=== PATIENT | female | born 1940 | race Caucasian/White ===

== ENCOUNTER → 2017-06-04 | Outpatient (CLI) | payer MEDICARE ==
[~2017-06-04] MED LIST: ACHYD1T PO; ATEN-155 PO; GLUC500C2 PO; HYDR-3583 PO; NITR100C3 PO; TRHC5025 PO; TRIA1CAP4 PO
--- NOTE | 2017-06-04 18:47 | Diagnostic Imaging Report ---
INDICATION: Routine screening. Comparison is made with prior study from 08/23/2014. The current study was also evaluated with a Computer Aided Detection (CAD) system. FINDINGS: Mild density is noted bilaterally. There are scattered benign-appearing parenchymal and vascular calcifications bilaterally. No dominant mass or malignant-appearing microcalcifications are seen. The axillae are unremarkable. IMPRESSION: No mammographic features suspicious for malignancy are identified. ACR BI-RADS Category 2: Benign findings. Result letter will be mailed to the patient. Note: At least 10% of breast cancer is not imaged by mammography. Dictated by: Dictated on workstation # [id number]
== END ==
LOC: RAD 09:03
PROVIDERS: ATTEND Family Medicine
DX: Z12.31 Encounter for screening mammogram for malignant neoplasm of breast (principal)
CPT/HCPCS: 77067

== ENCOUNTER 2019-01-19 06:45 | Outpatient (CLI) | payer MEDICARE ==
[~2019-01-19] VITALS: Ht 165.1 cm; Wt 104.4 kg
[2019-01-19] MEDS ORDERED: MELO7.5T46 PO (15:20)
[2019-01-19] MEDS ORDERED: TRIA1CAP4 PO (15:20)
[2019-01-19] MEDS ORDERED: ATEN50TA PO (15:20)
== END 2019-01-19 15:23 | disposition home or self-care (01) ==
LOC: PREOP 06:45
PROVIDERS: ATTEND Specialist
DX: Z01.818 Encounter for other preprocedural examination (principal)

== ENCOUNTER 2019-01-21 10:13 | Day surgery (SDC) | payer MEDICARE, OTHER ==
[~2019-01-21] VITALS: Ht 139.7 cm; Wt 104.4 kg
[~2019-01-21 10:13] MED LIST changes: +ATEN50TA PO; +MELO7.5T46 PO
[2019-01-21] MEDS ORDERED: MOXIFLOXACIN OPHTH SOLN 5 MG/ML 0.3 ML SYRINGE OP ONE (10:30)
[2019-01-21] MEDS ORDERED: TIMOLOL MALEATE 0.5% 5 ML (TIMOPTIC) BTL OU PRN (10:30)
[2019-01-21] MEDS ORDERED: LIDOCAINE PF 1% 2 ML AMP IR PRN (10:30)
[2019-01-21] MEDS ORDERED: POVIDONE (BETADINE) OPHTH SOLN 5% 30 ML OP ONE (10:30)
[2019-01-21] MEDS: TETRACAINE 0.5% OPHTH SOLN 4 ML BTL (SINGLE DOSE ONLY) OU PRN ×4 (10:31→10:52)
[2019-01-21 10:40] VITALS: BP 155/80
[2019-01-21] MEDS: CYCLOPENTOLATE 1% (CYCLOGYL) 2 ML DROPS OP SCH ×3 (10:41→10:52)
[2019-01-21] MEDS: PHENYLEPHRINE 10% OPHTH (NEO-SYN) 5 ML BTL OU SCH ×3 (10:42→10:52)
[2019-01-21] MEDS ORDERED: MIDAZOLAM 2 MG/2 ML (VERSED) VIAL ONE (11:04)
[2019-01-21 11:40] VITALS: BP 113/76
--- NOTE | 2019-01-21 11:40 | Ophthalmologist Pre-Op Note ---
Pre-Operative Progress Note H&P Reviewed The H&P was reviewed, patient examined and no changes noted. Date H&P Reviewed: Jan 21, 2019 Time H&P Reviewed: 11:09 Pre-Op Dx Cataract, Right Eye UMBERTO SCHAFFER MD Jan 21, 2019 11:40
--- NOTE | 2019-01-21 11:42 | Ophthalmology Operative Report ---
Cataract removal/placement IOL PREOPERATIVE DIAGNOSIS: Cataract Right Eye POSTOPERATIVE DIAGNOSIS: Cataract Right Eye PROCEDURE: Cataract removal and placement of posterior chamber implant, right eye SURGEON: Richie Schaffer ANESTHESIA: Topical with sedation COMPLICATIONS: None ESTIMATED BLOOD LOSS: Minimal DESCRIPTION OF PROCEDURE: After proper informed consent was obtained, the patient, a 78 female, was taken to the Operating Room and the right eye was anesthetized with tetracaine. The right eye was then prepped and draped in the usual manner. A wire lid speculum was placed. A paracentesis was made at the left hand position. Preservative free lidocaine was injected into the anterior chamber followed by viscoelastic. A clear corneal incision was made in the temporal position. A capsulorrhexis was preformed and the central nuclear and cortical material were removed. The posterior capsule was polished and Shawn [id number] 21.0 IOL was placed into the capsular bag. The residual viscoelastic was aspirated and balanced saline solution was injected into the anterior chamber. Moxifloxacin was injected into the anterior chamber. The wound was checked and found to be water tight. The patient tolerated the procedure well without complications. RICHIE SCHAFFER MD Jan 21, 2019 11:42
[2019-01-21] MEDS ORDERED: acetaZOLAMIDE ER 500 MG CAP (DIAMOX SEQUELS) PO ONE (12:30)
== END 2019-01-21 11:40 | disposition home or self-care (01) ==
LOC: SDC 10:13
PROVIDERS: ATTEND Specialist
DX: H25.11 Age-related nuclear cataract, right eye (principal); I10 Essential (primary) hypertension; M19.90 Unspecified osteoarthritis, unspecified site; C44.90 Unspecified malignant neoplasm of skin, unspecified; E66.01 Morbid (severe) obesity due to excess calories; Z68.43 Body mass index [BMI] 50.0-59.9, adult; Z85.828 Personal history of other malignant neoplasm of skin; Z96.659 Presence of unspecified artificial knee joint; Z85.3 Personal history of malignant neoplasm of breast; Z90.710 Acquired absence of both cervix and uterus; Z83.3 Family history of diabetes mellitus

== ENCOUNTER 2019-07-21 14:12 | Observation (INO) | payer MEDICARE ==
[~2019-07-21] VITALS: Ht 165 cm; Wt 108.9 kg
[2019-07-21] MEDS ORDERED: PHENYLEPHRINE 0.25% NASAL SPR (NEO-SYNEPHRINE) 15 ML NS ONE (14:25)
--- NOTE | 2019-07-21 15:12 | ED EENT ---
History of Present Illness General Chief Complaint: Nasal Problems Stated Complaint: NOSE BLEED Nursing Triage Note: PPATIENT HERE FOR NOSE BLEED THAT STARTED THIS MORNING. HISTORY OF NASAL PROBLEMS AND PREVIOUS CAUTERIZATION BY DR QUINTEROS. Source: patient Exam Limitations: no limitations History of Present Illness Date Seen by Provider: Jul 21, 2019 Time Seen by Provider: 14:31 Initial Comments Here with report of nosebleed that has been intermittent today. Started early this morning and stopped on its own. Started again this afternoon and approximately 30 minutes prior to arrival and has persisted since. She has had problems with the right nare previously and required cauterization. She was told by Dr. Quinteros that she has a very thin vessel in the back. Clamping does not seem to be effective. Denies recent injury or illness. Does note that she was at home without humidified air last night and that might have precipitated this. Timing/Duration: this morning Severity: moderate Location: nose Prearrival Treatment: squeezing nostrils Modifying Factors: Improves With Rest Associated Symptoms: No cough, No fever, No nasal congestion/drainage, No sinus infection Allergies and Home Medications Allergies Coded Allergies: No Known Drug Allergies (Unverified , 08/30/10) Home Medications Atenolol 50 Mg Tablet, 50 MG PO DAILY, (Reported) Meloxicam 7.5 Mg Tablet, 7.5 MG PO DAILY, (Reported) Triamterene/Hydrochlorothiazid 1 Each Capsule, 1 EACH PO DAILY, (Reported) Patient Home Medication List Home Medication List Reviewed: Yes Review of Systems Review of Systems Constitutional: see HPI; No chills, No fever Ears: No Symptoms Reported Nose: see HPI, epistaxis; denies pain Mouth: no symptoms reported Throat: no symptoms reported Respiratory: no symptoms reported Cardiovascular: no symptoms reported Gastrointestinal: no symptoms reported Past Cbxaukh-Rldgaj-Arebyb Hx Past Med/Social Hx: Reviewed Nursing Past Med/Soc Hx Patient Social History Alcohol Use: Denies Use Recreational Drug Use: No Smoking Status: Never a Smoker 2nd Hand Smoke Exposure: No Recent Foreign Travel: No Contact w/Someone Who Travel: No Recent Infectious Disease Expo: No Recent Hopitalizations: No Physical Abuse: No Sexual Abuse: No Immunizations Up To Date Date of Pneumonia Vaccine: Mar 11, 2012 Date of Influenza Vaccine: Mar 11, 2013 Seasonal Allergies Seasonal Allergies: No Past Medical History Surgeries: Yes Eye Surgery, Hysterectomy, Orthopedic Respiratory: No Cardiac: Yes Hypertension Neurological: Yes (TREMORS) Reproductive Disorders: No Sexually Transmitted Disease: No Genitourinary: No Gastrointestinal: No Musculoskeletal: Yes (ARTHRITIS) Endocrine: No Integumentary: No Blood Disorders: No Family Medical History Reviewed Nursing Family Hx Physical Exam Vital Signs Vital Signs - First Documented 07/21/19 07/21/19 14:20 17:29 Pulse 89 Resp 20 B/P (MAP) 188/110 (136) Pulse Ox 95 O2 Delivery Room Air Height, Weight, BMI Height: '" Weight: 245lbs. oz. 111.541710xp; 40.00 BMI Method: General Appearance: WD/WN, no apparent distress Nose: active bleeding (right side and appears to be posterior.); No foreign body Mouth/Throat: No pharynx swelling; other (blood drain down the back of throat) Neck: full range of motion, supple Cardiovascular: regular rate, rhythm, no murmur Respiratory: lungs clear, normal breath sounds Neurologic/Psychiatric: alert, oriented x 3 Skin: normal color, warm/dry Progress/Results/Core Measures Results/Orders Lab Results Laboratory Tests Test 07/21/19 15:05 Range/Units White Blood Count 8.9 4.3-11.0 10^3/uL Red Blood Count 5.62 4.35-5.85 10^6/uL Hemoglobin 16.2 H 11.5-16.0 G/DL Hematocrit 48 35-52 % Mean Corpuscular Volume 85 80-99 FL Mean Corpuscular Hemoglobin 29 25-34 PG Mean Corpuscular Hemoglobin Concent 34 32-36 G/DL Red Cell Distribution Width 13.8 10.0-14.5 % Platelet Count 51 L 130-400 10^3/uL Mean Platelet Volume 7.4-10.4 FL Neutrophils (%) (Auto) 48 42-75 % Lymphocytes (%) (Auto) 39 12-44 % Monocytes (%) (Auto) 10 0-12 % Eosinophils (%) (Auto) 3 0-10 % Basophils (%) (Auto) 0 0-10 % Neutrophils # (Auto) 4.3 1.8-7.8 X 10^3 Lymphocytes # (Auto) 3.4 1.0-4.0 X 10^3 Monocytes # (Auto) 0.9 0.0-1.0 X 10^3 Eosinophils # (Auto) 0.3 0.0-0.3 10^3/uL Basophils # (Auto) 0.0 0.0-0.1 10^3/uL Prothrombin Time 13.6 12.2-14.7 SEC INR Comment 1.0 0.8-1.4 Activated Partial Thromboplast Time 29 24-35 SEC Sodium Level 140 135-145 MMOL/L Potassium Level 3.4 L 3.6-5.0 MMOL/L Chloride Level 104 98-107 MMOL/L Carbon Dioxide Level 27 21-32 MMOL/L Anion Gap 9 5-14 MMOL/L Blood Urea Nitrogen 21 H 7-18 MG/DL Creatinine 0.89 0.60-1.30 MG/DL Estimat Glomerular Filtration Rate > 60 BUN/Creatinine Ratio 24 Glucose Level 142 H 70-105 MG/DL Calcium Level 9.6 8.5-10.1 MG/DL Corrected Calcium 9.7 8.5-10.1 MG/DL Magnesium Level 1.5 L 1.6-2.4 MG/DL Total Bilirubin 0.7 0.1-1.0 MG/DL Aspartate Amino Transf (AST/SGOT) 17 5-34 U/L Alanine Aminotransferase (ALT/SGPT) 13 0-55 U/L Alkaline Phosphatase 69 40-136 U/L Myoglobin 47.7 10.0-92.0 NG/ML Troponin I < 0.028 <0.028 NG/ML Total Protein 7.4 6.4-8.2 GM/DL Albumin 3.9 3.2-4.5 GM/DL My Orders Orders - BENY SCHUMACHER MD Phenylephrine 0.25% Nasal Spra (Fady-Syne (07/21/19 14:25) Ed Iv/Invasive Line Start (07/21/19 15:12) Cbc With Automated Diff (07/21/19 15:12) Comprehensive Metabolic Panel (07/21/19 15:12) Nitroglycerin 0.4 Mg Btl 25's (Nitrostat (07/21/19 15:15) Magnesium (07/21/19 15:21) Chest 1 View, Ap/Pa Only (07/21/19 15:21) Ekg Tracing (07/21/19 15:21) Myoglobin Serum (07/21/19 15:21) Protime With Inr (07/21/19 15:21) Partial Thromboplastin Time (07/21/19 15:21) O2 (07/21/19 15:21) Monitor-Rhythm Ecg Trace Only (07/21/19 15:21) Lipid Panel (07/22/19 06:00) Ed Iv/Invasive Line Start (07/21/19 15:21) Troponin I (07/21/19 15:21) Nitroglycerin 0.4 Mg Btl 25's (Nitrostat (07/21/19 15:30) Lactated Ringers (Lr 1000 Ml Iv Solution (07/21/19 15:31) Lactated Ringers (Lr 1000 Ml Iv Solution (07/21/19 15:27) Medications Given in ED Current Medications Medications Dose Ordered Sig/Roshan Route Start Time Stop Time Status Last Admin Dose Admin Lactated Ringer's 1,000 ml @ 0 mls/hr Q0M ONCE IV 07/21/19 15:31 07/21/19 15:32 DC 07/21/19 15:36 0 MLS/HR Nitroglycerin 0.4 mg UD PRN SL 07/21/19 15:30 07/21/19 15:17 0.4 MG Phenylephrine HCl 15 ml STK-MED ONCE NS 07/21/19 14:25 07/21/19 14:32 DC 07/21/19 14:25 15 ML Vital Signs/I&O 07/21/19 07/21/19 14:20 17:29 Pulse 89 66 Resp 20 16 B/P (MAP) 188/110 (136) 155/75 Pulse Ox 95 98 O2 Delivery Room Air Blood Pressure Mean: 136 Progress Progress Note : Progress Note Seen and evaluated. We initially tried nasal clamp and that was obviously ineffective and had bleeding posterior afterwards. Rapid rhino nasal packing 7.5 cm placed with what appear to be good control of bleeding after 3 sprays of Fady- Synephrine bilateral. Monitor patient. 1500: Patient had bleeding around nasal packing. Had report of sweating, feeling weak and going to vomit as an vagal response after adjustment of the packing pressure. The packing is moved out of the little bit and we did replace that with excellent effect. We did initiate IV and I will check basic labs given the amount of bleeding and the current symptoms. We will continue to monitor for appropriate hemostasis. 1518: Notified the patient is not having left arm pain. We will go ahead and add troponin and EKG as well as the rest of the cardiac workup to her current workup. Monitor patient. 1530: Patient had another episode that appears to be a vagal response with monitor showing heart rate of 23 and patient becoming near unresponsive. Balloon was rapidly deflated and patient's heart rate increased to 55-65 and symptoms resolved. She will get some IV fluid. She had nitroglycerin for the left arm pain and was hypertensive in which she is no longer. We'll monitor the patient. We did hold ASA as patient has had active bleeding. I do believe the chest pain is related to vasovagal episode. 1640: I did discuss the case with Dr. Quinteros. He will see the patient in consult. 1650: I did discuss the case with Dr. Rouse, patient's primary and he will accept the patient for admission, observation status or the chest pain and epistaxis. We will repeat troponin in 6 hours and EKG in the morning. Patient will be on clear liquids until midnight and then nothing by mouth after midnight for possible surgery in the morning. Dr. Quinteros will see the patient overnight if she has rebleeding episode. Admit observation status. Patient and family agree with plan. Initial ECG Impression Date: Jul 21, 2019 Initial ECG Impression Time: 15:17 Initial ECG Rate: 66 Comment Sinus rhythm with first-degree AV block. Leftward axis. No evidence of ST elevation LA. Similar to previous of 05/03/13. Interpreted by me. Departure Communication (Admissions) Time/Spoke to Admitting Phy: 16:48 Time/Spoke to Consulting Phy: 16:40 Impression Primary Impression: Epistaxis Additional Impressions: Chest pain Qualified Codes: R07.9 - Chest pain, unspecified Vasovagal response Disposition: ADMITTED INPATIENT Condition: Stable Admissions Decision to Admit Reason: Admit from ER (General) Decision to Admit/Date: Jul 21, 2019 Time/Decision to Admit Time: 16:40 Departure-Patient Inst. Referrals: VICENTE CADENA MD (PCP) Primary Care Physician BENY SCHUMACHER MD Jul 21, 2019 15:12
[2019-07-21] MEDS ORDERED: NITROGLYCERIN 0.4 MG SL TABS BTL 25'S SL ONE (15:15)
[2019-07-21 15:19] LABS: BASOPHILS % (AUTO) 0 % (0-10); EOSINOPHILS # (AUTO) 0.3 10^3/uL (0.0-0.3); EOSINOPHILS % (AUTO) 3 % (0-10); HEMATOCRIT 48 % (35-52); HEMOGLOBIN 16.2 G/DL (11.5-16.0); LYMPHOCYTES # (AUTO) 3.4 X 10^3 (1.0-4.0); LYMPHOCYTES % (AUTO) 39 % (12-44); MEAN CORPUSCULAR HEMOGLOBIN 29 PG (25-34); MEAN CORPUSCULAR HGB CONC 34 G/DL (32-36); MEAN CORPUSCULAR VOLUME 85 FL (80-99); MONOCYTES # (AUTO) 0.9 X 10^3 (0.0-1.0); MONOCYTES % (AUTO) 10 % (0-12); NEUTROPHILS # (AUTO) 4.3 X 10^3 (1.8-7.8); NEUTROPHILS % (AUTO) 48 % (42-75); PLATELET COUNT 51 10^3/uL (130-400); RED CELL DISTRIBUTION WIDTH 13.8 % (10.0-14.5); WHITE BLOOD COUNT 8.9 10^3/uL (4.3-11.0)
[2019-07-21] MEDS ORDERED: LACTATED RINGERS 1,000 ML IV ONE ×2 (15:27→15:31)
[2019-07-21] MEDS ORDERED: NITROGLYCERIN 0.4 MG SL TABS BTL 25'S SL PRN (15:30)
[2019-07-21 15:36] LABS: ALANINE AMINOTRANSFERASE 13 U/L (0-55); ALBUMIN 3.9 GM/DL (3.2-4.5); ALKALINE PHOSPHATASE 69 U/L (40-136); BILIRUBIN,TOTAL 0.7 MG/DL (0.1-1.0); BUN/CREATININE RATIO 24; CALCIUM 9.6 MG/DL (8.5-10.1); CARBON DIOXIDE 27 MMOL/L (21-32); CHLORIDE 104 MMOL/L (98-107); CREATININE SERUM 0.89 MG/DL (0.60-1.30); GFR ESTIMATED > 60; GLUCOSE 142 MG/DL (70-105); POTASSIUM 3.4 MMOL/L (3.6-5.0); SODIUM 140 MMOL/L (135-145); TOTAL PROTEIN 7.4 GM/DL (6.4-8.2)
--- NOTE | 2019-07-21 15:47 | Diagnostic Imaging Report ---
INDICATION: Chest pain, epistaxis. Frontal chest obtained at 0335 p.m. Heart and mediastinal silhouette are normal in appearance. The lungs are clear. There is no pneumothorax or pleural fluid. IMPRESSION: Negative chest. Dictated by: Dictated on workstation # [id number]
[2019-07-21 16:24] LABS: PROTHROMBIN TIME PATIENT 13.6 SEC (12.2-14.7)
[2019-07-21 16:25] LABS: MAGNESIUM 1.5 MG/DL (1.6-2.4)
--- NOTE | 2019-07-21 18:25 | History & Physicial ---
History of Present Illness History of Present Illness Reason for visit/HPI 79-year-old female presents to [facility] emergency department during the afternoon of July 21, 2019 with nosebleed. Apparently she has had issues with this in the past. She apparently had nosebleed this morning that stopped on its own. This afternoon and bleeding for about 30 minutes prior to arrival was again noted. She typically sleeps with a humidifier. She has been without humidifier the last night and this may have helped precipitate the problem. Date of Admission Jul 21, 2019 at 16:50 Date Seen by a Provider: Jul 21, 2019 Time Seen by a Provider: 18:45 I consulted on this patient on 07/21/19 18:21 Attending Physician Austen Fu MD Admitting Physician Marquis Gilbert MD Consult Allergies and Home Medications Allergies Coded Allergies: No Known Drug Allergies (Unverified , 08/30/10) Home Medications Atenolol 50 Mg Tablet, 50 MG PO DAILY, (Reported) Meloxicam 7.5 Mg Tablet, 7.5 MG PO DAILY, (Reported) Triamterene/Hydrochlorothiazid 1 Each Capsule, 1 EACH PO DAILY, (Reported) Patient Home Medication List Home Medication List Reviewed: Yes Past Fpxvamt-Egwcia-Vakxge Hx Patient Social History Marrital Status: Alcohol Use: Denies Use Recreational Drug Use: No Smoking Status: Never a Smoker 2nd Hand Smoke Exposure: No Recent Foreign Travel: No Contact w/other who traveled: No Recent Hopitalizations: No Recent Infectious Disease Expo: No Immunizations Up To Date Date of Pneumonia Vaccine: Mar 11, 2012 Date of Influenza Vaccine: Mar 11, 2013 Seasonal Allergies Seasonal Allergies: No Surgeries Yes Eye Surgery, Hysterectomy, Orthopedic Respiratory No Cardiovascular Yes Hypertension Neurological Yes (TREMORS) Reproductive System Hx Reproductive Disorders: No Sexually Transmitted Disease: No Genitourinary No Gastrointestinal No Musculoskeletal Yes (ARTHRITIS) Endocrine History of Endocrine Disorders: No Integumentary History of Skin or Integumenta: No Blood Transfusions History of Blood Disorders: No Review of Systems Constitutional: see HPI Physical Exam Vital Signs Vital Signs - First Documented 07/21/19 07/21/19 14:20 17:29 Pulse 89 Resp 20 B/P (MAP) 188/110 (136) Pulse Ox 95 O2 Delivery Room Air Capillary Refill : Less Than 3 Seconds Height, Weight, BMI Height: '" Weight: 245lbs. oz. 111.066643nb; 40.00 BMI Method: General Appearance: No Apparent Distress Assessment/Plan Assessment and Plan 1. Epistasis -currently bleeding is under control and the rapid Rhino nasal packing -consultation with Dr. Quinteros through emergency department physician 2. Bradycardia following procedure -Bradycardia resolved and most likely brought on by the vagal response 3. Chest pain following nasal procedure -She will have EKG and troponin level rechecked 4. Vagal response most likely accounting for the chest pain Admission Diagnosis 1. Epistasis 2. Bradycardia following procedure 3. Chest pain following nasal procedure 4. Vagal response most likely accounting for the chest pain Admission Status: Observation AUSTEN FU MD Jul 21, 2019 18:25
[2019-07-21 18:32] VITALS: BP 123/60
--- NOTE | 2019-07-21 18:32 | NUR ---
NARA JOHNSON admitted to room 425-1, with an admitting diagnosis of epitaxis, on 07/21/19 from ED via wheel chair , accompanied by staff .NARA JOHNSON introduced to surroundings, call light, bed controls, phone, TV, temperature control, lights, meal times, smoking policy, visitor policy, side rail policy, bathrooms and showers. Patient Rights given to patient in the handbook. NARA JOHNSON verbalizes understanding that [facility] is not responsible for the loss or damage to any personal effects or valuables that are kept in the patients posession during their hospitalization. The following Patient Care Plans and discharge were discussed with the patient. NARA JOHNSON verbalizes understanding of Interdisciplinary Patient Education. Patient was informed about the Rapid Response Team and its purpose.
--- NOTE | 2019-07-21 18:33 | NUR ---
Dr. Rouse here to see patient
[2019-07-21] MEDS ORDERED: ONDANSETRON 4 MG/2 ML (SDV) Z0FRAN IV PRN (19:00)
[2019-07-21 20:00] VITALS: BP 129/60
[2019-07-21] MEDS: LACTATED RINGERS 1,000 ML IV SCH (20:41)
[2019-07-22] VITALS (12 sets, daily range): BP systolic 101–148; BP diastolic 56–95
[2019-07-22 05:10] LABS: BASOPHILS % (AUTO) 0 % (0-10); EOSINOPHILS # (AUTO) 0.1 10^3/uL (0.0-0.3); EOSINOPHILS % (AUTO) 1 % (0-10); HEMATOCRIT 46 % (35-52); HEMOGLOBIN 15.1 G/DL (11.5-16.0); LYMPHOCYTES # (AUTO) 3.1 X 10^3 (1.0-4.0); LYMPHOCYTES % (AUTO) 32 % (12-44); MEAN CORPUSCULAR HEMOGLOBIN 28 PG (25-34); MEAN CORPUSCULAR HGB CONC 33 G/DL (32-36); MEAN CORPUSCULAR VOLUME 86 FL (80-99); MEAN PLATELET VOLUME 14.3 FL (7.4-10.4); MONOCYTES # (AUTO) 0.9 X 10^3 (0.0-1.0); MONOCYTES % (AUTO) 9 % (0-12); NEUTROPHILS # (AUTO) 5.5 X 10^3 (1.8-7.8); NEUTROPHILS % (AUTO) 57 % (42-75); PLATELET COUNT 45 10^3/uL (130-400); RED CELL DISTRIBUTION WIDTH 13.7 % (10.0-14.5); WHITE BLOOD COUNT 9.6 10^3/uL (4.3-11.0)
[2019-07-22 05:35] LABS: ALANINE AMINOTRANSFERASE 14 U/L (0-55); ALBUMIN 3.7 GM/DL (3.2-4.5); ALKALINE PHOSPHATASE 64 U/L (40-136); BILIRUBIN,TOTAL 0.8 MG/DL (0.1-1.0); BUN/CREATININE RATIO 23; CALCIUM 9.4 MG/DL (8.5-10.1); CARBON DIOXIDE 26 MMOL/L (21-32); CHLORIDE 104 MMOL/L (98-107); CHOLESTEROL 186 MG/DL (< 200); CREATININE SERUM 0.73 MG/DL (0.60-1.30); GFR ESTIMATED > 60; GLUCOSE 109 MG/DL (70-105); HDL CHOLESTEROL 42 MG/DL (40-60); POTASSIUM 3.7 MMOL/L (3.6-5.0); SODIUM 140 MMOL/L (135-145); TOTAL PROTEIN 6.8 GM/DL (6.4-8.2); TRIGLYCERIDES 132 MG/DL (<150); VLDL CHOLESTEROL 26 MG/DL (5-40)
--- NOTE | 2019-07-22 07:07 | Progress Note ---
Standard Progress Note Progress Notes/Assess & Plan Date Seen by a Provider: Jul 22, 2019 Time Seen by a Provider: 06:00 Progress/Assessment & Plan ENT-Aldair Patient seen and evaluated right posterior Epistaxis no bleeding since admisssion opitons given to patient include removing packing and see if she bleeds, send home with packing in place on antibiotics, or surgery to try and find source and cauterizei it keep npo until shemakes a decision will check back in later this am to see what she decides to do Final Diagnosis Right Posterior Epistaxsis KWAN JOSEPH MD Jul 22, 2019 07:07
[2019-07-22] MEDS ORDERED: SODI30SP2 NSEACH (08:30)
[2019-07-22] MEDS ORDERED: TURM538C PO (08:30)
[2019-07-22] MEDS ORDERED: SODI0.5GEL (08:30)
--- NOTE | 2019-07-22 09:11 | Progress Note ---
Standard Progress Note Progress Notes/Assess & Plan Date Seen by a Provider: Jul 22, 2019 Time Seen by a Provider: 09:00 Progress/Assessment & Plan ENT-Aldair Patient seen and evaluated right posterior Epistaxis no bleeding since admisssion opitons given to patient include removing packing and see if she bleeds, send home with packing in place on antibiotics, or surgery to try and find source and cauterizei it keep npo until shemakes a decision will check back in later this am to see what she decides to do [id number] pamela has decided to proceed with surgery-surgery scheudled at the end of list today needs consent for Endoscopic Repair of Right Posterior Epistaxis anes alerted will proceed to OR when room available KWAN JOSEPH MD Jul 22, 2019 09:11
[2019-07-22] MEDS ORDERED: LACTATED RINGERS 1,000 ML IV PRN (09:15)
[2019-07-22] MEDS ORDERED: MUPIROCIN 2% OINT 22 GM (BACTROBAN) TUBE ONE (09:53)
[2019-07-22] MEDS ORDERED: PHENYLEPHRINE 0.5% NASAL SPR (NEO-SYNEPHRINE) REG ONE (09:53)
[2019-07-22] MEDS ORDERED: LIDOCAINE/EPI 1%-1:100,000 (XYLOCAINE) 20ML ONE (09:54)
--- NOTE | 2019-07-22 10:10 | NUR ---
TO SURGERY PER BED
--- NOTE | 2019-07-22 10:34 | NUR ---
SPOKE WITH THE PT AND WENT THRU THE EXT MED HISTORY TO COMPLETE THE MED REC ALL MEDS SHOWED ON THE EXT MED HISTORY AND THERE WAS NO DISCREPANCIES BETWEEN HOW SHE TAKES THEM AND THE DIRECTIONS. OTC MEDS: TURMERIC SALINE NASAL SPRAY AYR GEL
--- NOTE | 2019-07-22 10:43 | Progress Note-Pre Operative ---
Pre-Operative Progress Note H&P Reviewed The H&P was reviewed, patient examined and no changes noted. Date Seen by Provider: Jul 22, 2019 Time Seen by Provider: 10: Date H&P Reviewed: Jul 22, 2019 Time H&P Reviewed: 10:30 Pre-Operative Diagnosis: Right Posterior Epistaxis KWAN JOSEPH MD Jul 22, 2019 10:43
[2019-07-22] MEDS ORDERED: SUCCINYLCHOLINE INJ 100 MG/5 ML SYR ONE (10:54)
[2019-07-22] MEDS ORDERED: SEVOFLURANE (ULTANE) 15 ML INHAL SOLN ONE ×2 (10:54→12:10)
[2019-07-22] MEDS ORDERED: fentaNYL INJECTION 100 MCG/2 ML AMP ONE (10:54)
[2019-07-22] MEDS ORDERED: proPOfol 200 MG/20 ML (DIPRIVAN) VIAL IV ONE (10:54)
[2019-07-22] MEDS ORDERED: ONDANSETRON 4 MG/2 ML (SDV) Z0FRAN ONE ×2 (10:54→10:59)
[2019-07-22] MEDS ORDERED: LIDOCAINE PF 2% 5 ML (XYLOCAINE) VIAL ONE (10:59)
[2019-07-22] MEDS: COCAINE HCL 4% 2 ML SYR ONE ×2 (11:49→12:10)
--- NOTE | 2019-07-22 12:13 | Progress Note-Post Operative ---
Post-Operative Progess Note Surgeon (s)/Patient Accounts Clerk (s) Surgeon KWAN JOSEPH MD Patient Accounts Clerk n/a Pre-Operative Diagnosis Right Posterior Epistaxis Post-Operative Diagnosis same Post-Op Procedure Note Date of Procedure: Jul 22, 2019 Name of Procedure Performed: Endoscopic Right Posterior Epistaxis Description & Findings Description and Findings: n/a Anesthesia Type get Estimated Blood Loss minimal Packing surgicel soaked with bactroban ointment Specimen(s) collected/removed none KWAN JOSEPH MD Jul 22, 2019 12:12
[2019-07-22] MEDS ORDERED: PHENYLEPHRINE 0.5% NASAL SPR (NEO-SYNEPHRINE) REG PRN (12:15)
--- NOTE | 2019-07-22 12:28 | Anesthesia-General Post-Op ---
General Patient Condition Mental Status/LOC: Same as Preop Cardiovascular: Satisfactory Nausea/Vomiting: Absent Respiratory: Satisfactory Pain: Controlled Complications: Absent Post Op Complications Complications None Follow Up Care/Instructions Patient Instructions None needed. Anesthesia/Patient Condition Patient Condition Patient is doing well, no complaints, stable vital signs, no apparent adverse anesthesia problems. No complications reported per nursing. BROOKLYN OROZCO CRNA Jul 22, 2019 12:28
[2019-07-22] MEDS ORDERED: morphine INJ 10 MG/ML 1ML (SYR OR VIAL) IVP ONE (12:30)
[2019-07-22] MEDS ORDERED: MEPERIDINE (DEMEROL) INJ 50 MG/ML IVP ONE (12:30)
[2019-07-22] MEDS ORDERED: ONDANSETRON 4 MG/2 ML (SDV) Z0FRAN IVP PRN (12:30)
[2019-07-22] MEDS ORDERED: ACETAMINOPHEN 325 MG TABLET PO PRN (13:15)
--- NOTE | 2019-07-22 13:20 | NUR ---
RETURNED FROM [facility] PER BED. ALERT AND COOPERATIVE. SLIGHT BLEEDING NOTED FROM RIGHT NOSTRIL. 40 % HUMIDIFIED AIR ON PER FACE MASK. IV FLUIDS CONT PER LEFT AC. IV SITE CLEAR. FAMILY MEMBERS AT BEDSIDE.
[2019-07-22] MEDS: HYDROcodone/APAP 5 MG/325 MG (LORTAB) TAB PO PRN ×2 (13:53→21:39)
[2019-07-22] MEDS: D5 1/2 NS W/KCL 20 MEQ/L 1,000 ML IV SCH (14:13)
[2019-07-22] MEDS: ceFAZolin INJECTION 1,000 MG in WATER (STERILE) FOR INJECTION 10 ML IV SCH ×2 (14:21→21:38)
[2019-07-22] MEDS: LACTATED RINGERS 1,000 ML IV SCH (18:45)
[2019-07-23 00:06] VITALS: BP 126/70
[2019-07-23] MEDS: D5 1/2 NS W/KCL 20 MEQ/L 1,000 ML IV SCH (02:39)
[2019-07-23 04:28] VITALS: BP 143/79
--- NOTE | 2019-07-23 06:23 | Progress Note ---
Standard Progress Note Progress Notes/Assess & Plan Date Seen by a Provider: Jul 23, 2019 Time Seen by a Provider: 06:15 Progress/Assessment & Plan ENT-Aldair Patient seen and evaluated right posterior Epistaxis no bleeding since admisssion opitons given to patient include removing packing and see if she bleeds, send home with packing in place on antibiotics, or surgery to try and find source and cauterizei it keep npo until shemakes a decision will check back in later this am to see what she decides to do [id number] patietn has decided to proceed with surgery-surgery scheudled at the end of list today needs consent for Endoscopic Repair of Right Posterior Epistaxis anes alerted will proceed to OR when room available ENTLeydi-07/22 doign well post-op mild oozing-from low platelet count-no marked bleeding OP-dry fine with me for her to go home arranging for heme consult as outpatiethn to work up the low platelet count discharge prescriptions in chart RTC-ENT-2 weeks keep nose moist iwth saline spary and ayr nasal saline gel-already discussed wi th patient. Final Diagnosis Right Posterior Epistaxis KWAN JOSEPH MD Jul 23, 2019 06:23
[2019-07-23] MEDS: ceFAZolin INJECTION 1,000 MG in WATER (STERILE) FOR INJECTION 10 ML IV SCH ×2 (06:30→14:06)
[2019-07-23 07:24] VITALS: BP 184/81
[2019-07-23] MEDS: HYDROcodone/APAP 5 MG/325 MG (LORTAB) TAB PO PRN (09:39)
[2019-07-23] MEDS: LACTATED RINGERS 1,000 ML IV SCH (11:45)
[2019-07-23 12:39] VITALS: BP 174/79
--- NOTE | 2019-07-23 14:30 | NUR ---
NARA JOHNSON demonstrates understanding of discharge instructions and accurately returns instructions upon questioning. Copy of Post-Discharge Instructions and Medication Discharge Instructions given to patient and family. NARA JOHNSON is able to manage continuing needs after discharge. Patients belongings returned to patient. Skin dry and intact; no breakdown noted. Patient discharged from 425-1 on at 1430 . NARA JOHNSON left floor via wheelchair, accompanied by staff.
[2019-07-23 15:09] VITALS: BP 174/76
--- NOTE | 2019-07-23 15:10 | Progress Note ---
Progress Note patient is seen and discharged in stable condition. It is discussed with her that she does have a low platelet count that has not been explained and that she needs to have follow-up and address this with Dr. Rouse. She understands and acknowledges this ARLYN THAKKAR MD Jul 23, 2019 15:10
== END 2019-07-23 14:30 | disposition home or self-care (01) ==
LOC: EDUNIT# 14:12 → ER 14:13 → 4TH 16:50
PROVIDERS: ADMIT Family Medicine; ATTEND Family Medicine
DX: R04.0 Epistaxis (principal); R07.9 Chest pain, unspecified; R55 Syncope and collapse; R00.1 Bradycardia, unspecified; I10 Essential (primary) hypertension; G62.9 Polyneuropathy, unspecified; E66.9 Obesity, unspecified; M19.90 Unspecified osteoarthritis, unspecified site; Z68.41 Body mass index [BMI] 40.0-44.9, adult; Z90.710 Acquired absence of both cervix and uterus; Z90.49 Acquired absence of other specified parts of digestive tract; Z79.899 Other long term (current) drug therapy
CPT/HCPCS: 36415; 71045; 80053; 80061; 83735; 83874; 84484; 85025; 85610; 85730; 87081; 93005; 93041; 94760; G0378

== ENCOUNTER 2019-07-27 13:31 | Outpatient (RCR) | payer MEDICARE ==
[~2019-07-27 13:31] MED LIST changes: +SODI0.5GEL; +SODI30SP2 NSEACH; +TURM538C PO
[2019-07-27 14:12] LABS: BASOPHILS % (AUTO) 0 % (0-10); EOSINOPHILS # (AUTO) 0.4 10^3/uL (0.0-0.3); EOSINOPHILS % (AUTO) 4 % (0-10); HEMATOCRIT 48 % (35-52); HEMOGLOBIN 16.1 G/DL (11.5-16.0); LYMPHOCYTES # (AUTO) 2.6 X 10^3 (1.0-4.0); LYMPHOCYTES % (AUTO) 31 % (12-44); MEAN CORPUSCULAR HEMOGLOBIN 29 PG (25-34); MEAN CORPUSCULAR HGB CONC 33 G/DL (32-36); MEAN CORPUSCULAR VOLUME 86 FL (80-99); MEAN PLATELET VOLUME 13.9 FL (7.4-10.4); MONOCYTES # (AUTO) 0.8 X 10^3 (0.0-1.0); MONOCYTES % (AUTO) 9 % (0-12); NEUTROPHILS # (AUTO) 4.7 X 10^3 (1.8-7.8); NEUTROPHILS % (AUTO) 56 % (42-75); PLATELET COUNT 71 10^3/uL (130-400); RED CELL DISTRIBUTION WIDTH 13.5 % (10.0-14.5); WHITE BLOOD COUNT 8.4 10^3/uL (4.3-11.0)
[2019-07-27 14:29] LABS: BILIRUBIN,TOTAL 0.5 MG/DL (0.1-1.0); CALCIUM 10.4 MG/DL (8.5-10.1); CREATININE SERUM 0.93 MG/DL (0.60-1.30); TOTAL PROTEIN 8.1 GM/DL (6.4-8.2)
[2019-07-27 15:16] LABS: ABSOLUTE RETIC # 85 10e9/L (24-90)
[2019-07-27 15:57] LABS: BAND NEUTROPHILS 0 %; BASOPHILS % (MANUAL) 0 %; LYMPHOCYTES % (MANUAL) 35 %; RBC MORPH NORMAL
[2019-07-27 21:08] LABS: EOSINOPHILS % (MANUAL) 3 %; MONOCYTES % (MANUAL) 5 %; NEUTROPHILS % (MANUAL) 57 %
== END 2019-10-25 | disposition home or self-care (01) ==
LOC: ONC 13:31
PROVIDERS: ATTEND Internal Medicine Hematology & Oncology
DX: D69.6 Thrombocytopenia, unspecified (principal); I10 Essential (primary) hypertension; M19.90 Unspecified osteoarthritis, unspecified site
CPT/HCPCS: 80053; 82607; 82728; 82746; 83540; 83615; 85007; 85027; 85045; G0463; 99214

== ENCOUNTER → 2019-11-14 | Outpatient (CLI) | payer MEDICARE ==
[2019-11-14 14:01] LABS: BASOPHILS % (AUTO) 0 % (0-10); EOSINOPHILS # (AUTO) 0.2 10^3/uL (0.0-0.3); EOSINOPHILS % (AUTO) 3 % (0-10); HEMATOCRIT 48 % (35-52); HEMOGLOBIN 16.2 G/DL (11.5-16.0); LYMPHOCYTES # (AUTO) 2.9 X 10^3 (1.0-4.0); LYMPHOCYTES % (AUTO) 35 % (12-44); MEAN CORPUSCULAR HEMOGLOBIN 29 PG (25-34); MEAN CORPUSCULAR HGB CONC 34 G/DL (32-36); MEAN CORPUSCULAR VOLUME 85 FL (80-99); MONOCYTES # (AUTO) 0.7 X 10^3 (0.0-1.0); MONOCYTES % (AUTO) 9 % (0-12); NEUTROPHILS # (AUTO) 4.6 X 10^3 (1.8-7.8); NEUTROPHILS % (AUTO) 54 % (42-75); PLATELET COUNT 60 10^3/uL (130-400); RED CELL DISTRIBUTION WIDTH 14.2 % (10.0-14.5); WHITE BLOOD COUNT 8.5 10^3/uL (4.3-11.0)
== END ==
LOC: EDSTATUS 10-26 15:31 → ONC 12:56
PROVIDERS: ATTEND Internal Medicine Hematology & Oncology
DX: D69.6 Thrombocytopenia, unspecified (principal); I10 Essential (primary) hypertension; G25.0 Essential tremor; Z90.49 Acquired absence of other specified parts of digestive tract; Z90.710 Acquired absence of both cervix and uterus; Z98.890 Other specified postprocedural states
CPT/HCPCS: 82525; 85025; G0463; 99213

== ENCOUNTER → 2020-01-27 | Outpatient (CLI) | payer MEDICARE ==
[2020-01-27 13:57] LABS: BASOPHILS % (AUTO) 0 % (0-10); EOSINOPHILS # (AUTO) 0.2 10^3/uL (0.0-0.3); EOSINOPHILS % (AUTO) 3 % (0-10); HEMATOCRIT 48 % (35-52); HEMOGLOBIN 16.1 G/DL (11.5-16.0); LYMPHOCYTES % (AUTO) 38 % (12-44); MEAN CORPUSCULAR HEMOGLOBIN 28 PG (25-34); MEAN CORPUSCULAR HGB CONC 34 G/DL (32-36); MEAN CORPUSCULAR VOLUME 85 FL (80-99); MEAN PLATELET VOLUME 13.8 FL (7.4-10.4); MONOCYTES # (AUTO) 0.7 X 10^3 (0.0-1.0); MONOCYTES % (AUTO) 9 % (0-12); NEUTROPHILS # (AUTO) 3.9 X 10^3 (1.8-7.8); NEUTROPHILS % (AUTO) 50 % (42-75); PLATELET COUNT 62 10^3/uL (130-400); WHITE BLOOD COUNT 7.9 10^3/uL (4.3-11.0)
== END ==
LOC: ONC 13:28
PROVIDERS: ATTEND Internal Medicine Hematology & Oncology
DX: D69.49 Other primary thrombocytopenia (principal); E66.9 Obesity, unspecified; I10 Essential (primary) hypertension; M25.561 Pain in right knee
CPT/HCPCS: 85025; G0463; 99213

== ENCOUNTER → 2021-07-15 | Outpatient (CLI) | payer MEDICARE ==
--- NOTE | 2021-07-15 12:17 | Diagnostic Imaging Report ---
INDICATION: Routine screening. COMPARISON: 06/04/2017 and 08/23/2014. TECHNIQUE: 2D and 3D bilateral screening mammography was performed with CAD. FINDINGS: Both breasts are heterogeneously dense, limiting the sensitivity of mammography. Benign parenchymal and vascular calcifications are again noted bilaterally. No mass or malignant-appearing microcalcifications are seen. The axillae are unremarkable. IMPRESSION: No mammographic features suspicious for malignancy are identified. ACR BI-RADS Category 2: Benign findings. Result letter will be mailed to the patient. Note: At least 10% of breast cancer is not imaged by mammography. Dictated by: Dictated on workstation # [id number]
== END ==
LOC: RAD 11:06
PROVIDERS: ATTEND Family Medicine
DX: Z12.31 Encounter for screening mammogram for malignant neoplasm of breast (principal)
CPT/HCPCS: 77063; 77067

== ENCOUNTER 2022-11-10 09:51 | Emergency (ER) | payer MEDICARE, MEDICAID ==
[~2022-11-10] VITALS: Ht 162.2 cm; Wt 95.4 kg
[~2022-11-10 09:51] MED LIST changes: +TRIA1CAP84 PO
--- NOTE | 2022-11-10 10:22 | ED General ---
General Chief Complaint: Dizziness/Syncope Stated Complaint: DIZZINESS | LIGHTHEADED | HEADACHE Nursing Triage Note: pt to ed from assisted living with c/o dizziness, pale, headache nausea since last night at dinner. states she is not currently dizzy anymore Source of Information: Patient Exam Limitations: No Limitations History of Present Illness Date Seen by Provider: Nov 10, 2022 Time Seen by Provider: 10:22 Initial Comments Patient is AN 82-year-old who presents to the emergency department with her daughter chief complaint is an episode last evening while at supper of mild headache, dizziness, turned pale and felt like she was going to pass out. She was taken back to her room and started to feel better. She states this morning she is asymptomatic. The visual education director at the assisted living facility felt like she should probably "get checked out". Patient did take some Tylenol this morning for continued headache. She has had this off and on for several months. She lost her of 63 years in June. She had moved to the assisted living facility in March of last year. She has a history of diabetes, hypertension. No coronary artery disease history or prior stroke. Sh e denies any chest pain or palpitations. She is not currently nauseated. She has a history of kidney stones and frequent UTIs but states its been many months since her last bladder infection. She reports no recent fevers or chills. She is not short of breath or having a cough. She has a known chronic tremor. Denies dizziness currently. Timing/Duration: Other (last evening) Severity: Moderate Associated Systoms: Headaches, Malaise, Other (dizziness last evening) Allergies and Home Medications Allergies Coded Allergies: No Known Drug Allergies (Unverified , 08/30/10) Patient Home Medication List Home Medication List Reviewed: Yes Atenolol (Atenolol) 50 Mg Tablet, 50 MG PO DAILY, (Reported) Entered as Reported by: RAPHAEL ALARCON on 01/19/19 1520 Cephalexin (Cephalexin) 500 Mg Tablet, 500 MG PO TID Prescribed by: DAFNE ESCALANTE on 11/10/22 1146 Sodium Chloride (Saline Nasal [place]) 30 Ml [place], 1 SPRAY NSEACH PRN PRN for DRY NOSE, (Reported) Entered as Reported by: ROMMEL CHOWDARY on 07/22/19 0830 Sodium Chloride/Aloe Vera ([place] Saline Nasal Gel) 14.1 Gm Gel..gram., 1 APPLIC NA TID PRN for DRY NOSE, (Reported) Entered as Reported by: ROMMEL CHOWDARY on 07/22/19 0830 Triamterene/Hydrochlorothiazid (Triamterene-Hctz 37.5-25 mg Cp) 1 Each Capsule, 1 EACH PO DAILY, (Reported) Entered as Reported by: RAPHAEL ALARCON on 01/19/19 1520 Turmeric Root Extract (Turmeric) 538 Mg Capsule, 538 MG PO DAILY PRN for ARTHRITIS PAIN, (Reported) Entered as Reported by: ROMMEL CHOWDARY on 07/22/19 0830 Review of Systems Review of Systems Constitutional: see HPI EENTM: no symptoms reported Respiratory: no symptoms reported Cardiovascular: no symptoms reported Gastrointestinal: no symptoms reported Genitourinary: no symptoms reported Musculoskeletal: no symptoms reported Skin: no symptoms reported Psychiatric/Neurological: Headache, Other (dizziness, near syncope) All Other Systems Reviewed Negative Unless Noted: Yes Past Orptsvq-Nrxana-Ipnybl Hx Patient Social History Tobacco Use?: No Substance use?: No Alcohol Use?: No Seasonal Allergies Seasonal Allergies: No Past Medical History Surgery/Hospitalization HX: htn, arthritis, knee surgery Surgeries: Yes Eye Surgery, Hysterectomy, Orthopedic Respiratory: No Currently Using CPAP: No Currently Using BIPAP: No Cardiac: Yes Hypertension Neurological: Yes (TREMORS) Reproductive Disorders: No Sexually Transmitted Disease: No Genitourinary: No Gastrointestinal: No Musculoskeletal: Yes (ARTHRITIS) Endocrine: No Integumentary: No Blood Disorders: No Family Medical History Cardiovascular disease 19 MOTHER Cataracts 19 MOTHER Completed stroke 19 FATHER Diabetes mellitus 19 MOTHER Hypertension 19 FATHER Myocardial infarction 19 MOTHER Physical Exam Vital Signs Vital Signs - First Documented 11/10/22 10:01 Temp 37.6 Pulse 63 Resp 20 B/P (MAP) 198/92 (127) Pulse Ox 95 Capillary Refill : Less Than 3 Seconds Height, Weight, BMI Height: '" Weight: 245lbs. oz. 111.187688xj; 36.00 BMI Method: General Appearance: No Apparent Distress, WD/WN, Obese, Other (fine resting tremor) Eyes: Bilateral Eye Normal Inspection, Bilateral Eye PERRL, Bilateral Eye EOMI HEENT: PERRL/EOMI Neck: Normal Inspection Respiratory: Lungs Clear, Normal Breath Sounds, No Accessory Muscle Use, No Respiratory Distress Cardiovascular: Regular Rate, Rhythm, Normal Peripheral Pulses Gastrointestinal: Non Tender, Soft Extremity: Normal Capillary Refill, Normal Inspection, Normal Range of Motion, No Pedal Edema Neurologic/Psychiatric: Alert, Oriented x3, No Motor/Sensory Deficits, Normal Mood/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, 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, Other (fine resting tremor) Skin: Normal Color, Warm/Dry Progress/Results/Core Measures Suspected Sepsis SIRS Temperature: Pulse: 63 Respiratory Rate: 20 Laboratory Tests 11/10/22 10:15: White Blood Count 8.9 Blood Pressure 198 /92 Mean: 127 Laboratory Tests 11/10/22 10:15: Creatinine 0.80, Platelet Count 98L Results/Orders Lab Results Laboratory Tests Test 11/10/22 10:15 11/10/22 11:05 Range/Units White Blood Count 8.9 4.3-11.0 10^3/uL Red Blood Count 5.40 H 3.80-5.11 10^6/uL Hemoglobin 15.1 11.5-16.0 g/dL Hematocrit 46 35-52 % Mean Corpuscular Volume 86 80-99 fL Mean Corpuscular Hemoglobin 28 25-34 pg Mean Corpuscular Hemoglobin Concent 33 32-36 g/dL Red Cell Distribution Width 13.8 10.0-14.5 % Platelet Count 98 L 130-400 10^3/uL Mean Platelet Volume 9.0-12.2 fL Immature Granulocyte % (Auto) 1 % Neutrophils (%) (Auto) 50 42-75 % Lymphocytes (%) (Auto) 38 12-44 % Monocytes (%) (Auto) 9 0-12 % Eosinophils (%) (Auto) 2 0-10 % Basophils (%) (Auto) 0 0-10 % Neutrophils # (Auto) 4.4 1.8-7.8 10^3/uL Lymphocytes # (Auto) 3.4 1.0-4.0 10^3/uL Monocytes # (Auto) 0.8 0.0-1.0 10^3/uL Eosinophils # (Auto) 0.2 0.0-0.3 10^3/uL Basophils # (Auto) 0.0 0.0-0.1 10^3/uL Immature Granulocyte # (Auto) 0.1 0.0-0.1 10^3/uL Percent Immature Platelet Fraction 18.0 H 0.0-7.6 % Sodium Level 140 135-145 MMOL/L Potassium Level 3.8 3.6-5.0 MMOL/L Chloride Level 103 98-107 MMOL/L Carbon Dioxide Level 24 21-32 MMOL/L Anion Gap 13 5-14 MMOL/L Blood Urea Nitrogen 17 7-18 MG/DL Creatinine 0.80 0.60-1.30 MG/DL Estimat Glomerular Filtration Rate 73 BUN/Creatinine Ratio 21 Glucose Level 121 H 70-105 MG/DL Calcium Level 9.6 8.5-10.1 MG/DL Smear Scan YES Urine Color YELLOW Urine Clarity CLEAR Urine pH 7.5 5-9 Urine Specific [place] 1.010 L 1.016-1.022 Urine Protein NEGATIVE NEGATIVE Urine Glucose (UA) NEGATIVE NEGATIVE Urine Ketones NEGATIVE NEGATIVE Urine Nitrite POSITIVE H NEGATIVE Urine Bilirubin NEGATIVE NEGATIVE Urine Urobilinogen 2.0 < = 1.0 MG/DL Urine Leukocyte Esterase 3+ H NEGATIVE Urine RBC (Auto) TRACE-I H NEGATIVE Urine RBC RARE /HPF Urine WBC 25-50 H /HPF Urine Squamous Epithelial Cells 2-5 /HPF Urine Crystals NONE /LPF Urine Bacteria LARGE H /HPF Urine Casts NONE /LPF Urine Mucus NEGATIVE /LPF Urine Culture Indicated YES My Orders Orders - DAFNE ESCALANTE MD Ed Iv/Invasive Line Start (11/10/22 10:32) Cbc With Automated Diff (11/10/22 10:32) Basic Metabolic Panel (11/10/22 10:32) Ua Culture If Indicated (11/10/22 10:32) Urine Culture (11/10/22 11:05) Vital Signs/I&O 11/10/22 10:01 Temp 37.6 Pulse 63 Resp 20 B/P (MAP) 198/92 (127) Pulse Ox 95 Capillary Refill : Less Than 3 Seconds Blood Pressure Mean: 127 Progress Note : Time: 11:47 Progress Note Patient seen and evaluated by me. Evaluation today includes physical exam, CBC, basic metabolic panel, urinalysis. Pertinent physical exam findings include well-developed well-nourished mildly obese female in no acute distress. She has a fine resting, pre-existing tremor. Heart is regular rate in the 60s, lungs are clear. Abdomen is soft, nontender. No lower extremity edema. No joint pains rashes or swelling. Differential diagnosis based on history and physical exam, dehydration, urinary tract infection. Patient labs independently reviewed and interpreted by me. Her CBC is normal except for a platelet count of 98. She does have pre-existing thrombocytopenia per review of medical records. Basic metabolic panel is normal glucose 121. Urinalysis shows 1.010 specific gravity., 3+ leukocyte Estrace, trace red blood cells, 25-50 white blood cells and large bacteria. Patient has been basically asymptomatic throughout her stay here in the emergency department. No deterioration in her condition. Her vital signs have been stable. Due to her history of urinary tract infections and her symptoms of weakness and dizziness we will go ahead and treat this infection. She has no old therefore we will treat her with Keflex 500 mg 3 times daily for 5 days. I have given her return precautions to which she verbalized understanding. All questions are sought and answered. Patient is stable for discharge. Departure Impression Primary Impression: Urinary tract infection Qualified Codes: N30.00 - Acute cystitis without hematuria Disposition: HOME, SELF-CARE Condition: Stable Departure-Patient Inst. Decision time for Depature: 11:47 Referrals: LUCERO FUENTES DANIEL J MD (PCP/Family) Primary Care Physician Patient Instructions: Urinary Tract Infection, Adult ED Add. Discharge Instructions: Drink plenty of fluids to stay well-hydrated. Take the antibiotic, cephalexin, 500 mg 3 times daily for 5 days. Monitor for worsening symptoms such as worsening dizziness, nausea/vomiting, fever. If any of these develop return to the emergency department or follow-up with your primary care physician for reevaluation. Scripts Cephalexin (Cephalexin) 500 Mg Tablet 500 MG PO TID for 5 Days, #15 TAB Prov: DAFNE ESCALANTE MD 11/10/22 Copy Copies To 1: LUCERO FUENTES KATHRYN M MD Nov 10, 2022 10:22
[2022-11-10 10:38] LABS: BASOPHILS % (AUTO) 0 % (0-10); HEMATOCRIT 46 % (35-52); MEAN CORPUSCULAR VOLUME 86 fL (80-99)
[2022-11-10 10:40] LABS: EOSINOPHILS # (AUTO) 0.2 10^3/uL (0.0-0.3); EOSINOPHILS % (AUTO) 2 % (0-10); HEMOGLOBIN 15.1 g/dL (11.5-16.0); LYMPHOCYTES # (AUTO) 3.4 10^3/uL (1.0-4.0); LYMPHOCYTES % (AUTO) 38 % (12-44); MEAN CORPUSCULAR HEMOGLOBIN 28 pg (25-34); MEAN CORPUSCULAR HGB CONC 33 g/dL (32-36); MONOCYTES # (AUTO) 0.8 10^3/uL (0.0-1.0); MONOCYTES % (AUTO) 9 % (0-12); NEUTROPHILS # (AUTO) 4.4 10^3/uL (1.8-7.8); NEUTROPHILS % (AUTO) 50 % (42-75); PLATELET COUNT 98 10^3/uL (130-400); WHITE BLOOD COUNT 8.9 10^3/uL (4.3-11.0)
[2022-11-10 10:42] LABS: SMEAR SCAN COMMENT YES
[2022-11-10 10:43] LABS: POTASSIUM 3.8 MMOL/L (3.6-5.0)
[2022-11-10 10:45] LABS: CALCIUM 9.6 MG/DL (8.5-10.1)
[2022-11-10 10:49] LABS: CREATININE SERUM 0.8 MG/DL (0.60-1.30)
[2022-11-10 11:09] LABS: BILIRUBIN,URINE NEGATIVE (NEGATIVE); CLARITY,URINE CLEAR; COLOR,URINE YELLOW; GLUCOSE, URINE (UA) NEGATIVE (NEGATIVE); KETONES,URINE NEGATIVE (NEGATIVE); LEUKOCYTE ESTERASE ,URINE 3+ (NEGATIVE); NITRITE,URINE POSITIVE (NEGATIVE); PH,URINE 7.5 (5-9); PROTEIN,URINE NEGATIVE (NEGATIVE)
[2022-11-10 11:22] LABS: BACTERIA,URINE LARGE /HPF; RBC,URINE RARE /HPF; WBC,URINE 25-50 /HPF
[2022-11-10] MEDS ORDERED: CEPH500T PO (11:46)
[2022-11-10 12:08] VITALS: BP 139/82
== END 2022-11-10 12:10 | disposition home or self-care (01) ==
LOC: EDUNIT# 09:51 → ER 09:55
DX: N39.0 Urinary tract infection, site not specified (principal); E66.9 Obesity, unspecified; Z68.36 Body mass index [BMI] 36.0-36.9, adult
CPT/HCPCS: 36415; 80048; 81000; 85025; 87077; 87088; 87186

== ENCOUNTER 2022-11-12 15:05 | Inpatient (IN) | payer MEDICARE, MEDICAID ==
[~2022-11-12] VITALS: Ht 162.5 cm; Wt 100.5 kg
[~2022-11-12 15:05] MED LIST changes: +CEPH500T PO
--- NOTE | 2022-11-12 15:20 | ED Fall/Injury ---
General Chief Complaint: Trauma-Non Activation Stated Complaint: FALL Nursing Triage Note: ARRIVED VIA EMS FROM [facility] IN [place] AFTER FALLING FROM A STANDING POSITION. POSITIVE LOC. COMPLAINS OF RIGHT HIP/LEG PAIN AND RIGHT ARM PAIN. PT ARRIVED IN A C-COLLAR. PT ALERT ET COMPLAINING OF PAIN UPON ARRIVAL. Source: patient, EMS Exam Limitations: no limitations History of Present Illness Date Seen by Provider: Nov 12, 2022 Time Seen by Provider: 15:20 Initial Comments Patient is a 82-year-old female presents to ED by EMS for falling. Patient fell from standing. Patient lives in a assisted living in [place] called [facility]. She was playing [place]. She got up felt dizzy falling backwards hitting the fireplace. Unclear if she lost consciousness. Patient did not talk immediately. She was complaining of right-sided pain worse in her right hip. There was rotation and shortening of her right hip. There was a laceration to her occipital head. She was placed in a c-collar by EMS. She is not on blood thinners. EMS states she was alert and oriented on arrival. Placed in a c- collar. Laceration to posterior head. She is complaining and screaming of right hip pain. She did not receive anything for pain. History of knee surgery. Unsure if she is up-to-date on her tetanus. She has bruising swelling to the right wrist. She reports headache and dizziness. She also states she feels nauseous. She states she cannot recall how she fell but believes she lost her balance. Complaining of right hip, right leg and right arm pain. According to daughter she has been feeling dizzy when she stands. She was seen here for UTI on November 10. Allergies and Home Medications Allergies Coded Allergies: No Known Drug Allergies (Unverified , 08/30/10) Patient Home Medication List Home Medication List Reviewed: Yes Atenolol (Atenolol) 50 Mg Tablet, 50 MG PO DAILY, (Reported) Entered as Reported by: RAPHAEL ALARCON on 01/19/19 1520 Cephalexin (Cephalexin) 500 Mg Tablet, 500 MG PO TID Prescribed by: DAFNE ESCALANTE on 11/10/22 1146 Doxycycline Hyclate (Doxycycline Hyclate) 100 Mg Tablet, 100 MG PO BID Prescribed by: ENZO DOTSON on 7/5/23 1656 Sodium Chloride (Saline Nasal [place]) 30 Ml [place], 1 SPRAY NSEACH PRN PRN for DRY NOSE, (Reported) Entered as Reported by: ROMMEL CHOWDARY on 07/22/19 0830 Sodium Chloride/Aloe Vera ([place] Saline Nasal Gel) 14.1 Gm Gel..gram., 1 APPLIC NA TID PRN for DRY NOSE, (Reported) Entered as Reported by: ROMMEL CHOWDARY on 07/22/19 0830 Triamterene/Hydrochlorothiazid (Triamterene-Hctz 37.5-25 mg Cp) 1 Each Capsule, 1 EACH PO DAILY, (Reported) Entered as Reported by: RAPHAEL ALARCON on 01/19/19 1520 Turmeric Root Extract (Turmeric) 538 Mg Capsule, 538 MG PO DAILY PRN for ARTHRITIS PAIN, (Reported) Entered as Reported by: ROMMEL CHOWDARY on 07/22/19 0830 Review of Systems Review of Systems Constitutional: No chills, No diaphoresis Eyes: Denies Drainage, Denies Decreased Acuity Ears, Nose, Mouth, Throat: denies ear pain, denies ear discharge Respiratory: No cough, No dyspnea on exertion Cardiovascular: No chest pain, No edema Gastrointestinal: No abdominal pain, No diarrhea, No vomiting Genitourinary: No decreased output, No discharge Musculoskeletal: No back pain; joint pain, joint swelling, muscle pain, muscle stiffness Skin: change in color Past Ufgjucn-Vipiiy-Btqdxc Hx Patient Social History Tobacco Use?: No Substance use?: No Alcohol Use?: No Seasonal Allergies Seasonal Allergies: No Past Medical History Surgery/Hospitalization HX: htn, arthritis, knee surgery Surgeries: Yes Eye Surgery, Hysterectomy, Orthopedic Respiratory: No Currently Using CPAP: No Currently Using BIPAP: No Cardiac: Yes Hypertension Neurological: Yes (TREMORS) Reproductive Disorders: No Sexually Transmitted Disease: No Genitourinary: No Gastrointestinal: No Musculoskeletal: Yes (ARTHRITIS) Endocrine: No Integumentary: No Blood Disorders: No Family Medical History Cardiovascular disease 19 MOTHER Cataracts 19 MOTHER Completed stroke 19 FATHER Diabetes mellitus 19 MOTHER Hypertension 19 FATHER Myocardial infarction 19 MOTHER Physical Exam Vital Signs Vital Signs - First Documented 11/12/22 15:06 Temp 36.5 Pulse 73 Resp 16 B/P (MAP) 144/74 (97) Pulse Ox 88 O2 Delivery Room Air Capillary Refill : Less Than 3 Seconds Height, Weight, BMI Height: '" Weight: 245lbs. oz. 111.848297md; 38.00 BMI Method: General Appearance: WD/WN, no apparent distress HEENT: PERRL/EOMI, normal ENT inspection, TMs normal, pharynx normal Neck: other (C-collar in place) Cardiovascular: regular rate, rhythm, no edema, no gallop, no JVD Respiratory: chest non-tender, lungs clear, normal breath sounds, no respiratory distress, no accessory muscle use Gastrointestinal: normal bowel sounds, non tender, soft, no organomegaly Extremities: other (Right lateral hip tenderness with shortening and external rotation. Neurovascular intact. Bruising swelling to right wrist with tenderness to palpate with limited passive range of motion. 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 Superficial abrasion to the occipital head.) Zaki Coma Score Best Eye Response: (4) Open Spontaneously Best Verbal Response: (5) Oriented Best Motor Response: (6) Obeys Commands [place] Total: 15 Procedures/Interventions Wound Location: Scalp Other Wound Location right parietal scalp Wound Length (cm): 3 Wound's Depth, Shape: superficial, sub Q Wound Explored: clean Irrigated w/ Saline (ccs): 200 Betadine Prep?: Yes Anesthesia: 1% Lidocaine Volume Anesthetic (ccs): 3 Staple Repair: Stapler 35W Number of Sutures: 4 Layer Closure?: 1 Progress/Results/Core Measures Results/Orders Lab Results Laboratory Tests Test 11/12/22 15:10 11/12/22 15:16 Range/Units White Blood Count 9.2 4.3-11.0 10^3/uL Red Blood Count 5.41 H 3.80-5.11 10^6/uL Hemoglobin 15.2 11.5-16.0 g/dL Hematocrit 46 35-52 % Mean Corpuscular Volume 86 80-99 fL Mean Corpuscular Hemoglobin 28 25-34 pg Mean Corpuscular Hemoglobin Concent 33 32-36 g/dL Red Cell Distribution Width 13.7 10.0-14.5 % Platelet Count 91 L 130-400 10^3/uL Mean Platelet Volume 13.2 H 9.0-12.2 fL Immature Granulocyte % (Auto) 1 % Neutrophils (%) (Auto) 48 42-75 % Lymphocytes (%) (Auto) 39 12-44 % Monocytes (%) (Auto) 9 0-12 % Eosinophils (%) (Auto) 3 0-10 % Basophils (%) (Auto) 0 0-10 % Neutrophils # (Auto) 4.4 1.8-7.8 X 10^3 Lymphocytes # (Auto) 3.6 1.0-4.0 X 10^3 Monocytes # (Auto) 0.8 0.0-1.0 X 10^3 Eosinophils # (Auto) 0.3 0.0-0.3 10^3/uL Basophils # (Auto) 0.0 0.0-0.1 10^3/uL Immature Granulocyte # (Auto) 0.1 0.0-0.1 10^3/uL Prothrombin Time 12.7 12.2-14.7 SEC INR Comment 0.9 0.8-1.4 Activated Partial Thromboplast Time 31 24-35 SEC Sodium Level 137 135-145 MMOL/L Potassium Level 3.4 L 3.6-5.0 MMOL/L Chloride Level 100 98-107 MMOL/L Carbon Dioxide Level 28 21-32 MMOL/L Anion Gap 9 5-14 MMOL/L Blood Urea Nitrogen 20 H 7-18 MG/DL Creatinine 0.81 0.60-1.30 MG/DL Estimat Glomerular Filtration Rate 72 BUN/Creatinine Ratio 25 Glucose Level 122 H 70-105 MG/DL Calcium Level 9.7 8.5-10.1 MG/DL Corrected Calcium 9.9 8.5-10.1 MG/DL Total Bilirubin 0.4 0.1-1.0 MG/DL Aspartate Amino Transf (AST/SGOT) 15 5-34 U/L Alanine Aminotransferase (ALT/SGPT) 10 0-55 U/L Alkaline Phosphatase 70 40-136 U/L Troponin I < 0.028 <0.028 NG/ML Total Protein 7.6 6.4-8.2 GM/DL Albumin 3.8 3.2-4.5 GM/DL Urine Color YELLOW Urine Clarity CLEAR Urine pH 6.0 5-9 Urine Specific [place] 1.010 L 1.016-1.022 Urine Protein TRACE H NEGATIVE Urine Glucose (UA) NEGATIVE NEGATIVE Urine Ketones NEGATIVE NEGATIVE Urine Nitrite NEGATIVE NEGATIVE Urine Bilirubin NEGATIVE NEGATIVE Urine Urobilinogen 2.0 < = 1.0 MG/DL Urine Leukocyte Esterase 3+ H NEGATIVE Urine RBC (Auto) 1+ H NEGATIVE Urine RBC 0-2 /HPF Urine WBC 25-50 H /HPF Urine Squamous Epithelial Cells NONE /HPF Urine Crystals NONE /LPF Urine Bacteria FEW H /HPF Urine Casts NONE /LPF Urine Mucus NEGATIVE /LPF Urine Culture Indicated YES My Orders Orders - GRANT SPEARS PA Ct Head/Face/Cervical Wo (11/12/22 15:13) Chest 1 View, Ap/Pa Only (11/12/22 15:13) Ekg Tracing (11/12/22 15:13) Troponin I [place] (11/12/22 15:13) Cbc With Automated Diff (11/12/22 15:13) Comprehensive Metabolic Panel (11/12/22 15:13) Partial Thromboplastin Time (11/12/22 15:13) Protime With Inr (11/12/22 15:13) Hip, Right, 2 Views (11/12/22 15:13) Knee, Right, 3 Views (11/12/22 15:13) Wrist, Right, 3 Views Or More (11/12/22 15:13) Shoulder, Right, 2 Views (11/12/22 15:13) Morphine Injection (Morphine Injection (11/12/22 15:30) Ua Culture If Indicated (11/12/22 15:30) Ondansetron Injection (Zofran Injectio (11/12/22 15:45) Urine Culture (11/12/22 15:16) Ondansetron Injection (Zofran Injectio (11/12/22 16:15) Lidocaine 1% Inj 20 Ml (Xylocaine 1% Inj (11/12/22 16:30) Cefepime Injection (Maxipime Injection) (11/12/22 17:00) Ct Abdomen/Pelvis W (11/12/22 16:55) Ct Lumbar Spine Wo (11/12/22 16:55) Ns Iv 1000 Ml (Sodium Chloride 0.9%) (11/12/22 17:02) Iohexol Injection (Omnipaque 350 Mg/Ml 1 (11/12/22 17:15) Received Contrast (Hold Metformin- Contr (11/12/22 17:15) Ns (Ivpb) (Sodium Chloride 0.9% Ivpb Bag (11/12/22 17:15) Ceftriaxone Iv/Im (Rocephin Iv/Im) (11/12/22 17:12) Ed Admission (Communication) (11/12/22 17:13) Medications Given in ED Current Medications Medications Dose Ordered Sig/Roshan Route Start Time Stop Time Status Last Admin Dose Admin Iohexol 100 ml ONCE ONCE IV 11/12/22 17:15 11/12/22 17:16 DC 11/12/22 17:36 80 ML Lidocaine HCl 20 ml ONCE ONCE INJ 11/12/22 16:30 11/12/22 16:31 DC 11/12/22 16:30 5 ML Morphine Sulfate 4 mg ONCE ONCE IVP 11/12/22 15:30 11/12/22 15:31 DC 11/12/22 15:35 4 MG Ondansetron HCl 4 mg ONCE ONCE IVP 11/12/22 15:45 11/12/22 15:46 DC 11/12/22 15:34 4 MG Ondansetron HCl 4 mg ONCE ONCE IVP 11/12/22 16:15 11/12/22 16:16 DC 11/12/22 16:27 4 MG Sodium Chloride 100 ml ONCE ONCE IV 11/12/22 17:15 11/12/22 17:16 DC 11/12/22 17:36 80 ML Vital Signs/I&O 11/12/22 11/12/22 15:06 15:23 Temp 36.5 36.5 Pulse 73 73 Resp 16 16 B/P (MAP) 144/74 (97) 144/74 (97) Pulse Ox 88 88 O2 Delivery Room Air Room Air Blood Pressure Mean: 97 Comment Sinus rhythm with first-degree AV block, left axis deviation, 65 bpm, QRS duration 103 MS, QTc 463 MS Departure Communication (PCP) Patient presents to the ED from [facility] assisted living for a fall. Not on trauma activation. patient stood up quickly felt dizzy fell hitting the back of her head on a stone fireplace. Staff witnessed fall concern that patient had loss of consciousness. EMS stated patient was alert and oriented on arrival. She is not on blood thinners. C-collar was placed. She is complaining of right-sided pain worse to her right hip right knee right shoulder. She does have a laceration to her right parietal scalp. Vital signs stable on arrival. Patient was started on a liter of fluid. CBC, CMP, EKG, troponin, chest x-ray for further evaluation for potential fall. Concern for a potential syncopal episode. CBC, CMP was grossly unremarkable besides potassium 3.4. EKG is normal sinus rhythm. Normal troponin. Started on Keflex 2 days ago for UTI and was seen here in the ED.. She has been feeling dizzy for the past few days which may be associated to dehydration versus UTI versus orthostatic hypotensive. Hoffmann catheter was placed since patient is not able to ambulate/ walk or stand at this time. She was given 4 mg of morphine with 4 mg of Zofran for nausea. CT scan of the head cervical neck and face. Xray of right-sided hip x-ray, right knee, right shoulder and right wrist x-ray. X-ray of the right shoulder was negative for fracture. Right wrist x-ray concern for triquetrum fracture. Not significant tenderness to this location but there is bruising to the right dorsum wrist. Patient was placed in a Velcro splint after consulting with Dr. Silverman orthopedic. Neurovascular intact. X-ray of the right hip and right knee negative for acute fracture. Degenerative changes noted. CT scan of the head negative for intracranial bleed, scalp fracture. CT scan of the face concern for right nasal bone fracture. She has no tenderness to this location. ENT outpatient follow up, No evidence of trauma to the anterior face. CT cervical spine was negative for fracture. C-collar removed cleared at 430. Due to the continued worsening pain to the right sided pelvis CT scan of the abdomen and pelvis was ordered which was negative for acute fracture or intra-abdominal injury. discussed findings such as left nephrolithiasis. She did appear to have some shortening and rotation of the right hip but this was likely secondary to a position for better relief. Pain improved. 4 dante were placed to the right parietal scalp. She is up-to-date on her tetanus. Remove dante in 6 to 8 days. consulted with trauma surgeon Dr. Heath. Did not recommend any further evaluation or treatment at this time. Recommended consulting with medicine. Patient was discussed with Dr. Joseph patient's primary care physician. She agrees to admit the patient. Further evaluation for syncope, pain control. Started on Rocephin for her urinalysis which was positive for UTI. Microbiology susceptible to Rocephin. Impression Primary Impression: Syncope Additional Impressions: Hand fracture Scalp laceration Disposition: ADMITTED INPATIENT Condition: Stable Admissions Decision to Admit Reason: Admit from ER (General) Decision to Admit/Date: Nov 12, 2022 Time/Decision to Admit Time: 16:57 Departure-Patient Inst. Referrals: AUSTEN FU MD (PCP/Family) Primary Care Physician GRANT SPEARS Nov 12, 2022 15:20
[2022-11-12 15:27] LABS: BASOPHILS % (AUTO) 0 % (0-10); EOSINOPHILS # (AUTO) 0.3 10^3/uL (0.0-0.3); EOSINOPHILS % (AUTO) 3 % (0-10); HEMATOCRIT 46 % (35-52); HEMOGLOBIN 15.2 g/dL (11.5-16.0); LYMPHOCYTES # (AUTO) 3.6 X 10^3 (1.0-4.0); LYMPHOCYTES % (AUTO) 39 % (12-44); MEAN CORPUSCULAR HEMOGLOBIN 28 pg (25-34); MEAN CORPUSCULAR HGB CONC 33 g/dL (32-36); MEAN CORPUSCULAR VOLUME 86 fL (80-99); MEAN PLATELET VOLUME 13.2 fL (9.0-12.2); MONOCYTES # (AUTO) 0.8 X 10^3 (0.0-1.0); MONOCYTES % (AUTO) 9 % (0-12); NEUTROPHILS # (AUTO) 4.4 X 10^3 (1.8-7.8); NEUTROPHILS % (AUTO) 48 % (42-75); WHITE BLOOD COUNT 9.2 10^3/uL (4.3-11.0)
[2022-11-12 15:30] LABS: ALBUMIN 3.8 GM/DL (3.2-4.5); CHLORIDE 100 MMOL/L (98-107); INR 0.9 (0.8-1.4); POTASSIUM 3.4 MMOL/L (3.6-5.0); PROTHROMBIN TIME PATIENT 12.7 SEC (12.2-14.7); SODIUM 137 MMOL/L (135-145)
[2022-11-12] MEDS ORDERED: morphine INJ 10 MG/ML 1ML (SYR OR VIAL) IVP ONE (15:30)
[2022-11-12 15:31] LABS: CALCIUM 9.7 MG/DL (8.5-10.1)
[2022-11-12 15:32] LABS: GLUCOSE 122 MG/DL (70-105)
[2022-11-12 15:33] LABS: TOTAL PROTEIN 7.6 GM/DL (6.4-8.2)
[2022-11-12 15:34] LABS: CARBON DIOXIDE 28 MMOL/L (21-32)
[2022-11-12 15:35] LABS: BILIRUBIN,TOTAL 0.4 MG/DL (0.1-1.0)
[2022-11-12 15:36] LABS: BILIRUBIN,URINE NEGATIVE (NEGATIVE); CLARITY,URINE CLEAR; COLOR,URINE YELLOW; GLUCOSE, URINE (UA) NEGATIVE (NEGATIVE); KETONES,URINE NEGATIVE (NEGATIVE); LEUKOCYTE ESTERASE ,URINE 3+ (NEGATIVE); NITRITE,URINE NEGATIVE (NEGATIVE); PROTEIN,URINE TRACE (NEGATIVE)
[2022-11-12 15:36] LABS: ALKALINE PHOSPHATASE 70 U/L (40-136); CREATININE SERUM 0.81 MG/DL (0.60-1.30); GFR ESTIMATED 72
[2022-11-12 15:37] LABS: BUN/CREATININE RATIO 25
[2022-11-12 15:39] LABS: ALANINE AMINOTRANSFERASE 10 U/L (0-55)
[2022-11-12 15:42] LABS: PLATELET COUNT 91 10^3/uL (130-400)
[2022-11-12] MEDS ORDERED: ONDANSETRON 4 MG/2 ML (SDV) Z0FRAN IVP ONE ×2 (15:45→16:15)
[2022-11-12 16:06] LABS: BACTERIA,URINE FEW /HPF; RBC,URINE 0-2 /HPF; WBC,URINE 25-50 /HPF
--- NOTE | 2022-11-12 16:08 | Diagnostic Imaging Report ---
INDICATION: Fall with right wrist pain. TECHNIQUE: AP, oblique, and lateral views of the right wrist were obtained. FINDINGS: There is chondrocalcinosis and degenerative change of the right wrist. There is a lucency in the triquetrum, suspicious for a fracture. There is underlying degenerative change of the 1st carpometacarpal joint. IMPRESSION: Degenerative changes and chondrocalcinosis. Findings are suspicious for a triquetral fracture, followup is recommended. Dictated by: Dictated on workstation # [id number]
--- NOTE | 2022-11-12 16:10 | Diagnostic Imaging Report ---
INDICATION: Right knee pain post injury. TECHNIQUE: AP, lateral, and oblique views of the right knee were obtained. FINDINGS: There is advanced tricompartmental osteoarthritic change of the right knee with severe joint space narrowing of all 3 compartments and osteophyte formation. There is mild lateral subluxation of the tibia relative to the distal femur. There is no acute fracture or joint effusion. 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 Dictated by: Dictated on workstation # [id number]
--- NOTE | 2022-11-12 16:12 | Diagnostic Imaging Report ---
INDICATION: Right hip pain. TECHNIQUE: AP and oblique views of the right hip were obtained. FINDINGS: No fracture or acute bony abnormality is seen. There is moderate degenerative change of the right hip with osteophyte formation. There is no lytic or blastic lesion. IMPRESSION: Moderate degenerative changes of the right hip with no overt acute abnormality. Dictated by: Dictated on workstation # [id number]
--- NOTE | 2022-11-12 16:12 | Diagnostic Imaging Report ---
INDICATION: Right shoulder pain. TECHNIQUE: AP and transscapular views of the right shoulder were obtained. FINDINGS: No acute fracture or acute bony abnormality is seen. There is degenerative change of the glenohumeral joint and AC joint. There is minimal distance between the acromion and humeral head raising the possibility of chronic rotator cuff pathology. IMPRESSION: Extensive chronic changes in the right shoulder with no overt acute abnormality. Dictated by: Dictated on workstation # [id number]
--- NOTE | 2022-11-12 16:12 | Diagnostic Imaging Report ---
INDICATION: Fall with chest pain. TECHNIQUE: Frontal chest obtained at 03:54 p.m. FINDINGS: Heart and mediastinal silhouette are normal in appearance. The lungs are clear. There is no pneumothorax or pleural fluid. IMPRESSION: No acute process in the chest. Dictated by: Dictated on workstation # [id number]
--- NOTE | 2022-11-12 16:20 | Diagnostic Imaging Report ---
PROCEDURE: CT head, face, and cervical spine without contrast. TECHNIQUE: Multiple contiguous axial images were obtained through the head, neck, and facial bones without the use of intravenous contrast. Sagittal and coronal reformations through the cervical spine and facial bones were also performed. Auto Exposure Controls were utilized during the CT exam to meet ALARA standards for radiation dose reduction. INDICATION: Fall with head, face and neck pain. Right leg and arm pain. COMPARISON: None FINDINGS: CT HEAD: Ventricles and cortical sulci are mildly prominent, likely from generalized parenchymal volume loss. There is no midline shift or mass effect. There are focal areas of hypoattenuation in the white matter which are likely from chronic microvascular disease. No acute intracranial hemorrhage is seen. The calvarium appears intact. There is a moderate size right parietal scalp hematoma measuring 3.5 x 0.7 cm in size with overlying skin laceration. CT FACE: There is motion artifact on multiple images. The pterygoid plates appear intact, although the medial pterygoids appear diminutive. The zygomatic arches are intact. The mandible appears intact and normal in alignment. Small mucus retention cysts are seen in the right maxillary sinus. No fluid level seen. Ethmoid, frontal and sphenoid sinuses appear clear. The orbits are intact. There does appear to be a small nondisplaced fracture at the anterior right nasal bone with mild overlying edema. The globes are intact. CT CERVICAL SPINE: There is straightening of the cervical lordosis without significant spondylolisthesis. There are severe degenerative changes at C5-C6 and C6-C7 in the upper thoracic spine with bridging osteophytes anteriorly. Vertebral body heights are preserved. No acute fracture is seen. There is significant motion artifact as well as artifact from the shoulders. There is multilevel spinal canal stenosis from C3-C4 down to at least C6-C7. There is right foraminal stenosis at C3-C4, C4-C5, C5-C6 and C6-C7. There is left foraminal stenosis at C6-C7. There is scarring in the lung apices. Soft tissues about the neck demonstrate no acute abnormality. IMPRESSION: 1. Moderate size right frontal scalp hematoma. No calvarium fracture or acute intracranial hemorrhage. 2. Small nondisplaced fracture of the anterior right nasal bone. 3. Advanced degenerative changes in the cervical spine with no fracture seen. There is multilevel spinal canal and foraminal stenosis. Dictated by: Dictated on workstation # [id number]
[2022-11-12] MEDS ORDERED: LIDOCAINE 1% INJ 20 ML VIAL INJ ONE (16:30)
[2022-11-12] MEDS ORDERED: DOXY100T2 PO (16:56)
[2022-11-12] MEDS ORDERED: CEFEPIME INJECTION 1,000 MG in NS (IVPB) 50 ML IV ONE (17:00)
[2022-11-12] MEDS ORDERED: NS IV 1000 ML 1,000 ML IV STA (17:02)
[2022-11-12] MEDS ORDERED: cefTRIAXone IV/IM 1,000 MG in NS (IVPB) 50 ML IV STA (17:12)
[2022-11-12] MEDS ORDERED: IOHEXOL 350 MG/ML 100 ML (OMNIPAQUE 350) VIAL IV ONE (17:15)
[2022-11-12] MEDS ORDERED: NS 100 ML (IVPB) BAG IV ONE (17:15)
[2022-11-12] MEDS ORDERED: HOLD METFORMIN - RECEIVED CONTRAST 20 ML VIAL IV SCH (17:15)
--- NOTE | 2022-11-12 17:41 | History & Physical ---
History of Present Illness HPI/Chief Complaint Chief complaint: Fall with left hand fracture and right-sided contusions with syncope HPI: This is an 82-year-old female [facility] assisted living patient of Susana Khan and myself who has a past medical history of depression and cognitive decline who presents to the ER following a fall after syncopal episode with l aceration of her scalp and left hand fracture with right-sided contusions. Trauma surgery was consulted due to the multiple injury fall. CT scan was obtained due to no fracture identified on the right hip. Daughter at the bedside. We will admit her to evaluate the next step in her care. She cannot ambulate. Source: family Exam Limitations: clinical condition Date Seen 11/12/22 Time Seen by a Provider: 17:00 Attending Physician Vladimir Rouse MD PCP Admitting Physician: Attending Physician: Referring Physician Date of Admission Home Medications & Allergies Home Medications Reviewed patient Home Medication Reconciliation performed by pharmacy medication reconciliations operations technician and/or nursing. Patients Allergies have been reviewed. Allergies Allergies Coded Allergies No Known Drug Allergies (Unverified08/30/10) Past Nsjdvbq-Vxmjmd-Pywpao Hx Past Med/Social Hx: Reviewed Nursing Past Med/Soc Hx, Reviewed and Corrections made Patient Social History Marrital Status: Employed/Student: retired Alcohol Use: Denies Use Smoking Status: Never a Smoker 2nd Hand Smoke Exposure: No Recent Hopitalizations: No Immunizations Up To Date Date of Pneumonia Vaccine: Mar 11, 2012 Date of Influenza Vaccine: Feb 09, 2020 Seasonal Allergies Seasonal Allergies: No Past Medical History Surgeries: Eye Surgery, Hysterectomy, Orthopedic Currently Using CPAP: No Currently Using BIPAP: No Cardiac: Hypertension Reproductive: No Sexually Transmitted Disease: No History of Blood Disorders: No Family History Cardiovascular disease 19 MOTHER Cataracts 19 MOTHER Completed stroke 19 FATHER Diabetes mellitus 19 MOTHER Hypertension 19 FATHER Myocardial infarction 19 MOTHER Review of Systems Constitutional: see HPI, dizziness, malaise, weakness EENTM: no symptoms reported Respiratory: no symptoms reported Cardiovascular: no symptoms reported Gastrointestinal: no symptoms reported Genitourinary: no symptoms reported Musculoskeletal: back pain, joint pain, muscle pain, muscle stiffness, muscle cramps Skin: no symptoms reported Psychiatric/Neurological: Anxiety, Depressed All Other Systems Reviewed Negative Unless Noted: Yes Physical Exam Physical Exam Vital Signs Vital Signs - First Documented 11/12/22 11/12/22 11/12/22 15:06 19:52 20:04 Temp 36.5 Pulse 73 Resp 16 B/P (MAP) 144/74 (97) Pulse Ox 88 O2 Delivery Room Air O2 Flow Rate 2.00 FiO2 21 Capillary Refill : Less Than 3 Seconds Height, Weight, BMI Height: '" Weight: 245lbs. oz. [id number]; 38.00 BMI Method: General Appearance: No Apparent Distress, WD/WN, Chronically ill, Obese Eyes: Bilateral Eye Normal Inspection, Bilateral Eye PERRL HEENT: PERRL/EOMI, Normal ENT Inspection, Pharynx Normal, Other ( scalp laceration with [address]) Neck: Full Range of Motion, Normal Inspection, Non Tender, Supple, Carotid Bruit Respiratory: Chest Non Tender, Lungs Clear, Normal Breath Sounds, No Accessory Muscle Use, No Respiratory Distress Cardiovascular: Regular Rate, Rhythm, No Edema, No Gallop, No JVD, No Murmur, Normal Peripheral Pulses Gastrointestinal: Normal Bowel Sounds, No Organomegaly, No Pulsatile Mass, Non Tender, Soft Back: Normal Inspection, No CVA Tenderness, Decreased Range of Motion, Muscle Spasm, Vertebral Tenderness Extremity: Normal Capillary Refill, Normal Inspection, Non Tender, No Calf Tenderness, No Pedal Edema Neurologic/Psychiatric: Alert, No Motor/Sensory Deficits, Normal Mood/Affect, Disoriented Skin: Normal Color, Warm/Dry Lymphatic: No Adenopathy Results Results/Procedures Labs Laboratory Tests 11/12/22 15:10 Patient resulted labs reviewed. Assessment/Plan Admission Diagnosis Assessment: Syncopal episode with left hand fracture and scalp laceration and right sided contusions Hypertension Obesity Advanced age UTI Plan: Pain control IV antibiotic of Rocephin per urine culture report Trauma surgery consult Admission Status: Observation LUCERO FUENTES DO Nov 12, 2022 17:41
--- NOTE | 2022-11-12 17:50 | Diagnostic Imaging Report ---
PROCEDURE: CT abdomen and pelvis with contrast. TECHNIQUE: Multiple contiguous axial images were obtained through the abdomen and pelvis after administration of intravenous contrast. Auto Exposure Controls were utilized during the CT exam to meet ALARA standards for radiation dose reduction. All CT scans use one or more of the following dose optimizing techniques: automated exposure control, MA and/or KvP adjustment based on patient size and exam type or iterative reconstruction. INDICATION: Abdominal trauma, fall from standing position. There is minimal basilar atelectasis. Liver appears normal. Gallbladder is normal. Portal vein is patent. Pancreas is normal. Spleen is not enlarged. Adrenals are normal. There are several calculi in lower pole of the left kidney. There is no hydronephrosis. There is large amount of food residue in the stomach. Small bowel is not dilated. There is no evidence of appendicitis. There is a Hoffmann catheter in urinary bladder. Uterus is surgically absent. There is no intraperitoneal free air or free fluid. There is some colonic diverticulosis but no evidence of diverticulitis. There is no pelvic fracture seen. IMPRESSION: Left nephrolithiasis. Uncomplicated diverticulosis of the colon. No acute abnormality seen in the abdomen or pelvis. Dictated by: Dictated on workstation # [id number]
--- NOTE | 2022-11-12 17:51 | Diagnostic Imaging Report ---
PROCEDURE: CT lumbar spine without contrast. TECHNIQUE: Multiple contiguous axial images were obtained through the lumbar spine without the use of intravenous contrast. Sagittal and coronal reformations were then performed. Auto Exposure Controls were utilized during the CT exam to meet ALARA standards for radiation dose reduction. INDICATION: Back injury from a fall. Vertebral alignment is normal. There are no compression fractures. There is advanced degenerative disc changes at each disc level with vacuum disc phenomena and disc space narrowing. There are disc osteophyte complexes causing ventral extradural defects at each lumbar level. There are some degenerative changes of facets throughout the lumbar spine as well. There are no pars defects. IMPRESSION: Severe spondylosis of the lumbar spine but no acute abnormality seen. Dictated by: Dictated on workstation # [id number]
[2022-11-12] MEDS ORDERED: LACTULOSE SYRUP 10GM/15ML (ENULOSE) 30ML UDC PO PRN (19:15)
[2022-11-12] MEDS ORDERED: MILK OF MAGNESIA 400 MG/5 ML 30 ML UDC PO PRN (19:15)
[2022-11-12] MEDS ORDERED: BISACODYL 10 MG SUPP (DULCOLAX) PR PRN (19:15)
[2022-11-12] MEDS ORDERED: diphenhydrAMINE 50 MG/ML INJ (BENADRYL) IVP PRN (19:15)
[2022-11-12] MEDS ORDERED: diphenhydrAMINE 25 MG TAB (BENADRYL) PO PRN (19:15)
[2022-11-12] MEDS ORDERED: CALCIUM CARBONATE 500 MG (TUMS) TAB.CHEW PO PRN (19:15)
[2022-11-12] MEDS ORDERED: ONDANSETRON 4 MG (ZOFRAN) ORAL DISSOLVE TAB PO PRN (19:15)
[2022-11-12] MEDS ORDERED: ACETAMINOPHEN 325 MG TABLET PO PRN (19:15)
[2022-11-12] MEDS ORDERED: polyethylene glycoL POWDER 17 GM (MIRALAX) PACK PO PRN (19:15)
[2022-11-12] MEDS ORDERED: ANTACID SUSP 30 ML UDC (MYLANTA) PO PRN (19:15)
[2022-11-12] MEDS: NS IV 1000 ML 1,000 ML IV SCH (19:50)
[2022-11-12 20:04] VITALS: BP 125/61
[2022-11-12] MEDS: HYDROmorphone 2 MG/ML VIAL (DILAUDID) IV PRN (20:42)
[2022-11-12] MEDS: SENNOSIDES 8.6 MG (SENOKOT) TAB PO SCH (20:42)
[2022-11-12] MEDS: MELATONIN 3 MG TABLET PO PRN (20:42)
[2022-11-12] MEDS: DOCUSATE SODIUM 100 MG (COLACE) CAP PO SCH (20:42)
[2022-11-12] MEDS: inSUlin ASPART (NovoLOG) 1 UNIT/0.01 ML (CHARGE PER UNIT) SC SCH (20:44)
[2022-11-12] MEDS: ENOXAPARIN 40 MG/0.4 ML (LOVENOX) SYR SC SCH (22:16)
[2022-11-13] VITALS (7 sets, daily range): BP systolic 107–145; BP diastolic 57–74
[2022-11-13] MEDS: NS IV 1000 ML 1,000 ML IV SCH ×2 (01:25→14:40)
[2022-11-13] MEDS: HYDROmorphone 2 MG/ML VIAL (DILAUDID) IV PRN ×2 (02:14→19:35)
[2022-11-13] MEDS: ONDANSETRON 4 MG/2 ML (SDV) Z0FRAN IV PRN ×2 (03:47→23:27)
[2022-11-13] MEDS: inSUlin ASPART (NovoLOG) 1 UNIT/0.01 ML (CHARGE PER UNIT) SC SCH ×4 (05:22→20:35)
[2022-11-13 05:34] LABS: BASOPHILS % (AUTO) 0 % (0-10); EOSINOPHILS % (AUTO) 0 % (0-10); MEAN PLATELET VOLUME 13.2 fL (9.0-12.2); PLATELET COUNT 91 10^3/uL (130-400)
[2022-11-13 05:36] LABS: HEMATOCRIT 45 % (35-52); HEMOGLOBIN 14.8 g/dL (11.5-16.0); LYMPHOCYTES # (AUTO) 1.4 10^3/uL (1.0-4.0); LYMPHOCYTES % (AUTO) 13 % (12-44); MEAN CORPUSCULAR HEMOGLOBIN 28 pg (25-34); MEAN CORPUSCULAR HGB CONC 33 g/dL (32-36); MEAN CORPUSCULAR VOLUME 86 fL (80-99); MONOCYTES # (AUTO) 0.6 10^3/uL (0.0-1.0); MONOCYTES % (AUTO) 5 % (0-12); NEUTROPHILS % (AUTO) 81 % (42-75)
[2022-11-13 05:44] LABS: ALBUMIN 3.6 GM/DL (3.2-4.5); POTASSIUM 3.5 MMOL/L (3.6-5.0)
[2022-11-13 05:45] LABS: CALCIUM 8.9 MG/DL (8.5-10.1)
[2022-11-13 05:47] LABS: TOTAL PROTEIN 7.1 GM/DL (6.4-8.2)
[2022-11-13 05:49] LABS: BILIRUBIN,TOTAL 0.5 MG/DL (0.1-1.0)
[2022-11-13 05:50] LABS: CREATININE SERUM 0.74 MG/DL (0.60-1.30)
--- NOTE | 2022-11-13 07:48 | Consultation - Ortho ---
Consult - Ortho Subjective Date of Exam 11/13/22 Chief Complaint Fall HPI/Events since last exam fall, landed on right side, radiology stated possible triquetral fracture in the right wrist Medical, Surgical History not obtained Social History not obtained Family History not obtained Review of Systems - Allergies: Coded Allergies: No Known Drug Allergies (Unverified , 08/30/10) Home Meds Active Scripts Doxycycline Hyclate (Doxycycline Hyclate) 100 Mg Tablet, 100 MG PO BID for UTI for 5 Days, #10 TAB 0 Refills Prov:ENZO DOTSON MD 11/12/22 Cephalexin (Cephalexin) 500 Mg Tablet, 500 MG PO TID for 5 Days, #15 TAB Prov:DAFNE ESCALANTE MD 11/10/22 Reported Medications Sodium Chloride/Aloe Vera ([place] Saline Nasal Gel) 14.1 Gm Gel..gram., 1 APPLIC NA TID PRN for DRY NOSE, TUBE 07/22/19 Sodium Chloride (Saline Nasal Sears) 30 Ml Sears, 1 SPRAY NSEACH PRN PRN for DRY NOSE, SPRAY 07/22/19 Turmeric Root Extract (Turmeric) 538 Mg Capsule, 538 MG PO DAILY PRN for ARTHRIT IS PAIN, CAP 07/22/19 Triamterene/Hydrochlorothiazid (Triamterene-Hctz 37.5-25 mg Cp) 1 Each Capsule, 1 EACH PO DAILY, CAP 01/19/19 Atenolol (Atenolol) 50 Mg Tablet, 50 MG PO DAILY, TAB 01/19/19 Objective Exam - Vital Signs Vital Signs Date Time Temp Pulse Resp B/P (MAP) Pulse Ox O2 Delivery O2 Flow Rate FiO2 11/13/22 03:58 37.3 85 20 112/67 (82) 93 Nasal Cannula 2.00 11/13/22 01:00 80 11/13/22 00:00 37.2 78 20 108/57 (74) 92 Nasal Cannula 2.00 11/12/22 20:45 Nasal Cannula 2.00 11/12/22 20:19 80 11/12/22 20:04 36.4 75 20 125/61 (82) 93 Nasal Cannula 2.00 11/12/22 19:52 98 21 11/12/22 18:24 18 111/84 98 11/12/22 15:23 36.5 73 16 144/74 (97) 88 Room Air 11/12/22 15:06 36.5 73 16 144/74 (97) 88 Room Air I & O0 11/13/22 07:00 Intake Total 1470 ml Output Total 925 ml Balance 545 ml Lab Results Laboratory Tests 11/12/22 15:10: White Blood Count 9.2, Red Blood Count 5.41H, Hemoglobin 15.2, Hematocrit 46, Mean Corpuscular Volume 86, Mean Corpuscular Hemoglobin 28, Mean Corpuscular Hemoglobin Concent 33, Red Cell Distribution Width 13.7, Platelet Count 91L, Mean Platelet Volume 13.2H, Immature Granulocyte % (Auto) 1, Neutrophils (%) (Auto) 48, Lymphocytes (%) (Auto) 39, Monocytes (%) (Auto) 9, Eosinophils (%) (Auto) 3, Basophils (%) (Auto) 0, Neutrophils # (Auto) 4.4, Lymphocytes # (Auto) 3.6, Monocytes # (Auto) 0.8, Eosinophils # (Auto) 0.3, Basophils # (Auto) 0.0, Immature Granulocyte # (Auto) 0.1, Prothrombin Time 12.7, INR Comment 0.9, Activated Partial Thromboplast Time 31, Sodium Level 137, Potassium Level 3.4L, Chloride Level 100, Carbon Dioxide Level 28, Anion Gap 9, Blood Urea Nitrogen 20H, Creatinine 0.81, Estimat Glomerular Filtration Rate 72, BUN/Creatinine Ratio 25, Glucose Level 122H, Calcium Level 9.7, Corrected Calcium 9.9, Total Bilirubin 0.4, Aspartate Amino Transf (AST/SGOT) 15, Alanine Aminotransferase (ALT/SGPT) 10, Alkaline Phosphatase 70, Troponin I < 0.028, Total Protein 7.6, Albumin 3.8 11/12/22 15:16: Urine Color YELLOW, Urine Clarity CLEAR, Urine pH 6.0, Urine Specific [place] 1.010L, Urine Protein TRACEH, Urine Glucose (UA) NEGATIVE, Urine Ketones NEGATIVE, Urine Nitrite NEGATIVE, Urine Bilirubin NEGATIVE, Urine Urobilinogen 2.0, Urine Leukocyte Esterase 3+H, Urine RBC (Auto) 1+H, Urine RBC 0-2, Urine WBC 25-50H, Urine Squamous Epithelial Cells NONE, Urine Crystals NONE, Urine Bacteria FEWH, Urine Casts NONE, Urine Mucus NEGATIVE, Urine Culture Indicated YES 11/12/22 20:13: Glucometer 155H 11/13/22 05:16: Glucometer 147H 11/13/22 05:25: White Blood Count 11.0, Red Blood Count 5.23H, Hemoglobin 14.8, Hematocrit 45, Mean Corpuscular Volume 86, Mean Corpuscular Hemoglobin 28, Mean Corpuscular Hemoglobin Concent 33, Red Cell Distribution Width 13.5, Platelet Count 91L, Mean Platelet Volume 13.2H, Immature Granulocyte % (Auto) 1, Neutrophils (%) (Auto) 81H, Lymphocytes (%) (Auto) 13, Monocytes (%) (Auto) 5, Eosinophils (%) (Auto) 0, Basophils (%) (Auto) 0, Neutrophils # (Auto) 9.0H, Lymphocytes # (Aut o) 1.4, Monocytes # (Auto) 0.6, Eosinophils # (Auto) 0.0, Basophils # (Auto) 0.0, Immature Granulocyte # (Auto) 0.1, Percent Immature Platelet Fraction 18.6H , Sodium Level 137, Potassium Level 3.5L, Chloride Level 102, Carbon Dioxide Level 26, Anion Gap 9, Blood Urea Nitrogen 16, Creatinine 0.74, Estimat Glomerular Filtration Rate 80, BUN/Creatinine Ratio 22, Glucose Level 143H, Calcium Level 8.9, Corrected Calcium 9.2, Total Bilirubin 0.5, Aspartate Amino Transf (AST/SGOT) 17, Alanine Aminotransferase (ALT/SGPT) 10, Alkaline Phosphatase 73, Total Protein 7.1, Albumin 3.6 Assessment and Plan Assessment Right Wrist Pain possible Triquetral Fracture Problem List Right Wrist Pain possible Triquetral Fracture Plan Velcro wrist brace Repeat xray in 7 to 10 days Final Diagonsis Right Wrist Pain possible Triquetral Fracture Level of the visit: Level 3 BROOKLYN BAUER MD Nov 13, 2022 07:47
[2022-11-13] MEDS: DOCUSATE SODIUM 100 MG (COLACE) CAP PO SCH ×2 (08:21→19:36)
[2022-11-13] MEDS: SENNOSIDES 8.6 MG (SENOKOT) TAB PO SCH ×2 (08:21→19:35)
[2022-11-13] MEDS ORDERED: SODI44SP2 NSEACH (10:42)
[2022-11-13] MEDS ORDERED: TERB15CR6 TOP (10:42)
[2022-11-13] MEDS ORDERED: MENT71OI TP (10:42)
[2022-11-13] MEDS ORDERED: METF-397 PO (10:42)
[2022-11-13] MEDS ORDERED: TRIA1TAB3 PO (10:42)
[2022-11-13] MEDS ORDERED: SERT-412 PO (10:42)
[2022-11-13] MEDS ORDERED: CEPH500C PO (10:42)
[2022-11-13] MEDS ORDERED: MENT71OI TOP (10:42)
[2022-11-13] MEDS ORDERED: DICL100G13 TOP (10:42)
--- NOTE | 2022-11-13 10:53 | Physical Therapy Evaluation ---
PT Evaluation-General Medical Diagnosis Admission Date Nov 12, 2022 at 18:23 Medical Diagnosis: syncope Onset Date: Nov 12, 2022 Therapy Diagnosis Therapy Diagnosis: severe weakness/debility Height/Weight Weight (Pounds): 245 Precautions Precautions/Isolations: Fall Prevention, Standard Precautions Referral Physician: Jake Reason for Referral: Evaluation/Treatment Medical History Pertinent Medical History: HTN Additional Medical History obesity Current History EMS secondary to syncopal episode resulting in a fall hitting back of head and landing on right side. Reviewed History: Yes Social History Home: Assisted Living Prior Prior Level of Function SCALE: Activities may be completed with or without assistive devices. 8-Hchcctwyyf-fftwrqh completes the activity by him/herself with no assistance from a helper. 5-Set-up or Clean-up Assistance-helper sets up or cleans up; patient completes activity. [place] assists only prior to or following the activity. 4-Supervision or Touching Assistance-helper provides verbal cues and/or touching/steadying and/or contact guard assistance as patient completes activity. Assistance may be provided throughout the activity or intermittently. 3-Partial/Moderate Assistance-helper does LESS THAN HALF the effort. [place] lifts, holds or supports trunk or limbs, but provides less than half the effort. 2-Substantial/Maximal Assistance-helper does MORE THAN HALF the effort. [place] lifts or holds trunk or limbs and provides more than half the effort. 4-Ghnjcolty-arpicm does ALL the effort. Patient does none of the effort to complete the activity. Or, the assistance of 2 or more helpers is required for the patient to complete the activity. If activity was not attempted, code reason: 7-Patient Refused. 9-Not Applicable-not attempted and the patient did not perform the activity before the current illness, exacerbation or injury. 10-Not Attempted due to Environmental Limitations-(lack of equipment, weather restraints, etc.). 88-Not Attempted due to Medical Conditions or Safety Concerns. Bed Mobility: 4 Transfers (B,C,W/C): 4 Gait: 4 Indoor Mobility (Ambulation): Independent Prior Devices Use: Walker PT Evaluation-Current Subjective Patient repeats, "My head." Has difficulty with attending to task. Family present and very attentive. Objective Patient Orientation: Person, Place, Time Attachments: Oxygen, Hoffmann Catheter, IV ROM/Strength ROM Lower Extremities bilateral LE WFL Strength Lower Extremities 3-/5 grossly bilateral LE with functional mobility Integumentary/Posture Integumentary refer to nursing notes Bladder Incontinence: Hoffmann Cath Posture cervical flexed posture Neuromuscular (Tone, Coordination, Reflexes) severely diminished coordination due to weakness Sensory Vision: Functional Hearing: Functional Transfers Lying to Sitting/Side of Bed(Q: 1 (x 2) Sit to Stand (QC): 1 (x 2) Chair/Mzd-vu-Azzba Xfer(QC): 1 (x 2) Gait Mode of Locomotion: Walk Walk 10 feet (QC): 88 Gait Assistive Device: FWW Balance Sitting Static: Poor Sitting Dynamic: Poor Standing Static: Poor Standing Dynamic: Poor Assessment/Needs Patient will benefit from skilled PT to address functional strength and mobility to improve current LOF. Patient is currently dependent of 2 with all mobility and has difficulty attending to tasks due to nausea and c/o CARSON. RN is aware. Rehab Potential: Guarded PT Short Term Goals Short Term Goals Time Frame: Nov 21, 2022 Roll Left & Right: 3 Sit to lyin Lying to sitting on side of be: 3 Sit to stand: 3 Chair/cun-ez-ndcjm transfer: 3 Walk 10 feet: 3 PT Publicity Manager Goals Publicity Manager Goals PT Prison Goals Time Frame: Nov 29, 2022 Roll Left & Right (QC): 4 Sit to Lying (QC): 4 Lying-Sitting on Side/Bed(QC): 4 Sit to Stand (QC): 4 Chair/Ezf-bb-Xiklz Xfer(QC): 4 Toilet Transfer (QC): 4 Walk 10 feet (QC): 4 Walk 50ft with 2 Turns (QC): 4 PT Plan Problem List Problem List: Activity Tolerance, Functional Strength, Safety, Balance, Gait, Transfer, Bed Mobility Treatment/Plan Treatment Plan: Continue Plan of Care Treatment Plan: Bed Mobility, Education, Functional Activity Sean, Functional Strength, Gait, Safety, Therapeutic Exercise, Transfers Treatment Duration: Nov 29, 2022 Frequency: 5 times per week Estimated Hrs Per Day: .25 hour per day Time Time In: 935 Time Out: 1000 DATE: Nov 13, 2022 Total Billed Treatment Time: 25 Total Billed Treatment 1 visit EVModC 15 min FA 10 min ALLA VASQUEZ PT Nov 13, 2022 10:53
[2022-11-13] MEDS ORDERED: KCL 10 MEQ TAB (MICRO K) PO NR (11:30)
--- NOTE | 2022-11-13 13:19 | Progress Note ---
BLANCAYEHUDA 11/13/22 1319: Subjective Date Seen by a Provider: Nov 13, 2022 Time Seen by a Provider: 09:00 Subjective/Events-last exam Patient seen at bedside this morning. Reports she has a headache since her admission. Also reports some right wrist pain and trouble moving the R hand. Denies and vision changes, hearing changes, N/V since her fall. Reports her nose is sore but denies any epistaxis. Urinary burning and frequency have improved since starting ceftriaxone. Patient's family at bedside report she is doing better and moving more. Review of Systems General: No Chills, No Night Sweats HEENT: Head Aches; No Visual Changes Pulmonary: No Dyspnea, No Cough Cardiovascular: No: Chest Pain, Palpitations, Lt Headedness Gastrointestinal: No: Nausea, Vomiting, Abdominal Pain Genitourinary: No Dysuria, No Hematuria Musculoskeletal: arm pain, leg pain Neurological: Weakness, Confusion; No: Change in speech Objective Exam Last Set of Vital Signs Vital Signs Date Time Temp Pulse Resp B/P (MAP) Pulse Ox O2 Delivery O2 Flow Rate FiO2 11/13/22 11:22 36.9 63 18 107/69 (82) 95 Nasal Cannula 2.00 11/12/22 19:52 21 Capillary Refill : Less Than 3 Seconds I&O Intake and Output 11/13/22 00:00 Intake Total 270 ml Output Total 625 ml Balance -355 ml Intake Oral 220 ml IV Total 50 ml Output Urine Total 625 ml Daily Weight Change No General: Alert, No Acute Distress, Other (answers some questions incorrectly, slow to respond) HEENT: EOMI Neck: Supple Lungs: Clear to Auscultation, Normal Air Movement Heart: Regular Rate, Normal S1, Normal S2 Abdomen: Soft, No Tenderness Extremities: No Cyanosis, No Edema, Normal Pulses Neuro: Normal Speech Results Lab Laboratory Tests 11/12/22 15:10: White Blood Count 9.2, Red Blood Count 5.41H, Hemoglobin 15.2, Hematocrit 46, Mean Corpuscular Volume 86, Mean Corpuscular Hemoglobin 28, Mean Corpuscular Hemoglobin Concent 33, Red Cell Distribution Width 13.7, Platelet Count 91L, Mean Platelet Volume 13.2H, Immature Granulocyte % (Auto) 1, Neutrophils (%) (Auto) 48, Lymphocytes (%) (Auto) 39, Monocytes (%) (Auto) 9, Eosinophils (%) (Auto) 3, Basophils (%) (Auto) 0, Neutrophils # (Auto) 4.4, Lymphocytes # (Auto) 3.6, Monocytes # (Auto) 0.8, Eosinophils # (Auto) 0.3, Basophils # (Auto) 0.0, Immature Granulocyte # (Auto) 0.1, Prothrombin Time 12.7, INR Comment 0.9, Activated Partial Thromboplast Time 31, Sodium Level 137, Potassium Level 3.4L, Chloride Level 100, Carbon Dioxide Level 28, Anion Gap 9, Blood Urea Nitrogen 20H, Creatinine 0.81, Estimat Glomerular Filtration Rate 72, BUN/Creatinine Ratio 25, Glucose Level 122H, Calcium Level 9.7, Corrected Calcium 9.9, Total Bilirubin 0.4, Aspartate Amino Transf (AST/SGOT) 15, Alanine Aminotransferase (ALT/SGPT) 10, Alkaline Phosphatase 70, Troponin I < 0.028, Total Protein 7.6, Albumin 3.8 11/12/22 15:16: Urine Color YELLOW, Urine Clarity CLEAR, Urine pH 6.0, Urine Specific [place] 1.010L, Urine Protein TRACEH, Urine Glucose (UA) NEGATIVE, Urine Ketones NEGATIVE, Urine Nitrite NEGATIVE, Urine Bilirubin NEGATIVE, Urine Urobilinogen 2.0, Urine Leukocyte Esterase 3+H, Urine RBC (Auto) 1+H, Urine RBC 0-2, Urine WBC 25-50H, Urine Squamous Epithelial Cells NONE, Urine Crystals NONE, Urine Bacteria FEWH, Urine Casts NONE, Urine Mucus NEGATIVE, Urine Culture Indicated YES 11/12/22 20:13: Glucometer 155H 11/13/22 05:16: Glucometer 147H 11/13/22 05:25: White Blood Count 11.0, Red Blood Count 5.23H, Hemoglobin 14.8, Hematocrit 45, Mean Corpuscular Volume 86, Mean Corpuscular Hemoglobin 28, Mean Corpuscular Hemoglobin Concent 33, Red Cell Distribution Width 13.5, Platelet Count 91L, Mean Platelet Volume 13.2H, Immature Granulocyte % (Auto) 1, Neutrophils (%) (Auto) 81H, Lymphocytes (%) (Auto) 13, Monocytes (%) (Auto) 5, Eosinophils (%) (Auto) 0, Basophils (%) (Auto) 0, Neutrophils # (Auto) 9.0H, Lymphocytes # (Auto) 1.4, Monocytes # (Auto) 0.6, Eosinophils # (Auto) 0.0, Basophils # (Auto) 0.0, Immature Granulocyte # (Auto) 0.1, Percent Immature Platelet Fraction 18.6H , Sodium Level 137, Potassium Level 3.5L, Chloride Level 102, Carbon Dioxide Level 26, Anion Gap 9, Blood Urea Nitrogen 16, Creatinine 0.74, Estimat Glomerular Filtration Rate 80, BUN/Creatinine Ratio 22, Glucose Level 143H, Calcium Level 8.9, Corrected Calcium 9.2, Total Bilirubin 0.5, Aspartate Amino Transf (AST/SGOT) 17, Alanine Aminotransferase (ALT/SGPT) 10, Alkaline Phosphatase 73, Total Protein 7.1, Albumin 3.6 11/13/22 10:58: Glucometer 142H Assessment/Plan Assessment/Plan Assess & Plan/Chief Complaint Syncopal episode resulting in a fall Encephalopathy related to closed head injury Concussion CT showed no evidence of intracranial bleed Continue pain control EKG did not reveal arrythmia leading to syncope but did note 1st degree AV block Consider checking orthostatic vitals No neuro deficits at this point, continue to monitor Avoid bright lights and loud noises PT/OT R wrist fracture Possible R nasal fracture Ortho consulted Planning for wrist brace and repeat xray in 7-10 days continue pain control Scalp laceration Clean, dry, and intact UTI Continue ceftriaxone and Iv fluids Normal WBC and afebrile ROSALIA FUENTES DO 11/13/222119: Assessment/Plan Assessment/Plan Assess & Plan/Chief Complaint Changed to inpatient status due to encephalopathy following close head injury with loss of consciousness Supervisory-Addendum Brief Verification & Attestation Participated in pt care: history, MDM, physical Personally performed: exam, history, MDM, supervision of care Care discussed with: Medical Student Procedures: n/a Results interpretation: Verified all documentation Verification and Attestation of Medical Student E/M Service A medical student performed and documented this service in my presence. I reviewed and verified all information documented by the medical student and made modifications to such information, when appropriate. I personally performed the physical exam and medical decision making. Rosalia Fuentes Nov 13, 2022,21:20 YEHUDA RIOS Nov 13, 2022 13:19 ROSALIA FUENTES DO Nov 13, 2022 21:20
--- NOTE | 2022-11-13 14:52 | Occupational Therapy Eval ---
OT Evaluation-General/PLF Medical Diagnosis Admission Date Nov 12, 2022 at 18:23 Medical Diagnosis: syncope Onset Date: Nov 12, 2022 Therapy Diagnosis Therapy Diagnosis: weakness, R wrist ROM and strength deficit Height/Weight Weight (Pounds): 245 Precautions Precautions/Isolations: Fall Prevention, Standard Precautions Weight Bear Status Weight Bearing Restriction: Weight Bearing/Tolerated Location Restriction: R UE triquetral fracture in the right wrist, VELCRO brace to be applied Referral Physician: Jake Referral Reason: Evaluation/Treatment Medical History Pertinent Medical History: HTN Additional Medical History ER following a fall after syncopal episode with laceration of her scalp and left hand fracture with right-sided contusions. Trauma surgery was consulted due to the multiple injury fall. CT scan was obtained due to no fracture identified on the right hip. Reviewed History: Yes Social History Home: Assisted Living ADL-Prior Level of Function SCALE: Activities may be completed with or without assistive devices. 0-Ghqmfxojrx-iymuioc completes the activity by him/herself with no assistance from a helper. 5-Set-up or Clean-up Assistance-helper sets up or cleans up; patient completes activity. [place] assists only prior to or following the activity. 4-Supervision or Touching Assistance-helper provides verbal cues and/or touching/steadying and/or contact guard assistance as patient completes activity. Assistance may be provided throughout the activity or intermittently. 3-Partial/Moderate Assistance-helper does LESS THAN HALF the effort. [place] lifts, holds or supports trunk or limbs, but provides less than half the effort. 2-Substantial/Maximal Assistance-helper does MORE THAN HALF the effort. [place] lifts or holds trunk or limbs and provides more than half the effort. 2-Wjpkiwxnb-aicqrf does ALL the effort. Patient does none of the effort to complete the activity. Or, the assistance of 2 or more helpers is required for the patient to complete the activity. If activity was not attempted, code reason: 7-Patient Refused. 9-Not Applicable-not attempted and the patient did not perform the activity before the current illness, exacerbation or injury. 10-Not Attempted due to Environmental Limitations-(lack of equipment, weather restraints, etc.). 88-Not Attempted due to Medical Conditions or Safety Concerns. Self Care: Needed Some Help Functional Cognition: Independent Drive Self: No OT Current Status Subjective Agreeable to Therapy, family present Mental Status/Objective Patient Orientation: Person, Place Attachments: Hoffmann Catheter, IV, SCD's Current Glasses/Contacts: Yes Hand Dominance: Right Upper Extremity ROM ROM RUE varies from flaccid to trace to 90 elbow flexion, unable to complete grasp for composite fist closure. LUE WFLS Upper Extremity Coordination IMPAIRED Upper Extremity Sensation IMPAIRED Upper Extremity Strength RUE -2/5. LUE +3/5 ROM HEP RUE ADL-Treatment Eating (QC): 3 Oral Hygiene (QC): 3 Shower/Bathe Self (QC): 7 Upper Body Dressing (QC): 2 Lower Body Dressing (QC): 1 On/Off Footwear (QC): 1 Toileting Hygiene (QC): 1 Education OT Patient Education: Correct positioning, Exercise program, Home exercise program, Instructions to caregiver, Modified ADL techniques, Progress toward Goal/Update tx plan, Purpose of tx/functional activities, Reviewed precautions, Rehab process, Safety issues, Transfer techniques, Use of adapted equipment Teaching Recipient: Patient, Family Response to Teaching: Verbalize Understanding, Reinforcement Needed OT Retirement Goals Test Analyst Goals Eating (QC): 5 Oral Hygiene (QC): 5 Toileting Hygiene (QC): 3 Shower/Bathe Self (QC): 3 Upper Body Dressing (QC): 4 Lower Body Dressing (QC): 3 On/Off Footwear (QC): 4 1=Demonstrate adherence to instructed precautions during ADL tasks. 2=Patient will verbalize/demonstrate understanding of assistive devices/modifications for ADL. 3=Patient will improve strength/tolerance for activity to enable patient to perform ADL's. OT Education/Plan Problem List/Assessment Assessment: Decreased Activ Tolerance, Decreased Safety Aware, Decreased UE Strength, Dependent Transfers, Impaired Bed Mobility, Impaired Coordination, Impaired Funct Balance, Impaired Self-Care Skills, Restricted Funct UE ROM Discharge Recommendations Plan/Recommendations: Continue POC Therapy Discharge Recommendati: Post Acute OT Treatment Plan/Plan of Care Treatment,Training & Education: Yes Patient would benefit from OT for education, treatment and training to promote independence in ADL's, mobility, safety and/or upper extremity function for ADL's. Plan of Care: ADL Retraining, Cognitive Retraining, Concurrent Therapy, Functional Mobility, Group Exercise/Act as Ind, UE Funct Exercise/Act, UE Neuromus Re-Ed/Coord Treatment Duration: Nov 21, 2022 Frequency: 3 times per week (3-5 times per week) Agreement: Yes Rehab Potential: Guarded Time Start Time: 09:38 Stop Time: 10:02 DATE: Nov 13, 2022 Total Time Billed (hr/min): 20 Billed Treatment Time EVM 20 min ALYSON ADHIKARI OT Nov 13, 2022 14:52
[2022-11-13] MEDS ORDERED: cefTRIAXone IV/IM 1,000 MG in NS (IVPB) 50 ML IV SCH (17:00)
--- NOTE | 2022-11-13 17:40 | Consultation - Surgery ---
History of Present Illness History of Present Illness Patient Consulted On(jose/time) 11/13/22 17:39 Date Seen by Provider: Nov 13, 2022 Time Seen by Provider: 15:49 History of Present Illness Consult requested by Dr. Joseph for fall Patient is a 2-year-old female who was having syncopal episode. She fell hitting her head which caused a small laceration and hematoma. Patient has chronic pain issues. She complains of pain diffusely however she states these are at her baseline. Patient has difficulty ambulating and moving extremities. Patient was found to have a urinary tract infection is on antibiotics no family at bedside. Reviewed imaging and did not demonstrate any acute injuries except for possible triquetral fracture. Dr. Silverman has been consulted and recommends splint and repeat imaging in 7 to 10 days. Right wrist x-ray Degenerative changes and chondrocalcinosis. Findings are suspicious for a triquetral fracture, followup is recommended. CT of the head face and C-spine moderate size right frontal scalp hematoma no c alvarium fracture or acute intracranial hemorrhage small nondisplaced fracture of the anterior right nasal bone advanced degenerative changes in the cervical spine with no fracture seen multilevel spinal canal foraminal stenosis. Chest x-ray no acute process. CT of the abdomen pelvis demonstrating left nephrolithiasis uncomplicated diverticulosis of the colon no acute abnormality seen in the abdomen or pelvis. Allergies and Home Medications Allergies Coded Allergies: No Known Drug Allergies (Unverified , 08/30/10) Patient Home Medication List Home Medication List Reviewed: Yes Atenolol (Atenolol) 50 Mg Tablet, 50 MG PO DAILY, (Reported) Entered as Reported by: RAPHAEL ALARCON on 01/19/19 1520 Last Action: Reviewed Cephalexin (Cephalexin) 500 Mg Capsule, 500 MG PO TID, (Reported) Entered as Reported by: ROMMEL CHOWDARY on 11/13/22 1042 Last Action: Reviewed Diclofenac Sodium (Diclofenac Sodium) 1 % Gel..gram., 1 APPLIC TOP BID, (Reported) Entered as Reported by: ROMMEL CHOWDARY on 11/13/22 1042 Last Action: Reviewed Menthol/Lanolin/Calamine/Znox (Calmoseptine Ointment) 0.44 %-20.6 % Oint, 1 APPLIC TOP BID, (Reported) Entered as Reported by: ROMMEL CHOWDARY on 11/13/221041 Last Action: Reviewed Menthol/Lanolin/Calamine/Znox (Calmoseptine Ointment) 0.44 %-20.6 % Oint, 1 APPLIC TP EVERY 3 HOURS PRN for SKIN IRRITATION, (Reported) Entered as Reported by: ROMMEL CHOWDARY on 11/13/221041 Last Action: Reviewed Metformin HCl (Metformin HCl) 500 Mg Tablet, 250 MG PO , (Reported) Entered as Reported by: ROMMEL CHOWDARY on 11/13/221041 Last Action: Reviewed Sertraline HCl (Sertraline HCl) 25 Mg Tablet, 25 MG PO DAILY, (Reported) Entered as Reported by: ROMMEL CHOWDARY on 11/13/221041 Last Action: Reviewed Sodium Chloride ([place]) 0.65 % [place], 1 SPRAY NSEACH TID, (Reported) Entered as Reported by: ROMMEL CHOWDARY on 11/13/221041 Last Action: Reviewed Sodium Chloride/Aloe Vera ([place] Saline Nasal Gel) 14.1 Gm Gel..gram., 1 APPLIC NA Q12H, (Reported) Entered as Reported by: ROMMEL CHOWDARY on 07/22/19 0830 Last Action: Reviewed Terbinafine HCl (Terbinafine) 1 % Cream..g., 1 APPLIC TOP DAILY, (Reported) Entered as Reported by: ROMMEL CHOWDARY on 11/13/221041 Last Action: Reviewed Triamterene/Hydrochlorothiazid (Triamterene-Hctz 37.5-25 mg Tb) 37.5 Mg-25 Mg Tablet, 1 EA PO DAILY, (Reported) Entered as Reported by: ROMMEL CHOWDARY on 11/13/221041 Last Action: Reviewed Discontinued Medications Cephalexin (Cephalexin) 500 Mg Tablet, 500 MG PO TID Discontinued Reason: No Longer Taking Prescribed by: DAFNE ESCALANTE on 11/10/22 1146 Last Action: Discontinued Doxycycline Hyclate (Doxycycline Hyclate) 100 Mg Tablet, 100 MG PO BID Discontinued Reason: No Longer Taking Prescribed by: ENZO DOTSON on 11/12/22 1656 Last Action: Discontinued Sodium Chloride (Saline Nasal [place]) 30 Ml [place], 1 SPRAY NSEACH PRN PRN for DRY NOSE, (Reported) Discontinued Reason: No Longer Taking Entered as Reported by: ROMMEL CHOWDARY on 07/22/19 0830 Last Action: Discontinued Triamterene/Hydrochlorothiazid (Triamterene-Hctz 37.5-25 mg Cp) 1 Each Capsule, 1 EACH PO DAILY, (Reported) Discontinued Reason: No Longer Taking Entered as Reported by: RAPHAEL ALARCON on 01/19/19 1520 Last Action: Discontinued Turmeric Root Extract (Turmeric) 538 Mg Capsule, 538 MG PO DAILY PRN for ARTH RITIS PAIN, (Reported) Discontinued Reason: No Longer Taking Entered as Reported by: ROMMEL CHOWDARY on 07/22/19 0830 Last Action: Discontinued Past Atzldek-Zvifyj-Cnhyod Hx Patient Social History Smoking Status: Never a Smoker 2nd Hand Smoke Exposure: No Recent Hopitalizations: No Alcohol Use?: No Immunizations Up To Date Date of Pneumonia Vaccine: Mar 11, 2012 Date of Influenza Vaccine: Feb 09, 2020 Seasonal Allergies Seasonal Allergies: No Surgeries History of Surgeries: Yes Surgeries: Eye Surgery, Hysterectomy, Orthopedic Respiratory History of Respiratory Disorde: No Cardiovascular History of Cardiac Disorders: Yes Cardiac Disorders: Hypertension Neurological History of Neurological Disord: Yes (TREMORS) Reproductive System Hx Reproductive Disorders: No Sexually Transmitted Disease: No Genitourinary History of Genitourinary Disor: No Gastrointestinal History of Gastrointestinal Di: No Musculoskeletal History of Musculoskeletal Dis: Yes (ARTHRITIS) Endocrine History of Endocrine Disorders: No Integumentary History of Skin or Integumenta: No Blood Transfusions History of Blood Disorders: No Reviewed Nursing Assessment Reviewed/Agree w Nursing PMH: Yes Family Medical History Significant Family History: No Pertinent Family Hx Family Medial History: Cardiovascular disease 19 MOTHER Cataracts 19 MOTHER Completed stroke 19 FATHER Diabetes mellitus 19 MOTHER Hypertension 19 FATHER Myocardial infarction 19 MOTHER Review of Systems-General Constitutional: No chills, No diaphoresis EENTM: No blurred vision, No double vision Respiratory: No cough, No dyspnea on exertion Cardiovascular: No chest pain, No palpitations; syncope Gastrointestinal: No nausea, No vomiting Genitourinary: No decreased output, No discharge Musculoskeletal: back pain, joint pain Skin: No change in color, No change in hair/nails Psychiatric/Neurological: Denies Anxiety, Denies Depressed, Denies Emotional Problems All Other Systems Reviewed Negative Unless Noted: Yes (Negative excepted noted.) Physical Exam-General Problems Physical Exam Vital Signs Vital Signs - First Documented 11/12/22 11/12/22 11/12/22 15:06 19:52 20:04 Temp 36.5 Pulse 73 Resp 16 B/P (MAP) 144/74 (97) Pulse Ox 88 O2 Delivery Room Air O2 Flow Rate 2.00 FiO2 21 Capillary Refill : Less Than 3 Seconds General Appearance: no apparent distress, obese, other (chronicall ill) HEENT: PERRL/EOMI, normal ENT inspection, other (right scalp laceration) Neck: non-tender, supple Respiratory: chest non-tender, no respiratory distress, no accessory muscle use Cardiovascular: regular rate, rhythm, no JVD Gastrointestinal: non tender, soft Rectal: deferred Back: normal inspection, no CVA tenderness, no vertebral tenderness Extremities: no pedal edema, other (diffuse tenderness of most of body/extremities.) Neurologic/Psychiatric: alert, depressed affect Skin: warm/dry, ecchymosis Lymphatic: no adenopathy Data Review Labs Laboratory Tests 11/12/22 20:13: Glucometer 155H 11/13/22 05:16: Glucometer 147H 11/13/22 05:25: White Blood Count 11.0, Red Blood Count 5.23H, Hemoglobin 14.8, Hematocrit 45, Mean Corpuscular Volume 86, Mean Corpuscular Hemoglobin 28, Mean Corpuscular Hemoglobin Concent 33, Red Cell Distribution Width 13.5, Platelet Count 91L, Mean Platelet Volume 13.2H, Immature Granulocyte % (Auto) 1, Neutrophils (%) (Auto) 81H, Lymphocytes (%) (Auto) 13, Monocytes (%) (Auto) 5, Eosinophils (%) (Auto) 0, Basophils (%) (Auto) 0, Neutrophils # (Auto) 9.0H, Lymphocytes # (Auto) 1.4, Monocytes # (Auto) 0.6, Eosinophils # (Auto) 0.0, Basophils # (Auto) 0.0, Immature Granulocyte # (Auto) 0.1, Percent Immature Platelet Fraction 18.6H , Sodium Level 137, Potassium Level 3.5L, Chloride Level 102, Carbon Dioxide Level 26, Anion Gap 9, Blood Urea Nitrogen 16, Creatinine 0.74, Estimat Glomerular Filtration Rate 80, BUN/Creatinine Ratio 22, Glucose Level 143H, Calcium Level 8.9, Corrected Calcium 9.2, Total Bilirubin 0.5, Aspartate Amino Transf (AST/SGOT) 17, Alanine Aminotransferase (ALT/SGPT) 10, Alkaline Phosphatase 73, Total Protein 7.1, Albumin 3.6 11/13/22 10:58: Glucometer 142H 11/13/22 15:31: Glucometer 128H Microbiology 11/12/22 Urine Culture - Final, Complete Gram Negative Bacillus 1 Assessment/Plan Assessment/Plan Assessment/Plan Syncope Fall R wrist fracture Possible R nasal fx Scalp laceration UTI Diet as tolerates Abx for uti no acute general surgical issues Ortho consulted- splint/repeat x ray in 7-10 days Will sign off, call if needed. ABBEY MCCLENDON DO Nov 13, 2022 17:40
[2022-11-13] MEDS: MELATONIN 3 MG TABLET PO PRN (19:36)
[2022-11-13] MEDS: ENOXAPARIN 40 MG/0.4 ML (LOVENOX) SYR SC SCH (19:36)
[2022-11-14] MEDS: HYDROmorphone 2 MG/ML VIAL (DILAUDID) IV PRN ×2 (01:14→05:42)
[2022-11-14 03:41] VITALS: BP 132/61
[2022-11-14] MEDS: NS IV 1000 ML 1,000 ML IV SCH (04:37)
[2022-11-14 05:31] LABS: LYMPHOCYTES % (AUTO) 18 % (12-44); MONOCYTES % (AUTO) 9 % (0-12)
[2022-11-14 05:33] LABS: BASOPHILS % (AUTO) 0 % (0-10); EOSINOPHILS % (AUTO) 0 % (0-10); HEMATOCRIT 44 % (35-52); HEMOGLOBIN 14.1 g/dL (11.5-16.0); LYMPHOCYTES # (AUTO) 1.8 10^3/uL (1.0-4.0); MEAN CORPUSCULAR HEMOGLOBIN 28 pg (25-34); MEAN CORPUSCULAR HGB CONC 32 g/dL (32-36); MEAN CORPUSCULAR VOLUME 87 fL (80-99); MEAN PLATELET VOLUME 13.2 fL (9.0-12.2); MONOCYTES # (AUTO) 0.9 10^3/uL (0.0-1.0); NEUTROPHILS # (AUTO) 7.6 10^3/uL (1.8-7.8); NEUTROPHILS % (AUTO) 73 % (42-75); PLATELET COUNT 94 10^3/uL (130-400); WHITE BLOOD COUNT 10.4 10^3/uL (4.3-11.0)
[2022-11-14 06:00] LABS: ALBUMIN 3.4 GM/DL (3.2-4.5); BILIRUBIN,TOTAL 0.6 MG/DL (0.1-1.0); CALCIUM 8.9 MG/DL (8.5-10.1); CREATININE SERUM 0.73 MG/DL (0.60-1.30); POTASSIUM 3.4 MMOL/L (3.6-5.0); TOTAL PROTEIN 6.7 GM/DL (6.4-8.2)
[2022-11-14] MEDS: inSUlin ASPART (NovoLOG) 1 UNIT/0.01 ML (CHARGE PER UNIT) SC SCH ×2 (06:10→10:20)
[2022-11-14] MEDS ORDERED: MENTHOL/ZINC OXIDE (CALMOSEPTINE) 113 GM TUBE TP PRN (06:15)
[2022-11-14] MEDS ORDERED: KCL 10 MEQ TAB (MICRO K) PO SCH (07:00)
[2022-11-14] MEDS ORDERED: KCL 20 MEQ TAB (K-DUR) PO SCH (07:00)
[2022-11-14 07:18] VITALS: BP 135/82
[2022-11-14] MEDS ORDERED: SOD CHL GEL 0.5 OZ (AYR SALINE NASAL GEL) TUBE NS SCH (09:00)
[2022-11-14] MEDS ORDERED: SERTRALINE 50 MG (ZOLOFT) TABLET PO SCH (09:00)
[2022-11-14] MEDS ORDERED: MENTHOL/ZINC OXIDE (CALMOSEPTINE) 113 GM TUBE TOP SCH (09:00)
[2022-11-14] MEDS ORDERED: DICLOFENAC 1% GEL 100 GM (VOLTAREN) TUBE TOP SCH (09:00)
[2022-11-14] MEDS ORDERED: TERBINAFINE 1% CREAM 1 OZ (LamISIL) TUBE TP SCH (09:00)
[2022-11-14] MEDS ORDERED: ATENOLOL 25 MG (TENORMIN) TAB PO SCH (09:00)
[2022-11-14] MEDS: SALINE NASAL SPRAY (OCEAN) 45 ML BTL SCH ×2 (09:16→13:05)
[2022-11-14] MEDS: SENNOSIDES 8.6 MG (SENOKOT) TAB PO SCH (09:16)
[2022-11-14] MEDS: DOCUSATE SODIUM 100 MG (COLACE) CAP PO SCH (09:16)
--- NOTE | 2022-11-14 10:00 | Physical Therapy Daily Note ---
PT Daily Note-Current Subjective Pt found seated in recliner upon entry. Agreed to PT/OT co-treatment. Reports pain in neck and R knee. Also reports numbness in R hand. Pain Section J - Health Conditions 1. Rarely or not at all 2. Occasionally 3. Frequently 4. Almost constantly 8. Unable to answer Pain Effect on Sleep: 1 Pain Interference with Therapy: 1 Pain Interference w/Day-to-Day: 1 Mental Status Patient Orientation: Person Attachments: Oxygen, Hoffmann Catheter, IV Transfers SCALE: Activities may be completed with or without assistive devices. 9-Zwrlhrlzvg-pfcvayp completes the activity by him/herself with no assistance from a helper. 5-Set-up or Clean-up Assistance-helper sets up or cleans up; patient completes activity. [place] assists only prior to or following the activity. 4-Supervision or Touching Assistance-helper provides verbal cues and/or touching/steadying and/or contact guard assistance as patient completes activity. Assistance may be provided throughout the activity or intermittently. 3-Partial/Moderate Assistance-helper does LESS THAN HALF the effort. [place] lifts, holds or supports trunk or limbs, but provides less than half the effort. 2-Substantial/Maximal Assistance-helper does MORE THAN HALF the effort. [place] lifts or holds trunk or limbs and provides more than half the effort. 3-Lilainvnp-ysziuj does ALL the effort. Patient does none of the effort to complete the activity. Or, the assistance of 2 or more helpers is required for the patient to complete the activity. If activity was not attempted, code reason: 7-Patient Refused. 9-Not Applicable-not attempted and the patient did not perform the activity before the current illness, exacerbation or injury. 10-Not Attempted due to Environmental Limitations-(lack of equipment, weather restraints, etc.). 88-Not Attempted due to Medical Conditions or Safety Concerns. Sit to Stand (QC): 1 Pt two person lifting assist /c sit to stand transfer. MAX verbal cues required for sequencing. Gait Training Does the Patient Walk?: No and Walking Goal IS indicated Assessment Current Status: Fair Progress Pt completes sit to stand transfers /c MAX 2 person assistance for lifting. Verbal cues required for pre-gait positioning and proper hand placement. Pt completes transfer 5x and stands at FWW for 10-15 seconds before requiring a seated rest break. Poor posture displayed while standing likely due to strength deficits. Continue to progress per POC to improves strength, endurance, and functional ability. PT Short Term Goals Short Term Goals Time Frame: Nov 21, 2022 Roll Left & Right: 3 Sit to lyin Lying to sitting on side of be: 3 Sit to stand: 3 Chair/hma-bz-wfblp transfer: 3 Walk 10 feet: 3 PT Nursing Home Goals Nursing Home Goals PT Sheet Metal Supervisor Goals Time Frame: Nov 29, 2022 Roll Left & Right (QC): 4 Sit to Lying (QC): 4 Lying-Sitting on Side/Bed(QC): 4 Sit to Stand (QC): 4 Chair/Xud-ag-Hmvzs Xfer(QC): 4 Toilet Transfer (QC): 4 Walk 10 feet (QC): 4 Walk 50ft with 2 Turns (QC): 4 PT Plan Treatment/Plan Treatment Plan: Continue Plan of Care Treatment Plan: Bed Mobility, Education, Functional Activity Sean, Functional Strength, Gait, Safety, Therapeutic Exercise, Transfers Treatment Duration: Nov 29, 2022 Frequency: 5 times per week Estimated Hrs Per Day: .25 hour per day Time Time In: 936 Time Out: 952 DATE: Nov 14, 2022 Total Billed Treatment Time: 16 Total Billed Treatment 1 visit FA x 1 Co-treatment time: Total treatment time: AJ LAGOS PTA Nov 14, 2022 10:00
[2022-11-14 11:13] VITALS: BP 123/65
[2022-11-14] MEDS ORDERED: HYDROcodone/APAP 5 MG/325 MG (LORTAB) TAB PO PRN (11:15)
--- NOTE | 2022-11-14 12:45 | Progress Note ---
YEHUDA RIOS 11/14/22 1245: Progress Note Ruth Gross is a 82yo F admitted after a syncopal episode resulting in a fall on 11/12. In the ED she was found to have a right triquetral fracture and possible nasal fracture with no other injury noted. She had a laceration to her occipital region that was closed in the ED. HPI from ED "Patient is a 82-year-old female presents to ED by EMS for falling. Patient fell from standing. Patient lives in a assisted living in [facility]. She was playing [employer]. She got up felt dizzy falling backwards hitting the fireplace. Unclear if she lost consciousness. Patient did not talk immediately. She was complaining of right-sided pain worse in her right hip. There was rotation and shortening of her right hip. There was a laceration to her occipital head. She was placed in a c-collar by EMS. She is not on blood thinners. EMS states she was alert and oriented on arrival. Placed in a c- collar. Laceration to posterior head. She is complaining and screaming of right hip pain. She did not receive anything for pain. History of knee surgery. Unsure if she is up-to-date on her tetanus. She has bruising swelling to the right wrist. She reports headache and dizziness. She also states she feels nauseous. She states she cannot recall how she fell but believes she lost her balance. Complaining of right hip, right leg and right arm pain. According to daughter she has been feeling dizzy when she stands. She was seen here for UTI on November 10." She was admitted to Dr Fuentes for management of her UTI and encephalopathy associated with her closed head injury/. Ortho and general surgery consulted to evaluate and manage her injuries. "HPI: This is an 82-year-old female [facility] assisted living patient of Susana Khan and myself who has a past medical history of depression and cognitive decline who presents to the ER following a fall after syncopal episode with laceration of her scalp and left hand fracture with right-sided contusions. Trauma surgery was consulted due to the multiple injury fall. CT scan was obtained due to no fracture identified on the right hip. Daughter at the bedside. We will admit her to evaluate the next step in her care. She cannot ambulate." She was treated with ceftriaxone for her UTI. Culture grew a gram negative olivia, identification pending. She remained afebrile with a normal WBC count. PT/OT began working with her to help transfer and ambulate. Her mental status somewhat improved but remained below her baseline. She continued to complain of R knee pain so three view xray of R knee was ordered results pending. Pain control was adequate throughout hospitalization. A brain MRI was also ordered which showed chronic vascular changes but no acute intracranial process. EKG did not reveal an arrhythmic etiology to her syncope. Her strength improved slowly over her admission and she was determined to be a good candidate for inpatient rehab to work on her strength and activities of daily living with the ultimate goal of returning to [facility] once rehabilitated. Transferred to 2nd floor inpatient rehab on 11/14. ROSALIA FUENTES DO 11/14/221: Supervisory-Addendum Brief Verification & Attestation Participated in pt care: history, MDM, physical Personally performed: exam, history, MDM, supervision of care Care discussed with: Medical Student Procedures: n/a Results interpretation: Verified all documentation Verification and Attestation of Medical Student E/M Service A medical student performed and documented this service in my presence. I reviewed and verified all information documented by the medical student and made modifications to such information, when appropriate. I personally performed the physical exam and medical decision making. Rosalia Fuentes, Nov 14, 2022,22:11 YEHUDA RIOS Nov 14, 2022 12:45 ROSALIA FUENTES DO Nov 14, 2022 22:11
--- NOTE | 2022-11-14 15:11 | Diagnostic Imaging Report ---
INDICATION: Pain. EXAMINATION: Right knee from 11/14/2022. COMPARISON: 11/12/2022. FINDINGS: Three views of the knee demonstrate severe medial and lateral joint space narrowing with sclerosis and spurring. There is severe patellofemoral narrowing and spurring as well. No fractures or dislocations appreciated. Heterogeneity within the soft tissues noted of uncertain etiology. Small joint effusion is noted. IMPRESSION: 1. 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 2. Nonspecific heterogeneity of the soft tissues, correlate clinically. Dictated by: Dictated on workstation # [id number]
--- NOTE | 2022-11-14 16:22 | Occupational Ther Daily Note ---
OT Current Status-Daily Note Subjective Resting in recliner Pain Numeric Pain Scale: 8 Mental Status/Objective Patient Orientation: Person, Place, Time ADL-Treatment Therapy Code Descriptions/Definitions Functional [place] Measure: 0=Not Assessed/NA 4=Minimal Assistance 1=Total Assistance 5=Supervision or Setup 2=Maximal Assistance 6=Modified [place] 3=Moderate Assistance 7=Complete IndependenceSCALE: Activities may be completed with or without assistive devices. 8-Qqiotsljra-wrsuksb completes the activity by him/herself with no assistance from a helper. 5-Set-up or Clean-up Assistance-helper sets up or cleans up; patient completes activity. [place] assists only prior to or following the activity. 4-Supervision or Touching Assistance-helper provides verbal cues and/or tammie dixie/steadying and/or contact guard assistance as patient completes activity. Assistance may be provided throughout the activity or intermittently. 3-Partial/Moderate Assistance-helper does LESS THAN HALF the effort. [place] lifts, holds or supports trunk or limbs, but provides less than half the effort. 2-Substantial/Maximal Assistance-helper does MORE THAN HALF the effort. [place] lifts or holds trunk or limbs and provides more than half the effort. 8-Imzgwegwe-tohqws does ALL the effort. Patient does none of the effort to complete the activity. Or, the assistance of 2 or more helpers is required for the patient to complete the activity. If activity was not attempted, code reason: 7-Patient Refused. 9-Not Applicable-not attempted and the patient did not perform the activity before the current illness, exacerbation or injury. 10-Not Attempted due to Environmental Limitations-(lack of equipment, weather restraints, etc.). 88-Not Attempted due to Medical Conditions or Safety Concerns. Other Treatment Repeat SIT/STAND 5 times w/ graded tasks each rep. RUE ROM THER EX, NEXT STEP REHAB PROCESS Education OT Patient Education: Exercise program, Purpose of tx/functional activities, Reviewed precautions, Rehab process, Safety issues, Transfer techniques Teaching Recipient: Patient, Family Teaching Methods: Demonstration, Discussion Response to Teaching: Verbalize Understanding, Reinforcement Needed OT Sec Reporting Consultant Goals Sec Reporting Consultant Goals Eating (QC): 5 Oral Hygiene (QC): 5 Toileting Hygiene (QC): 3 Shower/Bathe Self (QC): 3 Upper Body Dressing (QC): 4 Lower Body Dressing (QC): 3 On/Off Footwear (QC): 4 1=Demonstrate adherence to instructed precautions during ADL tasks. 2=Patient will verbalize/demonstrate understanding of assistive devices/modifications for ADL. 3=Patient will improve strength/tolerance for activity to enable patient to perform ADL's. OT Education/Plan Discharge Recommendations Plan/Recommendations: Continue POC Treatment Plan/Plan of Care Patient would benefit from OT for education, treatment and training to promote independence in ADL's, mobility, safety and/or upper extremity function for ADL's. Plan of Care: ADL Retraining, Cognitive Retraining, Concurrent Therapy, Functional Mobility, Group Exercise/Act as Ind, UE Funct Exercise/Act, UE Neuromus Re-Ed/Coord Treatment Duration: Nov 21, 2022 Frequency: 3 times per week (3-5 times per week) Agreement: Yes Rehab Potential: Guarded Time Start Time: 09:37 Stop Time: 10:12 DATE: Nov 14, 2022 Total Time Billed (hr/min): 35 Billed Treatment Time EX 35 ALYSON ADHIKARI OT Nov 14, 2022 16:21
--- NOTE | 2022-11-14 17:04 | Physician Query-Final Dx ---
MILEY GARCIA 11/14/22 1704: Final Diagnosis Give Final Diagnosis Please give Final Diagnosis The medical record reflects the following clinical evidence: Clinical Indicators: respiratory rate 16 on admission increased as high as 20, was on oxygen at 2 L since day of admission, O2 sat on admission was 88% placed on oxygen O2 at 2L sats 92-94% (P/F= 232) predominantly while on oxygen, no respiratory signs and symptoms, but patient was encephalopathic and reported to have loss of consciousness after fall Risk Factor(s): Fall with reported head injury, advanced age, no home oxygen use previous to admission Treatment: Supplemental oxygen up to 2 L continuous for several days, Closed Respiratory and neuro monitoring, discharging to rehab with oxygen Acute respiratory failure with hypoxia, present on admission Other explanation of clinical findings Unable to determine (no explanation for clinical findings) Please clarify and document your clinical opinion in the progress notes and discharge summary including the definitive and/or presumptive diagnosis, (suspected or probable), related to the above clinical findings. Please include clinical findings supporting your diagnosis. Miley Garcia, MSN, RN Clinical Spacecraft Systems Engineer [phone] [email or web address] LUCERO FUENTES DO 11/14/22 2134: Final Diagnosis Give Final Diagnosis Acute respiratory failure with hypoxia, present on admission MILEY GARCIA Nov 14, 2022 17:04 LUCERO FUENTES DO Nov 14, 2022 21:34
[2022-11-14] MEDS ORDERED: metFORMIN 500 MG (GLUCOPHAGE) TAB PO SCH (18:00)
--- NOTE | 2022-11-14 22:15 | Discharge Summary ---
Diagnosis/Chief Complaint Date of Admission Nov 12, 2022 at 18:23 Date of Discharge Nov 14, 2022 at 14:07 Discharge Date: Nov 14, 2022 Discharge Diagnosis Assessment: Syncopal episode with left hand fracture and scalp laceration and right sided contusions Encephalopathy related to closed head injury Hypertension Obesity Advanced age UTI Plan: Pain control IV antibiotic of Rocephin per urine culture report Trauma surgery consult Discharge Summary Discharge Physical Examination Allergies: Coded Allergies: No Known Drug Allergies (Unverified , 08/30/10) Vitals & I&Os Vital Signs Date Time Temp Pulse Resp B/P (MAP) Pulse Ox O2 Delivery O2 Flow Rate FiO2 11/14/22 11:13 36.9 59 18 123/65 (84) 94 Nasal Cannula 2.00 11/12/22 19:52 21 General Appearance: Alert, Cooperative, Other (confused) Respiratory: Clear to Auscultation Cardiovascular: Regular Rate Hospital Course Was the Problem List Reviewed?: Yes Ruht Gross is a 82yo F admitted after a syncopal episode resulting in a fall on 11/12. In the ED she was found to have a right triquetral fracture and possible nasal fracture with no other injury noted. She had a laceration to her occipital region that was closed in the ED. HPI from ED "Patient is a 82-year-old female presents to ED by EMS for falling. Patient fell from standing. Patient lives in a assisted living in [facility]. She was playing bingo. She got up felt dizzy falling backwards hitting the fireplace. Unclear if she lost consciousness. Patient did not talk immediately. She was complaining of right-sided pain worse in her right hip. There was rotation and shortening of her right hip. There was a laceration to her occipital head. She was placed in a c-collar by EMS. She is not on blood thinners. EMS states she was alert and oriented on arrival. Placed in a c- collar. Laceration to posterior head. She is complaining and screaming of right hip pain. She did not receive anything for pain. History of knee surgery. Unsure if she is up-to-date on her tetanus. She has bruising swelling to the right wrist. She reports headache and dizziness. She also states she feels nauseous. She states she cannot recall how she fell but believes she lost her balance. Complaining of right hip, right leg and right arm pain. According to daughter she has been feeling dizzy when she stands. She was seen here for UTI on November 10." She was admitted to Dr Fuentes for management of her UTI and encephalopathy associated with her closed head injury/. Ortho and general surgery consulted to evaluate and manage her injuries. "HPI: This is an 82-year-old female [facility] assisted living patient of Susana Khan and myself who has a past medical history of depression and cognitive decline who presents to the ER following a fall after syncopal episode with laceration of her scalp and left hand fracture with right-sided contusions. Trauma surgery was consulted due to the multiple injury fall. CT scan was obtained due to no fracture identified on the right hip. Daughter at the bed side. We will admit her to evaluate the next step in her care. She cannot ambulate." She was treated with ceftriaxone for her UTI. Culture grew a gram negative olivia, identification pending. She remained afebrile with a normal WBC count. PT/OT began working with her to help transfer and ambulate. Her mental status somewhat improved but remained below her baseline. She continued to complain of R knee pain so three view xray of R knee was ordered results pending. Pain control was adequate throughout hospitalization. A brain MRI was also ordered which showed chronic vascular changes but no acute intracranial process. EKG did not reveal an arrhythmic etiology to her syncope. Her strength improved slowly over her admission and she was determined to be a good candidate for inpatient rehab to work on her strength and activities of daily living with the ultimate goal of returning to [facility] once rehabilitated. Transferred to 2nd floor inpatient rehab on 11/14. Labs (last 24 hrs) Laboratory Tests 11/12/22 15:10: White Blood Count 9.2, Red Blood Count 5.41H, Hemoglobin 15.2, Hematocrit 46, Mean Corpuscular Volume 86, Mean Corpuscular Hemoglobin 28, Mean Corpuscular Hemoglobin Concent 33, Red Cell Distribution Width 13.7, Platelet Count 91L, Mean Platelet Volume 13.2H, Immature Granulocyte % (Auto) 1, Neutrophils (%) (Auto) 48, Lymphocytes (%) (Auto) 39, Monocytes (%) (Auto) 9, Eosinophils (%) (Auto) 3, Basophils (%) (Auto) 0, Neutrophils # (Auto) 4.4, Lymphocytes # (Auto) 3.6, Monocytes # (Auto) 0.8, Eosinophils # (Auto) 0.3, Basophils # (Auto) 0.0, Immature Granulocyte # (Auto) 0.1, Prothrombin Time 12.7, INR Comment 0.9, Activated Partial Thromboplast Time 31, Sodium Level 137, Potassium Level 3.4L, Chloride Level 100, Carbon Dioxide Level 28, Anion Gap 9, Blood Urea Nitrogen 20 H, Creatinine 0.81, Estimat Glomerular Filtration Rate 72, BUN/Creatinine Ratio 25, Glucose Level 122H, Calcium Level 9.7, Corrected Calcium 9.9, Total Bilirubin 0.4, Aspartate Amino Transf (AST/SGOT) 15, Alanine Aminotransferase (ALT/SGPT) 10, Alkaline Phosphatase 70, Troponin I < 0.028, Total Protein 7.6, Albumin 3.8 11/12/22 15:16: Urine Color YELLOW, Urine Clarity CLEAR, Urine pH 6.0, Urine Specific [place] 1.010L, Urine Protein TRACEH, Urine Glucose (UA) NEGATIVE, Urine Ketones NEGATIVE, Urine Nitrite NEGATIVE, Urine Bilirubin NEGATIVE, Urine Urobilinogen 2.0, Urine Leukocyte Esterase 3+H, Urine RBC (Auto) 1+H, Urine RBC 0-2, Urine WBC 25-50H, Urine Squamous Epithelial Cells NONE, Urine Crystals NONE, Urine Bacteria FEWH, Urine Casts NONE, Urine Mucus NEGATIVE, Urine Culture Indicated YES 11/12/22 20:13: Glucometer 155H 11/13/22 05:16: Glucometer 147H 11/13/22 05:25: White Blood Count 11.0, Red Blood Count 5.23H, Hemoglobin 14.8, Hematocrit 45, Mean Corpuscular Volume 86, Mean Corpuscular Hemoglobin 28, Mean Corpuscular Hemoglobin Concent 33, Red Cell Distribution Width 13.5, Platelet Count 91L, Mean Platelet Volume 13.2H, Immature Granulocyte % (Auto) 1, Neutrophils (%) (Auto) 81H, Lymphocytes (%) (Auto) 13, Monocytes (%) (Auto) 5, Eosinophils (%) (Auto) 0, Basophils (%) (Auto) 0, Neutrophils # (Auto) 9.0H, Lymphocytes # (Auto) 1.4, Monocytes # (Auto) 0.6, Eosinophils # (Auto) 0.0, Basophils # (Auto) 0.0, Immature Granulocyte # (Auto) 0.1, Percent Immature Platelet Fraction 18.6H , Sodium Level 137, Potassium Level 3.5L, Chloride Level 102, Carbon Dioxide Level 26, Anion Gap 9, Blood Urea Nitrogen 16, Creatinine 0.74, Estimat Glomerular Filtration Rate 80, BUN/Creatinine Ratio 22, Glucose Level 143H, Calcium Level 8.9, Corrected Calcium 9.2, Total Bilirubin 0.5, Aspartate Amino T ransf (AST/SGOT) 17, Alanine Aminotransferase (ALT/SGPT) 10, Alkaline Phosphatase 73, Total Protein 7.1, Albumin 3.6 11/13/22 10:58: Glucometer 142H 11/13/22 15:31: Glucometer 128H 11/13/22 20:34: Glucometer 126H 11/14/22 05:20: White Blood Count 10.4, Red Blood Count 5.01, Hemoglobin 14.1, Hematocrit 44, Mean Corpuscular Volume 87, Mean Corpuscular Hemoglobin 28, Mean Corpuscular Hemoglobin Concent 32, Red Cell Distribution Width 13.5, Platelet Count 94L, Mean Platelet Volume 13.2H, Immature Granulocyte % (Auto) 1, Neutrophils (%) (Auto) 73, Lymphocytes (%) (Auto) 18, Monocytes (%) (Auto) 9, Eosinophils (%) (Auto) 0, Basophils (%) (Auto) 0, Neutrophils # (Auto) 7.6, Lymphocytes # (Auto) 1.8, Monocytes # (Auto) 0.9, Eosinophils # (Auto) 0.0, Basophils # (Auto) 0.0, Immature Granulocyte # (Auto) 0.1, Percent Immature Platelet Fraction 16.0H, Sodium Level 137, Potassium Level 3.4L, Chloride Level 104, Carbon Dioxide Level 24, Anion Gap 9, Blood Urea Nitrogen 13, Creatinine 0.73, Estimat Glomerular Filtration Rate 82, BUN/Creatinine Ratio 18, Glucose Level 98, Calcium Level 8.9, Corrected Calcium 9.4, Total Bilirubin 0.6, Aspartate Amino Transf (AST/SGOT) 20, Alanine Aminotransferase (ALT/SGPT) 13, Alkaline Phosphatase 64, Total Creatine Kinase 157, Total Protein 6.7, Albumin 3.4 11/14/22 10:19: Glucometer 138H 11/14/22 15:06: Glucometer 115H 11/14/22 20:14: Glucometer 172H Microbiology 11/12/22 Urine Culture - Final, Complete Gram Negative Bacillus 1 Pending Labs Microbiology Date/Time Source Procedure Growth Status 11/12/22 15:16 Urine Hoffmann Cath Urine Culture - Final Gram Negative Bacillus 1 Complete Laboratory Tests 11/12/22 15:10: White Blood Count 9.2, Red Blood Count 5.41, Hemoglobin 15.2, Hematocrit 46, Mean Corpuscular Volume 86, Mean Corpuscular Hemoglobin 28, Mean Corpuscular Hemoglobin Concent 33, Red Cell Distribution Width 13.7, Platelet Count 91, Mean Platelet Volume 13.2, Immature Granulocyte % (Auto) 1, Neutrophils (%) (Auto) 48, Lymphocytes (%) (Auto) 39, Monocytes (%) (Auto) 9, Eosinophils (%) (Auto) 3, Basophils (%) (Auto) 0, Neutrophils # (Auto) 4.4, Lymphocytes # (Auto) 3.6, Monocytes # (Auto) 0.8, Eosinophils # (Auto) 0.3, Basophils # (Auto) 0.0, Immature Granulocyte # (Auto) 0.1, Prothrombin Time 12.7, INR Comment 0.9, Activated Partial Thromboplast Time 31, Sodium Level 137, Potassium Level 3.4, Chloride Level 100, Carbon Dioxide Level 28, Anion Gap 9, Blood Urea Nitrogen 20, Creatinine 0.81, Estimat Glomerular Filtration Rate 72, BUN/Creatinine Ratio 25, Glucose Level 122, Calcium Level 9.7, Corrected Calcium 9.9, Total Bilirubin 0.4, Aspartate Amino Transf (AST/SGOT) 15, Alanine Aminotransferase (ALT/SGPT) 10, Alkaline Phosphatase 70, Troponin I < 0.028, Total Protein 7.6, Albumin 3.8 11/12/22 15:16: Urine Color YELLOW, Urine Clarity CLEAR, Urine pH 6.0, Urine Specific [place] 1.010, Urine Protein TRACE, Urine Glucose (UA) NEGATIVE, Urine Ketones NEGATIVE, Urine Nitrite NEGATIVE, Urine Bilirubin NEGATIVE, Urine Urobilinogen 2.0, Urine Leukocyte Esterase 3+, Urine RBC (Auto) 1+, Urine RBC 0-2, Urine WBC 25-50, Urine Squamous Epithelial Cells NONE, Urine Crystals NONE, Urine Bacteria FEW, Urine Casts NONE, Urine Mucus NEGATIVE, Urine Culture Indicated YES 11/12/22 20:13: Glucometer 155 11/13/22 05:16: Glucometer 147 11/13/22 05:25: White Blood Count 11.0, Red Blood Count 5.23, Hemoglobin 14.8, Hematocrit 45, Mean Corpuscular Volume 86, Mean Corpuscular Hemoglobin 28, Mean Corpuscular Hemoglobin Concent 33, Red Cell Distribution Width 13.5, Platelet Count 91, Mean Platelet Volume 13.2, Immature Granulocyte % (Auto) 1, Neutrophils (%) (Auto) 81, Lymphocytes (%) (Auto) 13, Monocytes (%) (Auto) 5, Eosinophils (%) (Auto) 0, Basophils (%) (Auto) 0, Neutrophils # (Auto) 9.0, Lymphocytes # (Auto) 1.4, Monocytes # (Auto) 0.6, Eosinophils # (Auto) 0.0, Basophils # (Auto) 0.0, Immature Granulocyte # (Auto) 0.1, Percent Immature Platelet Fraction 18.6, Sodium Level 137, Potassium Level 3.5, Chloride Level 102, Carbon Dioxide Level 26, Anion Gap 9, Blood Urea Nitrogen 16, Creatinine 0.74, Estimat Glomerular Filtration Rate 80, BUN/Creatinine Ratio 22, Glucose Level 143, Calcium Level 8.9, Corrected Calcium 9.2, Total Bilirubin 0.5, Aspartate Amino Transf (AST/SGOT) 17, Alanine Aminotransferase (ALT/SGPT) 10, Alkaline Phosphatase 73, Total Protein 7.1, Albumin 3.6 11/13/22 10:58: Glucometer 142 11/13/22 15:31: Glucometer 128 11/13/22 20:34: Glucometer 126 11/14/22 05:20: White Blood Count 10.4, Red Blood Count 5.01, Hemoglobin 14.1, Hematocrit 44, Mean Corpuscular Volume 87, Mean Corpuscular Hemoglobin 28, Mean Corpuscular Hemoglobin Concent 32, Red Cell Distribution Width 13.5, Platelet Count 94, Mean Platelet Volume 13.2, Immature Granulocyte % (Auto) 1, Neutrophils (%) (Auto) 73, Lymphocytes (%) (Auto) 18, Monocytes (%) (Auto) 9, Eosinophils (%) (Auto) 0, Basophils (%) (Auto) 0, Neutrophils # (Auto) 7.6, Lymphocytes # (Auto) 1.8, Monocytes # (Auto) 0.9, Eosinophils # (Auto) 0.0, Basophils # (Auto) 0.0, Im mature Granulocyte # (Auto) 0.1, Percent Immature Platelet Fraction 16.0, Sodium Level 137, Potassium Level 3.4, Chloride Level 104, Carbon Dioxide Level 24, Anion Gap 9, Blood Urea Nitrogen 13, Creatinine 0.73, Estimat Glomerular Filtration Rate 82, BUN/Creatinine Ratio 18, Glucose Level 98, Calcium Level 8.9, Corrected Calcium 9.4, Total Bilirubin 0.6, Aspartate Amino Transf (AST /SGOT) 20, Alanine Aminotransferase (ALT/SGPT) 13, Alkaline Phosphatase 64, Total Creatine Kinase 157, Total Protein 6.7, Albumin 3.4 11/14/22 10:19: Glucometer 138 11/14/22 15:06: Glucometer 115 11/14/22 20:14: Glucometer 172 Discharge Home Medications: Active Scripts Active Reported Triamterene-Hctz 37.5-25 mg Tb (Triamterene/Hydrochlorothiazid) 37.5 Mg-25 Mg Tablet 1 Ea PO DAILY Metformin HCl 500 Mg Tablet 250 Mg PO 0800,2000 TAKES OF A 500MG TAB Diclofenac Sodium 1 % Gel..gram. 1 Applic TOP BID APPLICATION SITE NOT LISTED Deep Sea (Sodium Chloride) 0.65 % [place] 1 [place]isle NSEACH TID Calmoseptine Ointment (Menthol/Lanolin/Calamine/Znox) 0.44 %-20.6 % Oint 1 Applic TP EVERY 3 HOURS PRN APPLICATION SITE NOT LISTED Calmoseptine Ointment (Menthol/Lanolin/Calamine/Znox) 0.44 %-20.6 % Oint 1 Applic TOP BID APPLICATION SITE NOT LISTED Cephalexin 500 Mg Capsule 500 Mg PO TID FILLED 11-10-2022 #15/5 DAY SUPPLY Terbinafine (Terbinafine HCl) 1 % Cream..g. 1 Applic TOP DAILY APPLY TO GREAT RIGHT TOENAIL UNTIL FUNGUE RESOLVES Sertraline HCl 25 Mg Tablet 25 Mg PO DAILY [place] Saline Nasal Gel (Sodium Chloride/Aloe Vera) 14.1 Gm Gel..gram. 1 Applic NA Q12H Atenolol 50 Mg Tablet 50 Mg PO DAILY Instructions to patient/family Please see electronic discharge instructions given to patient. LUCERO FUENTES DO Nov 14, 2022 22:15
== END 2022-11-14 14:07 | DRG 88 ==
LOC: EDUNIT# 15:05 → ER 15:06 → 4TH 18:23
PROVIDERS: ADMIT Internal Medicine; ATTEND Internal Medicine
PROC: 0HQ0XZZ Repair Scalp Skin, External Approach (ICD-10-PCS; principal; 2022-11-12)
DX: S06.0X9A Concussion with loss of consciousness of unspecified duration, initial encounter (principal); J96.01 Acute respiratory failure with hypoxia; N39.0 Urinary tract infection, site not specified; G93.40 Encephalopathy, unspecified; S02.2XXA Fracture of nasal bones, initial encounter for closed fracture; R40.2412 Glasgow coma scale score 13-15, at arrival to emergency department; S62.92XA Unspecified fracture of left hand, initial encounter for closed fracture; S01.01XA Laceration without foreign body of scalp, initial encounter; Z66 Do not resuscitate; W18.30XA Fall on same level, unspecified, initial encounter; F32.A Depression, unspecified; S60.221A Contusion of right hand, initial encounter; I10 Essential (primary) hypertension; M19.90 Unspecified osteoarthritis, unspecified site; E66.9 Obesity, unspecified; S62.101A Fracture of unspecified carpal bone, right wrist, initial encounter for closed fracture; Z68.38 Body mass index [BMI] 38.0-38.9, adult
CPT/HCPCS: 12002; 36415; 51702; 70450; 70486; 71045; 72125; 72131; 73030; 73110; 73502; 73562; 74177; 80053; 81000; 82550; 82947; 84484; 85025; 85610; 85730; 87088; 93005

== ENCOUNTER 2022-11-14 12:28 | Inpatient (IN) | payer MEDICARE, MEDICAID ==
[~2022-11-14] VITALS: Ht 162.4 cm; Wt 101.5 kg
[~2022-11-14 12:28] MED LIST changes: +CEPH500C PO; +DICL100G13 TOP; +DOXY100T2 PO; +MENT71OI TOP; +MENT71OI TP; +METF-397 PO; +SERT-412 PO; +SODI44SP2 NSEACH; +TERB15CR6 TOP; +TRIA1TAB3 PO
--- NOTE | 2022-11-14 12:52 | PM&R Post Admission Assessment ---
PM&R Date of Visit: Nov 14, 2022 Time of Visit: 15:00 History of Present Illness CC: Acute encephalopathy following syncopal episode with fall and closed head injury with scalp hematoma with LOC HPI: Ruth Gorss is a 82yo F admitted after a syncopal episode resulting in a fall on 11/12. In the ED she was found to have a right triquetral fracture and possible nasal fracture with no other injury noted. She had a laceration to her occipital region that was closed in the ED. HPI from ED "Patient is a 82-year-old female presents to ED by EMS for falling. Patient fell from standing. Patient lives in a assisted living in [facility]. She was playing [employer]. She got up felt dizzy falling backwards hitting the fireplace. Unclear if she lost consciousness. Patient did not talk immediately. She was complaining of right-sided pain worse in her right hip. There was rotation and shortening of her right hip. There was a laceration to her occipital head. She was placed in a c-collar by EMS. She is not on blood thinners. EMS states she was alert and oriented on arrival. Placed in a c- collar. Laceration to posterior head. She is complaining and screaming of right hip pain. She did not receive anything for pain. History of knee surgery. Unsure if she is up-to-date on her tetanus. She has bruising swelling to the right wrist. She reports headache and dizziness. She also states she feels nauseous. She states she cannot recall how she fell but believes she lost her balance. Complaining of right hip, right leg and right arm pain. According to daughter she has been feeling dizzy when she stands. She was seen here for UTI on November 10." She was admitted to Dr Joseph for management of her UTI and encephalopathy associated with her closed head injury/. Ortho and general surgery consulted to evaluate and manage her injuries. "HPI: This is an 82-year-old female [facility] assisted living patient of Susana Khan and myself who has a past medical history of depression and cognitive decline who presents to the ER following a fall after syncopal episode with laceration of her scalp and left hand fracture with right-sided contusions. Trauma surgery was consulted due to the multiple injury fall. CT scan was obtained due to no fracture identified on the right hip. Daughter at the bedside. We will admit her to evaluate the next step in her care. She cannot ambulate." She was treated with ceftriaxone for her UTI. Culture grew a gram negative olivia, identification pending. She remained afebrile with a normal WBC count. PT/OT began working with her to help transfer and ambulate. Her mental status somewhat improved but remained below her baseline. She continued to complain of R knee pain so three view xray of R knee was ordered results pending. Pain control was adequate throughout hospitalization. A brain MRI was also ordered which showed chronic vascular changes but no acute intracranial process. EKG did not reveal an arrhythmic etiology to her syncope. Her strength improved slowly over her admission and she was determined to be a good candidate for inpatient rehab to work on her strength and activities of daily living with the ultimate goal of returning to [facility] once rehabilitated. Transferred to 2nd floor inpatient rehab on 11/14. Past Mjjgqfi-Sksndt-Tipehw Hx Past Med/Social Hx: Reviewed Nursing Past Med/Soc Hx, Reviewed and Corrections made Patient Social History Marrital Status: Employed/Student: retired Alcohol Use: Denies Use Smoking Status: Never a Smoker 2nd Hand Smoke Exposure: No Recent Hopitalizations: No Immunizations Up To Date Date of Pneumonia Vaccine: Mar 11, 2012 Date of Influenza Vaccine: Feb 09, 2020 Seasonal Allergies Seasonal Allergies: No Past Medical History Surgeries: Eye Surgery, Hysterectomy, Orthopedic Currently Using CPAP: No Currently Using BIPAP: No Cardiac: Hypertension Reproductive: No Sexually Transmitted Disease: No History of Blood Disorders: No Family History Cardiovascular disease 19 MOTHER Cataracts 19 MOTHER Completed stroke 19 FATHER Diabetes mellitus 19 MOTHER Hypertension 19 FATHER Myocardial infarction 19 MOTHER No Pertinent Family Hx PM&R Allergy/Meds/Data Review Allergies Coded Allergies: No Known Drug Allergies (Unverified , 08/30/10) Home Medications Scheduled Atenolol (Atenolol), 50 MG PO DAILY, (Reported) Cephalexin (Cephalexin), 500 MG PO TID, (Reported) Diclofenac Sodium (Diclofenac Sodium), 1 APPLIC TOP BID, (Reported) Menthol/Lanolin/Calamine/Znox (Calmoseptine Ointment), 1 APPLIC TOP BID, (Reported) Metformin HCl (Metformin HCl), 250 MG PO 0800,2000, (Reported) Sertraline HCl (Sertraline HCl), 25 MG PO DAILY, (Reported) Sodium Chloride (Deep Sea), 1 SPRAY NSEACH TID, (Reported) Sodium Chloride/Aloe Vera ([place] Saline Nasal Gel), 1 APPLIC NA Q12H, (Reported) Terbinafine HCl (Terbinafine), 1 APPLIC TOP DAILY, (Reported) Triamterene/Hydrochlorothiazid (Triamterene-Hctz 37.5-25 mg Tb), 1 EA PO DAILY, (Reported) Scheduled PRN Menthol/Lanolin/Calamine/Znox (Calmoseptine Ointment), 1 APPLIC TP EVERY 3 HOURS PRN for SKIN IRRITATION, (Reported) Discontinued Medications Cephalexin (Cephalexin), 500 MG PO TID Discontinued Reason: No Longer Taking Doxycycline Hyclate (Doxycycline Hyclate), 100 MG PO BID Discontinued Reason: No Longer Taking Sodium Chloride (Saline Nasal [place]), 1 SPRAY NSEACH PRN PRN for DRY NOSE, (Reported) Discontinued Reason: No Longer Taking Triamterene/Hydrochlorothiazid (Triamterene-Hctz 37.5-25 mg Cp), 1 EACH PO DAILY, (Reported) Discontinued Reason: No Longer Taking Turmeric Root Extract (Turmeric), 538 MG PO DAILY PRN for ARTHRITIS PAIN, (Reported) Discontinued Reason: No Longer Taking Current Medications Current Medications Reviewed Review of Systems Constitutional: see HPI, dizziness, malaise, weakness EENTM: mouth pain, other (facial pain) Respiratory: no symptoms reported Cardiovascular: no symptoms reported Gastrointestinal: constipation Genitourinary: no symptoms reported Musculoskeletal: back pain, joint pain Skin: no symptoms reported Psychiatric/Neurological: Depressed, Other (confusion) All Other Systems Reviewed Negative Unless Noted: Yes Physical Exam Physical Exam Vital Signs Capillary Refill : Height, Weight, BMI Height: '" Weight: 245lbs. oz. [id number]; 38.05 BMI Method: General Appearance: No Apparent Distress, WD/WN, Chronically ill, Obese Eyes: Bilateral Eye Normal Inspection, Bilateral Eye PERRL HEENT: PERRL/EOMI, Normal ENT Inspection, Pharynx Normal Neck: Full Range of Motion, Normal Inspection, Non Tender, Supple, Carotid Br uit Respiratory: Chest Non Tender, Lungs Clear, Normal Breath Sounds, No Accessory Muscle Use, No Respiratory Distress Cardiovascular: Regular Rate, Rhythm, No Edema, No Gallop, No JVD, No Murmur, Normal Peripheral Pulses Gastrointestinal: Normal Bowel Sounds, No Organomegaly, No Pulsatile Mass, Non Tender, Soft Back: Normal Inspection, No CVA Tenderness, No Vertebral Tenderness Extremity: Normal Capillary Refill, Normal Inspection, Normal Range of Motion, Non Tender, No Calf Tenderness, No Pedal Edema Neurologic/Psychiatric: Alert, Oriented x3, cafeteria helper II-XII Norm as Tested, Abnormal Gait, Depressed Affect, Motor Weakness (generalized), Other (confusion) Skin: Normal Color, Warm/Dry Lymphatic: No Adenopathy PM&R Medical Assessment & Plan REHAB/MEDICAL ASSESSMENT AND PLAN: REHAB IMPAIRMENT GROUP: Encephalopathy following closed head injury with LOC ETIOLOGIC DIAGNOSIS: Encephalopathy following closed head injury with LOC The comorbidities that impact the patients function and/or functional outcome by: advanced age, fall risk, pain issues, hand fracture, UTI REHAB PLAN: The patient is being admitted to our comprehensive inpatient rehabilitation facility and can tolerate the intensity of service consisting of at least: 180 minutes of therapy a day, 5 out of 7 days a week Rehab treatment will consist of: PT OT will focus on regaining function with use of AD to accommodate hand fracture and scalp hematoma while increasing independence in order to return to [place] The patient/family has a good understanding of our discharge process and will benefit from an interdisciplinary inpatient rehabilitation program. The patient has potential to make improvement and is in need of at least two of the following multidisciplinary therapies including but not limited to physical, occupational, speech, and prosthetics and orthotics. Additionally the patient will need services from respiratory, nutritional services, wound care, psychology, etc. (Customize this to each patient). Given the patients complex condition and risk of further medical complications, rehabilitation services cannot be safely or effectively provided at a lower level of care such as a prison facility. BARRIERS TO DISCHARGE: Fall risk ESTIMATED LOS: 7 days DISPOSITION: AL RELEVANT CHANGES SINCE PREADMISSION SCREENING: I have compared the patients medical and functional status at the time of the preadmission screening and there are: no changes PROGNOSIS: Good REHABILITATION GOALS: 1. PT OT will focus on regaining function with use of AD to accommodate hand fracture and scalp hematoma while increasing independence in order to return to [place] All the above goals were reviewed with the patient and he/she is in agreement. By signing this document, I acknowledge that I have personally performed a full physical examination on this patient within 24 hours of admission to this inpatient rehabilitation facility and have determined the patient to be able to tolerate the above course of treatment at an intensive level for a reasonable period of time. I will be completing a detailed individualized Plan of Care for this patient by day #4 of the patients stay based upon the Preadmission Screen, the Post-Admission Evaluation, and the therapy evaluations. Admission Dx/Comorbidities: (1) Closed head injury with brief loss of consciousness ICD Codes: S06.9X1A - Unspecified intracranial injury with loss of c onsciousness of 30 minutes or less, initial encounter (2) Encephalopathy ICD Codes: G93.40 - Encephalopathy, unspecified (3) Syncope Status: Acute ICD Codes: R55 - Syncope and collapse (4) Hand fracture Status: Acute ICD Codes: S62.90XA - Unspecified fracture of unspecified wrist and hand, initial encounter for closed fracture (5) Scalp laceration Status: Acute ICD Codes: S01.01XA - Laceration without foreign body of scalp, initial encoun ter (6) Urinary tract infection Status: Acute ICD Codes: N39.0 - Urinary tract infection, site not specified Assessment/Plan Assessment and Plan Assess & Plan/Chief Complaint Assessment: Encephalopathy from closed head injury with LOC Left hand fracture Scalp kaceration with hematoma HTN Acute UTI Increased BMI Plan: Pain control Rehab Fall risk Monitor confusion Complete abx LUCERO JOSEPH DO Nov 14, 2022 12:52
[2022-11-14] MEDS ORDERED: FLEET ENEMA ADULT 1 EA BTL PR PRN (13:00)
[2022-11-14] MEDS ORDERED: LOPERAMIDE 2 MG (IMODIUM) TABLET PO PRN (13:00)
[2022-11-14] MEDS ORDERED: diphenhydrAMINE 25 MG TAB (BENADRYL) PO PRN (13:00)
[2022-11-14] MEDS ORDERED: CALCIUM CARBONATE 500 MG (TUMS) TAB.CHEW PO PRN (13:00)
[2022-11-14] MEDS ORDERED: DOCUSATE SODIUM 100 MG (COLACE) CAP PO PRN (13:00)
[2022-11-14] MEDS ORDERED: ALPRAZolam 0.25 MG (XANAX) TAB PO PRN (13:00)
[2022-11-14] MEDS ORDERED: ACETAMINOPHEN 325 MG TABLET PO PRN (13:00)
[2022-11-14] MEDS ORDERED: LACTULOSE SYRUP 10GM/15ML (ENULOSE) 30ML UDC PO PRN (13:00)
[2022-11-14] MEDS ORDERED: guaiFENesin/CODEINE (ROBITUSSIN AC) 10ML UDC PO PRN (13:00)
[2022-11-14] MEDS ORDERED: BISACODYL 10 MG SUPP (DULCOLAX) PR PRN (13:00)
[2022-11-14 14:22] VITALS: BP 133/60
--- NOTE | 2022-11-14 14:42 | Physical Therapy Evaluation ---
PT Evaluation-General Medical Diagnosis Admission Date Nov 14, 2022 at 14:10 Medical Diagnosis: Acute Encephalopathy Onset Date: Nov 12, 2022 Therapy Diagnosis Therapy Diagnosis: Weakness; Debility; Decreased strength Height/Weight Weight (Pounds): 245 Precautions Precautions/Isolations: Fall Prevention, Standard Precautions Weight Bear Status Right Lower Extremity: Right Full Weight Bearing Left Lower Extremity: Left Full Weight Bearing WBAT R wrist with brace Referral Physician: Jake Reason for Referral: Evaluation/Treatment Medical History Pertinent Medical History: HTN Additional Medical History HTN, arthritis, Eye Surgery, Hysterectomy, Orthopedic sx Current History Pt fell on 11/12/2022 hitting head on fireplace; ED on 11/12/2022 with R wrist fx (WBAT) and R knee pain; Admitted to ARU on 11/14/2022 Reviewed History: Yes Social History Home: Assisted Living Current Living Status: Alone Entry Into Home: Level Entry Pt lives at an [facility] with handicap accessible living situation; 01/12 CG Prior Prior Level of Function SCALE: Activities may be completed with or without assistive devices. 9-Tdkqzmiviq-lmpmqkj completes the activity by him/herself with no assistance from a helper. 5-Set-up or Clean-up Assistance-helper sets up or cleans up; patient completes activity. [place] assists only prior to or following the activity. 4-Supervision or Touching Assistance-helper provides verbal cues and/or touching/steadying and/or contact guard assistance as patient completes activity. Assistance may be provided throughout the activity or intermittently. 3-Partial/Moderate Assistance-helper does LESS THAN HALF the effort. [place] lifts, holds or supports trunk or limbs, but provides less than half the effort. 2-Substantial/Maximal Assistance-helper does MORE THAN HALF the effort. [place] lifts or holds trunk or limbs and provides more than half the effort. 4-Ubletzizz-doikqx does ALL the effort. Patient does none of the effort to complete the activity. Or, the assistance of 2 or more helpers is required for the patient to complete the activity. If activity was not attempted, code reason: 7-Patient Refused. 9-Not Applicable-not attempted and the patient did not perform the activity before the current illness, exacerbation or injury. 10-Not Attempted due to Environmental Limitations-(lack of equipment, weather restraints, etc.). 88-Not Attempted due to Medical Conditions or Safety Concerns. Bed Mobility: 6 Transfers (B,C,W/C): 6 Gait: 6 Stairs: 9 Wheelchair Mobility: 9 Indoor Mobility (Ambulation): Independent Stairs: Not Applicalbe Prior Devices Use: Walker At [facility], pt was Mod I with the F[facility] at the [facility]. PT Evaluation-Current Subjective Pt is agreeable to PT. R knee pain = 8/10 Pain Numeric Pain Scale: 8 Location: Right Location Body Site: Knee Section J - Health Conditions 1. Rarely or not at all 2. Occasionally 3. Frequently 4. Almost constantly 8. Unable to answer Pain Effect on Sleep: 3 Pain Interference with Therapy: 4 Pain Interference w/Day-to-Day: 4 Pt/Family Goals Safely return to [facility] Objective Patient Orientation: Person, Place, Time, Situation Attachments: Oxygen (2L ), Hoffmann Catheter ROM/Strength ROM Upper Extremities See OT note ROM Lower Extremities L LE ROM WFL R LE ROM limited by pain Strength Upper Extremities See OT note Strength Lower Extremities L LE MMT = 3+/5 R LE MMT = 3-/5 due to pain Integumentary/Posture Integumentary See nurses note Bowel Incontinence: No Bladder Incontinence: Hoffmann Cath Sensory Vision: Wears Glasses Hearing: Functional Hand Dominance: Right Sensation Right Upper Extremit: Intact Sensation Left Upper Extremity: Intact Sensation Right Lower Extremit: Intact Sensation Left Lower Extremity: Intact Transfers Roll Left & Right (QC): 1 (Max A x 2) Sit to Lying (QC): 1 (Max A x 2) Lying to Sitting/Side of Bed(Q: 1 (Max A x 2) Sit to Stand (QC): 1 (Max A x 2) Chair/Obd-xy-Xethq Xfer(QC): 1 (Max A x 2) Toilet Transfer (QC): 88 Car Transfer (QC): 88 Gait Does the Patient Walk?: No and Walking Goal IS indicated Mode of Locomotion: Both Anticipated Mode of Locomotion: Both Walk 10 feet (QC): 88 Walk 50 ft with 2 Turns(QC): 88 Walk 150 ft (QC): 88 Walking 10ft/uneven surface-QC: 88 Gait Assistive Device: FWW Wheelchair Training Does the Pt Use a Wheelchair?: Yes Wheel 50 ft with 2 turns (QC): 88 Wheel 150 ft (QC): 88 Type of Wheelchair: Manual Stairs 1 Step (curb) (QC): 88 4 Steps (QC): 88 12 Steps (QC): 88 Walking Assistive Device: Walker Balance Sitting Static: Good Sitting Dynamic: Fair Standing Static: Poor Standing Dynamic: Poor Picking up an Object (QC): 88 Special Test Comments KU standing balance score = 1/5 (goal = 4/5) Treatment PT eval completed Assessment/Needs Pt tolerated PT poorly Rehab Potential: Fair Post Rehab Potential-Barriers: Weakness, debility, pain Equipment Needs W/C? PT Supervisor Engraving Goals Supervisor Engraving Goals PT Intermediate Goals Time Frame: Nov 28, 2022 Roll Left to Right (QC): 4 (Pt will be SBA for functional mobility, in order to safely d/c back to [facility] ) Sit to Lying (QC): 4 (Pt will be SBA for functional mobility, in order to safely d/c back to [facility] ) Lying-Sitting on Side/Bed(QC): 4 (Pt will be SBA for functional mobility, in order to safely d/c back to [facility] ) Sit to Stand (QC): 4 (Pt will be SBA for functional mobility, in order to safely d/c back to [facility] ) Chair/Xnc-yi-Hjdqf Xfer(QC): 4 (Pt will be SBA for functional mobility, in order to safely d/c back to [facility] ) Toilet/Commode Transfer (QC): 4 (Pt will be SBA for functional mobility, in order to safely d/c back to [facility] ) Car Transfer (QC): 4 (Pt will be SBA for functional mobility, in order to safely d/c back to [facility] ) Does the Patient Walk: No and Walking Goal IS indicated Walk 10 feet (QC): 4 (Pt will be SBA for functional mobility, in order to safely d/c back to [facility] ) Walk 10ft-Uneven Surface(QC): 4 (Pt will be SBA for functional mobility, in order to safely d/c back to [facility] ) Walk 50ft with 2 Turns (QC): 4 (Pt will be SBA for functional mobility, in order to safely d/c back to [facility] ) Walk 150 ft (QC): 4 (Pt will be SBA for functional mobility, in order to safely d/c back to [facility] ) Does the Pt use WC or Scooter?: Yes Wheel 50 feet with 2 turns (QC: 4 (Pt will be SBA for functional mobility, in order to safely d/c back to [facility] ) Type: Manual Wheel 150 feet: 4 (Pt will be SBA for functional mobility, in order to safely d/c back to [facility] ) Type: Manual 1 Step (curb) (QC): 9 (Pt did not have to negotiate stairs at PLOF ) 4 Steps (QC): 9 (Pt did not have to negotiate stairs at PLOF ) 12 Steps (QC): 9 (Pt did not have to negotiate stairs at PLOF ) Picking up an Object (QC): 4 (Pt will be SBA for functional mobility, in order to safely d/c back to [facility] ) KU standing balance score goal = 4/5 PT Plan Problem List Problem List: Activity Tolerance, Functional Strength, Safety, Balance, Gait, Transfer, Bed Mobility, ROM Treatment/Plan Treatment Plan: Continue Plan of Care Treatment Plan: Bed Mobility, Concurrent Therapy, Education, Functional Activity Sean, Functional Strength, Group Therapy, Gait, Safety, Therapeutic Exercise, Transfers Treatment Duration: Nov 28, 2022 Frequency: At least 5 of 7 days/Wk (IRF) Estimated Hrs Per Day: 1.5 hours per day Patient and/or Family Agrees t: Yes Safety Risks/Education Patient Education: Transfer Techniques, Reviewed Precautions, W/C Management, Safety Issues Teaching Recipient: Patient, Family Teaching Methods: Demonstration, Discussion Response to Teaching: Reinforcement Needed Discharge Recommendations Therapy Discharge Recommendati: Assisted Living Equpiment Recommendations-D/C: Manual Wheelchair Discharge Status/Home Program Cont per POC Barriers to Progress Weakness, debility, pain Target Placement [facility] Time Time In: 1450 Time Out: 1500 DATE: Nov 14, 2022 Total Billed Treatment Time: 10 Total Billed Treatment 10 min SLICK HAYES PT Nov 14, 2022 14:42
--- NOTE | 2022-11-14 15:09 | ST Cognitive Linguistic Eval ---
Speech Evaluation-General Medical Diagnosis Acute Encephalopathy Onset Date: Nov 12, 2022 Therapy Diagnosis Therapy Diagnosis: SEVERE COGNITIVE DEFICITS Precautions Precautions: Fall Precautions/Isolations: Fall Prevention, Standard Precautions Referral Referring Physician: Dr. Joseph Reason for Referral: Evaluation/Treatment Medical History Pertinent Medical History: HTN HTN, arthritis, Eye Surgery, Hysterectomy, Orthopedic sx, cataracts, UTI, scalp laceration, hand fx, syncope, tremors Current History Pt is an 82 y/o female who currently resides at [facility] in assisted living. Pt was walking with a walker and had a syncopal episode resulting in a fall in which pt hit her head on a fire place on 11/12. Ambulance was called and pt was transferred to ED where pt was dx with R triquetral fracture and had a laceration to the occipital region that was closed in the ED. Pt was admitted to the hospital. On 11/14/22, pt was admitted to [facility] IRU. Reviewed History: Yes Social History Home: Assisted Living Speech PLF-Current Status Prior Level of Function Pt a resident at [facility]. Staff of [facility] managed her medications and her daughter Dorcas manages her finances. Pt and daughters report change in cognitive functioning since the fall. Subjective Pt just transferred to the IRU unit. Nursing staff present in room when CRUSHER LOADER OPERATOR enters the room. Staff reports lights are off due to a concussion headache. Pt is sitting up in a wheel chair on supplemental oxygen. Pt's 2 daughters enter the room as CRUSHER LOADER OPERATOR is finishing up the evaluation. Daughters state pt has had some changes to her cognitive functioning since the fall. No noted word finding or swallowing difficulties. Pt pleasant and cooperative throughout evaluation. Pain Numeric Pain Scale: 10-Worst Possible Pain Location Body Site: Head Language Eval: Auditory Comprehends Simple Yes/No Ques: Functional Follows 1-Step Commands: Functional Follows General Conversations: Mild Language Eval: Verbal Language Completes Spontaneous Greeting: Functional Word Finding: Functional Requests Basic Needs: Functional States Basic Personal Info: Functional Objective Cognitive Domain Attention: WNL Memory: Severe Problem Solving: Moderate Executive Functions: Moderate Visuospatial Skills: Moderate Composite Severity Rating: Severe Clock Drawing Severity Rating: Moderate Score: 15 Objective Formal/Standardized Tests SLUMS Results Impression Pt currently presents with SEVERE COGNITIVE DEFICITS. Pt oriented to day of week, month, state, and why pt is in the hospital. Pt able to immediately recall 3/5 words and recalls 2/5 words following a short delay. Pt with difficulty completing basic problem solving. Pt able to generate 11 animals in 1 minutes. Pt able to mentally manipulate 2 and 3 numbers in reverse order, but is unable to mentally manipulate 4 numbers in reverse order. Pt is able to follow basic one step direction. Pt with significant difficulty recalling information from a spoken paragraph, answering 1/4 question. Pt unable to write and points and tells therapist where to put the numbers on the clock. After CRUSHER LOADER OPERATOR writes numbers on the clock, pt unable to state how to place the hands for the time given. Pt to benefit from skilled speech therapy services at this time. Speech Short Term Goals Short Term Goals Short Term Goals 1. Pt will complete immediate memory tasks with 80% accuracy with min verbal cues. 2. Pt will complete basic problem solving tasks with 80% accuracy with min verbal cues. Speech Game Show Host Goals Game Show Host Goals 1. Pt will complete memory tasks following short delay with 80% accuracy with min verbal cues. 2. Pt will complete basic executive functioning tasks with 80% accuracy with min verbal cues. 3. Pt will complete visuospatial tasks with 80% accuracy with min verbal cues. 4. Pt will follow 2 step directions with 80% accuracy with min verbal cues. Speech-Plan Patient/Family Goals Patient/Family Goals: Pt's goal is to return to [facility]. Treatment Plan Speech Therapy Treatment Plan: Continue Plan of Care Frequency: 5 times per week Estimated Hrs Per Day: .5 hour per day Rehab Potential: Fair Pt/Family Agrees to Plan: Yes Safety Risks/Education Teaching Recipient: Patient, Family Teaching Methods: Discussion Response to Teaching: Verbalize Understanding, Reinforcement Needed Education Topics Provided: Pt and family educated on purpose of evaluation, results, and recommendations. Pt and family receptive, family verbalizes understanding and pt will likely need reinforcement. Time Speech Therapy Time In: 14:15 Speech Therapy Time Out: 14:40 DATE: Nov 14, 2022 Total Billed Time: 25 Billed Treatment Time S/L Kel Hayes Speech Therapy Nov 14, 2022 15:09
--- NOTE | 2022-11-14 15:30 | Occupational Therapy Eval ---
OT Evaluation-General/PLF Medical Diagnosis Admission Date Nov 14, 2022 at 14:10 Medical Diagnosis: Acute Encephalopathy Onset Date: Nov 12, 2022 Therapy Diagnosis Therapy Diagnosis: weakness, primary RUE, RUE FX Height/Weight Weight (Pounds): 245 Precautions Precautions/Isolations: Fall Prevention, Standard Precautions Weight Bear Status Weight Bearing Restriction: Weight Bearing/Tolerated Location Restriction: R UE (fracture w/ splint) Referral Physician: Jake Referral Reason: Activity Tolerance, Self Care, Evaluation/Treatment Medical History Pertinent Medical History: HTN Additional Medical History HTN, arthritis, Eye Surgery, Hysterectomy, Orthopedic sx Pt fell on 11/12/2022 hitting head on fireplace; ED on 11/12/2022 with R wrist fx (WBAT) and R knee pain; transfer from acute hospital stay to ARU on 11/14/2022, RUE weakness throughout limb Reviewed History: Yes Social History Home: Assisted Living Current Living Status: Alone Entry Into Home: Level Entry ADL-Prior Level of Function SCALE: Activities may be completed with or without assistive devices. 1-Thbczyvvld-lrnqmsh completes the activity by him/herself with no assistance from a helper. 5-Set-up or Clean-up Assistance-helper sets up or cleans up; patient completes activity. [place] assists only prior to or following the activity. 4-Supervision or Touching Assistance-helper provides verbal cues and/or touching/steadying and/or contact guard assistance as patient completes activity. Assistance may be provided throughout the activity or intermittently. 3-Partial/Moderate Assistance-helper does LESS THAN HALF the effort. [place] lifts, holds or supports trunk or limbs, but provides less than half the effort. 2-Substantial/Maximal Assistance-helper does MORE THAN HALF the effort. [place] lifts or holds trunk or limbs and provides more than half the effort. 8-Vdgvpuoid-fseivr does ALL the effort. Patient does none of the effort to complete the activity. Or, the assistance of 2 or more helpers is required for the patient to complete the activity. If activity was not attempted, code reason: 7-Patient Refused. 9-Not Applicable-not attempted and the patient did not perform the activity before the current illness, exacerbation or injury. 10-Not Attempted due to Environmental Limitations-(lack of equipment, weather restraints, etc.). 88-Not Attempted due to Medical Conditions or Safety Concerns. Self Care: Independent (shower monitoring) Functional Cognition: Independent Drive Self: No OT Current Status Subjective * Patient arrived on ARU w/ 2 involved daughters present. Patient fearful and anxious however easily calmed w/ instruction of anticipated tasks. Pain Numeric Pain Scale: 8 (head and orthopedic right side) Mental Status/Objective Patient Orientation: Person, Place ([place] [place]), Time (11/14/22), Situation Attachments: Hoffmann Catheter, Other-See Comments (right wrist splint) Current Glasses/Contacts: Yes Hearing Aids: No Dentures/Partials: Yes Hand Dominance: Right Upper Extremity ROM LUE ROM WFLS w/ close joint approximation limited d/t excessive soft tissue. NEW since fall RUE finger lack full extension and flexion, wrist restricted, elbow 0-110 degrees, shoulder flex 20, abd 20, IR in gravity eliminated WFLS, no active ER Upper Extremity Coordination impaired Upper Extremity Strength LUE 3/5, RUE -2/5 ADL-Treatment Eating (QC): 3 Oral Hygiene (QC): 2 Shower/Bathe Self (QC): 1 Upper Body Dressing (QC): 1 Lower Body Dressing (QC): 1 On/Off Footwear (QC): 1 Toileting Hygiene (QC): 1 Requires 2 person for transfer and LB garment ADLS Education OT Patient Education: Correct positioning, Exercise program, Instructions don/doff splint/brace, Instructions to caregiver, Modified ADL techniques, Progress toward Goal/Update tx plan, Purpose of tx/functional activities, Revie wed precautions, Rehab process, Safety issues, Transfer techniques, W/C management Teaching Recipient: Patient, Family Teaching Methods: Demonstration, Discussion Response to Teaching: Verbalize Understanding, Reinforcement Needed BIMS CAM BIMS Expression of Ideas and Wants: Without Difficulty Understanding Verbal Content: Understands Brief Interview/Mental Status: Yes IRF CHANDRIKA BIMS: IRF CHANDRIKA BIMS Response (Comments) Value Repitition of Three Words Three 3 Recalls Socks Yes, No Cue Required 2 Recalls Blue Yes, No Cue Required 2 Recalls Bed Yes, No Cue Required 2 Year Correct 3 Month Accurate Within 5 Days 2 Day Correct 1 Total 15 Patient Normally Able to Recal: Staff Names and faces, That he/she in a hsp Should Staff Asses. Mental St.: No CAM Mental Status Change/Baseline: 1 Inattention: 2 Disorganized thinkin Altered level of consciousness: 0 OT Short Term Goals Short Term Goals Time Frame: Nov 21, 2022 Eatin Oral hygiene: 6 (sitting) Upper body dressin OT Jail Goals Java Portal Developer Goals Time Frame: Nov 28, 2022 Acute change in mental status: 0 Inattention: 0 Disorganized thinkin Altered level of consciousness: 0 Eating (QC): 6 Oral Hygiene (QC): 6 Toileting Hygiene (QC): 4 Shower/Bathe Self (QC): 4 Upper Body Dressing (QC): 4 Lower Body Dressing (QC): 4 On/Off Footwear (QC): 4 (with tools) 1=Demonstrate adherence to instructed precautions during ADL tasks. 2=Patient will verbalize/demonstrate understanding of assistive devices/modifications for ADL. 3=Patient will improve strength/tolerance for activity to enable patient to perform ADL's. OT Education/Plan Problem List/Assessment Assessment: Decreased Activ Tolerance, Decreased UE Strength, Dependent Transfers, Impaired Bed Mobility, Impaired Coordination, Impaired Funct Balance, Impaired Self-Care Skills, Restricted Funct UE ROM Discharge Recommendations Plan/Recommendations: Continue POC Treatment Plan/Plan of Care Treatment,Training & Education: Yes Patient would benefit from OT for education, treatment and training to promote independence in ADL's, mobility, safety and/or upper extremity function for ADL's. Plan of Care: ADL Retraining, Cognitive Retraining, Concurrent Therapy, Functional Mobility, Group Exercise/Act as Ind, Orthotic Fitting/Training, UE Funct Exercise/Act, UE Neuromus Re-Ed/Coord Treatment Duration: Nov 28, 2022 Frequency: At least 5 of 7 days/Wk (IRF) Estimated Hrs Per Day: 1.5 hours per day Agreement: Yes Rehab Potential: Fair Time Start Time: 14:40 Stop Time: 14:50 DATE: Nov 14, 2022 Total Time Billed (hr/min): 10 Billed Treatment Time EVH 10 min ALYSON ADHIKARI OT Nov 14, 2022 15:30
--- NOTE | 2022-11-14 16:16 | Occupational Ther Daily Note ---
OT Current Status-Daily Note Subjective Pt alert, lying in bed. Family present in room. Pt c/o neck and R knee pain, nrsg aware. Pt agrees to therapy. PT/OT co-treat ([id number]), skills of 2 clinicians required to decrease fall risk, assist x2 for mobility, decrease pain with movement and increase overall mobility/strength. PT focusing on bed mo bility and sitting balance while OT focusing on ADLs, B UE placement during mobility and functional mobility. Mental Status/Objective Patient Orientation: Person, Place, Time, Situation Attachments: Hoffmann Catheter, IV ADL-Treatment Pt agrees to sponge bath. Max A x2 for supine to EOB. 1 person assist for upper body bathing sitting EOB while 2nd person assist for sitting balance. Completed lower body bathing in supine, 2 person assist to roll side to side. 2 person assist to complete upper body dressing. 2 person assist to roll pt side to side in supine to complete LBD. Assist to cleanse and apply fixadent to dentures and pt placed dentures in mouth. Pt requires 2 person assist to cleanse buttocks for toileting while in supine. Dependent for footwear. After therapy, pt lying in bed with call light/phone in reach. All needs met in room. Therapy Code Descriptions/Definitions Functional [place] Measure: 0=Not Assessed/NA 4=Minimal Assistance 1=Total Assistance 5=Supervision or Setup 2=Maximal Assistance 6=Modified [place] 3=Moderate Assistance 7=Complete IndependenceSCALE: Activities may be completed with or without assistive devices. 0-Bxsiqhgwqz-zelllhv completes the activity by him/herself with no assistance from a helper. 5-Set-up or Clean-up Assistance-helper sets up or cleans up; patient completes activity. [place] assists only prior to or following the activity. 4-Supervision or Touching Assistance-helper provides verbal cues and/or t ouching/steadying and/or contact guard assistance as patient completes activity. Assistance may be provided throughout the activity or intermittently. 3-Partial/Moderate Assistance-helper does LESS THAN HALF the effort. [place] lifts, holds or supports trunk or limbs, but provides less than half the effort. 2-Substantial/Maximal Assistance-helper does MORE THAN HALF the effort. [place] lifts or holds trunk or limbs and provides more than half the effort. 8-Rlnfrlnep-ilzmtf does ALL the effort. Patient does none of the effort to complete the activity. Or, the assistance of 2 or more helpers is required for the patient to complete the activity. If activity was not attempted, code reason: 7-Patient Refused. 9-Not Applicable-not attempted and the patient did not perform the activity before the current illness, exacerbation or injury. 10-Not Attempted due to Environmental Limitations-(lack of equipment, weather restraints, etc.). 88-Not Attempted due to Medical Conditions or Safety Concerns. OT Short Term Goals Short Term Goals Time Frame: Nov 21, 2022 Eatin Oral hygiene: 6 (sitting) Upper body dressin OT Drop Worker Goals Nursing Home Goals Time Frame: Nov 28, 2022 Acute change in mental status: 0 Inattention: 0 Disorganized thinkin Altered level of consciousness: 0 Eating (QC): 6 Oral Hygiene (QC): 6 Toileting Hygiene (QC): 4 Shower/Bathe Self (QC): 4 Upper Body Dressing (QC): 4 Lower Body Dressing (QC): 4 On/Off Footwear (QC): 4 (with tools) 1=Demonstrate adherence to instructed precautions during ADL tasks. 2=Patient will verbalize/demonstrate understanding of assistive devices/modifications for ADL. 3=Patient will improve strength/tolerance for activity to enable patient to perform ADL's. OT Education/Plan Problem List/Assessment Assessment: Decreased Activ Tolerance, Decreased Safety Aware, Decreased UE Strength, Dependent Transfers, Impaired Bed Mobility, Impaired Coordination, Impaired Funct Balance, Impaired I ADL's, Impaired Self-Care Skills, Restricted Funct UE ROM Discharge Recommendations Plan/Recommendations: Continue POC Treatment Plan/Plan of Care Patient would benefit from OT for education, treatment and training to promote independence in ADL's, mobility, safety and/or upper extremity function for ADL's. Plan of Care: ADL Retraining, Cognitive Retraining, Concurrent Therapy, Functional Mobility, Group Exercise/Act as Ind, Orthotic Fitting/Training, UE Funct Exercise/Act, UE Neuromus Re-Ed/Coord Treatment Duration: Nov 28, 2022 Frequency: At least 5 of 7 days/Wk (IRF) Estimated Hrs Per Day: 1.5 hours per day Agreement: Yes Rehab Potential: Fair Time Start Time: 15:00 Stop Time: 16:08 DATE: Nov 14, 2022 Total Time Billed (hr/min): 68 Billed Treatment Time 1 visit-ADL 5 co-treat with PT 68 min JORDAN PULLIAM Nov 14, 2022 16:16
--- NOTE | 2022-11-14 16:37 | Physical Therapy Daily Note ---
PT Daily Note-Current Subjective Pt in bed upon arrival and good for therapy. pt did state her right knee was hurting when any movement took place. pt stated neck was hurting as well with any forward flexion movement. nursing was notified. pt was left in bed with call light and all needs met this day. Pain Section J - Health Conditions 1. Rarely or not at all 2. Occasionally 3. Frequently 4. Almost constantly 8. Unable to answer Pain Effect on Sleep: 3 Pain Interference with Therapy: 4 Pain Interference w/Day-to-Day: 4 Mental Status Patient Orientation: Person, Place, Time, Situation Transfers SCALE: Activities may be completed with or without assistive devices. 7-Dklmhwqawr-copybxn completes the activity by him/herself with no assistance from a helper. 5-Set-up or Clean-up Assistance-helper sets up or cleans up; patient completes activity. [place] assists only prior to or following the activity. 4-Supervision or Touching Assistance-helper provides verbal cues and/or touching/steadying and/or contact guard assistance as patient completes activity. Assistance may be provided throughout the activity or intermittently. 3-Partial/Moderate Assistance-helper does LESS THAN HALF the effort. [place] lifts, holds or supports trunk or limbs, but provides less than half the effort. 2-Substantial/Maximal Assistance-helper does MORE THAN HALF the effort. [place] lifts or holds trunk or limbs and provides more than half the effort. 0-Rrcecsdxu-hixpvw does ALL the effort. Patient does none of the effort to complete the activity. Or, the assistance of 2 or more helpers is required for the patient to complete the activity. If activity was not attempted, code reason: 7-Patient Refused. 9-Not Applicable-not attempted and the patient did not perform the activity before the current illness, exacerbation or injury. 10-Not Attempted due to Environmental Limitations-(lack of equipment, weather restraints, etc.). 88-Not Attempted due to Medical Conditions or Safety Concerns. Weight Bearing Right Lower Extremity: Right Full Weight Bearing Left Lower Extremity: Left Full Weight Bearing WBAT R wrist with brace Treatments Pt preformed bed mobility with Max A x 2 from lying to sitting pt required max sitting support to sit upright. pt is able to sit upright for arox 2 mins. Assessment Current Status: Good Progress PT Master Rigger Goals Master Rigger Goals PT Senior Living Goals Time Frame: Nov 28, 2022 Roll Left & Right (QC): 4 (Pt will be SBA for functional mobility, in order to safely d/c back to [facility] ) Sit to Lying (QC): 4 (Pt will be SBA for functional mobility, in order to safely d/c back to [facility] ) Lying-Sitting on Side/Bed(QC): 4 (Pt will be SBA for functional mobility, in order to safely d/c back to [facility] ) Sit to Stand (QC): 4 (Pt will be SBA for functional mobility, in order to safely d/c back to [facility] ) Chair/Rlz-qk-Npwzn Xfer(QC): 4 (Pt will be SBA for functional mobility, in order to safely d/c back to [facility] ) Toilet Transfer (QC): 4 (Pt will be SBA for functional mobility, in order to safely d/c back to [facility] ) Car Transfer (QC): 4 (Pt will be SBA for functional mobility, in order to safely d/c back to [facility] ) Does the Patient Walk: No and Walking Goal IS indicated Walk 10 feet (QC): 4 (Pt will be SBA for functional mobility, in order to safely d/c back to [facility] ) Walk 50ft with 2 Turns (QC): 4 (Pt will be SBA for functional mobility, in order to safely d/c back to [facility] ) Walk 150 ft (QC): 4 (Pt will be SBA for functional mobility, in order to safely d/c back to [facility] ) Walking 10ft on Uneven Surface: 4 (Pt will be SBA for functional mobility, in order to safely d/c back to [facility] ) 1 Step (curb) (QC): 9 (Pt did not have to negotiate stairs at PLOF ) 4 Steps (QC): 9 (Pt did not have to negotiate stairs at PLOF ) 12 Steps (QC): 9 (Pt did not have to negotiate stairs at PLOF ) Picking up an Object (QC): 4 (Pt will be SBA for functional mobility, in order to safely d/c back to [facility] ) Does the Pt use WC or Scooter?: Yes Wheel 50 feet with 2 turns (QC: 4 (Pt will be SBA for functional mobility, in order to safely d/c back to [facility] ) Type: Manual Wheel 150 feet: 4 (Pt will be SBA for functional mobility, in order to safely d/c back to [facility] ) Type: Manual PT Plan Treatment/Plan Treatment Plan: Continue Plan of Care Treatment Plan: Bed Mobility, Concurrent Therapy, Education, Functional Activity Sean, Functional Strength, Group Therapy, Gait, Safety, Therapeutic Exercise, Transfers Treatment Duration: Nov 28, 2022 Frequency: At least 5 of 7 days/Wk (IRF) Estimated Hrs Per Day: 1.5 hours per day Patient and/or Family Agrees t: Yes Time Time In: 1500 Time Out: 1608 DATE: Nov 14, 2022 Total Billed Treatment Time: 68 Total Billed Treatment 1 FA x 5 Arlet Anguiano HEEL SCORER Nov 14, 2022 16:37
[2022-11-14 19:15] VITALS: BP 143/65
[2022-11-14] MEDS: polyethylene glycoL POWDER 17 GM (MIRALAX) PACK PO SCH (21:00)
[2022-11-14] MEDS: SENNA W/DOCUSATE (SENOKOT S) TABLET PO SCH (22:16)
[2022-11-14] MEDS: DOCUSATE SODIUM 100 MG (COLACE) CAP PO SCH (22:16)
[2022-11-15] MEDS: ONDANSETRON 4 MG (ZOFRAN) ORAL DISSOLVE TAB PO PRN ×2 (01:31→12:55)
[2022-11-15] MEDS: inSUlin ASPART (NovoLOG) 1 UNIT/0.01 ML (CHARGE PER UNIT) SC SCH ×4 (05:52→21:00)
[2022-11-15 06:17] LABS: PLATELET COUNT 91 10^3/uL (130-400); WHITE BLOOD COUNT 9.4 10^3/uL (4.3-11.0)
[2022-11-15 06:20] LABS: BASOPHILS % (AUTO) 0 % (0-10); EOSINOPHILS % (AUTO) 0 % (0-10); HEMATOCRIT 40 % (35-52); LYMPHOCYTES % (AUTO) 21 % (12-44); MEAN CORPUSCULAR HEMOGLOBIN 28 pg (25-34); MEAN CORPUSCULAR HGB CONC 32 g/dL (32-36); MEAN CORPUSCULAR VOLUME 87 fL (80-99); MEAN PLATELET VOLUME 13.1 fL (9.0-12.2); MONOCYTES % (AUTO) 11 % (0-12); NEUTROPHILS # (AUTO) 6.2 10^3/uL (1.8-7.8); NEUTROPHILS % (AUTO) 66 % (42-75)
[2022-11-15 06:38] LABS: ALBUMIN 3.2 GM/DL (3.2-4.5); BILIRUBIN,TOTAL 0.7 MG/DL (0.1-1.0); CALCIUM 9.1 MG/DL (8.5-10.1); CREATININE SERUM 0.63 MG/DL (0.60-1.30); POTASSIUM 3.4 MMOL/L (3.6-5.0); TOTAL PROTEIN 6.4 GM/DL (6.4-8.2)
--- NOTE | 2022-11-15 07:26 | PM&R Progress Note ---
Subjective HPI/CC On Admission Date Seen by Provider: Nov 15, 2022 Time Seen by Provider: 12:00 Subjective/Events-last exam 11/15/2022: Patient doing a little better Slow recovery Confusion seems to be clearing Refusing Lovenox due to low platelets per patient I do not feel like she is at high risk for bleeding so she will continue to decline Lovenox Pain is controlled Review of Systems General: Fatigue, Malaise Musculoskeletal: hand pain, leg pain Neurological: Confusion Objective Exam Vital Signs Vital Signs Date Time Temp Pulse Resp B/P (MAP) Pulse Ox O2 Delivery O2 Flow Rate FiO2 11/15/22 19:12 36.1 60 22 141/61 (87) 95 Nasal Cannula 2.00 Capillary Refill : General Appearance: No Apparent Distress, WD/WN, Chronically ill, Obese HEENT: PERRL/EOMI, Normal ENT Inspection, Pharynx Normal Neck: Full Range of Motion, Normal Inspection, Non Tender, Supple, Carotid Bruit Respiratory: Chest Non Tender, Lungs Clear, Normal Breath Sounds, No Accessory Muscle Use, No Respiratory Distress Cardiovascular: Regular Rate, Rhythm, No Edema, No Gallop, No JVD, No Murmur, Normal Peripheral Pulses Gastrointestinal: Normal Bowel Sounds, No Organomegaly, No Pulsatile Mass, Non Tender, Soft Back: Normal Inspection, No CVA Tenderness, No Vertebral Tenderness Extremity: Normal Capillary Refill, Normal Inspection, Normal Range of Motion, Non Tender, No Calf Tenderness, No Pedal Edema Neurologic/Psychiatric: Alert, Oriented x3, 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 FIM Transfers Therapy Code Descriptions/Definitions Functional [place] Measure: 0=Not Assessed/NA 4=Minimal Assistance 1=Total Assistance 5=Supervision or Setup 2=Maximal Assistance 6=Modified [place] 3=Moderate Assistance 7=Complete IndependenceSCALE: Activities may be completed with or without assistive devices. 4-Ztqqajyctv-damcbjj completes the activity by him/herself with no assistance from a helper. 5-Set-up or Clean-up Assistance-helper sets up or cleans up; patient completes activity. [place] assists only prior to or following the activity. 4-Supervision or Touching Assistance-helper provides verbal cues and/or touching/steadying and/or contact guard assistance as patient completes activity. Assistance may be provided throughout the activity or intermittently. 3-Partial/Moderate Assistance-helper does LESS THAN HALF the effort. [place] lifts, holds or supports trunk or limbs, but provides less than half the effort. 2-Substantial/Maximal Assistance-helper does MORE THAN HALF the effort. [place] lifts or holds trunk or limbs and provides more than half the effort. 9-Aaintzghm-dxubrg does ALL the effort. Patient does none of the effort to co mplete the activity. Or, the assistance of 2 or more helpers is required for the patient to complete the activity. If activity was not attempted, code reason: 7-Patient Refused. 9-Not Applicable-not attempted and the patient did not perform the activity before the current illness, exacerbation or injury. 10-Not Attempted due to Environmental Limitations-(lack of equipment, weather restraints, etc.). 88-Not Attempted due to Medical Conditions or Safety Concerns. Roll Left to Right (QC): 1 (Max A x 2) Sit to Lying (QC): 1 (Max A x 2) Sit to Stand (QC): 1 (Max A x 2) Chair/Ndr-pg-Oziym Xfer(QC): 1 (Max A x 2) Car Transfer (QC): 88 Gait Training Does the Patient Walk?: No and Walking Goal IS indicated Walk 10 feet (QC): 88 Walk 50 ft with 2 Turns(QC): 88 Walk 150 ft (QC): 88 Walking 10ft/uneven surface-QC: 88 Gait Assistive Device: FWW Wheelchair Training Does the Pt Use a Wheelchair?: Yes Wheel 50 ft with 2 turns (QC): 88 Wheel 150 ft (QC): 88 Type of Wheelchair: Manual Stair Training 1 Step (curb) (QC): 88 4 Steps (QC): 88 12 Steps (QC): 88 Balance Picking up an Object (QC): 88 ADL-Treatment Eating (QC): 3 Oral Hygiene (QC): 3 Lower Body Dressing (QC): 1 On/Off Footwear (QC): 1 Toileting Hygiene (QC): 1 Assessment/Plan Assessment and Plan Assess & Plan/Chief Complaint Assessment: Encephalopathy from closed head injury with LOC Left hand fracture Scalp laceration with hematoma HTN Acute UTI Increased BMI Refuses Lovenox Plan: Pain control Rehab Fall risk Monitor confusion Complete abx 11/15/2022: Pain control Supportive care (1) Closed head injury with brief loss of consciousness (2) Encephalopathy (3) Syncope Status: Acute (4) Hand fracture Status: Acute (5) Scalp laceration Status: Acute (6) Urinary tract infection Status: Acute LUCERO FUENTES DO Nov 15, 2022 07:26
--- NOTE | 2022-11-15 07:26 | Individualized Plan of Care ---
Individualized Plan of Care Rehab Nursing IPOC Order Admission Date Nov 14, 2022 at 14:10 Current Orders Orders Admission Order(Inpt,Obs,Sdc) (11/14/22 12:53) Vital Signs: Per Unit Policy ( 08,16,00 (11/14/22 12:53) Pablo Judd ,21 (11/14/22 12:53) Sequential Compression Device [id number] (11/14/22 12:53) Geodetic Advisor-Inpt Rehab Con (11/14/22 12:53) Rehab Nursing Orders-Ipoc (11/14/22 12:53) Physical Therapy Rehab Orders (11/14/22 12:53) Occupational Therapy Rehab Ord (11/14/22 12:53) Speech Therapy Rehab Orders (11/14/22 12:53) Cbc With Automated Diff (11/15/22 06:00) Comprehensive Metabolic Panel (11/15/22 06:00) Precautions (Aru) (11/14/22 12:53) Weekly Weight WEEK (11/14/22 12:53) Rehab-Intensity Of Therapy (11/14/22 12:53) Initiate Admission Nursing Pro .admission (11/14/22 12:53) Alprazolam Tablet (Xanax Tablet) (11/14/22 13:00) Calcium Carbonate Chew Tablet (Antacid C (11/14/22 13:00) Diphenhydramine Tablet (Benadryl Tablet) (11/14/22 13:00) Docusate Sodium Capsule (Colace Capsule) (11/14/22 21:00) Docusate Sodium Capsule (Colace Capsule) (11/14/22 13:00) Bisacodyl Suppository (Dulcolax Supposit (11/14/22 13:00) Lactulose Oral Solution (Enulose Oral So (11/14/22 13:00) Na Phos/Na Biphos Enema (Fleet Enema Jerry (11/14/22 13:00) Guaifenesin/Codeine Syrup (Robitussin Ac (11/14/22 13:00) Loperamide Tablet (Imodium Tablet) (11/14/22 13:00) Melatonin Tablet (Melatonin Tablet) (11/14/22 13:00) Polyethylene Glycol Powder Pkt (Miralax (11/14/22 21:00) Ondansetron Oral Dissolve Tab (Zofran (11/14/22 13:00) Senna S Tablet (Senokot S Tablet) (11/14/22 21:00) Acetaminophen Tablet/Caplet (Tylenol T (11/14/22 13:00) Initiate Admission Nursing Pro .admission (11/14/22 12:53) Admission Arrival Bed Request (11/14/22 14:12) Patient Visit (11/14/22 ) Speech Sound Lang Comp (11/14/22 ) Patient Visit (11/14/22 ) Pt Eval Moderate Complexity (11/14/22 ) Patient Visit (11/14/22 ) Functional Activities, Ea 15 (11/14/22 ) General/Regular (11/14/22 Dinner) Hydrocodone/Apap 7.5/325 Tab (Lortab 7. (11/14/22 18:45) Tramadol Tablet (Ultram Tablet) (11/14/22 18:45) Code/Resuscitation (11/14/22 18:35) Accucheck Achs ACHS (11/14/22 21:29) Insulin Aspart (Novolog) (Novolog (Charg (11/15/22 06:00) Cefdinir Capsule (Omnicef Capsule) (11/15/22 09:00) Enoxaparin Injection (Lovenox Injection) (11/15/22 09:00) Oxygen Delivery Set Up (11/15/22 06:04) Oxygen-Administer 07,19 (11/15/22 06:04) Pastoral Consult (11/15/22 10:34) Incentive Spirometry (Nursing) Q2H (11/15/22 13:47) Consult Wound Care Physician (11/15/22 18:16) Rehab Nursing Orders: Ongoing Assess. of Cognitive Status, Ongoing Assess. of Function Status, Bladder Management, Bladder Scan, Bladder Training, Bowel Management, Bowel Training, Disease Management & Educaiton, DVT Prophylaxis, Fall Prevention, Fluid/Electrolyte/Nutrition Mgmt, Infection Prevention, Medication Management & Education, Management of Risks & Complications, Management of Skin Intergrity, Nutrition Management, Pain Management, Patient/Family Support, Safety Management, Wound Management Intensity of Therapy to be met Patient to be seen: Min.3h per day/5 of 7d PT IPOC Problem List: Activity Tolerance, Functional Strength, Safety, Balance, Gait, Transfer, Bed Mobility, ROM Treatment Plan: Continue Plan of Care Bed Mobility, Concurrent Therapy, Education, Functional Activity Sean, Functional Strength, Group Therapy, Gait, Safety, Therapeutic Exercise, Transfers Treatment Duration: Nov 28, 2022 Frequency: At least 5 of 7 days/Wk (IRF) Estimated Hrs Per Day: 1.5 hours per day OT IPOC Problems: Decreased Activ Tolerance, Decreased Safety Aware, Decreased UE Strength, Dependent Transfers, Impaired Bed Mobility, Impaired Coordination, Impaired Funct Balance, Impaired I ADL's, Impaired Self-Care Skills, Restricted Funct UE ROM OT Treatment, Training and Edu: Yes Plan of Care: ADL Retraining, Cognitive Retraining, Concurrent Therapy, Functional Mobility, Group Exercise/Act as Ind, Orthotic Fitting/Training, UE Funct Exercise/Act, UE Neuromus Re-Ed/Coord Treatment Duration: Nov 28, 2022 Frequency: At least 5 of 7 days/Wk (IRF) Estimated Hrs Per Day: 1.[address] IPOC Speech Therapy Treatment Plan: Continue Plan of Care Treatment Duration: Nov 14, 2022 Frequency: 5 times per week Estimated Hrs Per Day: .5 hour per day Geodetic Advisor/Case Mgmt Geodetic Advisor/Case Managemen: Discharge Planning Dietitian/Director Custom Dietitian/Director Custom to monitor nutritional status and make changes and/or recommendations as needed and work with speech pathology on dietary upgrades as the occur. Physician IPOC Medical Issues being managed closely and that require the 24 hour availability of a physician: Physician supervision will be required due to confusion and encephalopathy following close head injury with loss of consciousness from syncopal episode Medical Issues: Bowel/Bladder Function, DVT Prophylaxis, Falls Precautions, Fluid/Electrolyte/Nutrition Balance, Infection Protection, Pain Management, Wound Care Brief Synthesis of Preadmission Screen, Post-Admission Evaluation, and Therapy Evaluations: PT and OT will focus on regaining function with use of assistive devices and speech therapy will help with thought process Medical Prognosis: Good Anticipated Length of Stay: 7 days LUCERO FUENTES DO Nov 15, 2022 07:26
[2022-11-15 07:55] VITALS: BP 144/74
[2022-11-15] MEDS: ENOXAPARIN 40 MG/0.4 ML (LOVENOX) SYR SC SCH ×2 (09:59→10:07)
[2022-11-15] MEDS: CEFDINIR 300 MG (OMNICEF) CAP PO SCH ×2 (09:59→21:02)
[2022-11-15] MEDS: SENNA W/DOCUSATE (SENOKOT S) TABLET PO SCH ×2 (10:28→21:02)
[2022-11-15] MEDS: polyethylene glycoL POWDER 17 GM (MIRALAX) PACK PO SCH ×2 (10:28→21:00)
[2022-11-15] MEDS: DOCUSATE SODIUM 100 MG (COLACE) CAP PO SCH ×2 (10:28→21:02)
[2022-11-15] MEDS: HYDROcodone/APAP 7.5 MG/325 MG (LORTAB, LORCET PLUS) TABLET PO PRN ×2 (12:55→21:02)
[2022-11-15 19:12] VITALS: BP 141/61
[2022-11-16] MEDS: inSUlin ASPART (NovoLOG) 1 UNIT/0.01 ML (CHARGE PER UNIT) SC SCH ×4 (05:20→21:42)
--- NOTE | 2022-11-16 07:22 | PM&R Progress Note ---
Subjective HPI/CC On Admission Date Seen by Provider: Nov 16, 2022 Time Seen by Provider: 12:00 Subjective/Events-last exam 11/16/2022: Pain improved Daughter and grandkids are visiting No falls Lovenox discussed and she is willing to take it since I will monitor platelets No issues otherwise 11/15/2022: Patient doing a little better Slow recovery Confusion seems to be clearing Refusing Lovenox due to low platelets per patient I do not feel like she is at high risk for bleeding so she will continue to decline Lovenox Pain is controlled Review of Systems General: Fatigue, Malaise Objective Exam Vital Signs Vital Signs Date Time Temp Pulse Resp B/P (MAP) Pulse Ox O2 Delivery O2 Flow Rate FiO2 11/16/22 09:48 36.6 62 20 145/74 (97) 94 Nasal Cannula 1.00 Capillary Refill : General Appearance: No Apparent Distress, WD/WN, Chronically ill, Obese HEENT: PERRL/EOMI, Normal ENT Inspection, Pharynx Normal Neck: Full Range of Motion, Normal Inspection, Non Tender, Supple, Carotid Bruit Respiratory: Chest Non Tender, Lungs Clear, Normal Breath Sounds, No Accessory Muscle Use, No Respiratory Distress Cardiovascular: Regular Rate, Rhythm, No Edema, No Gallop, No JVD, No Murmur, Normal Peripheral Pulses Gastrointestinal: Normal Bowel Sounds, No Organomegaly, No Pulsatile Mass, Non Tender, Soft Back: Normal Inspection, No CVA Tenderness, No Vertebral Tenderness Extremity: Normal Capillary Refill, Normal Inspection, Normal Range of Motion, Non Tender, No Calf Tenderness, No Pedal Edema Neurologic/Psychiatric: Alert, 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 FIM Transfers Therapy Code Descriptions/Definitions Functional [place] Measure: 0=Not Assessed/NA 4=Minimal Assistance 1=Total Assistance 5=Supervision or Setup 2=Maximal Assistance 6=Modified [place] 3=Moderate Assistance 7=Complete IndependenceSCALE: Activities may be completed with or without assistive devices. 2-Tclliwybeo-zxgvzob completes the activity by him/herself with no assistance from a helper. 5-Set-up or Clean-up Assistance-helper sets up or cleans up; patient completes activity. [place] assists only prior to or following the activity. 4-Supervision or Touching Assistance-helper provides verbal cues and/or touching/steadying and/or contact guard assistance as patient completes activity. Assistance may be provided throughout the activity or intermittently. 3-Partial/Moderate Assistance-helper does LESS THAN HALF the effort. [place] lifts, holds or supports trunk or limbs, but provides less than half the effort. 2-Substantial/Maximal Assistance-helper does MORE THAN HALF the effort. [place] lifts or holds trunk or limbs and provides more than half the effort. 3-Imfhxjxtu-ppqykl does ALL the effort. Patient does none of the effort to complete the activity. Or, the assistance of 2 or more helpers is required for the patient to complete the activity. If activity was not attempted, code reason: 7-Patient Refused. 9-Not Applicable-not attempted and the patient did not perform the activity before the current illness, exacerbation or injury. 10-Not Attempted due to Environmental Limitations-(lack of equipment, weather restraints, etc.). 88-Not Attempted due to Medical Conditions or Safety Concerns. Roll Left to Right (QC): 1 (Max A x 2) Sit to Lying (QC): 1 (Max A x 2) Sit to Stand (QC): 1 (Max A x 2) Chair/Vbq-io-Jokkx Xfer(QC): 1 (Max A x 2) Car Transfer (QC): 88 Gait Training Does the Patient Walk?: No and Walking Goal IS indicated Walk 10 feet (QC): 88 Walk 50 ft with 2 Turns(QC): 88 Walk 150 ft (QC): 88 Walking 10ft/uneven surface-QC: 88 Gait Assistive Device: FWW Wheelchair Training Does the Pt Use a Wheelchair?: Yes Wheel 50 ft with 2 turns (QC): 88 Wheel 150 ft (QC): 88 Type of Wheelchair: Manual Stair Training 1 Step (curb) (QC): 88 4 Steps (QC): 88 12 Steps (QC): 88 Balance Picking up an Object (QC): 88 ADL-Treatment Eating (QC): 3 Oral Hygiene (QC): 3 Lower Body Dressing (QC): 1 On/Off Footwear (QC): 1 Toileting Hygiene (QC): 1 Assessment/Plan Assessment and Plan Assess & Plan/Chief Complaint Assessment: Encephalopathy from closed head injury with LOC Left hand fracture Scalp laceration with hematoma HTN Acute UTI Increased BMI Refuses Lovenox Plan: Pain control Rehab Fall risk Monitor confusion Complete abx 11/15/2022: Pain control Supportive care 11/16/2022: Pain control Lovenox: pt willing to take now (1) Closed head injury with brief loss of consciousness (2) Encephalopathy (3) Syncope Status: Acute (4) Hand fracture Status: Acute (5) Scalp laceration Status: Acute (6) Urinary tract infection Status: Acute LUCERO FUENTES DO Nov 16, 2022 07:22
[2022-11-16 09:48] VITALS: BP 145/74
[2022-11-16] MEDS: CEFDINIR 300 MG (OMNICEF) CAP PO SCH ×2 (09:51→20:27)
[2022-11-16] MEDS: DOCUSATE SODIUM 100 MG (COLACE) CAP PO SCH ×2 (09:51→21:42)
[2022-11-16] MEDS: SENNA W/DOCUSATE (SENOKOT S) TABLET PO SCH ×2 (09:51→21:42)
[2022-11-16] MEDS: HYDROcodone/APAP 7.5 MG/325 MG (LORTAB, LORCET PLUS) TABLET PO PRN ×2 (09:52→20:27)
[2022-11-16] MEDS: polyethylene glycoL POWDER 17 GM (MIRALAX) PACK PO SCH ×2 (09:54→21:42)
[2022-11-16] MEDS: ENOXAPARIN 40 MG/0.4 ML (LOVENOX) SYR SC SCH (13:47)
[2022-11-16] MEDS: SOD CHL GEL 0.5 OZ (AYR SALINE NASAL GEL) TUBE NS SCH ×2 (17:16→21:42)
[2022-11-16] MEDS: SALINE NASAL SPRAY (OCEAN) 45 ML BTL SCH ×3 (17:16→21:42)
[2022-11-16 19:24] VITALS: BP 144/65
[2022-11-16] MEDS: metFORMIN 500 MG (GLUCOPHAGE) TAB PO SCH (20:27)
[2022-11-17 06:01] LABS: BASOPHILS % (AUTO) 0 % (0-10); EOSINOPHILS # (AUTO) 0.3 10^3/uL (0.0-0.3); EOSINOPHILS % (AUTO) 3 % (0-10); HEMATOCRIT 40 % (35-52); HEMOGLOBIN 12.8 g/dL (11.5-16.0); LYMPHOCYTES % (AUTO) 23 % (12-44); MEAN CORPUSCULAR HEMOGLOBIN 28 pg (25-34); MEAN CORPUSCULAR HGB CONC 32 g/dL (32-36); MEAN CORPUSCULAR VOLUME 86 fL (80-99); MEAN PLATELET VOLUME 13.1 fL (9.0-12.2); MONOCYTES # (AUTO) 0.9 10^3/uL (0.0-1.0); MONOCYTES % (AUTO) 10 % (0-12); NEUTROPHILS # (AUTO) 5.2 10^3/uL (1.8-7.8); NEUTROPHILS % (AUTO) 61 % (42-75); PLATELET COUNT 97 10^3/uL (130-400); WHITE BLOOD COUNT 8.5 10^3/uL (4.3-11.0)
[2022-11-17 06:28] LABS: ALBUMIN 2.8 GM/DL (3.2-4.5); BILIRUBIN,TOTAL 0.7 MG/DL (0.1-1.0); CALCIUM 8.8 MG/DL (8.5-10.1); CREATININE SERUM 0.64 MG/DL (0.60-1.30); POTASSIUM 3.6 MMOL/L (3.6-5.0); TOTAL PROTEIN 5.9 GM/DL (6.4-8.2)
[2022-11-17] MEDS: inSUlin ASPART (NovoLOG) 1 UNIT/0.01 ML (CHARGE PER UNIT) SC SCH ×4 (06:29→21:03)
[2022-11-17] MEDS: HYDROcodone/APAP 7.5 MG/325 MG (LORTAB, LORCET PLUS) TABLET PO PRN ×3 (07:53→19:46)
--- NOTE | 2022-11-17 07:58 | Physical Therapy Daily Note ---
PT Daily Note-Current Subjective pt in bed upon arrival. PT/OT co treat from [id number] 60 mins due to skill of 2 clinicians requires which a rehabilitation counsellor could not preform in order to coordinate UE/LEs, decrease fall risk, and du to pt's limitations in strength, mobility, transfers and pain. OT focused on UE placement, cue's for sequencing and safety and ADL's, PT focused on LE placement, gross overall movement and transfers/mobility. pt stated 6-7/10 pain in bed prior to moving to recliner with sit to stand, after positioning in recliner neck pain reduced to 5/10 pain. pt was left in recliner with call light and all needs met with nurse entering to give RX. Pain Section J - Health Conditions 1. Rarely or not at all 2. Occasionally 3. Frequently 4. Almost constantly 8. Unable to answer Pain Effect on Sleep: 3 Pain Interference with Therapy: 4 Pain Interference w/Day-to-Day: 4 Mental Status Patient Orientation: Person, Place, Time, Situation Transfers SCALE: Activities may be completed with or without assistive devices. 7-Xyswsccwhr-tussydz completes the activity by him/herself with no assistance from a helper. 5-Set-up or Clean-up Assistance-helper sets up or cleans up; patient completes activity. [place] assists only prior to or following the activity. 4-Supervision or Touching Assistance-helper provides verbal cues and/or touching/steadying and/or contact guard assistance as patient completes activity. Assistance may be provided throughout the activity or intermittently. 3-Partial/Moderate Assistance-helper does LESS THAN HALF the effort. [place] lifts, holds or supports trunk or limbs, but provides less than half the effort. 2-Substantial/Maximal Assistance-helper does MORE THAN HALF the effort. [place] lifts or holds trunk or limbs and provides more than half the effort. 1-Brhqdlswe-xxjcqs does ALL the effort. Patient does none of the effort to complete the activity. Or, the assistance of 2 or more helpers is required for the patient to complete the activity. If activity was not attempted, code reason: 7-Patient Refused. 9-Not Applicable-not attempted and the patient did not perform the activity before the current illness, exacerbation or injury. 10-Not Attempted due to Environmental Limitations-(lack of equipment, weather restraints, etc.). 88-Not Attempted due to Medical Conditions or Safety Concerns. Weight Bearing Right Lower Extremity: Right Full Weight Bearing Left Lower Extremity: Left Full Weight Bearing WBAT R wrist with brace Treatments PT preformed supine there-ex in all planes of motion available for 1 set of 10. pt preformed bed mobility with max a of 2 pt is able to slightly move feet to EOB but not able to move LE off bed and full assist x 2 for supine to sit. pt is transferred from bed to recliner via sit to stand. PT then preformed sitting there ex for 2 sets of 10 each in all planes of movement available with rest break in between each set secondary to fatigue. Assessment Current Status: Fair Progress (secondary to pain level rising over the weekend. ) PT Senior Living Goals Senior Living Goals PT Senior Living Goals Time Frame: Nov 28, 2022 Roll Left & Right (QC): 4 (Pt will be SBA for functional mobility, in order to safely d/c back to AFL ) Sit to Lying (QC): 4 (Pt will be SBA for functional mobility, in order to safely d/c back to AFL ) Lying-Sitting on Side/Bed(QC): 4 (Pt will be SBA for functional mobility, in order to safely d/c back to AFL ) Sit to Stand (QC): 4 (Pt will be SBA for functional mobility, in order to safely d/c back to AFL ) Chair/Uuw-zx-Oqbur Xfer(QC): 4 (Pt will be SBA for functional mobility, in order to safely d/c back to AFL ) Toilet Transfer (QC): 4 (Pt will be SBA for functional mobility, in order to safely d/c back to AFL ) Car Transfer (QC): 4 (Pt will be SBA for functional mobility, in order to safely d/c back to AFL ) Does the Patient Walk: No and Walking Goal IS indicated Walk 10 feet (QC): 4 (Pt will be SBA for functional mobility, in order to safely d/c back to AFL ) Walk 50ft with 2 Turns (QC): 4 (Pt will be SBA for functional mobility, in order to safely d/c back to AFL ) Walk 150 ft (QC): 4 (Pt will be SBA for functional mobility, in order to safely d/c back to AFL ) Walking 10ft on Uneven Surface: 4 (Pt will be SBA for functional mobility, in order to safely d/c back to AFL ) 1 Step (curb) (QC): 9 (Pt did not have to negotiate stairs at PLOF ) 4 Steps (QC): 9 (Pt did not have to negotiate stairs at PLOF ) 12 Steps (QC): 9 (Pt did not have to negotiate stairs at PLOF ) Picking up an Object (QC): 4 (Pt will be SBA for functional mobility, in order to safely d/c back to AFL ) Does the Pt use WC or Scooter?: Yes Wheel 50 feet with 2 turns (QC: 4 (Pt will be SBA for functional mobility, in order to safely d/c back to AFL ) Type: Manual Wheel 150 feet: 4 (Pt will be SBA for functional mobility, in order to safely d/c back to AFL ) Type: Manual PT Plan Treatment/Plan Treatment Plan: Continue Plan of Care Treatment Plan: Bed Mobility, Concurrent Therapy, Education, Functional Activity Sean, Functional Strength, Group Therapy, Gait, Safety, Therapeutic Exercise, Transfers Treatment Duration: Nov 28, 2022 Frequency: At least 5 of 7 days/Wk (IRF) Estimated Hrs Per Day: 1.5 hours per day Patient and/or Family Agrees t: Yes Time Time In: 0800 Time Out: 0900 DATE: Nov 17, 2022 Total Billed Treatment Time: 60 Total Billed Treatment 1 FA Co treat from [id number] for 60 mins Arlet Anguiano MEETING MANAGER Nov 17, 2022 07:58
[2022-11-17 08:00] VITALS: BP 144/77
[2022-11-17] MEDS: DOCUSATE SODIUM 100 MG (COLACE) CAP PO SCH ×2 (08:56→21:21)
[2022-11-17] MEDS: SERTRALINE 50 MG (ZOLOFT) TABLET PO SCH (08:56)
[2022-11-17] MEDS: SENNA W/DOCUSATE (SENOKOT S) TABLET PO SCH ×2 (08:56→21:21)
[2022-11-17] MEDS: ATENOLOL 25 MG (TENORMIN) TAB PO SCH (08:56)
[2022-11-17] MEDS: CEFDINIR 300 MG (OMNICEF) CAP PO SCH ×2 (08:56→21:21)
[2022-11-17] MEDS: polyethylene glycoL POWDER 17 GM (MIRALAX) PACK PO SCH ×2 (09:00→21:03)
[2022-11-17] MEDS: ENOXAPARIN 40 MG/0.4 ML (LOVENOX) SYR SC SCH (09:01)
[2022-11-17] MEDS: SALINE NASAL SPRAY (OCEAN) 45 ML BTL SCH ×3 (09:03→21:15)
[2022-11-17] MEDS: metFORMIN 500 MG (GLUCOPHAGE) TAB PO SCH ×2 (09:09→19:46)
[2022-11-17] MEDS: SOD CHL GEL 0.5 OZ (AYR SALINE NASAL GEL) TUBE NS SCH ×2 (10:16→21:15)
--- NOTE | 2022-11-17 12:38 | Occupational Ther Daily Note ---
OT Current Status-Daily Note Subjective Pt alert, lying in bed. Pt crying because she could not use her hands to eat breakfast. Pt agrees to therapy. Pt c/o 6-11/17 pain at neck and head, nrsg brought pain meds. PT/OT co-treat([id number]), skills of 2 clinicians required to decrease fall risk, dependent with all mobility, decrease activity tolerance and decline with B UE AROM. PT focusing on mobility, B LE strengthening, sitting balance while OT focusing on ADLs, functional mobility and B UE placement/strengthening. Mental Status/Objective Patient Orientation: Person, Place, Time, Situation Attachments: IV, Oxygen ADL-Treatment Dependent with eating. Decreased strength in ladle builder/pinch and AROM of B UEs. Dependent with bathing and toileting. Dependent with bed mobility. Dependent with footwear and transfers. Therapy Code Descriptions/Definitions Functional [place] Measure: 0=Not Assessed/NA 4=Minimal Assistance 1=Total Assistance 5=Supervision or Setup 2=Maximal Assistance 6=Modified [place] 3=Moderate Assistance 7=Complete IndependenceSCALE: Activities may be completed with or without assistive devices. 2-Ipnfujejzl-bfqkicx completes the activity by him/herself with no assistance from a helper. 5-Set-up or Clean-up Assistance-helper sets up or cleans up; patient completes activity. [place] assists only prior to or following the activity. 4-Supervision or Touching Assistance-helper provides verbal cues and/or to uching/steadying and/or contact guard assistance as patient completes activity. Assistance may be provided throughout the activity or intermittently. 3-Partial/Moderate Assistance-helper does LESS THAN HALF the effort. [place] lifts, holds or supports trunk or limbs, but provides less than half the effort. 2-Substantial/Maximal Assistance-helper does MORE THAN HALF the effort. [place] lifts or holds trunk or limbs and provides more than half the effort. 9-Ituvcddfo-uddeie does ALL the effort. Patient does none of the effort to complete the activity. Or, the assistance of 2 or more helpers is required for the patient to complete the activity. If activity was not attempted, code reason: 7-Patient Refused. 9-Not Applicable-not attempted and the patient did not perform the activity before the current illness, exacerbation or injury. 10-Not Attempted due to Environmental Limitations-(lack of equipment, weather restraints, etc.). 88-Not Attempted due to Medical Conditions or Safety Concerns. Eating (QC): 1 Oral Hygiene (QC): 1 Shower/Bathe Self (QC): 1 On/Off Footwear: 1 Toileting Hygiene (QC): 1 Toilet Transfer (QC): 1 Other Treatment Dependent with bed mobility. Dependent sitting EOB. Using sit to stand lift for transfers. Recommend soft collar for neck support with transfers due to increased pain at this time. Pt given light resistance therapy sponge to use in room to increase strength and decrease swelling in R hand. Pt demonstrates understanding of exercises. Pt demonstrates good shldr elevation/depression. Pt is not progressed with B UE elbow and hand movements. Pt is unable to hold onto items, minimally lifts B UE's to the point unable to reach chin or mouth to complete eating or oral care. Reported changes to nrsg and nrsg value stream manager. After therapy, pt sitting in recliner with call light/phone in reach. All needs met in room. OT Short Term Goals Short Term Goals Time Frame: Nov 21, 2022 Eatin Oral hygiene: 6 (sitting) Upper body dressin OT Corporate Statistical Financial Analyst Goals Corporate Statistical Financial Analyst Goals Time Frame: Nov 28, 2022 Acute change in mental status: 0 Inattention: 0 Disorganized thinkin Altered level of consciousness: 0 Eating (QC): 6 Oral Hygiene (QC): 6 Toileting Hygiene (QC): 4 Shower/Bathe Self (QC): 4 Upper Body Dressing (QC): 4 Lower Body Dressing (QC): 4 On/Off Footwear (QC): 4 (with tools) 1=Demonstrate adherence to instructed precautions during ADL tasks. 2=Patient will verbalize/demonstrate understanding of assistive devices/modifications for ADL. 3=Patient will improve strength/tolerance for activity to enable patient to perform ADL's. OT Education/Plan Problem List/Assessment Assessment: Decreased Activ Tolerance, Decreased UE Strength, Dependent Transfers, Impaired Bed Mobility, Impaired I ADL's, Impaired Self-Care Skills, Restricted Funct UE ROM Discharge Recommendations Plan/Recommendations: Continue POC Treatment Plan/Plan of Care Patient would benefit from OT for education, treatment and training to promote independence in ADL's, mobility, safety and/or upper extremity function for ADL's. Plan of Care: ADL Retraining, Cognitive Retraining, Concurrent Therapy, Functional Mobility, Group Exercise/Act as Ind, Orthotic Fitting/Training, UE Funct Exercise/Act, UE Neuromus Re-Ed/Coord Treatment Duration: Nov 28, 2022 Frequency: At least 5 of 7 days/Wk (IRF) Estimated Hrs Per Day: 1.5 hours per day Agreement: Yes Rehab Potential: Fair Time Start Time: 07:30 Stop Time: 09:00 DATE: Nov 17, 2022 Total Time Billed (hr/min): 90 Billed Treatment Time 1 visit-ADL 3 (45 min) EX 1 (15 min) FA 2 (30 min) co-treat with PT (0800- 0900), individual [id number] JORDAN PULLIAM Nov 17, 2022 12:38
--- NOTE | 2022-11-17 12:50 | PM&R Progress Note ---
Subjective HPI/CC On Admission Date Seen by Provider: Nov 17, 2022 Time Seen by Provider: 11:00 Subjective/Events-last exam 11/17/2022: Patient having some struggles Completely dependent now Severe spine disease noted on imaging scan Unsure if we will need to send to skilled if she cannot recover 11/16/2022: Pain improved Daughter and grandkids are visiting No falls Lovenox discussed and she is willing to take it since I will monitor platelets No issues otherwise 11/15/2022: Patient doing a little better Slow recovery Confusion seems to be clearing Refusing Lovenox due to low platelets per patient I do not feel like she is at high risk for bleeding so she will continue to decline Lovenox Pain is controlled Review of Systems General: Fatigue, Malaise Objective Exam Vital Signs Vital Signs Date Time Temp Pulse Resp B/P (MAP) Pulse Ox O2 Delivery O2 Flow Rate FiO2 11/17/22 19:36 36.4 63 16 135/78 (97) 91 Nasal Cannula 2.00 Capillary Refill : General Appearance: No Apparent Distress, WD/WN, Chronically ill, Obese HEENT: PERRL/EOMI, Normal ENT Inspection, Pharynx Normal Neck: Full Range of Motion, Normal Inspection, Non Tender, Supple, Carotid Bruit Respiratory: Chest Non Tender, Lungs Clear, Normal Breath Sounds, No Accessory Muscle Use, No Respiratory Distress Cardiovascular: Regular Rate, Rhythm, No Edema, No Gallop, No JVD, No Murmur, Normal Peripheral Pulses Gastrointestinal: Normal Bowel Sounds, No Organomegaly, No Pulsatile Mass, Non Tender, Soft Back: Normal Inspection, No CVA Tenderness, No Vertebral Tenderness Extremity: Normal Capillary Refill, Normal Inspection, Normal Range of Motion, Non Tender, No Calf Tenderness, No Pedal Edema Neurologic/Psychiatric: Alert, Oriented x3, sound printer II-XII Norm as Tested, Abnormal Gait, Depressed Affect, Motor Weakness (generalized), Other (confusion) Skin: Normal Color, Warm/Dry Lymphatic: No Adenopathy Results/Procedures Lab Laboratory Tests 11/17/22 05:13 Patient resulted labs reviewed. FIM Transfers Therapy Code Descriptions/Definitions Functional [place] Measure: 0=Not Assessed/NA 4=Minimal Assistance 1=Total Assistance 5=Supervision or Setup 2=Maximal Assistance 6=Modified [place] 3=Moderate Assistance 7=Complete IndependenceSCALE: Activities may be completed with or without assistive devices. 3-Nlpdvwvhar-ebjttcj completes the activity by him/herself with no assistance from a helper. 5-Set-up or Clean-up Assistance-helper sets up or cleans up; patient completes activity. [place] assists only prior to or following the activity. 4-Supervision or Touching Assistance-helper provides verbal cues and/or touching/steadying and/or contact guard assistance as patient completes activity. Assistance may be provided throughout the activity or intermittently. 3-Partial/Moderate Assistance-helper does LESS THAN HALF the effort. [place] lifts, holds or supports trunk or limbs, but provides less than half the effort. 2-Substantial/Maximal Assistance-helper does MORE THAN HALF the effort. [place] lifts or holds trunk or limbs and provides more than half the effort. 6-Lgbojbgbz-dtnzxi does ALL the effort. Patient does none of the effort to complete the activity. Or, the assistance of 2 or more helpers is required for the patient to complete the activity. If activity was not attempted, code reason: 7-Patient Refused. 9-Not Applicable-not attempted and the patient did not perform the activity before the current illness, exacerbation or injury. 10-Not Attempted due to Environmental Limitations-(lack of equipment, weather restraints, etc.). 88-Not Attempted due to Medical Conditions or Safety Concerns. Roll Left to Right (QC): 1 (Max A x 2) Sit to Lying (QC): 1 (Max A x 2) Sit to Stand (QC): 1 (Max A x 2) Chair/Rib-st-Ljolh Xfer(QC): 1 (Max A x 2) Car Transfer (QC): 88 Gait Training Does the Patient Walk?: No and Walking Goal IS indicated Walk 10 feet (QC): 88 Walk 50 ft with 2 Turns(QC): 88 Walk 150 ft (QC): 88 Walking 10ft/uneven surface-QC: 88 Gait Assistive Device: FWW Wheelchair Training Does the Pt Use a Wheelchair?: Yes Wheel 50 ft with 2 turns (QC): 88 Wheel 150 ft (QC): 88 Type of Wheelchair: Manual Stair Training 1 Step (curb) (QC): 88 4 Steps (QC): 88 12 Steps (QC): 88 Balance Picking up an Object (QC): 88 ADL-Treatment Eating (QC): 3 Oral Hygiene (QC): 3 Lower Body Dressing (QC): 1 On/Off Footwear (QC): 1 Toileting Hygiene (QC): 1 Assessment/Plan Assessment and Plan Assess & Plan/Chief Complaint Assessment: Encephalopathy from closed head injury with LOC 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 Left hand fracture Scalp laceration with hematoma HTN Acute UTI Increased BMI Refuses Lovenox Plan: Pain control Rehab Fall risk Monitor confusion Complete abx 11/15/2022: Pain control Supportive care 11/16/2022: Pain control Lovenox: pt willing to take now 11/17/2022: May need skilled care (1) Closed head injury with brief loss of consciousness (2) Encephalopathy (3) Syncope Status: Acute (4) Hand fracture Status: Acute (5) Scalp laceration Status: Acute (6) Urinary tract infection Status: Acute LUCERO FUENTES DO Nov 17, 2022 12:50
--- NOTE | 2022-11-17 13:33 | Speech Therapy Daily Note ---
Speech Daily Progress Note Subjective Date Seen by Provider: Nov 17, 2022 Time Seen by Provider: 09:15 The patient was seated upright in her recliner, awake and alert, upon entrance to her room by the clinician. The patient greeted the clinician appropriately and was agreeable to participation in the skilled cognitive treatment session. Objective - Orientation: The patient was oriented to day of the week, date, year, lo cation, city, and state independently. Initially, the patient stated, "I'm not really sure" to the orientation question regarding the current month. With mild clinician verbal cueing, the patient was able to identify the accurate month. - Functional Recall: The patient was able to recall the rational for her hospitalization as well as recent therapy goals and tasks. Per patient, "I live at [facility] right now. Before I can go back, I have to be able to use by walker to get to and from my meals. I'm here to get stronger." Memory strategies were briefly discussed and will be re-introduced in upcoming sessions. Assessment Assessment Current Status: Good Progress Treatment Plan Continue Plan of Care Speech Short Term Goals Short Term Goals Short Term Goals 1. Pt will complete immediate memory tasks with 80% accuracy with min verbal cues. 2. Pt will complete basic problem solving tasks with 80% accuracy with min verbal cues. Speech It Service Delivery Manager Goals It Service Delivery Manager Goals 1. Pt will complete memory tasks following short delay with 80% accuracy with min verbal cues. 2. Pt will complete basic executive functioning tasks with 80% accuracy with min verbal cues. 3. Pt will complete visuospatial tasks with 80% accuracy with min verbal cues. 4. Pt will follow 2 step directions with 80% accuracy with min verbal cues. Speech-Plan Treatment Plan Speech Therapy Treatment Plan: Continue Plan of Care Treatment Duration: Nov 14, 2022 Frequency: Modified Program (IRF) Estimated Hrs Per Day: .25 hour per day Rehab Potential: Fair Pt/Family Agrees to Plan: Yes Safety Risks/Education Teaching Recipient: Patient Teaching Methods: Discussion Response to Teaching: Verbalize Understanding Education Topics Provided: Orientation and Memory Strategies Time Speech Therapy Time In: 09:15 Speech Therapy Time Out: 09:30 DATE: Nov 17, 2022 Total Billed Time: 15 Billed Treatment Time STANLEY Morales ELIZABETH Nov 17, 2022 13:33
--- NOTE | 2022-11-17 13:42 | Physical Therapy Daily Note ---
PT Daily Note-Current Subjective pt in recliner upon arrival and good for therapy. pt reports less neck and and more ROM since sitting in recliner and not the bed. pt was left in recliner with call light in hand and all knees met. Pain Section J - Health Conditions 1. Rarely or not at all 2. Occasionally 3. Frequently 4. Almost constantly 8. Unable to answer Pain Effect on Sleep: 3 Pain Interference with Therapy: 4 Pain Interference w/Day-to-Day: 4 Mental Status Patient Orientation: Person, Place, Situation Transfers SCALE: Activities may be completed with or without assistive devices. 1-Mnwqeattft-uwdcbxc completes the activity by him/herself with no assistance from a helper. 5-Set-up or Clean-up Assistance-helper sets up or cleans up; patient completes activity. [place] assists only prior to or following the activity. 4-Supervision or Touching Assistance-helper provides verbal cues and/or touching/steadying and/or contact guard assistance as patient completes activity. Assistance may be provided throughout the activity or intermittently. 3-Partial/Moderate Assistance-helper does LESS THAN HALF the effort. [place] lifts, holds or supports trunk or limbs, but provides less than half the effort. 2-Substantial/Maximal Assistance-helper does MORE THAN HALF the effort. [place] lifts or holds trunk or limbs and provides more than half the effort. 0-Lnuqxrqer-zmxqxe does ALL the effort. Patient does none of the effort to complete the activity. Or, the assistance of 2 or more helpers is required for the patient to complete the activity. If activity was not attempted, code reason: 7-Patient Refused. 9-Not Applicable-not attempted and the patient did not perform the activity before the current illness, exacerbation or injury. 10-Not Attempted due to Environmental Limitations-(lack of equipment, weather restraints, etc.). 88-Not Attempted due to Medical Conditions or Safety Concerns. Weight Bearing Right Lower Extremity: Right Full Weight Bearing Left Lower Extremity: Left Full Weight Bearing WBAT R wrist with brace Exercises Supine Ex: Ankle pumps, Quad Set, Glut sets, Heel Slides, Short Arc Quads, Hip abd/add Treatments pt preformed sitting with gravity eliminated there-ex in all planes of motion available for 1 set of 12 each with rest in between each set secondary to fatigue Assessment Current Status: Fair Progress PT Alf Goals Night Monitor Goals PT Alf Goals Time Frame: Nov 28, 2022 Roll Left & Right (QC): 4 (Pt will be SBA for functional mobility, in order to safely d/c back to [facility] ) Sit to Lying (QC): 4 (Pt will be SBA for functional mobility, in order to safely d/c back to [facility] ) Lying-Sitting on Side/Bed(QC): 4 (Pt will be SBA for functional mobility, in order to safely d/c back to [facility] ) Sit to Stand (QC): 4 (Pt will be SBA for functional mobility, in order to safely d/c back to [facility] ) Chair/Qxe-ze-Nybfz Xfer(QC): 4 (Pt will be SBA for functional mobility, in order to safely d/c back to [facility] ) Toilet Transfer (QC): 4 (Pt will be SBA for functional mobility, in order to safely d/c back to [facility] ) Car Transfer (QC): 4 (Pt will be SBA for functional mobility, in order to safely d/c back to [facility] ) Does the Patient Walk: No and Walking Goal IS indicated Walk 10 feet (QC): 4 (Pt will be SBA for functional mobility, in order to safely d/c back to [facility] ) Walk 50ft with 2 Turns (QC): 4 (Pt will be SBA for functional mobility, in order to safely d/c back to [facility] ) Walk 150 ft (QC): 4 (Pt will be SBA for functional mobility, in order to safely d/c back to [facility] ) Walking 10ft on Uneven Surface: 4 (Pt will be SBA for functional mobility, in order to safely d/c back to [facility] ) 1 Step (curb) (QC): 9 (Pt did not have to negotiate stairs at PLOF ) 4 Steps (QC): 9 (Pt did not have to negotiate stairs at PLOF ) 12 Steps (QC): 9 (Pt did not have to negotiate stairs at PLOF ) Picking up an Object (QC): 4 (Pt will be SBA for functional mobility, in order to safely d/c back to [facility] ) Does the Pt use WC or Scooter?: Yes Wheel 50 feet with 2 turns (QC: 4 (Pt will be SBA for functional mobility, in order to safely d/c back to [facility] ) Type: Manual Wheel 150 feet: 4 (Pt will be SBA for functional mobility, in order to safely d/c back to [facility] ) Type: Manual PT Plan Treatment/Plan Treatment Plan: Continue Plan of Care Treatment Plan: Bed Mobility, Concurrent Therapy, Education, Functional Activity Sean, Functional Strength, Group Therapy, Gait, Safety, Therapeutic Exercise, Transfers Treatment Duration: Nov 28, 2022 Frequency: At least 5 of 7 days/Wk (IRF) Estimated Hrs Per Day: 1.5 hours per day Patient and/or Family Agrees t: Yes Time Time In: 1300 Time Out: 1315 DATE: Nov 17, 2022 Total Billed Treatment Time: 15 Total Billed Treatment 1 ex Arlet Anguiano UNIVERSAL BANKER Nov 17, 2022 13:42
[2022-11-17] MEDS ORDERED: HYPOCHLOROUS ACID/NaCl (VASHE) 250 ML IR PRN (15:30)
--- NOTE | 2022-11-17 16:03 | Wound Care Assessment ---
Wound Care Assessment Date Seen by Provider: Nov 17, 2022 Time Seen by Provider: 12:00 Chief Complaint R. buttock wound HPI This pleasant 82 year old comes to our facility after a fall on 11-12-22 with right wrist fracture and closed head injury. She is quite weak and in need for strenthening. She is morbidly obese and with moderate PEM. She does have a small wound to her buttock that appears releated to pressure, shearing and moisture. Plan to dress with calmoseptine and allevyn BFD with frequent changes and increased mobility. Smoking Status: Never a Smoker Recreational Drug Use: No Alcohol Use: Denies Use Review of Systems General: Other (Obesity) Neurological: Weakness Exam Vital Signs Date Time Temp Pulse Resp B/P (MAP) Pulse Ox O2 Delivery O2 Flow Rate FiO2 11/17/22 09:45 Nasal Cannula 1.00 11/17/22 08:00 36.1 66 16 144/77 (99) 93 Capillary Refill : General Appearance: obese Neck: full range of motion Cardiovascular: no edema Respiratory: no respiratory distress, no accessory muscle use Extremities: no pedal edema Neurologic/Psychiatric: alert, normal mood/affect, oriented x 3 Skin: ecchymosis (in periwound) Skin Problem Location: torso wound assessment: 1x1x0.1cm. The epithelialization is none. There is no tunneling or undermining. Drainage is large and serosanguinous. Granulation is small. Necrotic is none. The margins are flat. There is bruising in periwound consistent with pressure/injury Results Laboratory Tests 11/16/22 20:09: Glucometer 127H 11/17/22 05:13: White Blood Count 8.5, Red Blood Count 4.57, Hemoglobin 12.8, Hematocrit 40, Mean Corpuscular Volume 86, Mean Corpuscular Hemoglobin 28, Mean Corpuscular Hemoglobin Concent 32, Red Cell Distribution Width 13.3, Platelet Count 97L, Mean Platelet Volume 13.1H, Immature Granulocyte % (Auto) 2, Neutrophils (%) (Auto) 61, Lymphocytes (%) (Auto) 23, Monocytes (%) (Auto) 10, Eosinophils (%) (Auto) 3, Basophils (%) (Auto) 0, Neutrophils # (Auto) 5.2, Lymphocytes # (Auto) 2.0, Monocytes # (Auto) 0.9, Eosinophils # (Auto) 0.3, Basophils # (Auto) 0.0, Immature Granulocyte # (Auto) 0.2H, Percent Immature Platelet Fraction 14.3H, Sodium Level 139, Potassium Level 3.6, Chloride Level 102, Carbon Dioxide Level 29, Anion Gap 8, Blood Urea Nitrogen 13, Creatinine 0.64, Estimat Glomerular Filtration Rate 88, BUN/Creatinine Ratio 20, Glucose Level 99, Calcium Level 8.8, Corrected Calcium 9.8, Total Bilirubin 0.7, Aspartate Amino Transf (AST/SGOT) 15, Alanine Aminotransferase (ALT/SGPT) 15, Alkaline Phosphatase 49, Total Protein 5.9L, Albumin 2.8L 11/17/22 10:42: Glucometer 133H 11/17/22 15:33: Glucometer 97 Assessment/Plan/Dx Assessment: 1. R. buttock ulcer (pressure, MASD, shearing) 2. Moderate PEM 3. Immobility/generalized weakness 4. Falls at home 5. Obesity Plain: 1. Cleanse daily. Thick barrier ointment and allevyn BFD daily and prn for soiling 2. Protein supplementation 3. Increased mobility 4. Defer to primary 5. Defer to primary JESSEE LUJAN MD Nov 17, 2022 16:03
[2022-11-17 19:36] VITALS: BP 135/78
[2022-11-18] MEDS: HYDROcodone/APAP 7.5 MG/325 MG (LORTAB, LORCET PLUS) TABLET PO PRN ×4 (00:39→19:32)
--- NOTE | 2022-11-18 05:27 | PM&R Progress Note ---
Subjective HPI/CC On Admission Date Seen by Provider: Nov 18, 2022 Time Seen by Provider: 11:00 Subjective/Events-last exam 11/18/2022: No major issues Improved overall No pain except muscles and right hand Thyroid supplement and B12 given 11/17/2022: Patient having some struggles Completely dependent now Severe spine disease noted on imaging scan Unsure if we will need to send to skilled if she cannot recover 11/16/2022: Pain improved Daughter and grandkids are visiting No falls Lovenox discussed and she is willing to take it since I will monitor platelets No issues otherwise 11/15/2022: Patient doing a little better Slow recovery Confusion seems to be clearing Refusing Lovenox due to low platelets per patient I do not feel like she is at high risk for bleeding so she will continue to decline Lovenox Pain is controlled Review of Systems General: Fatigue, Malaise Neurological: Weakness Objective Exam Vital Signs Vital Signs Date Time Temp Pulse Resp B/P (MAP) Pulse Ox O2 Delivery O2 Flow Rate FiO2 11/18/22 19:35 36.8 60 20 140/81 (100) 94 Nasal Cannula 1.00 Capillary Refill : General Appearance: No Apparent Distress, WD/WN, Chronically ill, Obese HEENT: PERRL/EOMI, Normal ENT Inspection, Pharynx Normal Neck: Full Range of Motion, Normal Inspection, Non Tender, Supple, Carotid Bruit Respiratory: Chest Non Tender, Lungs Clear, Normal Breath Sounds, No Accessory Muscle Use, No Respiratory Distress Cardiovascular: Regular Rate, Rhythm, No Edema, No Gallop, No JVD, No Murmur, Normal Peripheral Pulses Gastrointestinal: Normal Bowel Sounds, No Organomegaly, No Pulsatile Mass, Non Tender, Soft Back: Normal Inspection, No CVA Tenderness, No Vertebral Tenderness Extremity: Normal Capillary Refill, Normal Inspection, Normal Range of Motion, Non Tender, No Calf Tenderness, No Pedal Edema Neurologic/Psychiatric: Alert, Oriented x3, booking prizer II-XII Norm as Tested, Abnormal Gait, Depressed Affect, Motor Weakness (generalized), Other (confusion) Skin: Normal Color, Warm/Dry Lymphatic: No Adenopathy Results/Procedures Lab Patient resulted labs reviewed. FIM Transfers Therapy Code Descriptions/Definitions Functional [place] Measure: 0=Not Assessed/NA 4=Minimal Assistance 1=Total Assistance 5=Supervision or Setup 2=Maximal Assistance 6=Modified [place] 3=Moderate Assistance 7=Complete IndependenceSCALE: Activities may be completed with or without assistive devices. 9-Xecvuxfwlt-ffmqbkh completes the activity by him/herself with no assistance from a helper. 5-Set-up or Clean-up Assistance-helper sets up or cleans up; patient completes activity. [place] assists only prior to or following the activity. 4-Supervision or Touching Assistance-helper provides verbal cues and/or touchin g/steadying and/or contact guard assistance as patient completes activity. Assistance may be provided throughout the activity or intermittently. 3-Partial/Moderate Assistance-helper does LESS THAN HALF the effort. [place] lifts, holds or supports trunk or limbs, but provides less than half the effort. 2-Substantial/Maximal Assistance-helper does MORE THAN HALF the effort. [place] lifts or holds trunk or limbs and provides more than half the effort. 6-Wxmkkilqs-qzpuvw does ALL the effort. Patient does none of the effort to complete the activity. Or, the assistance of 2 or more helpers is required for the patient to complete the activity. If activity was not attempted, code reason: 7-Patient Refused. 9-Not Applicable-not attempted and the patient did not perform the activity before the current illness, exacerbation or injury. 10-Not Attempted due to Environmental Limitations-(lack of equipment, weather restraints, etc.). 88-Not Attempted due to Medical Conditions or Safety Concerns. Roll Left to Right (QC): 1 (Max A x 2) Sit to Lying (QC): 1 (Max A x 2) Sit to Stand (QC): 1 (Max A x 2) Chair/Pxw-gl-Ldolj Xfer(QC): 1 (Max A x 2) Car Transfer (QC): 88 Gait Training Does the Patient Walk?: No and Walking Goal IS indicated Walk 10 feet (QC): 88 Walk 50 ft with 2 Turns(QC): 88 Walk 150 ft (QC): 88 Walking 10ft/uneven surface-QC: 88 Gait Assistive Device: FWW Wheelchair Training Does the Pt Use a Wheelchair?: Yes Wheel 50 ft with 2 turns (QC): 88 Wheel 150 ft (QC): 88 Type of Wheelchair: Manual Stair Training 1 Step (curb) (QC): 88 4 Steps (QC): 88 12 Steps (QC): 88 Balance Picking up an Object (QC): 88 ADL-Treatment Eating (QC): 1 Oral Hygiene (QC): 2 Shower/Bathe Self (QC): 1 Upper Body Dressing (QC): 1 Lower Body Dressing (QC): 1 On/Off Footwear (QC): 1 Toileting Hygiene (QC): 1 Toilet Transfer (QC): 1 Assessment/Plan Assessment and Plan Assess & Plan/Chief Complaint Assessment: Encephalopathy from closed head injury with LOC 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 Left hand fracture Scalp laceration with hematoma HTN Acute UTI Increased BMI Refuses Lovenox occasionally Low platelets New hypothyroidism Plan: Pain control Rehab Fall risk Monitor confusion Complete abx 11/15/2022: Pain control Supportive care 11/16/2022: Pain control Lovenox: pt willing to take now 11/17/2022: May need skilled care 11/18/2022: Synthroid B12 (1) Closed head injury with brief loss of consciousness (2) Encephalopathy (3) Syncope Status: Acute (4) Hand fracture Status: Acute (5) Scalp laceration Status: Acute (6) Urinary tract infection Status: Acute LUCERO FUENTES DO Nov 18, 2022 05:27
[2022-11-18] MEDS: inSUlin ASPART (NovoLOG) 1 UNIT/0.01 ML (CHARGE PER UNIT) SC SCH ×4 (06:02→20:33)
[2022-11-18 07:52] VITALS: BP 162/70
--- NOTE | 2022-11-18 07:59 | Occupational Ther Daily Note ---
OT Current Status-Daily Note Subjective Pt alert, lying in bed. Pt agrees to therapy. No c/o pain until movement then rates 6/10. Mental Status/Objective Patient Orientation: Person, Place, Time, Situation Attachments: IV ADL-Treatment Max A with supine to EOB then mod A for sitting EOB. Using sit to stand lift when transferring, pt did activate B LE's to push to stand with transfer then as lowering pt's B knees buckled when sitting in recliner. Modified utensils, placed built up handles and plate guard to promote independence with eating. Pt able to scoop and bring solid foods to mouth with spoon though continues to need assist with oatmeal. Pt able to hold onto slim bottle to bring to mouth to drink when placed in optimal position. Nrsg took over to feed pt oatmeal. All needs met. Therapy Code Descriptions/Definitions Functional [place] Measure: 0=Not Assessed/NA 4=Minimal Assistance 1=Total Assistance 5=Supervision or Setup 2=Maximal Assistance 6=Modified [place] 3=Moderate Assistance 7=Complete IndependenceSCALE: Activities may be completed with or without assistive devices. 2-Kqtbparhuj-crkzseh completes the activity by him/herself with no assistance from a helper. 5-Set-up or Clean-up Assistance-helper sets up or cleans up; patient completes activity. [place] assists only prior to or following the activity. 4-Supervision or Touching Assistance-helper provides verbal cues and/or touching/steadying and/or contact guard assistance as patient completes activity. Assistance may be provided throughout the activity or intermittently. 3-Partial/Moderate Assistance-helper does LESS THAN HALF the effort. [place] lifts, holds or supports trunk or limbs, but provides less than half the effort. 2-Substantial/Maximal Assistance-helper does MORE THAN HALF the effort. [place] lifts or holds trunk or limbs and provides more than half the effort. 4-Lcsuobixm-erqqff does ALL the effort. Patient does none of the effort to complete the activity. Or, the assistance of 2 or more helpers is required for the patient to complete the activity. If activity was not attempted, code reason: 7-Patient Refused. 9-Not Applicable-not attempted and the patient did not perform the activity before the current illness, exacerbation or injury. 10-Not Attempted due to Environmental Limitations-(lack of equipment, weather restraints, etc.). 88-Not Attempted due to Medical Conditions or Safety Concerns. Eating (QC): 3 (mod A) OT Short Term Goals Short Term Goals Time Frame: Nov 21, 2022 Eatin Oral hygiene: 6 (sitting) Upper body dressin OT Court Supervisor Goals Skilled Nursing Goals Time Frame: Nov 28, 2022 Acute change in mental status: 0 Inattention: 0 Disorganized thinkin Altered level of consciousness: 0 Eating (QC): 6 Oral Hygiene (QC): 6 Toileting Hygiene (QC): 4 Shower/Bathe Self (QC): 4 Upper Body Dressing (QC): 4 Lower Body Dressing (QC): 4 On/Off Footwear (QC): 4 (with tools) 1=Demonstrate adherence to instructed precautions during ADL tasks. 2=Patient will verbalize/demonstrate understanding of assistive devices/mod ifications for ADL. 3=Patient will improve strength/tolerance for activity to enable patient to perform ADL's. OT Education/Plan Problem List/Assessment Assessment: Decreased Activ Tolerance, Decreased UE Strength, Dependent Transfers, Impaired Self-Care Skills, Restricted Funct UE ROM Discharge Recommendations Plan/Recommendations: Continue POC Treatment Plan/Plan of Care Patient would benefit from OT for education, treatment and training to promote independence in ADL's, mobility, safety and/or upper extremity function for ADL's. Plan of Care: ADL Retraining, Cognitive Retraining, Concurrent Therapy, Functional Mobility, Group Exercise/Act as Ind, Orthotic Fitting/Training, UE Funct Exercise/Act, UE Neuromus Re-Ed/Coord Treatment Duration: Nov 28, 2022 Frequency: At least 5 of 7 days/Wk (IRF) Estimated Hrs Per Day: 1.5 hours per day Agreement: Yes Rehab Potential: Fair Time Start Time: 07:00 Stop Time: 07:30 DATE: Nov 18, 2022 Total Time Billed (hr/min): 30 Billed Treatment Time 1 visit-ADL 2 (30 min) JORDAN PULLIAM Nov 18, 2022 07:59
[2022-11-18] MEDS ORDERED: CYANOCOBALAMIN INJ 1000 MCG/ML IM NR (08:00)
[2022-11-18] MEDS ORDERED: LEVOTHYROXINE 50 MCG (LEVOTHROID) TAB PO NR (08:00)
[2022-11-18] MEDS: DOCUSATE SODIUM 100 MG (COLACE) CAP PO SCH ×2 (08:45→20:42)
[2022-11-18] MEDS: ATENOLOL 25 MG (TENORMIN) TAB PO SCH (08:46)
[2022-11-18] MEDS: CEFDINIR 300 MG (OMNICEF) CAP PO SCH ×2 (08:46→20:42)
[2022-11-18] MEDS: SERTRALINE 50 MG (ZOLOFT) TABLET PO SCH (08:46)
[2022-11-18] MEDS: ENOXAPARIN 40 MG/0.4 ML (LOVENOX) SYR SC SCH (08:50)
[2022-11-18] MEDS: SOD CHL GEL 0.5 OZ (AYR SALINE NASAL GEL) TUBE NS SCH ×2 (08:53→20:48)
[2022-11-18] MEDS: SALINE NASAL SPRAY (OCEAN) 45 ML BTL SCH ×3 (08:53→20:48)
[2022-11-18] MEDS: polyethylene glycoL POWDER 17 GM (MIRALAX) PACK PO SCH ×2 (09:00→20:33)
[2022-11-18] MEDS: metFORMIN 500 MG (GLUCOPHAGE) TAB PO SCH ×2 (09:02→19:32)
[2022-11-18] MEDS: SENNA W/DOCUSATE (SENOKOT S) TABLET PO SCH ×2 (09:08→20:42)
--- NOTE | 2022-11-18 11:45 | Physical Therapy Daily Note ---
PT Daily Note-Current Subjective Pt in recliner upon entry and willing for therapy. OT/PT co treat form [id number] due to skill of 2 clinicians which a rehabilitation case coordinator could not preform in order to coordinate UE/LEs, decrease fall risk, and due to pt's limitations in strength, mobility, transfers and pain. OT focused on UE placement, cue's for sequencing and safety and ADL's, PT focused on LE placement, gross overall movement and transfers/mobility. pt reports pain in her right neck closest to her shoulder when standing and transferring as well as right knee and lower back. pt was left in recliner will varun light and all needs met after therapy session this day. Pain Section J - Health Conditions 1. Rarely or not at all 2. Occasionally 3. Frequently 4. Almost constantly 8. Unable to answer Pain Effect on Sleep: 3 Pain Interference with Therapy: 4 Pain Interference w/Day-to-Day: 4 Mental Status Patient Orientation: Person, Place, Time, Situation Transfers SCALE: Activities may be completed with or without assistive devices. 0-Drzzwhfwoy-zgcepqb completes the activity by him/herself with no assistance from a helper. 5-Set-up or Clean-up Assistance-helper sets up or cleans up; patient completes activity. [place] assists only prior to or following the activity. 4-Supervision or Touching Assistance-helper provides verbal cues and/or touching/steadying and/or contact guard assistance as patient completes activity. Assistance may be provided throughout the activity or intermittently. 3-Partial/Moderate Assistance-helper does LESS THAN HALF the effort. [place] lifts, holds or supports trunk or limbs, but provides less than half the effort. 2-Substantial/Maximal Assistance-helper does MORE THAN HALF the effort. [place] lifts or holds trunk or limbs and provides more than half the effort. 3-[place]-qstrkg does ALL the effort. Patient does none of the effort to complete the activity. Or, the assistance of 2 or more helpers is required for the patient to complete the activity. If activity was not attempted, code reason: 7-Patient Refused. 9-Not Applicable-not attempted and the patient did not perform the activity before the current illness, exacerbation or injury. 10-Not Attempted due to Environmental Limitations-(lack of equipment, weather restraints, etc.). 88-Not Attempted due to Medical Conditions or Safety Concerns. Roll Left & Right (QC): 1 Sit to Lying (QC): 1 Lying to Sitting/Side of Bed(Q: 1 Sit to Stand (QC): 1 Weight Bearing Right Lower Extremity: Right Full Weight Bearing Left Lower Extremity: Left Full Weight Bearing WBAT R wrist with brace Exercises Seated Therapy Exercises: Sit to stand Treatments Pt preformed sit to stand transfers with sit to stand machine. pt is unable to lift RUE to hold onto the stand and only partial on the left. pt was able to execute 4 sit to stand from WC in // bar with Max A of 2. pt is able to stand for aprox 15-20 secs at at time. pt attempted a 5th sit to stand but was unsuccessful pt preformed sitting there-ex in all planes of motion for 1 set of 10 reps. pt preformed sit to stand transfer form WC to recliner with sit to stand machine. . Assessment Current Status: Fair Progress PT Shelter Goals Creative Guru Goals PT Shelter Goals Time Frame: Nov 28, 2022 Roll Left & Right (QC): 4 (Pt will be SBA for functional mobility, in order to safely d/c back to AFL ) Sit to Lying (QC): 4 (Pt will be SBA for functional mobility, in order to safely d/c back to AFL ) Lying-Sitting on Side/Bed(QC): 4 (Pt will be SBA for functional mobility, in order to safely d/c back to AFL ) Sit to Stand (QC): 4 (Pt will be SBA for functional mobility, in order to safely d/c back to AFL ) Chair/Yae-pq-Nuwpk Xfer(QC): 4 (Pt will be SBA for functional mobility, in order to safely d/c back to AFL ) Toilet Transfer (QC): 4 (Pt will be SBA for functional mobility, in order to safely d/c back to AFL ) Car Transfer (QC): 4 (Pt will be SBA for functional mobility, in order to safely d/c back to AFL ) Does the Patient Walk: No and Walking Goal IS indicated Walk 10 feet (QC): 4 (Pt will be SBA for functional mobility, in order to safely d/c back to AFL ) Walk 50ft with 2 Turns (QC): 4 (Pt will be SBA for functional mobility, in order to safely d/c back to AFL ) Walk 150 ft (QC): 4 (Pt will be SBA for functional mobility, in order to safely d/c back to AFL ) Walking 10ft on Uneven Surface: 4 (Pt will be SBA for functional mobility, in order to safely d/c back to AFL ) 1 Step (curb) (QC): 9 (Pt did not have to negotiate stairs at PLOF ) 4 Steps (QC): 9 (Pt did not have to negotiate stairs at PLOF ) 12 Steps (QC): 9 (Pt did not have to negotiate stairs at PLOF ) Picking up an Object (QC): 4 (Pt will be SBA for functional mobility, in order to safely d/c back to AFL ) Does the Pt use WC or Scooter?: Yes Wheel 50 feet with 2 turns (QC: 4 (Pt will be SBA for functional mobility, in order to safely d/c back to AFL ) Type: Manual Wheel 150 feet: 4 (Pt will be SBA for functional mobility, in order to safely d/c back to AFL ) Type: Manual PT Plan Treatment/Plan Treatment Plan: Continue Plan of Care Treatment Plan: Bed Mobility, Concurrent Therapy, Education, Functional Activity Sean, Functional Strength, Group Therapy, Gait, Safety, Therapeutic Exercise, Transfers Treatment Duration: Nov 28, 2022 Frequency: At least 5 of 7 days/Wk (IRF) Estimated Hrs Per Day: 1.5 hours per day Patient and/or Family Agrees t: Yes Time Time In: 0900 Time Out: 1000 DATE: Nov 18, 2022 Total Billed Treatment Time: 60 Total Billed Treatment 1 FA x 3 EX x 1 co treat with OT from [id number] for 60 mins Arlet Anguiano ABRASIVE WORKER Nov 18, 2022 11:44
--- NOTE | 2022-11-18 12:54 | Speech Therapy Daily Note ---
Speech Daily Progress Note Subjective Date Seen by Provider: Nov 18, 2022 Time Seen by Provider: 10:00 The patient was seated upright in her recliner, awake and alert, upon entrance to her room by the clinician. The patient greeted the clinician appropriately and was agreeable to participation in the skilled speech pathology treatment session. Objective - Orientation: The patient was independently oriented to day of the week, year, date, city, state, and location. The patient stated the month was "October." - Functional Recall: The patient was able to recall exercises performed in physical and occupational therapy on this date. The patient stated her largest area of needed improvement included the weakness in her bilateral hands. The patient referenced exercises she was encouraged to complete from occupational therapy therefore the clinician requested demonstration and recall of the exercises. Per patient, she was asked to "move all my fingers while I'm sitting here," "use this bottle I can industrial coffee grinder for my drinks (referencing an Ensure bottle)," and "take this arm to reach over and grab the other arm." Additionally, the patient stated she has used her spirometer and was able to state appropriate use of the device to the clinician independently. Assessment Assessment Current Status: Fair Progress Treatment Plan Continue Plan of Care Speech Short Term Goals Short Term Goals Short Term Goals 1. Pt will complete immediate memory tasks with 80% accuracy with min verbal cues. 2. Pt will complete basic problem solving tasks with 80% accuracy with min verbal cues. Speech Chemical Laboratory Assistant Goals Group Home Goals 1. Pt will complete memory tasks following short delay with 80% accuracy with m in verbal cues. 2. Pt will complete basic executive functioning tasks with 80% accuracy with min verbal cues. 3. Pt will complete visuospatial tasks with 80% accuracy with min verbal cues. 4. Pt will follow 2 step directions with 80% accuracy with min verbal cues. Speech-Plan Treatment Plan Speech Therapy Treatment Plan: Continue Plan of Care Treatment Duration: Nov 14, 2022 Frequency: Modified Program (IRF) Estimated Hrs Per Day: .25 hour per day Rehab Potential: Fair Pt/Family Agrees to Plan: Yes Safety Risks/Education Teaching Recipient: Patient Teaching Methods: Discussion Response to Teaching: Reinforcement Needed Education Topics Provided: Functional Recall, Orientation Strategies Time Speech Therapy Time In: 10:00 Speech Therapy Time Out: 10:15 DATE: Nov 18, 2022 Total Billed Time: 15 Billed Treatment Time CarmenSTANLEY ELIZABETH ST Nov 18, 2022 12:54
--- NOTE | 2022-11-18 13:17 | Physical Therapy Daily Note ---
PT Daily Note-Current Subjective pt in recliner upon arrival and good for therapy. pt reports pain in right shoulder and chest area nursing is aware. pt was left in recliner with call light and all need met with daughter in room. Pain Section J - Health Conditions 1. Rarely or not at all 2. Occasionally 3. Frequently 4. Almost constantly 8. Unable to answer Pain Effect on Sleep: 3 Pain Interference with Therapy: 4 Pain Interference w/Day-to-Day: 4 Mental Status Patient Orientation: Person, Place, Time, Situation Transfers SCALE: Activities may be completed with or without assistive devices. 7-Obulxqonen-xdxxfnh completes the activity by him/herself with no assistance from a helper. 5-Set-up or Clean-up Assistance-helper sets up or cleans up; patient completes activity. [place] assists only prior to or following the activity. 4-Supervision or Touching Assistance-helper provides verbal cues and/or touching/steadying and/or contact guard assistance as patient completes activity. Assistance may be provided throughout the activity or intermittently. 3-Partial/Moderate Assistance-helper does LESS THAN HALF the effort. [place] lifts, holds or supports trunk or limbs, but provides less than half the effort. 2-Substantial/Maximal Assistance-helper does MORE THAN HALF the effort. [place] lifts or holds trunk or limbs and provides more than half the effort. 7-Xheffqzif-bdwtor does ALL the effort. Patient does none of the effort to complete the activity. Or, the assistance of 2 or more helpers is required for the patient to complete the activity. If activity was not attempted, code reason: 7-Patient Refused. 9-Not Applicable-not attempted and the patient did not perform the activity before the current illness, exacerbation or injury. 10-Not Attempted due to Environmental Limitations-(lack of equipment, weather restraints, etc.). 88-Not Attempted due to Medical Conditions or Safety Concerns. Weight Bearing Right Lower Extremity: Right Full Weight Bearing Left Lower Extremity: Left Full Weight Bearing WBAT R wrist with brace Exercises Seated Therapy Exercises: Ankle pumps, Long arc quads, Hip flexion, Hamstring Curls, Hip abd/add, Glut set Seated Reps: 13 Assessment Current Status: Good Progress PT Inside Tester Goals Inside Tester Goals PT Senior Living Goals Time Frame: Nov 28, 2022 Roll Left & Right (QC): 4 (Pt will be SBA for functional mobility, in order to safely d/c back to AFL ) Sit to Lying (QC): 4 (Pt will be SBA for functional mobility, in order to safely d/c back to AFL ) Lying-Sitting on Side/Bed(QC): 4 (Pt will be SBA for functional mobility, in order to safely d/c back to AFL ) Sit to Stand (QC): 4 (Pt will be SBA for functional mobility, in order to safely d/c back to AFL ) Chair/Uep-iv-Sglmt Xfer(QC): 4 (Pt will be SBA for functional mobility, in order to safely d/c back to AFL ) Toilet Transfer (QC): 4 (Pt will be SBA for functional mobility, in order to safely d/c back to AFL ) Car Transfer (QC): 4 (Pt will be SBA for functional mobility, in order to safely d/c back to AFL ) Does the Patient Walk: No and Walking Goal IS indicated Walk 10 feet (QC): 4 (Pt will be SBA for functional mobility, in order to safely d/c back to AFL ) Walk 50ft with 2 Turns (QC): 4 (Pt will be SBA for functional mobility, in order to safely d/c back to AFL ) Walk 150 ft (QC): 4 (Pt will be SBA for functional mobility, in order to safely d/c back to AFL ) Walking 10ft on Uneven Surface: 4 (Pt will be SBA for functional mobility, in order to safely d/c back to AFL ) 1 Step (curb) (QC): 9 (Pt did not have to negotiate stairs at PLOF ) 4 Steps (QC): 9 (Pt did not have to negotiate stairs at PLOF ) 12 Steps (QC): 9 (Pt did not have to negotiate stairs at PLOF ) Picking up an Object (QC): 4 (Pt will be SBA for functional mobility, in order to safely d/c back to AFL ) Does the Pt use WC or Scooter?: Yes Wheel 50 feet with 2 turns (QC: 4 (Pt will be SBA for functional mobility, in order to safely d/c back to AFL ) Type: Manual Wheel 150 feet: 4 (Pt will be SBA for functional mobility, in order to safely d/c back to AFL ) Type: Manual PT Plan Treatment/Plan Treatment Plan: Continue Plan of Care Treatment Plan: Bed Mobility, Concurrent Therapy, Education, Functional Activity Sean, Functional Strength, Group Therapy, Gait, Safety, Therapeutic Exercise, Transfers Treatment Duration: Nov 28, 2022 Frequency: At least 5 of 7 days/Wk (IRF) Estimated Hrs Per Day: 1.5 hours per day Patient and/or Family Agrees t: Yes Time Time In: 1300 Time Out: 1315 DATE: Nov 18, 2022 Total Billed Treatment Time: 15 Total Billed Treatment 1 ex Arlet Anguiano LEARNING SPECIALIST Nov 18, 2022 13:17
--- NOTE | 2022-11-18 13:28 | Occupational Ther Daily Note ---
OT Current Status-Daily Note Subjective Pt alert, sitting in recliner. Pt agrees to therapy. C/o pain with movement, 10/18, nrsg aware. PT/OT co-treat [id number], skills of 2 clinicians required to decrease fall risk, increase overall mobility and decrease pain with movement. PT focusing on standing and transfers while OT focusing on R UE placement during standing, functional mobility and decreasing pain with movement. Mental Status/Objective Patient Orientation: Person, Place, Time, Situation Attachments: Hoffmann Catheter, Oxygen (1L) ADL-Treatment Therapy Code Descriptions/Definitions Functional [place] Measure: 0=Not Assessed/NA 4=Minimal Assistance 1=Total Assistance 5=Supervision or Setup 2=Maximal Assistance 6=Modified [place] 3=Moderate Assistance 7=Complete IndependenceSCALE: Activities may be completed with or without assistive devices. 4-Xkbakxvxlg-azumrhw completes the activity by him/herself with no assistance from a helper. 5-Set-up or Clean-up Assistance-helper sets up or cleans up; patient completes activity. [place] assists only prior to or following the activity. 4-Supervision or Touching Assistance-helper provides verbal cues and/or touching/steadying and/or contact guard assistance as patient completes activity. Assistance may be provided throughout the activity or intermittently. 3-Partial/Moderate Assistance-helper does LESS THAN HALF the effort. [place] lifts, holds or supports trunk or limbs, but provides less than half the effort. 2-Substantial/Maximal Assistance-helper does MORE THAN HALF the effort. [place] lifts or holds trunk or limbs and provides more than half the effort. 0-Irjmpvoez-ubidjw does ALL the effort. Patient does none of the effort to complete the activity. Or, the assistance of 2 or more helpers is required for the patient to complete the activity. If activity was not attempted, code reason: 7-Patient Refused. 9-Not Applicable-not attempted and the patient did not perform the activity before the current illness, exacerbation or injury. 10-Not Attempted due to Environmental Limitations-(lack of equipment, weather restraints, etc.). 88-Not Attempted due to Medical Conditions or Safety Concerns. Lower Body Dressing (QC): 1 Other Treatment Transfer with sit to stand lift from surface to surface. Pt completed 5 stands at //bars with max A x2, 15-20 seconds each. Lengthy recovery breaks b/t each stand. Pt is not putting wt through R hand and minimal wt through R LE due to knee pain. Pt then completed B UE exercises against gravity, 1 set 10 reps of 6 exercises. Pt required physical assistance to complete scapular retraction, using entire body to complete R shldr elevation and retraction. After session, pt sitting recliner with call light/phone in reach. All needs met in room. OT Short Term Goals Short Term Goals Time Frame: Nov 21, 2022 Eatin Oral hygiene: 6 (sitting) Upper body dressin OT Supervisor Receiving And Processing Goals Supervisor Receiving And Processing Goals Time Frame: Nov 28, 2022 Acute change in mental status: 0 Inattention: 0 Disorganized thinkin Altered level of consciousness: 0 Eating (QC): 6 Oral Hygiene (QC): 6 Toileting Hygiene (QC): 4 Shower/Bathe Self (QC): 4 Upper Body Dressing (QC): 4 Lower Body Dressing (QC): 4 On/Off Footwear (QC): 4 (with tools) 1=Demonstrate adherence to instructed precautions during ADL tasks. 2=Patient will verbalize/demonstrate understanding of assistive devices/modifications for ADL. 3=Patient will improve strength/tolerance for activity to enable patient to perform ADL's. OT Education/Plan Problem List/Assessment Assessment: Decreased Activ Tolerance, Decreased UE Strength, Dependent Transfers, Impaired Bed Mobility, Impaired Funct Balance, Impaired Self-Care Skills, Restricted Funct UE ROM Discharge Recommendations Plan/Recommendations: Continue POC Treatment Plan/Plan of Care Patient would benefit from OT for education, treatment and training to promote independence in ADL's, mobility, safety and/or upper extremity function for ADL's. Plan of Care: ADL Retraining, Cognitive Retraining, Concurrent Therapy, Functional Mobility, Group Exercise/Act as Ind, Orthotic Fitting/Training, UE Funct Exercise/Act, UE Neuromus Re-Ed/Coord Treatment Duration: Nov 28, 2022 Frequency: At least 5 of 7 days/Wk (IRF) Estimated Hrs Per Day: 1.5 hours per day Agreement: Yes Rehab Potential: Fair Time Start Time: 08:00 Stop Time: 09:00 DATE: Nov 18, 2022 Total Time Billed (hr/min): 60 Billed Treatment Time 1 visit-ADL 1 (15 min) FA 3 (45 min) co-treat with PT 60 min JORDAN PULLIAM Nov 18, 2022 13:28
[2022-11-18 19:35] VITALS: BP 140/81
[2022-11-18] MEDS: MELATONIN 3 MG TABLET PO PRN (20:54)
[2022-11-19] MEDS: HYDROcodone/APAP 7.5 MG/325 MG (LORTAB, LORCET PLUS) TABLET PO PRN ×4 (00:14→22:11)
--- NOTE | 2022-11-19 05:39 | PM&R Progress Note ---
Subjective HPI/CC On Admission Date Seen by Provider: Nov 19, 2022 Time Seen by Provider: 12:00 Subjective/Events-last exam 11/19/2022: Patient getting a little bit more complicated Could not urinate so replaced Hoffmann catheter and UA showed evidence of UTI again and she just completed Rocephin so we will start cefepime empirically Very difficult for her to ambulate 11/18/2022: No major issues Improved overall No pain except muscles and right hand Thyroid supplement and B12 given 11/17/2022: Patient having some struggles Completely dependent now Severe spine disease noted on imaging scan Unsure if we will need to send to skilled if she cannot recover 11/16/2022: Pain improved Daughter and grandkids are visiting No falls Lovenox discussed and she is willing to take it since I will monitor platelets No issues otherwise 11/15/2022: Patient doing a little better Slow recovery Confusion seems to be clearing Refusing Lovenox due to low platelets per patient I do not feel like she is at high risk for bleeding so she will continue to decline Lovenox Pain is controlled Review of Systems General: Fatigue, Malaise Objective Exam Vital Signs Vital Signs Date Time Temp Pulse Resp B/P (MAP) Pulse Ox O2 Delivery O2 Flow Rate FiO2 11/19/22 19:24 36.2 58 18 140/65 (90) 94 Nasal Cannula 1.00 Capillary Refill : General Appearance: No Apparent Distress, WD/WN, Chronically ill, Obese HEENT: PERRL/EOMI, Normal ENT Inspection, Pharynx Normal Neck: Full Range of Motion, Normal Inspection, Non Tender, Supple, Carotid Bruit Respiratory: Chest Non Tender, Lungs Clear, Normal Breath Sounds, No Accessory Muscle Use, No Respiratory Distress Cardiovascular: Regular Rate, Rhythm, No Edema, No Gallop, No JVD, No Murmur, Normal Peripheral Pulses Gastrointestinal: Normal Bowel Sounds, No Organomegaly, No Pulsatile Mass, Non Tender, Soft Back: Normal Inspection, No CVA Tenderness, No Vertebral Tenderness Extremity: Normal Capillary Refill, Normal Inspection, Normal Range of Motion, Non Tender, No Calf Tenderness, No Pedal Edema Neurologic/Psychiatric: Alert, Oriented x3, metal bumper II-XII Norm as Tested, Abnormal Gait, Depressed Affect, Motor Weakness (generalized), Other (confusion) Skin: Normal Color, Warm/Dry Lymphatic: No Adenopathy Results/Procedures Lab Patient resulted labs reviewed. FIM Transfers Therapy Code Descriptions/Definitions Functional [place] Measure: 0=Not Assessed/NA 4=Minimal Assistance 1=Total Assistance 5=Supervision or Setup 2=Maximal Assistance 6=Modified [place] 3=Moderate Assistance 7=Complete IndependenceSCALE: Activities may be completed with or without assistive devices. 3-Eekphbbtge-ratzfcs completes the activity by him/herself with no assistance from a helper. 5-Set-up or Clean-up Assistance-helper sets up or cleans up; patient completes activity. [place] assists only prior to or following the activity. 4-Supervision or Touching Assistance-helper provides verbal cues and/or touching/steadying and/or contact guard assistance as patient completes activity. Assistance may be provided throughout the activity or intermittently. 3-Partial/Moderate Assistance-helper does LESS THAN HALF the effort. [place] lifts, holds or supports trunk or limbs, but provides less than half the effort. 2-Substantial/Maximal Assistance-helper does MORE THAN HALF the effort. [place] lifts or holds trunk or limbs and provides more than half the effort. 0-Gxvsvzyne-jfunvt does ALL the effort. Patient does none of the effort to complete the activity. Or, the assistance of 2 or more helpers is required for the patient to complete the activity. If activity was not attempted, code reason: 7-Patient Refused. 9-Not Applicable-not attempted and the patient did not perform the activity before the current illness, exacerbation or injury. 10-Not Attempted due to Environmental Limitations-(lack of equipment, weather restraints, etc.). 88-Not Attempted due to Medical Conditions or Safety Concerns. Roll Left to Right (QC): 1 Sit to Lying (QC): 1 Sit to Stand (QC): 1 Chair/Ssy-rx-Khkgy Xfer(QC): 1 (Max A x 2) Car Transfer (QC): 88 Gait Training Does the Patient Walk?: No and Walking Goal IS indicated Walk 10 feet (QC): 88 Walk 50 ft with 2 Turns(QC): 88 Walk 150 ft (QC): 88 Walking 10ft/uneven surface-QC: 88 Gait Assistive Device: FWW Wheelchair Training Does the Pt Use a Wheelchair?: Yes Wheel 50 ft with 2 turns (QC): 88 Wheel 150 ft (QC): 88 Type of Wheelchair: Manual Stair Training 1 Step (curb) (QC): 88 4 Steps (QC): 88 12 Steps (QC): 88 Balance Picking up an Object (QC): 88 ADL-Treatment Eating (QC): 3 (mod A) Oral Hygiene (QC): 2 Shower/Bathe Self (QC): 1 Upper Body Dressing (QC): 1 Lower Body Dressing (QC): 1 On/Off Footwear (QC): 1 Toileting Hygiene (QC): 1 Toilet Transfer (QC): 1 Assessment/Plan Assessment and Plan Assess & Plan/Chief Complaint Assessment: Encephalopathy from closed head injury with LOC 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 Left hand fracture Scalp laceration with hematoma HTN Recent UTI completed Rocephin and Omnicef Increased BMI Refuses Lovenox occasionally Low platelets New hypothyroidism Recurrent UTI 11/19/2022 empirically placed on cefepime Plan: Pain control Rehab Fall risk Monitor confusion Complete abx 11/15/2022: Pain control Supportive care 11/16/2022: Pain control Lovenox: pt willing to take now 11/17/2022: May need skilled care 11/18/2022: Synthroid B12 11/19/2022: Replace Hoffmann Cefepime empirically (1) Closed head injury with brief loss of consciousness (2) Encephalopathy (3) Syncope Status: Acute (4) Hand fracture Status: Acute (5) Scalp laceration Status: Acute (6) Urinary tract infection Status: Acute LUCERO FUENTES DO Nov 19, 2022 05:39
[2022-11-19] MEDS: inSUlin ASPART (NovoLOG) 1 UNIT/0.01 ML (CHARGE PER UNIT) SC SCH ×4 (06:05→21:00)
[2022-11-19] MEDS: LEVOTHYROXINE 50 MCG (LEVOTHROID) TAB PO SCH (06:06)
[2022-11-19] MEDS: CYANOCOBALAMIN 1,000 MCG (VITAMIN B-12) TABLET PO SCH (06:06)
[2022-11-19] MEDS: SENNA W/DOCUSATE (SENOKOT S) TABLET PO SCH ×2 (07:49→22:12)
[2022-11-19] MEDS: DOCUSATE SODIUM 100 MG (COLACE) CAP PO SCH ×2 (07:49→22:12)
[2022-11-19] MEDS: ATENOLOL 25 MG (TENORMIN) TAB PO SCH (07:49)
[2022-11-19] MEDS: CEFDINIR 300 MG (OMNICEF) CAP PO SCH (07:49)
[2022-11-19] MEDS: ENOXAPARIN 40 MG/0.4 ML (LOVENOX) SYR SC SCH (07:51)
[2022-11-19] MEDS: polyethylene glycoL POWDER 17 GM (MIRALAX) PACK PO SCH ×2 (07:51→21:00)
[2022-11-19] MEDS: metFORMIN 500 MG (GLUCOPHAGE) TAB PO SCH ×2 (07:53→22:11)
[2022-11-19 08:00] VITALS: BP 146/79
[2022-11-19] MEDS: SERTRALINE 50 MG (ZOLOFT) TABLET PO SCH (08:42)
[2022-11-19] MEDS: SALINE NASAL SPRAY (OCEAN) 45 ML BTL SCH ×3 (08:42→21:00)
[2022-11-19] MEDS: SOD CHL GEL 0.5 OZ (AYR SALINE NASAL GEL) TUBE NS SCH ×2 (08:42→22:14)
--- NOTE | 2022-11-19 09:52 | Speech Therapy Daily Note ---
Speech Daily Progress Note Subjective Date Seen by Provider: Nov 19, 2022 Time Seen by Provider: 09:00 The patient was seated upright in bed, awake and alert, upon entrance to her room by the clinician. The patient greeted the clinician appropriately and was agreeable to participation in the skilled cognitive treatment session. Objective External Memory Strategies: The patient identified external memory strategies in her environment, specifically a home calendar (where the patient and her daughter record important information), an activity scheduled in the commons area, and a bulletin board with notifications from her facility. The patient stated she has access to a call light when needed, bill management is completed by her daughter (who is her D.P.O.A), and a safety aide provides and organizes all medication. Per patient she is at her baseline cognitive status. Assessment Assessment Current Status: Fair Progress Treatment Plan Discontinue ST Speech Short Term Goals Short Term Goals Short Term Goals 1. Pt will complete immediate memory tasks with 80% accuracy with min verbal cues. 2. Pt will complete basic problem solving tasks with 80% accuracy with min verbal cues. Speech Residential Goals Residential Goals 1. Pt will complete memory tasks following short delay with 80% accuracy with mi n verbal cues. 2. Pt will complete basic executive functioning tasks with 80% accuracy with min verbal cues. 3. Pt will complete visuospatial tasks with 80% accuracy with min verbal cues. 4. Pt will follow 2 step directions with 80% accuracy with min verbal cues. Speech-Plan Treatment Plan Speech Therapy Treatment Plan: Discontinue ST Treatment Duration: Nov 14, 2022 Frequency: Modified Program (IRF) Estimated Hrs Per Day: .25 hour per day Rehab Potential: Fair Safety Risks/Education Teaching Recipient: Patient Teaching Methods: Discussion Response to Teaching: Verbalize Understanding Education Topics Provided: Results, Recommendations, Plan of Care Time Speech Therapy Time In: 09:00 Speech Therapy Time Out: 09:15 DATE: Nov 19, 2022 Total Billed Time: 15 Billed Treatment Time 1STAN[address] [facility] ST Nov 19, 2022 09:52
--- NOTE | 2022-11-19 10:45 | Physical Therapy Daily Note ---
PT Daily Note-Current Subjective pt in bed laying supine upon arrival. pt states 6/10 pain. pt states she feels nauseated with pain in head on the right side closer to her eye. pt was left in recliner sitting up [facility] call light and all needs met with ending pain 5/10. Pain Section J - Health Conditions 1. Rarely or not at all 2. Occasionally 3. Frequently 4. Almost constantly 8. Unable to answer Pain Effect on Sleep: 3 Pain Interference with Therapy: 4 Pain Interference w/Day-to-Day: 4 Mental Status Patient Orientation: Person, Place, Time, Situation Transfers SCALE: Activities may be completed with or without assistive devices. 3-Mcptnwksku-oxfhbzr completes the activity by him/herself with no assistance from a helper. 5-Set-up or Clean-up Assistance-helper sets up or cleans up; patient completes activity. [place] assists only prior to or following the activity. 4-Supervision or Touching Assistance-helper provides verbal cues and/or touching/steadying and/or contact guard assistance as patient completes activity. Assistance may be provided throughout the activity or intermittently. 3-Partial/Moderate Assistance-helper does LESS THAN HALF the effort. [place] lifts, holds or supports trunk or limbs, but provides less than half the effort. 2-Substantial/Maximal Assistance-helper does MORE THAN HALF the effort. [place] lifts or holds trunk or limbs and provides more than half the effort. 1-Decvrfgia-ljdrca does ALL the effort. Patient does none of the effort to complete the activity. Or, the assistance of 2 or more helpers is required for the patient to complete the activity. If activity was not attempted, code reason: 7-Patient Refused. 9-Not Applicable-not attempted and the patient did not perform the activity before the current illness, exacerbation or injury. 10-Not Attempted due to Environmental Limitations-(lack of equipment, weather restraints, etc.). 88-Not Attempted due to Medical Conditions or Safety Concerns. Weight Bearing Right Lower Extremity: Right Full Weight Bearing Left Lower Extremity: Left Full Weight Bearing WBAT R wrist with brace Treatments PT preformed rolling bed mobility with Max A x 1. pt is not able to reach across body to aid in helping roll. pt preformed this 2 times pt does require 2 person max a to sit EOB for transfer with sit to stand machine this day. pt does require MoD A to sit independently this EOB with lacing core strength and arm strength to prop herself up. pt is able to preform supine there ex for 10 reps per plane of motion this day. increased rest break after each exercise this day. Assessment Current Status: Fair Progress PT Talent Analyst Goals Talent Analyst Goals PT [facility] Goals Time Frame: Nov 28, 2022 Roll Left & Right (QC): 4 (Pt will be SBA for functional mobility, in order to safely d/c back to AFL ) Sit to Lying (QC): 4 (Pt will be SBA for functional mobility, in order to safely d/c back to AFL ) Lying-Sitting on Side/Bed(QC): 4 (Pt will be SBA for functional mobility, in order to safely d/c back to AFL ) Sit to Stand (QC): 4 (Pt will be SBA for functional mobility, in order to safely d/c back to AFL ) Chair/Ffc-pr-Jvymf Xfer(QC): 4 (Pt will be SBA for functional mobility, in order to safely d/c back to AFL ) Toilet Transfer (QC): 4 (Pt will be SBA for functional mobility, in order to safely d/c back to AFL ) Car Transfer (QC): 4 (Pt will be SBA for functional mobility, in order to safely d/c back to AFL ) Does the Patient Walk: No and Walking Goal IS indicated Walk 10 feet (QC): 4 (Pt will be SBA for functional mobility, in order to safely d/c back to AFL ) Walk 50ft with 2 Turns (QC): 4 (Pt will be SBA for functional mobility, in order to safely d/c back to AFL ) Walk 150 ft (QC): 4 (Pt will be SBA for functional mobility, in order to safely d/c back to AFL ) Walking 10ft on Uneven Surface: 4 (Pt will be SBA for functional mobility, in order to safely d/c back to AFL ) 1 Step (curb) (QC): 9 (Pt did not have to negotiate stairs at PLOF ) 4 Steps (QC): 9 (Pt did not have to negotiate stairs at PLOF ) 12 Steps (QC): 9 (Pt did not have to negotiate stairs at PLOF ) Picking up an Object (QC): 4 (Pt will be SBA for functional mobility, in order to safely d/c back to AFL ) Does the Pt use WC or Scooter?: Yes Wheel 50 feet with 2 turns (QC: 4 (Pt will be SBA for functional mobility, in order to safely d/c back to AFL ) Type: Manual Wheel 150 feet: 4 (Pt will be SBA for functional mobility, in order to safely d/c back to AFL ) Type: Manual PT Plan Treatment/Plan Treatment Plan: Continue Plan of Care Treatment Plan: Bed Mobility, Concurrent Therapy, Education, Functional Activity Sean, Functional Strength, Group Therapy, Gait, Safety, Therapeutic Exercise, Transfers Treatment Duration: Nov 28, 2022 Frequency: At least 5 of 7 days/Wk (IRF) Estimated Hrs Per Day: 1.5 hours per day Patient and/or Family Agrees t: Yes Time Time In: 1030 Time Out: 1200 DATE: Nov 19, 2022 Total Billed Treatment Time: 90 Total Billed Treatment 1 FA x 4 EX x 2 indiv 30 min and co treat form [id number] for a total of 60 mins Arlet Anguiano REPLANTER Nov 19, 2022 10:45
[2022-11-19] MEDS: ONDANSETRON 4 MG (ZOFRAN) ORAL DISSOLVE TAB PO PRN (11:06)
--- NOTE | 2022-11-19 11:59 | Occupational Ther Daily Note ---
OT Current Status-Daily Note Subjective Pt alert, sitting in recliner. Pt agrees to therapy. C/o pain with movement, 10/18, nrsg aware. PT/OT co-treat [id number], skills of 2 clinicians required to decrease fall risk, increase overall mobility and decrease pain with movement. PT focusing on standing and transfers while OT focusing on R UE placement during standing, functional mobility and decreasing pain with movement. Daughter present in room. Initially pt refusing to move or get up into chair, agrees only to in bed tasks. When daughter present pt more motivated to participate fully with therapy. Mental Status/Objective Patient Orientation: Person, Place, Time, Situation Attachments: IV, Oxygen (1L) ADL-Treatment Pt agrees to bed bath. Pt requires assistance to lift and support R UE while L UE cleanses then assist with R UE. Pt bathed chest, abdomen, upper legs then assist with under pannis, martha area, buttocks and lower legs/feet. Max A x2 for rolling side to side then remaining on side. Assist x2 for LBD. Dependent for footwear. Pt sitting EOB with less assistance, max A for UBD. Using sit to stand, pt transfers to recliner. Pt then positioned for comfort. [place] cup and lower table in pt's room to make access to items easier. After session, pt sitting in recliner with call light/phone in reach. All needs met in room. Therapy Code Descriptions/Definitions Functional [place] Measure: 0=Not Assessed/NA 4=Minimal Assistance 1=Total Assistance 5=Supervision or Setup 2=Maximal Assistance 6=Modified [place] 3=Moderate Assistance 7=Complete IndependenceSCALE: Activities may be completed with or without assistive devices. 1-Eltgvxuicy-bhlxbfk completes the activity by him/herself with no assistance from a helper. 5-Set-up or Clean-up Assistance-helper sets up or cleans up; patient completes activity. [place] assists only prior to or following the activity. 4-Supervision or Touching Assistance-helper provides verbal cues and/or touching/steadying and/or contact guard assistance as patient completes activity. Assistance may be provided throughout the activity or intermittently. 3-Partial/Moderate Assistance-helper does LESS THAN HALF the effort. [place] lifts, holds or supports trunk or limbs, but provides less than half the effort. 2-Substantial/Maximal Assistance-helper does MORE THAN HALF the effort. [place] lifts or holds trunk or limbs and provides more than half the effort. 0-Juwlknmkw-nlvymi does ALL the effort. Patient does none of the effort to complete the activity. Or, the assistance of 2 or more helpers is required for the patient to complete the activity. If activity was not attempted, code reason: 7-Patient Refused. 9-Not Applicable-not attempted and the patient did not perform the activity before the current illness, exacerbation or injury. 10-Not Attempted due to Environmental Limitations-(lack of equipment, weather restraints, etc.). 88-Not Attempted due to Medical Conditions or Safety Concerns. Shower/Bathe Self (QC): 2 Upper Body Dressing (QC): 2 Lower Body Dressing (QC): 1 OT Short Term Goals Short Term Goals Time Frame: Nov 21, 2022 Eatin Oral hygiene: 6 (sitting) Upper body dressin OT Composition Worker Goals [facility] Goals Time Frame: Nov 28, 2022 Acute change in mental status: 0 Inattention: 0 Disorganized thinkin Altered level of consciousness: 0 Eating (QC): 6 Oral Hygiene (QC): 6 Toileting Hygiene (QC): 4 Shower/Bathe Self (QC): 4 Upper Body Dressing (QC): 4 Lower Body Dressing (QC): 4 On/Off Footwear (QC): 4 (with tools) 1=Demonstrate adherence to instructed precautions during ADL tasks. 2=Patient will verbalize/demonstrate understanding of assistive devices/modifications for ADL. 3=Patient will improve strength/tolerance for activity to enable patient to perform ADL's. OT Education/Plan Problem List/Assessment Assessment: Decreased Activ Tolerance, Decreased UE Strength, Dependent Transfers, Impaired Self-Care Skills, Restricted Funct UE ROM Discharge Recommendations Plan/Recommendations: Continue POC Treatment Plan/Plan of Care Patient would benefit from OT for education, treatment and training to promote independence in ADL's, mobility, safety and/or upper extremity function for ADL's. Plan of Care: ADL Retraining, Cognitive Retraining, Concurrent Therapy, Functional Mobility, Group Exercise/Act as Ind, Orthotic Fitting/Training, UE Funct Exercise/Act, UE Neuromus Re-Ed/Coord Treatment Duration: Nov 28, 2022 Frequency: At least 5 of 7 days/Wk (IRF) Estimated Hrs Per Day: 1.5 hours per day Agreement: Yes Rehab Potential: Fair Time Start Time: 11:00 Stop Time: 12:00 DATE: Nov 19, 2022 Total Time Billed (hr/min): 60 Billed Treatment Time 1 visit-FA 2 (30 min) ADL 2 (30 min) co-treat with PT [id number] JORDAN PULLIAM Nov 19, 2022 11:59
--- NOTE | 2022-11-19 13:50 | Occupational Ther Daily Note ---
OT Current Status-Daily Note Subjective Pt alert, sitting in recliner. Pt agrees to therapy. Daughter present in room. Pt c/o pain with movement, does not rate. Heat pack placed behind neck and shldrs to decrease pain with movement from transfer. Mental Status/Objective Patient Orientation: Person, Place, Time, Situation ADL-Treatment Therapy Code Descriptions/Definitions Functional [place] Measure: 0=Not Assessed/NA 4=Minimal Assistance 1=Total Assistance 5=Supervision or Setup 2=Maximal Assistance 6=Modified [place] 3=Moderate Assistance 7=Complete IndependenceSCALE: Activities may be completed with or without assistive devices. 3-Kbbjbtigvf-bpqzhks completes the activity by him/herself with no assistance from a helper. 5-Set-up or Clean-up Assistance-helper sets up or cleans up; patient completes activity. [place] assists only prior to or following the activity. 4-Supervision or Touching Assistance-helper provides verbal cues and/or touc elan/steadying and/or contact guard assistance as patient completes activity. Assistance may be provided throughout the activity or intermittently. 3-Partial/Moderate Assistance-helper does LESS THAN HALF the effort. [place] lifts, holds or supports trunk or limbs, but provides less than half the effort. 2-Substantial/Maximal Assistance-helper does MORE THAN HALF the effort. [place] lifts or holds trunk or limbs and provides more than half the effort. 0-Qpvpdbrkh-nteour does ALL the effort. Patient does none of the effort to complete the activity. Or, the assistance of 2 or more helpers is required for the patient to complete the activity. If activity was not attempted, code reason: 7-Patient Refused. 9-Not Applicable-not attempted and the patient did not perform the activity before the current illness, exacerbation or injury. 10-Not Attempted due to Environmental Limitations-(lack of equipment, weather restraints, etc.). 88-Not Attempted due to Medical Conditions or Safety Concerns. Other Treatment Pt able to pull self forward to maintain upright sitting with CGA. Pt then was transferred to bed from recliner using sit to stand lift and soft neck collar to alleviate neck pain with movement. Pt then required assist x2-3 for bed mobility. Therapy sponge placed in pt's R hand to use after therapy session. Nrsg in room. Call light/phone in reach. All needs met. OT Short Term Goals Short Term Goals Time Frame: Nov 21, 2022 Eatin Oral hygiene: 6 (sitting) Upper body dressin OT Application Programmer Analyst Goals Application Programmer Analyst Goals Time Frame: Nov 28, 2022 Acute change in mental status: 0 Inattention: 0 Disorganized thinkin Altered level of consciousness: 0 Eating (QC): 6 Oral Hygiene (QC): 6 Toileting Hygiene (QC): 4 Shower/Bathe Self (QC): 4 Upper Body Dressing (QC): 4 Lower Body Dressing (QC): 4 On/Off Footwear (QC): 4 (with tools) 1=Demonstrate adherence to instructed precautions during ADL tasks. 2=Patient will verbalize/demonstrate understanding of assistive devices/gwendolyn fications for ADL. 3=Patient will improve strength/tolerance for activity to enable patient to perform ADL's. OT Education/Plan Problem List/Assessment Assessment: Decreased Activ Tolerance, Decreased UE Strength, Dependent Transfers, Impaired Bed Mobility Discharge Recommendations Plan/Recommendations: Continue POC Treatment Plan/Plan of Care Patient would benefit from OT for education, treatment and training to promote independence in ADL's, mobility, safety and/or upper extremity function for ADL's. Plan of Care: ADL Retraining, Cognitive Retraining, Concurrent Therapy, Functional Mobility, Group Exercise/Act as Ind, Orthotic Fitting/Training, UE Funct Exercise/Act, UE Neuromus Re-Ed/Coord Treatment Duration: Nov 28, 2022 Frequency: At least 5 of 7 days/Wk (IRF) Estimated Hrs Per Day: 1.5 hours per day Agreement: Yes Rehab Potential: Fair Time Start Time: 13:30 Stop Time: 13:45 DATE: Nov 19, 2022 Total Time Billed (hr/min): 15 Billed Treatment Time 1 visit-FA 1 (15 min) JORDAN PULLIAM Nov 19, 2022 13:50
--- NOTE | 2022-11-19 14:38 | Therapy Team Discharge Summary ---
Therapy Discharge Summary Discharge Recommendations Date of Discharge Physical Therapy Roll Left to Right (QC): 1 Sit to Lying (QC): 1 Lying to Sitting/Side of Bed(Q: 1 Sit to Stand (QC): 1 Chair/Npn-lw-Dwjff Xfer(QC): 1 (Max A x 2) Toilet Transfer (QC): 88 Car Transfer (QC): 88 Does the Patient Walk: No and Walking Goal IS indicated Mode of Locomotion: Both Anticipated Mode of Locomotion: Both Walk 10 feet (QC): 88 Walk 50 ft with 2 Turns(QC): 88 Walk 150 ft (QC): 88 Walking 10ft on uneven surface: 88 Gait Assistive Device: FWW Does the Pt Use a Wheelchair: Yes Wheel 50 ft with 2 turns (QC): 88 Wheel 150 ft (QC): 88 Type of Wheelchair: Manual 1 Step (curb) (QC): 88 4 Steps (QC): 88 12 Steps (QC): 88 Walking Assistive Device: Walker Balance Sitting Static: Good Balance Sitting Dynamic: Fair Balance-Standing Static: Poor Picking up an Object (QC): 88 Occupational Therapy Decreased Activ Tolerance, Decreased UE Strength, Dependent Transfers, Impaired Bed Mobility Eating (QC): 3 (mod A) Oral Hygiene (QC): 2 Shower/Bathe Self (QC): 2 Upper Body Dressing (QC): 2 Lower Body Dressing (QC): 1 On/Off Footwear (QC): 1 Toileting Hygiene (QC): 1 Speech-Language Pathology The patient reports she is at baseline cognition, stating all bill management is completed by her daughter (who is her D.P.O.A) and a home aide provides and organizes all medication. The patient identifies appropriate measures to contact help in emergency situations (call light) and stated, "I don't have a thing down there to worry about." As the patient is at baseline mentation, skilled speech pathology services are not warranted. PT Hand Driller Goals Long-Term Goals PT Long-Term Goals Time Frame: Nov 28, 2022 Roll Left to Right (QC): 4 (Pt will be SBA for functional mobility, in order to safely d/c back to AFL ) Sit to Lying (QC): 4 (Pt will be SBA for functional mobility, in order to safely d/c back to [facility] ) Lying-Sitting on Side/Bed(QC): 4 (Pt will be SBA for functional mobility, in order to safely d/c back to AFL ) Sit to Stand (QC): 4 (Pt will be SBA for functional mobility, in order to s afely d/c back to AFL ) Chair/Vfh-pz-Fxicl Xfer(QC): 4 (Pt will be SBA for functional mobility, in order to safely d/c back to [facility] ) Toilet/Commode Transfer (QC): 4 (Pt will be SBA for functional mobility, in ord er to safely d/c back to AFL ) Car Transfer (QC): 4 (Pt will be SBA for functional mobility, in order to s afely d/c back to [facility] ) Does the Patient Walk: No and Walking Goal IS indicated Walk 10 feet (QC): 4 (Pt will be SBA for functional mobility, in order to safely d/c back to AFL ) Walk 10ft-Uneven Surface(QC): 4 (Pt will be SBA for functional mobility, in order to safely d/c back to [facility] ) Walk 50ft with 2 Turns (QC): 4 (Pt will be SBA for functional mobility, in order to safely d/c back to [facility] ) Walk 150 ft (QC): 4 (Pt will be SBA for functional mobility, in order to safely d/c back to [facility] ) Does the Pt use WC or Scooter?: Yes Wheel 50 feet with 2 turns (QC: 4 (Pt will be SBA for functional mobility, in order to safely d/c back to AFL ) Type: Manual Wheel 150 feet: 4 (Pt will be SBA for functional mobility, in order to safely d/c back to AFL ) Type: Manual 1 Step (curb) (QC): 9 (Pt did not have to negotiate stairs at PLOF ) 4 Steps (QC): 9 (Pt did not have to negotiate stairs at PLOF ) 12 Steps (QC): 9 (Pt did not have to negotiate stairs at PLOF ) Picking up an Object (QC): 4 (Pt will be SBA for functional mobility, in order to safely d/c back to [facility] ) OT Long-Term Goals Long-Term Goals Time Frame: Nov 28, 2022 Acute change in mental status: 0 Inattention: 0 Disorganized thinkin Altered level of consciousness: 0 Eating (QC): 6 Oral Hygiene (QC): 6 Toileting Hygiene (QC): 4 Shower/Bathe Self (QC): 4 Upper Body Dressing (QC): 4 Lower Body Dressing (QC): 4 On/Off Footwear (QC): 4 (with tools) 1=Demonstrate adherence to instructed precautions during ADL tasks. 2=Patient will verbalize/demonstrate understanding of assistive devices/modifications for ADL. 3=Patient will improve strength/tolerance for activity to enable patient to perform ADL's. Speech Long-Term Goals Long-Term Goals 1. Pt will complete memory tasks following short delay with 80% accuracy with min verbal cues. NOT MET 2. Pt will complete basic executive functioning tasks with 80% accuracy with min verbal cues. NOT MET 3. Pt will complete visuospatial tasks with 80% accuracy with min verbal cues. NOT MET 4. Pt will follow 2 step directions with 80% accuracy with min verbal cues. NOT MET SKYLER PERRY Nov 19, 2022 14:38
[2022-11-19 18:57] LABS: BILIRUBIN,URINE NEGATIVE (NEGATIVE); CLARITY,URINE SL CLOUDY; COLOR,URINE YELLOW; GLUCOSE, URINE (UA) NEGATIVE (NEGATIVE); KETONES,URINE NEGATIVE (NEGATIVE); LEUKOCYTE ESTERASE ,URINE 3+ (NEGATIVE); NITRITE,URINE NEGATIVE (NEGATIVE); PROTEIN,URINE NEGATIVE (NEGATIVE)
[2022-11-19 19:13] LABS: BACTERIA,URINE MODERATE /HPF; WBC,URINE >100 /HPF
[2022-11-19 19:24] VITALS: BP 140/65
[2022-11-19] MEDS: CEFEPIME INJECTION 1,000 MG in NS (IVPB) 50 ML IV SCH (22:12)
[2022-11-20] MEDS: MELATONIN 3 MG TABLET PO PRN (00:36)
[2022-11-20] MEDS: CEFEPIME INJECTION 1,000 MG in NS (IVPB) 50 ML IV SCH ×3 (04:07→18:04)
[2022-11-20] MEDS: HYDROcodone/APAP 7.5 MG/325 MG (LORTAB, LORCET PLUS) TABLET PO PRN ×3 (04:07→18:53)
--- NOTE | 2022-11-20 06:01 | PM&R Progress Note ---
Subjective HPI/CC On Admission Date Seen by Provider: Nov 20, 2022 Time Seen by Provider: 12:00 Subjective/Events-last exam 11/20/2022: Very slow recovery Pain is still present Closed head injury has increased disability 11/19/2022: Patient getting a little bit more complicated Could not urinate so replaced Hoffmann catheter and UA showed evidence of UTI again and she just completed Rocephin so we will start cefepime empirically Very difficult for her to ambulate 11/18/2022: No major issues Improved overall No pain except muscles and right hand Thyroid supplement and B12 given 11/17/2022: Patient having some struggles Completely dependent now Severe spine disease noted on imaging scan Unsure if we will need to send to skilled if she cannot recover 11/16/2022: Pain improved Daughter and grandkids are visiting No falls Lovenox discussed and she is willing to take it since I will monitor platelets No issues otherwise 11/15/2022: Patient doing a little better Slow recovery Confusion seems to be clearing Refusing Lovenox due to low platelets per patient I do not feel like she is at high risk for bleeding so she will continue to decline Lovenox Pain is controlled Review of Systems General: Fatigue, Malaise Musculoskeletal: arm pain, leg pain Objective Exam Vital Signs Vital Signs Date Time Temp Pulse Resp B/P (MAP) Pulse Ox O2 Delivery O2 Flow Rate FiO2 11/20/22 19:21 36.0 53 16 184/71 (108) 96 Nasal Cannula 1.00 Capillary Refill : General Appearance: No Apparent Distress, WD/WN, Chronically ill, Obese HEENT: PERRL/EOMI, Normal ENT Inspection, Pharynx Normal Neck: Full Range of Motion, Normal Inspection, Non Tender, Supple, Carotid Bruit Respiratory: Chest Non Tender, Lungs Clear, Normal Breath Sounds, No Accessory Muscle Use, No Respiratory Distress Cardiovascular: Regular Rate, Rhythm, No Edema, No Gallop, No JVD, No Murmur, Normal Peripheral Pulses Gastrointestinal: Normal Bowel Sounds, No Organomegaly, No Pulsatile Mass, Non Tender, Soft Back: Normal Inspection, No CVA Tenderness, No Vertebral Tenderness Extremity: Normal Capillary Refill, Normal Inspection, Normal Range of Motion, Non Tender, No Calf Tenderness, No Pedal Edema Neurologic/Psychiatric: Alert, Oriented x3, lift truck mechanic II-XII Norm as Tested, Abnormal Gait, Depressed Affect, Motor Weakness (generalized), Other (confusion) Skin: Normal Color, Warm/Dry Lymphatic: No Adenopathy Results/Procedures Lab Patient resulted labs reviewed. FIM Transfers Therapy Code Descriptions/Definitions Functional [place] Measure: 0=Not Assessed/NA 4=Minimal Assistance 1=Total Assistance 5=Supervision or Setup 2=Maximal Assistance 6=Modified [place] 3=Moderate Assistance 7=Complete IndependenceSCALE: Activities may be completed with or without assistive devices. 0-Tqrquoerjs-rpfdbtf completes the activity by him/herself with no assistance from a helper. 5-Set-up or Clean-up Assistance-helper sets up or cleans up; patient completes activity. Tiller assists only prior to or following the activity. 4-Supervision or Touching Assistance-helper provides verbal cues and/or touching/steadying and/or contact guard assistance as patient completes activity. Assistance may be provided throughout the activity or intermittently. 3-Partial/Moderate Assistance-helper does LESS THAN HALF the effort. Tiller lifts, holds or supports trunk or limbs, but provides less than half the effort. 2-Substantial/Maximal Assistance-helper does MORE THAN HALF the effort. Tiller lifts or holds trunk or limbs and provides more than half the effort. 5-Foallwowm-dhviwc does ALL the effort. Patient does none of the effort to complete the activity. Or, the assistance of 2 or more helpers is required for the patient to complete the activity. If activity was not attempted, code reason: 7-Patient Refused. 9-Not Applicable-not attempted and the patient did not perform the activity b efore the current illness, exacerbation or injury. 10-Not Attempted due to Environmental Limitations-(lack of equipment, weather restraints, etc.). 88-Not Attempted due to Medical Conditions or Safety Concerns. Roll Left to Right (QC): 1 Sit to Lying (QC): 1 Sit to Stand (QC): 1 Chair/Ttw-jp-Jhfed Xfer(QC): 1 (Max A x 2) Car Transfer (QC): 88 Gait Training Does the Patient Walk?: No and Walking Goal IS indicated Walk 10 feet (QC): 88 Walk 50 ft with 2 Turns(QC): 88 Walk 150 ft (QC): 88 Walking 10ft/uneven surface-QC: 88 Gait Assistive Device: FWW Wheelchair Training Does the Pt Use a Wheelchair?: Yes Wheel 50 ft with 2 turns (QC): 88 Wheel 150 ft (QC): 88 Type of Wheelchair: Manual Stair Training 1 Step (curb) (QC): 88 4 Steps (QC): 88 12 Steps (QC): 88 Balance Picking up an Object (QC): 88 ADL-Treatment Eating (QC): 3 (mod A) Oral Hygiene (QC): 2 Shower/Bathe Self (QC): 2 Upper Body Dressing (QC): 2 Lower Body Dressing (QC): 1 On/Off Footwear (QC): 1 Toileting Hygiene (QC): 1 Toilet Transfer (QC): 1 Assessment/Plan Assessment and Plan Assess & Plan/Chief Complaint Assessment: Encephalopathy from closed head injury with LOC 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 Left hand fracture Scalp laceration with hematoma HTN Recent UTI completed Rocephin and Omnicef Increased BMI Refuses Lovenox occasionally Low platelets New hypothyroidism Recurrent UTI 11/19/2022 empirically placed on cefepime but urine culture showed normal chance and urine culture so stopped on 11/20/2022 Plan: Pain control Rehab Fall risk Monitor confusion Complete abx 11/15/2022: Pain control Supportive care 11/16/2022: Pain control Lovenox: pt willing to take now 11/17/2022: May need skilled care 11/18/2022: Synthroid B12 11/19/2022: Replace Hoffmann Cefepime empirically 11/20/2022: Abx DC due to normal chance and urine culture (1) Closed head injury with brief loss of consciousness (2) Encephalopathy (3) Syncope Status: Acute (4) Hand fracture Status: Acute (5) Scalp laceration Status: Acute (6) Urinary tract infection Status: Acute LUCERO FUENTES DO Nov 20, 2022 06:01
[2022-11-20] MEDS: inSUlin ASPART (NovoLOG) 1 UNIT/0.01 ML (CHARGE PER UNIT) SC SCH ×4 (06:19→20:59)
[2022-11-20] MEDS: CYANOCOBALAMIN 1,000 MCG (VITAMIN B-12) TABLET PO SCH (06:20)
[2022-11-20] MEDS: LEVOTHYROXINE 50 MCG (LEVOTHROID) TAB PO SCH (06:20)
[2022-11-20 08:00] VITALS: BP 146/75
[2022-11-20] MEDS: SERTRALINE 50 MG (ZOLOFT) TABLET PO SCH (08:39)
[2022-11-20] MEDS: ATENOLOL 25 MG (TENORMIN) TAB PO SCH (08:39)
[2022-11-20] MEDS: SOD CHL GEL 0.5 OZ (AYR SALINE NASAL GEL) TUBE NS SCH ×2 (08:40→20:56)
[2022-11-20] MEDS: SALINE NASAL SPRAY (OCEAN) 45 ML BTL SCH ×3 (08:40→20:56)
[2022-11-20] MEDS: ENOXAPARIN 40 MG/0.4 ML (LOVENOX) SYR SC SCH (08:42)
[2022-11-20] MEDS: SENNA W/DOCUSATE (SENOKOT S) TABLET PO SCH ×2 (08:56→20:53)
[2022-11-20] MEDS: metFORMIN 500 MG (GLUCOPHAGE) TAB PO SCH ×2 (08:57→20:53)
[2022-11-20] MEDS: DOCUSATE SODIUM 100 MG (COLACE) CAP PO SCH ×2 (08:57→20:54)
[2022-11-20] MEDS: polyethylene glycoL POWDER 17 GM (MIRALAX) PACK PO SCH ×2 (08:57→19:28)
--- NOTE | 2022-11-20 14:48 | Physical Therapy Daily Note ---
PT Daily Note-Current Subjective Pt in bed upon arrival and willing for therapy. pt stated neck and head pain this session with nursing notified. pt reported immense pain in right knee when attempting to use the standing frame and was unsuccessful. pt was left in recliner after therapy session with call light and all needs met. Pain Section J - Health Conditions 1. Rarely or not at all 2. Occasionally 3. Frequently 4. Almost constantly 8. Unable to answer Pain Effect on Sleep: 3 Pain Interference with Therapy: 4 Pain Interference w/Day-to-Day: 4 Mental Status Patient Orientation: Person, Place, Time, Situation Transfers SCALE: Activities may be completed with or without assistive devices. 0-Xmwfglzhod-wkzkfmj completes the activity by him/herself with no assistance from a helper. 5-Set-up or Clean-up Assistance-helper sets up or cleans up; patient completes activity. [place] assists only prior to or following the activity. 4-Supervision or Touching Assistance-helper provides verbal cues and/or touching/steadying and/or contact guard assistance as patient completes acti vity. Assistance may be provided throughout the activity or intermittently. 3-Partial/Moderate Assistance-helper does LESS THAN HALF the effort. [place] lifts, holds or supports trunk or limbs, but provides less than half the effort. 2-Substantial/Maximal Assistance-helper does MORE THAN HALF the effort. [place] lifts or holds trunk or limbs and provides more than half the effort. 3-Bsharxhbh-zqtyho does ALL the effort. Patient does none of the effort to complete the activity. Or, the assistance of 2 or more helpers is required for the patient to complete the activity. If activity was not attempted, code reason: 7-Patient Refused. 9-Not Applicable-not attempted and the patient did not perform the activity before the current illness, exacerbation or injury. 10-Not Attempted due to Environmental Limitations-(lack of equipment, weather restraints, etc.). 88-Not Attempted due to Medical Conditions or Safety Concerns. Weight Bearing Right Lower Extremity: Right Full Weight Bearing Left Lower Extremity: Left Full Weight Bearing WBAT R wrist with brace Treatments pt preformed bed mobility with max a x 2. pt transferred from bed to via sit to stand with 2 person VC for sequencing and safety. pt preformed 1 sit to active directory systems administrator // bars with MAX A and stood for 15 sec before no push through in BLE was noted and needed to sit. pt attempted 2nd sit to stand but was unsuccessful with no push though in BLE.. pt attempted standing frame but was unsuccessful secondary to right knee pain. pt was transferred to bed from via sit to stand with 2 person hitesh Casper Assessment Current Status: Fair Progress PT Senior Mechanical Technician Goals Senior Mechanical Technician Goals PT Senior Mechanical Technician Goals Time Frame: Nov 28, 2022 Roll Left & Right (QC): 4 (Pt will be SBA for functional mobility, in order to safely d/c back to [facility] ) Sit to Lying (QC): 4 (Pt will be SBA for functional mobility, in order to safely d/c back to AFL ) Lying-Sitting on Side/Bed(QC): 4 (Pt will be SBA for functional mobility, in order to safely d/c back to AFL ) Sit to Stand (QC): 4 (Pt will be SBA for functional mobility, in order to safely d/c back to AFL ) Chair/Oxn-ws-Diijy Xfer(QC): 4 (Pt will be SBA for functional mobility, in order to safely d/c back to AFL ) Toilet Transfer (QC): 4 (Pt will be SBA for functional mobility, in order to safely d/c back to AFL ) Car Transfer (QC): 4 (Pt will be SBA for functional mobility, in order to safely d/c back to AFL ) Does the Patient Walk: No and Walking Goal IS indicated Walk 10 feet (QC): 4 (Pt will be SBA for functional mobility, in order to safely d/c back to AFL ) Walk 50ft with 2 Turns (QC): 4 (Pt will be SBA for functional mobility, in order to safely d/c back to AFL ) Walk 150 ft (QC): 4 (Pt will be SBA for functional mobility, in order to safely d/c back to AFL ) Walking 10ft on Uneven Surface: 4 (Pt will be SBA for functional mobility, in order to safely d/c back to AFL ) 1 Step (curb) (QC): 9 (Pt did not have to negotiate stairs at PLOF ) 4 Steps (QC): 9 (Pt did not have to negotiate stairs at PLOF ) 12 Steps (QC): 9 (Pt did not have to negotiate stairs at PLOF ) Picking up an Object (QC): 4 (Pt will be SBA for functional mobility, in order to safely d/c back to AFL ) Does the Pt use WC or Scooter?: Yes Wheel 50 feet with 2 turns (QC: 4 (Pt will be SBA for functional mobility, in order to safely d/c back to AFL ) Type: Manual Wheel 150 feet: 4 (Pt will be SBA for functional mobility, in order to safely d/c back to AFL ) Type: Manual PT Plan Treatment/Plan Treatment Plan: Continue Plan of Care Treatment Plan: Bed Mobility, Concurrent Therapy, Education, Functional Activity Sean, Functional Strength, Group Therapy, Gait, Safety, Therapeutic Exercise, Transfers Treatment Duration: Nov 28, 2022 Frequency: At least 5 of 7 days/Wk (IRF) Estimated Hrs Per Day: 1.5 hours per day Patient and/or Family Agrees t: Yes Time Time In: 1100 Time Out: 1200 DATE: Nov 20, 2022 Total Billed Treatment Time: 60 Total Billed Treatment 1 FA x 4 co treat from [id number] for 60 mins Arlet Anguiano BITE BLOCK MAKER Nov 20, 2022 14:48
--- NOTE | 2022-11-20 14:54 | Occupational Ther Daily Note ---
OT Current Status-Daily Note Subjective Pt alert, lying in bed. Pt agrees to therapy. Pt c/o pain with all movement, does not rate. Pt yells out or moans, attempts to reposition and support through movement, continues to c/o pain in neck and R knee. Co-treat with PT [id number], skills of 2 clinicians required to decrease fall risk, monitor and po sition to decrease pain, increase mobility and increase activity tolerance. PT focusing on transfers, standing and B LE strengthening while OT focusing on B UE placement during mobility and assistance with guiding and supporting stand through hips. Mental Status/Objective Patient Orientation: Person, Place, Time, Situation Attachments: Hoffmann Catheter, Oxygen ADL-Treatment Therapy Code Descriptions/Definitions Functional [place] Measure: 0=Not Assessed/NA 4=Minimal Assistance 1=Total Assistance 5=Supervision or Setup 2=Maximal Assistance 6=Modified [place] 3=Moderate Assistance 7=Complete IndependenceSCALE: Activities may be completed with or without assistive devices. 1-Lngwuihkrb-hxtxyrx completes the activity by him/herself with no assistance from a helper. 5-Set-up or Clean-up Assistance-helper sets up or cleans up; patient completes activity. [place] assists only prior to or following the activity. 4-Supervision or Touching Assistance-helper provides verbal cues and/or touching/steadying and/or contact guard assistance as patient completes activity. Assistance may be provided throughout the activity or intermittently. 3-Partial/Moderate Assistance-helper does LESS THAN HALF the effort. [place] l ifts, holds or supports trunk or limbs, but provides less than half the effort. 2-Substantial/Maximal Assistance-helper does MORE THAN HALF the effort. [place] lifts or holds trunk or limbs and provides more than half the effort. 4-Mznpjemwr-wryopn does ALL the effort. Patient does none of the effort to complete the activity. Or, the assistance of 2 or more helpers is required for t he patient to complete the activity. If activity was not attempted, code reason: 7-Patient Refused. 9-Not Applicable-not attempted and the patient did not perform the activity before the current illness, exacerbation or injury. 10-Not Attempted due to Environmental Limitations-(lack of equipment, weather restraints, etc.). 88-Not Attempted due to Medical Conditions or Safety Concerns. Other Treatment Bed mobility with max A x2. Dependent transfer from bed to via sit to stand l ift. Pt preformed 1 sit to financial services assistant // bars with MAX A and stood for 15 sec before no push through in BLE was noted and needed to sit. Pt attempted 2nd sit to stand but was unsuccessful with no push though in BLE.. Pt attempted standing frame but was unsuccessful secondary to right knee pain. At end of session, pt lying in bed with call light/phone in reach. All needs met in room. OT Short Term Goals Short Term Goals Time Frame: Nov 21, 2022 Eatin Oral hygiene: 6 (sitting) Upper body dressin OT Mcfp Goals Chemist Assistant Goals Time Frame: Nov 28, 2022 Acute change in mental status: 0 Inattention: 0 Disorganized thinkin Altered level of consciousness: 0 Eating (QC): 6 Oral Hygiene (QC): 6 Toileting Hygiene (QC): 4 Shower/Bathe Self (QC): 4 Upper Body Dressing (QC): 4 Lower Body Dressing (QC): 4 On/Off Footwear (QC): 4 (with tools) 1=Demonstrate adherence to instructed precautions during ADL tasks. 2=Patient will verbalize/demonstrate understanding of assistive devices/modifications for ADL. 3=Patient will improve strength/tolerance for activity to enable patient to perform ADL's. OT Education/Plan Problem List/Assessment Assessment: Decreased Activ Tolerance, Decreased UE Strength, Dependent Transfers, Impaired Bed Mobility, Impaired Self-Care Skills, Restricted Funct UE ROM Discharge Recommendations Plan/Recommendations: Continue POC Treatment Plan/Plan of Care Patient would benefit from OT for education, treatment and training to promote independence in ADL's, mobility, safety and/or upper extremity function for ADL's. Plan of Care: ADL Retraining, Cognitive Retraining, Concurrent Therapy, Functional Mobility, Group Exercise/Act as Ind, Orthotic Fitting/Training, UE Funct Exercise/Act, UE Neuromus Re-Ed/Coord Treatment Duration: Nov 28, 2022 Frequency: At least 5 of 7 days/Wk (IRF) Estimated Hrs Per Day: 1.5 hours per day Agreement: Yes Rehab Potential: Fair Time Start Time: 11:00 Stop Time: 12:00 DATE: Nov 20, 2022 Total Time Billed (hr/min): 60 Billed Treatment Time 1 visit-FA 4 (60 min) JORDAN PULLIAM Nov 20, 2022 14:54
--- NOTE | 2022-11-20 15:00 | Therapy Group Daily Note ---
Therapy Daily Group Note Patient Education Topic Exercises Exercises LE Seated Exercise, UE Exercise Session Ratio (pt:therapist): 3:1 Goal of Session: UE/LE Strengthing Goal Met for this Session: Yes Pt Benefit of Group: Contributions to Others, F/U Use of Strategies @Home, Increased Functional Safety, Increased Functional Strength, Improved Cognition, Recognition of Peers, Socialization Other/Notes pt was transported to Pt/OT group consisted of introduction, socialization, upper and lower ther-ex and focused on benefits of exercise. Start Time: 13:00 Stop Time: 14:15 Total Billed Treatment Time: 75 Total Billed Treatment 1 GRP Arlet Anguiano RAIL TRACTOR OPERATOR Nov 20, 2022 15:00
[2022-11-20 19:21] VITALS: BP 184/71
[2022-11-21] MEDS: HYDROcodone/APAP 7.5 MG/325 MG (LORTAB, LORCET PLUS) TABLET PO PRN ×4 (01:21→21:53)
[2022-11-21] MEDS: LEVOTHYROXINE 50 MCG (LEVOTHROID) TAB PO SCH (05:56)
[2022-11-21] MEDS: CYANOCOBALAMIN 1,000 MCG (VITAMIN B-12) TABLET PO SCH (05:56)
[2022-11-21] MEDS: inSUlin ASPART (NovoLOG) 1 UNIT/0.01 ML (CHARGE PER UNIT) SC SCH ×4 (05:57→21:50)
[2022-11-21 08:00] VITALS: BP 196/75
[2022-11-21 08:19] VITALS: BP 196/75
[2022-11-21] MEDS: DOCUSATE SODIUM 100 MG (COLACE) CAP PO SCH ×2 (08:42→21:53)
[2022-11-21] MEDS: ATENOLOL 25 MG (TENORMIN) TAB PO SCH (08:42)
[2022-11-21] MEDS: metFORMIN 500 MG (GLUCOPHAGE) TAB PO SCH ×2 (08:42→21:53)
[2022-11-21] MEDS: SERTRALINE 50 MG (ZOLOFT) TABLET PO SCH (08:42)
[2022-11-21] MEDS: SENNA W/DOCUSATE (SENOKOT S) TABLET PO SCH ×2 (08:42→21:50)
[2022-11-21] MEDS: polyethylene glycoL POWDER 17 GM (MIRALAX) PACK PO SCH ×2 (08:43→21:50)
[2022-11-21] MEDS: ENOXAPARIN 40 MG/0.4 ML (LOVENOX) SYR SC SCH (08:43)
[2022-11-21] MEDS: SALINE NASAL SPRAY (OCEAN) 45 ML BTL SCH ×3 (08:43→21:50)
[2022-11-21] MEDS: SOD CHL GEL 0.5 OZ (AYR SALINE NASAL GEL) TUBE NS SCH ×2 (08:44→21:50)
--- NOTE | 2022-11-21 12:50 | PM&R Progress Note ---
Subjective HPI/CC On Admission Date Seen by Provider: Nov 21, 2022 Time Seen by Provider: 12:30 Subjective/Events-last exam 11/21/2022: Improved mobility today Daughter at bedside Bad day yesterday UCX normal chance 11/20/2022: Very slow recovery Pain is still present Closed head injury has increased disability 11/19/2022: Patient getting a little bit more complicated Could not urinate so replaced Hoffmann catheter and UA showed evidence of UTI again and she just completed Rocephin so we will start cefepime empirically Very difficult for her to ambulate 11/18/2022: No major issues Improved overall No pain except muscles and right hand Thyroid supplement and B12 given 11/17/2022: Patient having some struggles Completely dependent now Severe spine disease noted on imaging scan Unsure if we will need to send to skilled if she cannot recover 11/16/2022: Pain improved Daughter and grandkids are visiting No falls Lovenox discussed and she is willing to take it since I will monitor platelets No issues otherwise 11/15/2022: Patient doing a little better Slow recovery Confusion seems to be clearing Refusing Lovenox due to low platelets per patient I do not feel like she is at high risk for bleeding so she will continue to decline Lovenox Pain is controlled Review of Systems General: Fatigue, Malaise Objective Exam Vital Signs Vital Signs Date Time Temp Pulse Resp B/P (MAP) Pulse Ox O2 Delivery O2 Flow Rate FiO2 11/21/22 19:50 36.7 59 16 125/78 (94) 96 Nasal Cannula 1.00 Capillary Refill : General Appearance: No Apparent Distress, WD/WN, Chronically ill, Obese HEENT: PERRL/EOMI, Normal ENT Inspection, Pharynx Normal Neck: Full Range of Motion, Normal Inspection, Non Tender, Supple, Carotid Bruit Respiratory: Chest Non Tender, Lungs Clear, Normal Breath Sounds, No Accessory Muscle Use, No Respiratory Distress Cardiovascular: Regular Rate, Rhythm, No Edema, No Gallop, No JVD, No Murmur, Normal Peripheral Pulses Gastrointestinal: Normal Bowel Sounds, No Organomegaly, No Pulsatile Mass, Non Tender, Soft Back: Normal Inspection, No CVA Tenderness, No Vertebral Tenderness Extremity: Normal Capillary Refill, Normal Inspection, Normal Range of Motion, Non Tender, No Calf Tenderness, No Pedal Edema Neurologic/Psychiatric: Alert, Oriented x3, director of teacher education II-XII Norm as Tested, Abnormal Gait, Depressed Affect, Motor Weakness (generalized), Other (confusion) Skin: Normal Color, Warm/Dry Lymphatic: No Adenopathy Results/Procedures Lab Patient resulted labs reviewed. FIM Transfers Therapy Code Descriptions/Definitions Functional [place] Measure: 0=Not Assessed/NA 4=Minimal Assistance 1=Total Assistance 5=Supervision or Setup 2=Maximal Assistance 6=Modified [place] 3=Moderate Assistance 7=Complete IndependenceSCALE: Activities may be completed with or without assistive devices. 0-Imczykmrtb-dggpvwd completes the activity by him/herself with no assistance from a helper. 5-Set-up or Clean-up Assistance-helper sets up or cleans up; patient completes activity. [place] assists only prior to or following the activity. 4-Supervision or Touching Assistance-helper provides verbal cues and/or to uching/steadying and/or contact guard assistance as patient completes activity. Assistance may be provided throughout the activity or intermittently. 3-Partial/Moderate Assistance-helper does LESS THAN HALF the effort. [place] lifts, holds or supports trunk or limbs, but provides less than half the effort. 2-Substantial/Maximal Assistance-helper does MORE THAN HALF the effort. [place] lifts or holds trunk or limbs and provides more than half the effort. 7-Yonxitfgv-ebpyqm does ALL the effort. Patient does none of the effort to complete the activity. Or, the assistance of 2 or more helpers is required for the patient to complete the activity. If activity was not attempted, code reason: 7-Patient Refused. 9-Not Applicable-not attempted and the patient did not perform the activity before the current illness, exacerbation or injury. 10-Not Attempted due to Environmental Limitations-(lack of equipment, weather restraints, etc.). 88-Not Attempted due to Medical Conditions or Safety Concerns. Roll Left to Right (QC): 1 Sit to Lying (QC): 1 Sit to Stand (QC): 1 Chair/Xks-tt-Mhpsi Xfer(QC): 1 (Max A x 2) Car Transfer (QC): 88 Gait Training Does the Patient Walk?: No and Walking Goal IS indicated Walk 10 feet (QC): 88 Walk 50 ft with 2 Turns(QC): 88 Walk 150 ft (QC): 88 Walking 10ft/uneven surface-QC: 88 Gait Assistive Device: FWW Wheelchair Training Does the Pt Use a Wheelchair?: Yes Wheel 50 ft with 2 turns (QC): 88 Wheel 150 ft (QC): 88 Type of Wheelchair: Manual Stair Training 1 Step (curb) (QC): 88 4 Steps (QC): 88 12 Steps (QC): 88 Balance Picking up an Object (QC): 88 ADL-Treatment Eating (QC): 3 (mod A) Oral Hygiene (QC): 2 Shower/Bathe Self (QC): 2 Upper Body Dressing (QC): 2 Lower Body Dressing (QC): 1 On/Off Footwear (QC): 1 Toileting Hygiene (QC): 1 Toilet Transfer (QC): 1 Assessment/Plan Assessment and Plan Assess & Plan/Chief Complaint Assessment: Encephalopathy from closed head injury with LOC 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 Left hand fracture Scalp laceration with hematoma HTN Recent UTI completed Rocephin and Omnicef Increased BMI Refuses Lovenox occasionally Low platelets New hypothyroidism Recurrent UTI 11/19/2022 empirically placed on cefepime but urine culture showed normal chance and urine culture so stopped on 11/20/2022 Plan: Pain control Rehab Fall risk Monitor confusion Complete abx 11/15/2022: Pain control Supportive care 11/16/2022: Pain control Lovenox: pt willing to take now 11/17/2022: May need skilled care 11/18/2022: Synthroid B12 11/19/2022: Replace Hoffmann Cefepime empirically 11/20/2022: Abx DC due to normal chance and urine culture 11/21/2022: Much improved status (1) Closed head injury with brief loss of consciousness (2) Encephalopathy (3) Syncope Status: Acute (4) Hand fracture Status: Acute (5) Scalp laceration Status: Acute (6) Urinary tract infection Status: Acute LUCERO FUENTES DO Nov 21, 2022 12:50
--- NOTE | 2022-11-21 12:56 | Occupational Ther Daily Note ---
OT Current Status-Daily Note Subjective Pt alert, lying in bed. Daughter present in room. Pt rated pain 6/10, pt able to work through pain stating it wasn't hurting all the time. OT/PT co-treat([id number]), skills of 2 clinicians required to decrease fall risk, increase standing tolerance, increase overall strength and decrease pain. PT focusing on standing, B LE strengthening and transfers while OT focusing on ADLs, functional mobility, B UE strengthening/AROM and assisting with standing. Mental Status/Objective Patient Orientation: Person, Place, Time, Situation ADL-Treatment Mod A for supine to EOB. CGA for sitting EOB. Mod A to don/doff shirt. Dependent to don/doff lower body clothing and footwear. Using sit to stand lift for all transfers. Therapy Code Descriptions/Definitions Functional [place] Measure: 0=Not Assessed/NA 4=Minimal Assistance 1=Total Assistance 5=Supervision or Setup 2=Maximal Assistance 6=Modified [place] 3=Moderate Assistance 7=Complete IndependenceSCALE: Activities may be completed with or without assistive devices. 3-Dyjoxhsqqu-gcccqbr completes the activity by him/herself with no assistance from a helper. 5-Set-up or Clean-up Assistance-helper sets up or cleans up; patient completes activity. [place] assists only prior to or following the activity. 4-Supervision or Touching Assistance-helper provides verbal cues and/or touching/steadying and/or contact guard assistance as patient completes activity. Assistance may be provided throughout the activity or intermittently. 3-Partial/Moderate Assistance-helper does LESS THAN HALF the effort. [place] lifts, holds or supports trunk or limbs, but provides less than half the effort. 2-Substantial/Maximal Assistance-helper does MORE THAN HALF the effort. [place] lifts or holds trunk or limbs and provides more than half the effort. 7-Kaxtsckfg-ohkvhw does ALL the effort. Patient does none of the effort to complete the activity. Or, the assistance of 2 or more helpers is required for the patient to complete the activity. If activity was not attempted, code reason: 7-Patient Refused. 9-Not Applicable-not attempted and the patient did not perform the activity before the current illness, exacerbation or injury. 10-Not Attempted due to Environmental Limitations-(lack of equipment, weather restraints, etc.). 88-Not Attempted due to Medical Conditions or Safety Concerns. Upper Body Dressing (QC): 3 (mod A) Lower Body Dressing (QC): 1 On/Off Footwear: 1 Toileting Hygiene (QC): 1 Toilet Transfer (QC): 1 Other Treatment Pt demonstrates increased AROM with L/R UE. R UE remains weak and working towards WFL ROM, L UE WFL for AROM. B UE strengthening to shldr girdle completed with HEP when not in therapy. Therapy sponge at hand to use while not in therapy. Pt stood 3x's with max A x2 at //bars, with each stand pt pushing more with B LE. After therapy, pt sitting in recliner with call light/phone in reach. Daughter present in room. OT Short Term Goals Short Term Goals Time Frame: Nov 21, 2022 Eatin Oral hygiene: 6 (sitting) Upper body dressin OT Longterm Goals Longterm Goals Time Frame: Nov 28, 2022 Acute change in mental status: 0 Inattention: 0 Disorganized thinkin Altered level of consciousness: 0 Eating (QC): 6 Oral Hygiene (QC): 6 Toileting Hygiene (QC): 4 Shower/Bathe Self (QC): 4 Upper Body Dressing (QC): 4 Lower Body Dressing (QC): 4 On/Off Footwear (QC): 4 (with tools) 1=Demonstrate adherence to instructed precautions during ADL tasks. 2=Patient will verbalize/demonstrate understanding of assistive devices/modifications for ADL. 3=Patient will improve strength/tolerance for activity to enable patient to perform ADL's. OT Education/Plan Problem List/Assessment Assessment: Decreased Activ Tolerance, Decreased UE Strength, Dependent Transfers, Impaired Bed Mobility, Impaired Funct Balance, Impaired Self-Care Skills, Restricted Funct UE ROM Discharge Recommendations Plan/Recommendations: Continue POC Treatment Plan/Plan of Care Patient would benefit from OT for education, treatment and training to promote independence in ADL's, mobility, safety and/or upper extremity function for ADL's. Plan of Care: ADL Retraining, Cognitive Retraining, Concurrent Therapy, Functional Mobility, Group Exercise/Act as Ind, Orthotic Fitting/Training, UE Funct Exercise/Act, UE Neuromus Re-Ed/Coord Treatment Duration: Nov 28, 2022 Frequency: At least 5 of 7 days/Wk (IRF) Estimated Hrs Per Day: 1.5 hours per day Agreement: Yes Rehab Potential: Fair Time Start Time: 10:30 Stop Time: 12:15 DATE: Nov 21, 2022 Total Time Billed (hr/min): 105 Billed Treatment Time 1 visit-ADL 3 (45 min) FA 4 (60 min) co-treat with PT [id number] JORDAN PULLIAM Nov 21, 2022 12:56
--- NOTE | 2022-11-21 13:20 | Physical Therapy Daily Note ---
PT Daily Note-Current Subjective Pt reports she is doing better today and agreeable to PT. Pt reported R knee pain at 5/10. Pain Numeric Pain Scale: 5-Moderate Pain Location: Right Location Body Site: Knee Section J - Health Conditions 1. Rarely or not at all 2. Occasionally 3. Frequently 4. Almost constantly 8. Unable to answer Pain Effect on Sleep: 2 Pain Interference with Therapy: 3 Pain Interference w/Day-to-Day: 2 Mental Status Attachments: Oxygen (1L ) R wrist brace Transfers SCALE: Activities may be completed with or without assistive devices. 4-Rwjbahyinb-jgfsnqp completes the activity by him/herself with no assistance from a helper. 5-Set-up or Clean-up Assistance-helper sets up or cleans up; patient completes activity. [place] assists only prior to or following the activity. 4-Supervision or Touching Assistance-helper provides verbal cues and/or touching/steadying and/or contact guard assistance as patient completes activity. Assistance may be provided throughout the activity or intermittently. 3-Partial/Moderate Assistance-helper does LESS THAN HALF the effort. [place] lifts, holds or supports trunk or limbs, but provides less than half the effort. 2-Substantial/Maximal Assistance-helper does MORE THAN HALF the effort. [place] lifts or holds trunk or limbs and provides more than half the effort. 8-Rqbbaryqi-yzmmzi does ALL the effort. Patient does none of the effort to complete the activity. Or, the assistance of 2 or more helpers is required for the patient to complete the activity. If activity was not attempted, code reason: 7-Patient Refused. 9-Not Applicable-not attempted and the patient did not perform the activity before the current illness, exacerbation or injury. 10-Not Attempted due to Environmental Limitations-(lack of equipment, weather restraints, etc.). 88-Not Attempted due to Medical Conditions or Safety Concerns. Lying to Sitting/Side of Bed(Q: 3 Sit to Stand (QC): 1 Chair/Iwp-gr-Fxyzn Xfer(QC): 1 Toilet Transfer (QC): 1 Weight Bearing Right Lower Extremity: Right Full Weight Bearing Left Lower Extremity: Left Full Weight Bearing WBAT R wrist with brace Gait Training Does the Patient Walk?: No and Walking Goal IS indicated Wheelchair Training Does the Pt Use a Wheelchair?: Yes Wheel 50 ft with 2 turns (QC): 2 Wheel 150 ft (QC): 88 Type of Wheelchair: Manual Treatments Pt supine in bed upon arrival. Pt completed supine to sit with Min A/Mod A. Pt sat EOB for approx 5 min with Min A to don shirt and work on core strength/ba tc. Pt transferred from EOB > w/c with sit to stand lift. Pt completed w/c mobility x 50ft with Mod/Max A. Pt completed seated B LAQ 2 x 10 and marching x 10 reps each. Pt completed wall squats sitting in the w/c 2x10 reps with manual resistance. Pts R wrist brace was properly donned to help support the R wrist. Pt completed AROM with the R UE/hand. Pt completed 3 sit to stand transfers in the // bars with Max A x 2. Pt stood for approx 30 seconds with each stand with Mod/Max A and Max v/c for R TKE, B hip ext, and erect posture. Pt required extended rest breaks after each stand and after each exercise. Pt transferred from w/c > BSC > chair with sit to stand lift. Pt left sitting up in chair with call light in reach, all needs met, and daughter in room; lunch present. Pt edu on HEP, with handouts provided. Assessment Current Status: Good Progress Pt tolerated PT with good effort. Pts best day of progress, so far. PT Care Home Goals Care Home Goals PT Physician Practice Administrator Goals Time Frame: Nov 28, 2022 Roll Left & Right (QC): 4 (Pt will be SBA for functional mobility, in order to safely d/c back to [facility] ) Sit to Lying (QC): 4 (Pt will be SBA for functional mobility, in order to safely d/c back to [facility] ) Lying-Sitting on Side/Bed(QC): 4 (Pt will be SBA for functional mobility, in order to safely d/c back to [facility] ) Sit to Stand (QC): 4 (Pt will be SBA for functional mobility, in order to safely d/c back to [facility] ) Chair/Rzd-mm-Glvfr Xfer(QC): 4 (Pt will be SBA for functional mobility, in order to safely d/c back to AFL ) Toilet Transfer (QC): 4 (Pt will be SBA for functional mobility, in order to safely d/c back to AFL ) Car Transfer (QC): 4 (Pt will be SBA for functional mobility, in order to safely d/c back to [facility] ) Does the Patient Walk: No and Walking Goal IS indicated Walk 10 feet (QC): 4 (Pt will be SBA for functional mobility, in order to safely d/c back to AFL ) Walk 50ft with 2 Turns (QC): 4 (Pt will be SBA for functional mobility, in order to safely d/c back to AFL ) Walk 150 ft (QC): 4 (Pt will be SBA for functional mobility, in order to safely d/c back to AFL ) Walking 10ft on Uneven Surface: 4 (Pt will be SBA for functional mobility, in order to safely d/c back to AFL ) 1 Step (curb) (QC): 9 (Pt did not have to negotiate stairs at PLOF ) 4 Steps (QC): 9 (Pt did not have to negotiate stairs at PLOF ) 12 Steps (QC): 9 (Pt did not have to negotiate stairs at PLOF ) Picking up an Object (QC): 4 (Pt will be SBA for functional mobility, in order to safely d/c back to AFL ) Does the Pt use WC or Scooter?: Yes Wheel 50 feet with 2 turns (QC: 4 (Pt will be SBA for functional mobility, in order to safely d/c back to AFL ) Type: Manual Wheel 150 feet: 4 (Pt will be SBA for functional mobility, in order to safely d/c back to AFL ) Type: Manual PT Plan Problem List Problem List: Activity Tolerance, Functional Strength, Safety, Balance, Gait, Transfer, Bed Mobility, ROM Treatment/Plan Treatment Plan: Continue Plan of Care Treatment Plan: Bed Mobility, Concurrent Therapy, Education, Functional Activity [place], Functional Strength, Group Therapy, Gait, Safety, Therapeutic Exercise, Transfers Treatment Duration: Nov 28, 2022 Frequency: At least 5 of 7 days/Wk (IRF) Estimated Hrs Per Day: 1.5 hours per day Patient and/or Family Agrees t: Yes Safety Risks/Education Patient Education: Transfer Techniques, Issued Written HEP, Correct Positioning, W/C Management, Safety Issues Teaching Recipient: Patient Teaching Methods: Demonstration, Discussion Response to Teaching: Verbalize Understanding, Return Demonstration Discharge Recommendations Therapy Discharge Recommendati: 24 Hour Supervision, Assisted Living Discharge Status/Home Program Cont per POC Barriers to Progress Debility/weakness, pain Target Placement SNF vs [facility] Time Time In: 1030 Time Out: 1215 DATE: Nov 21, 2022 Total Billed Treatment Time: 105 Total Billed Treatment 105 min co-tx with OT from [id number] 1 visit EX x 2 FA x 5 SLICK LAST PT Nov 21, 2022 13:20
[2022-11-21 15:46] VITALS: BP 118/57
[2022-11-21 19:50] VITALS: BP 125/78
[2022-11-21] MEDS: MELATONIN 3 MG TABLET PO PRN (21:52)
[2022-11-22] MEDS: HYDROcodone/APAP 7.5 MG/325 MG (LORTAB, LORCET PLUS) TABLET PO PRN ×4 (02:25→18:48)
[2022-11-22] MEDS: LEVOTHYROXINE 50 MCG (LEVOTHROID) TAB PO SCH (06:11)
[2022-11-22] MEDS: CYANOCOBALAMIN 1,000 MCG (VITAMIN B-12) TABLET PO SCH (06:11)
[2022-11-22] MEDS: inSUlin ASPART (NovoLOG) 1 UNIT/0.01 ML (CHARGE PER UNIT) SC SCH ×4 (06:27→21:45)
--- NOTE | 2022-11-22 07:11 | PM&R Progress Note ---
Subjective HPI/CC On Admission Date Seen by Provider: Nov 22, 2022 Time Seen by Provider: 11:00 Subjective/Events-last exam 11/22/2022: Improved but slow recovery NH placement likely a reality Pain controlled 11/21/2022: Improved mobility today Daughter at bedside Bad day yesterday UCX normal chance 11/20/2022: Very slow recovery Pain is still present Closed head injury has increased disability 11/19/2022: Patient getting a little bit more complicated Could not urinate so replaced Hoffmann catheter and UA showed evidence of UTI again and she just completed Rocephin so we will start cefepime empirically Very difficult for her to ambulate 11/18/2022: No major issues Improved overall No pain except muscles and right hand Thyroid supplement and B12 given 11/17/2022: Patient having some struggles Completely dependent now Severe spine disease noted on imaging scan Unsure if we will need to send to skilled if she cannot recover 11/16/2022: Pain improved Daughter and grandkids are visiting No falls Lovenox discussed and she is willing to take it since I will monitor platelets No issues otherwise 11/15/2022: Patient doing a little better Slow recovery Confusion seems to be clearing Refusing Lovenox due to low platelets per patient I do not feel like she is at high risk for bleeding so she will continue to decline Lovenox Pain is controlled Review of Systems General: Fatigue, Malaise Objective Exam Vital Signs Vital Signs Date Time Temp Pulse Resp B/P (MAP) Pulse Ox O2 Delivery O2 Flow Rate FiO2 11/22/22 21:45 92 Room Air 11/22/22 20:15 36.7 55 16 127/59 (81) 11/22/22 09:00 1.00 Capillary Refill : General Appearance: No Apparent Distress, WD/WN, Chronically ill, Obese HEENT: PERRL/EOMI, Normal ENT Inspection, Pharynx Normal Neck: Full Range of Motion, Normal Inspection, Non Tender, Supple, Carotid Bruit Respiratory: Chest Non Tender, Lungs Clear, Normal Breath Sounds, No Accessory Muscle Use, No Respiratory Distress Cardiovascular: Regular Rate, Rhythm, No Edema, No Gallop, No JVD, No Murmur, Normal Peripheral Pulses Gastrointestinal: Normal Bowel Sounds, No Organomegaly, No Pulsatile Mass, Non Tender, Soft Back: Normal Inspection, No CVA Tenderness, No Vertebral Tenderness Extremity: Normal Capillary Refill, Normal Inspection, Normal Range of Motion, Non Tender, No Calf Tenderness, No Pedal Edema Neurologic/Psychiatric: Alert, Oriented x3, 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 FIM Transfers Therapy Code Descriptions/Definitions Functional [place] Measure: 0=Not Assessed/NA 4=Minimal Assistance 1=Total Assistance 5=Supervision or Setup 2=Maximal Assistance 6=Modified [place] 3=Moderate Assistance 7=Complete IndependenceSCALE: Activities may be completed with or without assistive devices. 8-Vbxlmqexso-yyiqqku completes the activity by him/herself with no assistance from a helper. 5-Set-up or Clean-up Assistance-helper sets up or cleans up; patient completes activity. [place] assists only prior to or following the activity. 4-Supervision or Touching Assistance-helper provides verbal cues and/or t ouching/steadying and/or contact guard assistance as patient completes activity. Assistance may be provided throughout the activity or intermittently. 3-Partial/Moderate Assistance-helper does LESS THAN HALF the effort. [place] lifts, holds or supports trunk or limbs, but provides less than half the effort. 2-Substantial/Maximal Assistance-helper does MORE THAN HALF the effort. [place] lifts or holds trunk or limbs and provides more than half the effort. 9-Yvjtumtcd-fdnhbw does ALL the effort. Patient does none of the effort to complete the activity. Or, the assistance of 2 or more helpers is required for the patient to complete the activity. If activity was not attempted, code reason: 7-Patient Refused. 9-Not Applicable-not attempted and the patient did not perform the activity before the current illness, exacerbation or injury. 10-Not Attempted due to Environmental Limitations-(lack of equipment, weather restraints, etc.). 88-Not Attempted due to Medical Conditions or Safety Concerns. Roll Left to Right (QC): 1 Sit to Lying (QC): 1 Sit to Stand (QC): 1 Chair/Cky-qb-Awdlq Xfer(QC): 1 Car Transfer (QC): 88 Gait Training Does the Patient Walk?: No and Walking Goal IS indicated Walk 10 feet (QC): 88 Walk 50 ft with 2 Turns(QC): 88 Walk 150 ft (QC): 88 Walking 10ft/uneven surface-QC: 88 Gait Assistive Device: FWW Wheelchair Training Does the Pt Use a Wheelchair?: Yes Wheel 50 ft with 2 turns (QC): 2 Wheel 150 ft (QC): 88 Type of Wheelchair: Manual Stair Training 1 Step (curb) (QC): 88 4 Steps (QC): 88 12 Steps (QC): 88 Balance Picking up an Object (QC): 88 ADL-Treatment Eating (QC): 3 (mod A) Oral Hygiene (QC): 2 Shower/Bathe Self (QC): 2 Upper Body Dressing (QC): 3 (mod A) Lower Body Dressing (QC): 1 On/Off Footwear (QC): 1 Toileting Hygiene (QC): 1 Toilet Transfer (QC): 1 Assessment/Plan Assessment and Plan Assess & Plan/Chief Complaint Assessment: Encephalopathy from closed head injury with LOC 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 Left hand fracture Scalp laceration with hematoma HTN Recent UTI completed Rocephin and Omnicef Increased BMI Refuses Lovenox occasionally Low platelets New hypothyroidism Recurrent UTI 11/19/2022 empirically placed on cefepime but urine culture showed normal chance and urine culture so stopped on 11/20/2022 Plan: Pain control Rehab Fall risk Monitor confusion Complete abx 11/15/2022: Pain control Supportive care 11/16/2022: Pain control Lovenox: pt willing to take now 11/17/2022: May need skilled care 11/18/2022: Synthroid B12 11/19/2022: Replace Hoffmann Cefepime empirically 11/20/2022: Abx DC due to normal chance and urine culture 11/21/2022: Much improved status 11/22/2022: Supportive care Monitor closely (1) Closed head injury with brief loss of consciousness (2) Encephalopathy (3) Syncope Status: Acute (4) Hand fracture Status: Acute (5) Scalp laceration Status: Acute (6) Urinary tract infection Status: Acute LUCERO FUENTES DO Nov 22, 2022 07:11
[2022-11-22 07:37] VITALS: BP 140/62
[2022-11-22] MEDS: SERTRALINE 50 MG (ZOLOFT) TABLET PO SCH (08:53)
[2022-11-22] MEDS: polyethylene glycoL POWDER 17 GM (MIRALAX) PACK PO SCH ×2 (08:53→21:45)
[2022-11-22] MEDS: SENNA W/DOCUSATE (SENOKOT S) TABLET PO SCH ×2 (08:53→21:44)
[2022-11-22] MEDS: DOCUSATE SODIUM 100 MG (COLACE) CAP PO SCH ×2 (08:53→21:44)
[2022-11-22] MEDS: ATENOLOL 25 MG (TENORMIN) TAB PO SCH (08:53)
[2022-11-22] MEDS: ENOXAPARIN 40 MG/0.4 ML (LOVENOX) SYR SC SCH (08:54)
[2022-11-22] MEDS: metFORMIN 500 MG (GLUCOPHAGE) TAB PO SCH ×2 (09:02→21:43)
[2022-11-22] MEDS: SOD CHL GEL 0.5 OZ (AYR SALINE NASAL GEL) TUBE NS SCH ×2 (09:03→21:45)
[2022-11-22] MEDS: SALINE NASAL SPRAY (OCEAN) 45 ML BTL SCH ×3 (09:03→21:45)
[2022-11-22 20:15] VITALS: BP 127/59
[2022-11-23] MEDS: HYDROcodone/APAP 7.5 MG/325 MG (LORTAB, LORCET PLUS) TABLET PO PRN ×4 (02:18→19:28)
[2022-11-23] MEDS: inSUlin ASPART (NovoLOG) 1 UNIT/0.01 ML (CHARGE PER UNIT) SC SCH ×4 (05:36→21:12)
[2022-11-23] MEDS: CYANOCOBALAMIN 1,000 MCG (VITAMIN B-12) TABLET PO SCH (06:33)
[2022-11-23] MEDS: LEVOTHYROXINE 50 MCG (LEVOTHROID) TAB PO SCH (06:33)
[2022-11-23 08:00] VITALS: BP 141/79
[2022-11-23] MEDS: SERTRALINE 50 MG (ZOLOFT) TABLET PO SCH (08:23)
[2022-11-23] MEDS: DOCUSATE SODIUM 100 MG (COLACE) CAP PO SCH ×2 (08:28→20:20)
[2022-11-23] MEDS: SENNA W/DOCUSATE (SENOKOT S) TABLET PO SCH ×2 (08:28→20:20)
[2022-11-23] MEDS: ENOXAPARIN 40 MG/0.4 ML (LOVENOX) SYR SC SCH (08:30)
[2022-11-23] MEDS: ATENOLOL 25 MG (TENORMIN) TAB PO SCH (08:31)
[2022-11-23] MEDS: SOD CHL GEL 0.5 OZ (AYR SALINE NASAL GEL) TUBE NS SCH ×2 (08:32→20:26)
[2022-11-23] MEDS: SALINE NASAL SPRAY (OCEAN) 45 ML BTL SCH ×3 (08:32→20:26)
[2022-11-23] MEDS: metFORMIN 500 MG (GLUCOPHAGE) TAB PO SCH ×2 (08:36→20:20)
[2022-11-23] MEDS: polyethylene glycoL POWDER 17 GM (MIRALAX) PACK PO SCH ×2 (09:00→20:27)
--- NOTE | 2022-11-23 15:05 | PM&R Progress Note ---
Subjective HPI/CC On Admission Date Seen by Provider: Nov 23, 2022 Time Seen by Provider: 15:15 Subjective/Events-last exam 11/23/2022: Patient improved Set up in chair most of morning Pain is improved Granddaughter who is a nurse practitioner is requesting an MRI of her cervical spine but she will need to be recovered enough to be able to lay down for an MRI scan which will likely be outpatient 11/22/2022: Improved but slow recovery NH placement likely a reality Pain controlled 11/21/2022: Improved mobility today Daughter at bedside Bad day yesterday UCX normal chance 11/20/2022: Very slow recovery Pain is still present Closed head injury has increased disability 11/19/2022: Patient getting a little bit more complicated Could not urinate so replaced Hoffmann catheter and UA showed evidence of UTI again and she just completed Rocephin so we will start cefepime empirically Very difficult for her to ambulate 11/18/2022: No major issues Improved overall No pain except muscles and right hand Thyroid supplement and B12 given 11/17/2022: Patient having some struggles Completely dependent now Severe spine disease noted on imaging scan Unsure if we will need to send to skilled if she cannot recover 11/16/2022: Pain improved Daughter and grandkids are visiting No falls Lovenox discussed and she is willing to take it since I will monitor platelets No issues otherwise 11/15/2022: Patient doing a little better Slow recovery Confusion seems to be clearing Refusing Lovenox due to low platelets per patient I do not feel like she is at high risk for bleeding so she will continue to decline Lovenox Pain is controlled Objective Exam Vital Signs Vital Signs Date Time Temp Pulse Resp B/P (MAP) Pulse Ox O2 Delivery O2 Flow Rate FiO2 11/23/22 19:17 36.2 58 19 130/61 (84) 91 Room Air 11/23/22 09:00 1.00 Capillary Refill : General Appearance: No Apparent Distress, WD/WN, Chronically ill, Obese HEENT: PERRL/EOMI, Normal ENT Inspection, Pharynx Normal Neck: Full Range of Motion, Normal Inspection, Non Tender, Supple, Carotid Bruit Respiratory: Chest Non Tender, Lungs Clear, Normal Breath Sounds, No Accessory Muscle Use, No Respiratory Distress Cardiovascular: Regular Rate, Rhythm, No Edema, No Gallop, No JVD, No Murmur, Normal Peripheral Pulses Gastrointestinal: Normal Bowel Sounds, No Organomegaly, No Pulsatile Mass, Non Tender, Soft Back: Normal Inspection, No CVA Tenderness, No Vertebral Tenderness Extremity: Normal Capillary Refill, Normal Inspection, Normal Range of Motion, Non Tender, No Calf Tenderness, No Pedal Edema Neurologic/Psychiatric: Alert, Oriented x3, 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 FIM Transfers Therapy Code Descriptions/Definitions Functional [place] Measure: 0=Not Assessed/NA 4=Minimal Assistance 1=Total Assistance 5=Supervision or Setup 2=Maximal Assistance 6=Modified [place] 3=Moderate Assistance 7=Complete IndependenceSCALE: Activities may be completed with or without assistive devices. 2-Iiacpqnued-yqxyjbw completes the activity by him/herself with no assistance from a helper. 5-Set-up or Clean-up Assistance-helper sets up or cleans up; patient completes activity. [place] assists only prior to or following the activity. 4-Supervision or Touching Assistance-helper provides verbal cues and/or touching/steadying and/or contact guard assistance as patient completes activity. Assistance may be provided throughout the activity or intermittently. 3-Partial/Moderate Assistance-helper does LESS THAN HALF the effort. [place] lifts, holds or supports trunk or limbs, but provides less than half the effort. 2-Substantial/Maximal Assistance-helper does MORE THAN HALF the effort. [place] lifts or holds trunk or limbs and provides more than half the effort. 5-Fwgwsymkh-jjhzjb does ALL the effort. Patient does none of the effort to complete the activity. Or, the assistance of 2 or more helpers is required for the patient to complete the activity. If activity was not attempted, code reason: 7-Patient Refused. 9-Not Applicable-not attempted and the patient did not perform the activity before the current illness, exacerbation or injury. 10-Not Attempted due to Environmental Limitations-(lack of equipment, weather restraints, etc.). 88-Not Attempted due to Medical Conditions or Safety Concerns. Roll Left to Right (QC): 1 Sit to Lying (QC): 1 Sit to Stand (QC): 1 Chair/Fmr-ky-Vseuw Xfer(QC): 1 Car Transfer (QC): 88 Gait Training Does the Patient Walk?: No and Walking Goal IS indicated Walk 10 feet (QC): 88 Walk 50 ft with 2 Turns(QC): 88 Walk 150 ft (QC): 88 Walking 10ft/uneven surface-QC: 88 Gait Assistive Device: FWW Wheelchair Training Does the Pt Use a Wheelchair?: Yes Wheel 50 ft with 2 turns (QC): 2 Wheel 150 ft (QC): 88 Type of Wheelchair: Manual Stair Training 1 Step (curb) (QC): 88 4 Steps (QC): 88 12 Steps (QC): 88 Balance Picking up an Object (QC): 88 ADL-Treatment Eating (QC): 3 (mod A) Oral Hygiene (QC): 2 Shower/Bathe Self (QC): 2 Upper Body Dressing (QC): 3 (mod A) Lower Body Dressing (QC): 1 On/Off Footwear (QC): 1 Toileting Hygiene (QC): 1 Toilet Transfer (QC): 1 Assessment/Plan Assessment and Plan Assess & Plan/Chief Complaint Assessment: Encephalopathy from closed head injury with LOC 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 Left hand fracture Scalp laceration with hematoma HTN Recent UTI completed Rocephin and Omnicef Increased BMI Refuses Lovenox occasionally Low platelets New hypothyroidism Recurrent UTI 11/19/2022 empirically placed on cefepime but urine culture showed normal chance and urine culture so stopped on 11/20/2022 Plan: Pain control Rehab Fall risk Monitor confusion Complete abx 11/15/2022: Pain control Supportive care 11/16/2022: Pain control Lovenox: pt willing to take now 11/17/2022: May need skilled care 11/18/2022: Synthroid B12 11/19/2022: Replace Hoffmann Cefepime empirically 11/20/2022: Abx DC due to normal chance and urine culture 11/21/2022: Much improved status 11/22/2022: Supportive care Monitor closely 11/23/2022: Supportive care Monitor closely (1) Closed head injury with brief loss of consciousness (2) Encephalopathy (3) Syncope Status: Acute (4) Hand fracture Status: Acute (5) Scalp laceration Status: Acute (6) Urinary tract infection Status: Acute LUCERO FUENTES DO Nov 23, 2022 15:05
[2022-11-23] MEDS: DICLOFENAC 1% GEL 100 GM (VOLTAREN) TUBE TOP SCH ×2 (18:30→21:13)
[2022-11-23 19:17] VITALS: BP 130/61
[2022-11-23] MEDS: MELATONIN 3 MG TABLET PO PRN (20:20)
[2022-11-24] MEDS: HYDROcodone/APAP 7.5 MG/325 MG (LORTAB, LORCET PLUS) TABLET PO PRN ×4 (01:05→21:20)
[2022-11-24 05:37] LABS: BASOPHILS % (AUTO) 0 % (0-10)
[2022-11-24 05:39] LABS: EOSINOPHILS # (AUTO) 0.3 10^3/uL (0.0-0.3); EOSINOPHILS % (AUTO) 4 % (0-10); HEMATOCRIT 41 % (35-52); HEMOGLOBIN 13.5 g/dL (11.5-16.0); LYMPHOCYTES # (AUTO) 2.6 10^3/uL (1.0-4.0); LYMPHOCYTES % (AUTO) 32 % (12-44); MEAN CORPUSCULAR HEMOGLOBIN 28 pg (25-34); MEAN CORPUSCULAR HGB CONC 33 g/dL (32-36); MEAN CORPUSCULAR VOLUME 86 fL (80-99); MEAN PLATELET VOLUME 12.9 fL (9.0-12.2); MONOCYTES # (AUTO) 0.7 10^3/uL (0.0-1.0); MONOCYTES % (AUTO) 9 % (0-12); NEUTROPHILS # (AUTO) 4.4 10^3/uL (1.8-7.8); NEUTROPHILS % (AUTO) 53 % (42-75); PLATELET COUNT 84 10^3/uL (130-400); WHITE BLOOD COUNT 8.2 10^3/uL (4.3-11.0)
[2022-11-24 05:44] LABS: POTASSIUM 3.7 MMOL/L (3.6-5.0)
[2022-11-24 05:45] LABS: CALCIUM 9.3 MG/DL (8.5-10.1)
[2022-11-24 05:48] LABS: BILIRUBIN,TOTAL 0.5 MG/DL (0.1-1.0)
[2022-11-24 05:50] LABS: CREATININE SERUM 0.74 MG/DL (0.60-1.30)
[2022-11-24] MEDS: inSUlin ASPART (NovoLOG) 1 UNIT/0.01 ML (CHARGE PER UNIT) SC SCH ×4 (05:51→21:14)
--- NOTE | 2022-11-24 06:05 | PM&R Progress Note ---
Subjective HPI/CC On Admission Date Seen by Provider: Nov 24, 2022 Time Seen by Provider: 09:00 Subjective/Events-last exam 11/24/2022: Doing better Sit to stand used Slow recovery but improved 11/23/2022: Patient improved Set up in chair most of morning Pain is improved Granddaughter who is a nurse practitioner is requesting an MRI of her cervical spine but she will need to be recovered enough to be able to lay down for an MRI scan which will likely be outpatient 11/22/2022: Improved but slow recovery NH placement likely a reality Pain controlled 11/21/2022: Improved mobility today Daughter at bedside Bad day yesterday UCX normal chance 11/20/2022: Very slow recovery Pain is still present Closed head injury has increased disability 11/19/2022: Patient getting a little bit more complicated Could not urinate so replaced Hoffmann catheter and UA showed evidence of UTI again and she just completed Rocephin so we will start cefepime empirically Very difficult for her to ambulate 11/18/2022: No major issues Improved overall No pain except muscles and right hand Thyroid supplement and B12 given 11/17/2022: Patient having some struggles Completely dependent now Severe spine disease noted on imaging scan Unsure if we will need to send to skilled if she cannot recover 11/16/2022: Pain improved Daughter and grandkids are visiting No falls Lovenox discussed and she is willing to take it since I will monitor platelets No issues otherwise 11/15/2022: Patient doing a little better Slow recovery Confusion seems to be clearing Refusing Lovenox due to low platelets per patient I do not feel like she is at high risk for bleeding so she will continue to decline Lovenox Pain is controlled Review of Systems General: Fatigue, Malaise Objective Exam Vital Signs Vital Signs Date Time Temp Pulse Resp B/P (MAP) Pulse Ox O2 Delivery O2 Flow Rate FiO2 11/24/22 20:00 36.2 52 18 142/65 (90) 94 Room Air 11/24/22 08:00 1.00 Capillary Refill : General Appearance: No Apparent Distress, WD/WN, Chronically ill, Obese HEENT: PERRL/EOMI, Normal ENT Inspection, Pharynx Normal Neck: Full Range of Motion, Normal Inspection, Non Tender, Supple, Carotid Bruit Respiratory: Chest Non Tender, Lungs Clear, Normal Breath Sounds, No Accessory Muscle Use, No Respiratory Distress Cardiovascular: Regular Rate, Rhythm, No Edema, No Gallop, No JVD, No Murmur, Normal Peripheral Pulses Gastrointestinal: Normal Bowel Sounds, No Organomegaly, No Pulsatile Mass, Non Tender, Soft Back: Normal Inspection, No CVA Tenderness, No Vertebral Tenderness Extremity: Normal Capillary Refill, Normal Inspection, Normal Range of Motion, Non Tender, No Calf Tenderness, No Pedal Edema Neurologic/Psychiatric: Alert, Oriented x3, manager clinical 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 FIM Transfers Therapy Code Descriptions/Definitions Functional [place] Measure: 0=Not Assessed/NA 4=Minimal Assistance 1=Total Assistance 5=Supervision or Setup 2=Maximal Assistance 6=Modified [place] 3=Moderate Assistance 7=Complete IndependenceSCALE: Activities may be completed with or without assistive devices. 9-Hxoasgfmdy-gjnzzta completes the activity by him/herself with no assistance from a helper. 5-Set-up or Clean-up Assistance-helper sets up or cleans up; patient completes activity. [place] assists only prior to or following the activity. 4-Supervision or Touching Assistance-helper provides verbal cues and/or touching/steadying and/or contact guard assistance as patient completes activity. Assistance may be provided throughout the activity or intermittently. 3-Partial/Moderate Assistance-helper does LESS THAN HALF the effort. [place] lifts, holds or supports trunk or limbs, but provides less than half the effort. 2-Substantial/Maximal Assistance-helper does MORE THAN HALF the effort. [place] lifts or holds trunk or limbs and provides more than half the effort. 9-Yvazlmbcq-anmvcv does ALL the effort. Patient does none of the effort to complete the activity. Or, the assistance of 2 or more helpers is required for the patient to complete the activity. If activity was not attempted, code reason: 7-Patient Refused. 9-Not Applicable-not attempted and the patient did not perform the activity before the current illness, exacerbation or injury. 10-Not Attempted due to Environmental Limitations-(lack of equipment, weather restraints, etc.). 88-Not Attempted due to Medical Conditions or Safety Concerns. Roll Left to Right (QC): 1 Sit to Lying (QC): 1 Sit to Stand (QC): 1 Chair/Pel-dp-Rsgpn Xfer(QC): 1 Car Transfer (QC): 88 Gait Training Does the Patient Walk?: No and Walking Goal IS indicated Walk 10 feet (QC): 88 Walk 50 ft with 2 Turns(QC): 88 Walk 150 ft (QC): 88 Walking 10ft/uneven surface-QC: 88 Gait Assistive Device: FWW Wheelchair Training Does the Pt Use a Wheelchair?: Yes Wheel 50 ft with 2 turns (QC): 2 Wheel 150 ft (QC): 88 Type of Wheelchair: Manual Stair Training 1 Step (curb) (QC): 88 4 Steps (QC): 88 12 Steps (QC): 88 Balance Picking up an Object (QC): 88 ADL-Treatment Eating (QC): 3 (mod A) Oral Hygiene (QC): 2 Shower/Bathe Self (QC): 2 Upper Body Dressing (QC): 3 (mod A) Lower Body Dressing (QC): 1 On/Off Footwear (QC): 1 Toileting Hygiene (QC): 1 Toilet Transfer (QC): 1 Assessment/Plan Assessment and Plan Assess & Plan/Chief Complaint Assessment: Encephalopathy from closed head injury with LOC 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 Left hand fracture Scalp laceration with hematoma HTN Recent UTI completed Rocephin and Omnicef Increased BMI Refuses Lovenox occasionally Low platelets New hypothyroidism Recurrent UTI 11/19/2022 empirically placed on cefepime but urine culture showed normal chance and urine culture so stopped on 11/20/2022 Plan: Pain control Rehab Fall risk Monitor confusion Complete abx 11/15/2022: Pain control Supportive care 11/16/2022: Pain control Lovenox: pt willing to take now 11/17/2022: May need skilled care 11/18/2022: Synthroid B12 11/19/2022: Replace Hoffmann Cefepime empirically 11/20/2022: Abx DC due to normal chance and urine culture 11/21/2022: Much improved status 11/22/2022: Supportive care Monitor closely 11/23/2022: Supportive care Monitor closely 11/24/2022: Monitor closely (1) Closed head injury with brief loss of consciousness (2) Encephalopathy (3) Syncope Status: Acute (4) Hand fracture Status: Acute (5) Scalp laceration Status: Acute (6) Urinary tract infection Status: Acute LUCERO FUENTES DO Nov 24, 2022 06:04
[2022-11-24] MEDS: CYANOCOBALAMIN 1,000 MCG (VITAMIN B-12) TABLET PO SCH (06:22)
[2022-11-24] MEDS: LEVOTHYROXINE 50 MCG (LEVOTHROID) TAB PO SCH (06:22)
--- NOTE | 2022-11-24 07:34 | Occupational Ther Daily Note ---
OT Current Status-Daily Note Subjective Pt alert, lying in bed. Pt c/o 6/10 pain, nrsg aware. VINES has pt do movement exercises to get B UE/LE moving prior to breakfast. ADL-Treatment Therapy Code Descriptions/Definitions Functional [place] Measure: 0=Not Assessed/NA 4=Minimal Assistance 1=Total Assistance 5=Supervision or Setup 2=Maximal Assistance 6=Modified [place] 3=Moderate Assistance 7=Complete IndependenceSCALE: Activities may be completed with or without assistive devices. 7-Noqqstgljm-jvxqhxx completes the activity by him/herself with no assistance from a helper. 5-Set-up or Clean-up Assistance-helper sets up or cleans up; patient completes activity. [place] assists only prior to or following the activity. 4-Supervision or Touching Assistance-helper provides verbal cues and/or touching/steadying and/or contact guard assistance as patient completes activity. Assistance may be provided throughout the activity or intermittently. 3-Partial/Moderate Assistance-helper does LESS THAN HALF the effort. [place] lifts, holds or supports trunk or limbs, but provides less than half the effort. 2-Substantial/Maximal Assistance-helper does MORE THAN HALF the effort. [place] lifts or holds trunk or limbs and provides more than half the effort. 8-Xwvficnkc-sidzbc does ALL the effort. Patient does none of the effort to complete the activity. Or, the assistance of 2 or more helpers is required for the patient to complete the activity. If activity was not attempted, code reason: 7-Patient Refused. 9-Not Applicable-not attempted and the patient did not perform the activity before the current illness, exacerbation or injury. 10-Not Attempted due to Environmental Limitations-(lack of equipment, weather restraints, etc.). 88-Not Attempted due to Medical Conditions or Safety Concerns. Lower Body Dressing (QC): 1 On/Off Footwear: 1 Other Treatment Pt completed supine to sit with with Min A (HOB elevated). Pt transferred from bed > w/c and from w/c to chair with the sit to stand lift. Pt completed w/c mobility x 50ft with Max A. Pt completed sit to stand x 4 in the // bars with Max A x 2. Pt stood for 15-30 seconds on each bout with Mod/Max A and Max v/c for L elbow ext, R TKE, B hip ext, and upright posture. Pt completed wall squats in the w/c with B LE x 10 with manual resistance and x 15 with R LE only with manual resistance. Pt completed B UE exercises to increase B shldr AROM. Pt left in care of PT. All needs met. OT Short Term Goals Short Term Goals Time Frame: Nov 21, 2022 Eatin Oral hygiene: 6 (sitting) Upper body dressin OT Doctor Of Pharmacy Goals Detention Goals Time Frame: Nov 28, 2022 Acute change in mental status: 0 Inattention: 0 Disorganized thinkin Altered level of consciousness: 0 Eating (QC): 6 Oral Hygiene (QC): 6 Toileting Hygiene (QC): 4 Shower/Bathe Self (QC): 4 Upper Body Dressing (QC): 4 Lower Body Dressing (QC): 4 On/Off Footwear (QC): 4 (with tools) 1=Demonstrate adherence to instructed precautions during ADL tasks. 2=Patient will verbalize/demonstrate understanding of assistive devices/modifications for ADL. 3=Patient will improve strength/tolerance for activity to enable patient to perform ADL's. OT Education/Plan Problem List/Assessment Assessment: Decreased Activ Tolerance, Decreased UE Strength, Dependent Transfers, Impaired Bed Mobility, Impaired Funct Balance, Impaired Self-Care Skills, Restricted Funct UE ROM Discharge Recommendations Plan/Recommendations: Continue POC Treatment Plan/Plan of Care Patient would benefit from OT for education, treatment and training to promote independence in ADL's, mobility, safety and/or upper extremity function for ADL's. Plan of Care: ADL Retraining, Cognitive Retraining, Concurrent Therapy, Functional Mobility, Group Exercise/Act as Ind, Orthotic Fitting/Training, UE Funct Exercise/Act, UE Neuromus Re-Ed/Coord Treatment Duration: Nov 28, 2022 Frequency: At least 5 of 7 days/Wk (IRF) Estimated Hrs Per Day: 1.5 hours per day Agreement: Yes Rehab Potential: Fair Time Start Time: 10:00 Stop Time: 11:00 DATE: Nov 24, 2022 Total Time Billed (hr/min): 60 Billed Treatment Time 1 visit-FA 2 (30 min) EX 2 (30 min) cotreat with PT 60 min JORDAN PULLIAM Nov 24, 2022 07:33
[2022-11-24 08:00] VITALS: BP 169/71
[2022-11-24] MEDS: ATENOLOL 25 MG (TENORMIN) TAB PO SCH (08:43)
[2022-11-24] MEDS: DOCUSATE SODIUM 100 MG (COLACE) CAP PO SCH ×2 (08:43→21:21)
[2022-11-24] MEDS: SENNA W/DOCUSATE (SENOKOT S) TABLET PO SCH ×2 (08:43→21:20)
[2022-11-24] MEDS: SERTRALINE 50 MG (ZOLOFT) TABLET PO SCH (08:43)
[2022-11-24] MEDS: DICLOFENAC 1% GEL 100 GM (VOLTAREN) TUBE TOP SCH ×4 (08:45→21:25)
[2022-11-24] MEDS: ENOXAPARIN 40 MG/0.4 ML (LOVENOX) SYR SC SCH (08:45)
[2022-11-24] MEDS: SOD CHL GEL 0.5 OZ (AYR SALINE NASAL GEL) TUBE NS SCH ×2 (08:49→21:24)
[2022-11-24] MEDS: polyethylene glycoL POWDER 17 GM (MIRALAX) PACK PO SCH ×2 (08:49→21:14)
[2022-11-24] MEDS: SALINE NASAL SPRAY (OCEAN) 45 ML BTL SCH ×3 (08:49→21:24)
[2022-11-24] MEDS ORDERED: PHENAZOPYRIDINE 100 MG (PYRIDIUM) TABLET PO NR (10:00)
[2022-11-24] MEDS ORDERED: PHENAZOPYRIDINE 100 MG (PYRIDIUM) TABLET PO PRN (10:00)
[2022-11-24] MEDS: metFORMIN 500 MG (GLUCOPHAGE) TAB PO SCH ×2 (10:09→21:32)
[2022-11-24] MEDS: BETHANECHOL 25 MG (URECHOLINE) TAB PO SCH ×4 (11:29→21:21)
[2022-11-24] MEDS: BACLOFEN 10 MG (LIORESAL) TAB PO PRN (11:53)
--- NOTE | 2022-11-24 11:54 | Physical Therapy Daily Note ---
PT Daily Note-Current Subjective Pt reports she is doing well and ready to PT. Pt denies any pain. Pain Numeric Pain Scale: 0-No Pain Location: No Pain Reported Section J - Health Conditions 1. Rarely or not at all 2. Occasionally 3. Frequently 4. Almost constantly 8. Unable to answer Pain Effect on Sleep: 2 Pain Interference with Therapy: 2 Pain Interference w/Day-to-Day: 2 Mental Status Attachments: Hoffmann Catheter Transfers SCALE: Activities may be completed with or without assistive devices. 4-Wdvmffblzr-slctczh completes the activity by him/herself with no assistance from a helper. 5-Set-up or Clean-up Assistance-helper sets up or cleans up; patient completes activity. [place] assists only prior to or following the activity. 4-Supervision or Touching Assistance-helper provides verbal cues and/or touching/steadying and/or contact guard assistance as patient completes activity. Assistance may be provided throughout the activity or intermittently. 3-Partial/Moderate Assistance-helper does LESS THAN HALF the effort. [place] lifts, holds or supports trunk or limbs, but provides less than half the effort. 2-Substantial/Maximal Assistance-helper does MORE THAN HALF the effort. [place] lifts or holds trunk or limbs and provides more than half the effort. 0-Eghnhdhiz-gfjyhg does ALL the effort. Patient does none of the effort to complete the activity. Or, the assistance of 2 or more helpers is required for the patient to complete the activity. If activity was not attempted, code reason: 7-Patient Refused. 9-Not Applicable-not attempted and the patient did not perform the activity before the current illness, exacerbation or injury. 10-Not Attempted due to Environmental Limitations-(lack of equipment, weather restraints, etc.). 88-Not Attempted due to Medical Conditions or Safety Concerns. Lying to Sitting/Side of Bed(Q: 3 Sit to Stand (QC): 1 Chair/Rmt-id-Iguzt Xfer(QC): 1 Weight Bearing Right Lower Extremity: Right Full Weight Bearing Left Lower Extremity: Left Full Weight Bearing WBAT R wrist with brace Gait Training Does the Patient Walk?: No and Walking Goal IS indicated Wheelchair Training Does the Pt Use a Wheelchair?: Yes Wheel 50 ft with 2 turns (QC): 2 Wheel 150 ft (QC): 88 Type of Wheelchair: Manual Treatments PT/OT co-tx ([id number]), skills of 2 clinicians required to decrease fall risk, increase standing tolerance, increase overall strength and decrease pain. PT focusing on bed mobility, standing, B LE strengthening and transfers, while OT focusing on ADLs, functional mobility, B UE strengthening/AROM and assisting with standing. Pt completed supine to sit with with Min A (HOB elevated). Pt transferred from bed > w/c and from w/c to chair with the sit to stand lift. Pt completed w/c mobility x 50ft with Max A. Pt completed sit to stand x 4 in the // bars with Max A x 2. Pt stood for 15-30 seconds on each bout with Mod/Max A and Max v/c for L elbow ext, R TKE, B hip ext, and upright posture. Pt completed wall squats in the w/c with B LE x 10 with manual resistance and x 15 with R LE only with manual resistance. Pt completed seated B LE Ther Ex x 12 reps each with the red Tband. Pt up in the recliner upon completion of PT with call light in reach, all needs met, and family present. Assessment Current Status: Good Progress Pt tolerated PT well with good effort PT Lab Rn Goals Jail Goals PT Jail Goals Time Frame: Nov 28, 2022 Roll Left & Right (QC): 4 (Pt will be SBA for functional mobility, in order to safely d/c back to [facility] ) Sit to Lying (QC): 4 (Pt will be SBA for functional mobility, in order to safely d/c back to [facility] ) Lying-Sitting on Side/Bed(QC): 4 (Pt will be SBA for functional mobility, in order to safely d/c back to AFL ) Sit to Stand (QC): 4 (Pt will be SBA for functional mobility, in order to safely d/c back to AFL ) Chair/Imv-mz-Ruklm Xfer(QC): 4 (Pt will be SBA for functional mobility, in order to safely d/c back to [facility] ) Toilet Transfer (QC): 4 (Pt will be SBA for functional mobility, in order to safely d/c back to AFL ) Car Transfer (QC): 4 (Pt will be SBA for functional mobility, in order to safely d/c back to [facility] ) Does the Patient Walk: No and Walking Goal IS indicated Walk 10 feet (QC): 4 (Pt will be SBA for functional mobility, in order to safely d/c back to AFL ) Walk 50ft with 2 Turns (QC): 4 (Pt will be SBA for functional mobility, in order to safely d/c back to AFL ) Walk 150 ft (QC): 4 (Pt will be SBA for functional mobility, in order to safely d/c back to AFL ) Walking 10ft on Uneven Surface: 4 (Pt will be SBA for functional mobility, in order to safely d/c back to AFL ) 1 Step (curb) (QC): 9 (Pt did not have to negotiate stairs at PLOF ) 4 Steps (QC): 9 (Pt did not have to negotiate stairs at PLOF ) 12 Steps (QC): 9 (Pt did not have to negotiate stairs at PLOF ) Picking up an Object (QC): 4 (Pt will be SBA for functional mobility, in order to safely d/c back to [facility] ) Does the Pt use WC or Scooter?: Yes Wheel 50 feet with 2 turns (QC: 4 (Pt will be SBA for functional mobility, in order to safely d/c back to AFL ) Type: Manual Wheel 150 feet: 4 (Pt will be SBA for functional mobility, in order to safely d/c back to AFL ) Type: Manual PT Plan Problem List Problem List: Activity Tolerance, Functional Strength, Safety, Balance, Gait, Transfer, Bed Mobility, ROM Treatment/Plan Treatment Plan: Continue Plan of Care Treatment Plan: Bed Mobility, Concurrent Therapy, Education, Functional Activity Sean, Functional Strength, Group Therapy, Gait, Safety, Therapeutic Exercise, Transfers Treatment Duration: Nov 28, 2022 Frequency: At least 5 of 7 days/Wk (IRF) Estimated Hrs Per Day: 1.5 hours per day Patient and/or Family Agrees t: Yes Safety Risks/Education Patient Education: Transfer Techniques, W/C Management, Safety Issues Teaching Recipient: Patient, Family Teaching Methods: Demonstration, Discussion Response to Teaching: Verbalize Understanding, Return Demonstration, Reinforcement Needed Discharge Recommendations Therapy Discharge Recommendati: 24 Hour Supervision Discharge Status/Home Program Cont per POC Barriers to Progress Weakness; debility Target Placement SNF Time Time In: 1000 Time Out: 1130 DATE: Nov 24, 2022 Total Billed Treatment Time: 90 Total Billed Treatment 90 min total from [id number] with co-tx from [id number] for 60 min 1 visit FA x 5 EX x 1 SLICK LAST PT Nov 24, 2022 11:54
--- NOTE | 2022-11-24 15:02 | Occupational Ther Daily Note ---
OT Current Status-Daily Note Subjective Pt alert, lying in bed. Pt agrees to therapy. Pt c/o overall pain, 10/18. Mental Status/Objective Patient Orientation: Person, Place, Time, Situation Attachments: Hoffmann Catheter ADL-Treatment Movement for B UE/LE's to improve ROM for eating. Pt required set up and modifications to utensils to eat independently. Pt required assistance to position for eating in bed. After therapy, pt lying in bed with call light/phone in reach. All needs met in room. Therapy Code Descriptions/Definitions Functional [place] Measure: 0=Not Assessed/NA 4=Minimal Assistance 1=Total Assistance 5=Supervision or Setup 2=Maximal Assistance 6=Modified [place] 3=Moderate Assistance 7=Complete IndependenceSCALE: Activities may be completed with or without assistive devices. 5-Epdiiskzxk-sbczsyp completes the activity by him/herself with no assistance from a helper. 5-Set-up or Clean-up Assistance-helper sets up or cleans up; patient completes activity. [place] assists only prior to or following the activity. 4-Supervision or Touching Assistance-helper provides verbal cues and/or touching/steadying and/or contact guard assistance as patient completes activity. Assistance may be provided throughout the activity or intermittently. 3-Partial/Moderate Assistance-helper does LESS THAN HALF the effort. [place] lifts, holds or supports trunk or limbs, but provides less than half the effort. 2-Substantial/Maximal Assistance-helper does MORE THAN HALF the effort. [place] lifts or holds trunk or limbs and provides more than half the effort. 7-Bfrcexrxb-fbkath does ALL the effort. Patient does none of the effort to complete the activity. Or, the assistance of 2 or more helpers is required for the patient to complete the activity. If activity was not attempted, code reason: 7-Patient Refused. 9-Not Applicable-not attempted and the patient did not perform the activity before the current illness, exacerbation or injury. 10-Not Attempted due to Environmental Limitations-(lack of equipment, weather restraints, etc.). 88-Not Attempted due to Medical Conditions or Safety Concerns. Eating (QC): 5 OT Short Term Goals Short Term Goals Time Frame: Nov 21, 2022 Eatin Oral hygiene: 6 (sitting) Upper body dressin OT Alf Goals Alf Goals Time Frame: Nov 28, 2022 Acute change in mental status: 0 Inattention: 0 Disorganized thinkin Altered level of consciousness: 0 Eating (QC): 6 Oral Hygiene (QC): 6 Toileting Hygiene (QC): 4 Shower/Bathe Self (QC): 4 Upper Body Dressing (QC): 4 Lower Body Dressing (QC): 4 On/Off Footwear (QC): 4 (with tools) 1=Demonstrate adherence to instructed precautions during ADL tasks. 2=Patient will verbalize/demonstrate understanding of assistive devices/modifications for ADL. 3=Patient will improve strength/tolerance for activity to enable patient to perform ADL's. OT Education/Plan Problem List/Assessment Assessment: Decreased Activ Tolerance, Decreased UE Strength, Impaired Self- Care Skills, Restricted Funct UE ROM Discharge Recommendations Plan/Recommendations: Continue POC Treatment Plan/Plan of Care Patient would benefit from OT for education, treatment and training to promote independence in ADL's, mobility, safety and/or upper extremity function for ADL's. Plan of Care: ADL Retraining, Cognitive Retraining, Concurrent Therapy, Functional Mobility, Group Exercise/Act as Ind, Orthotic Fitting/Training, UE Funct Exercise/Act, UE Neuromus Re-Ed/Coord Treatment Duration: Nov 28, 2022 Frequency: At least 5 of 7 days/Wk (IRF) Estimated Hrs Per Day: 1.5 hours per day Agreement: Yes Rehab Potential: Fair Time Start Time: 07:00 Stop Time: 08:00 DATE: Nov 24, 2022 Total Time Billed (hr/min): 60 Billed Treatment Time 1 visit-ADL 2 (30 min) JORDAN PULLIAM Nov 24, 2022 15:02
--- NOTE | 2022-11-24 17:50 | Diagnostic Imaging Report ---
INDICATION: Right wrist pain. FINDINGS: Three views of the right wrist show diffuse degenerative changes of the radiocarpal, intercarpal, and triangular fibrocartilage spaces of the wrist. There is no acute fracture or dislocation. IMPRESSION: Degenerative changes of the wrist. No acute abnormalities seen. Dictated by: Dictated on workstation # [id number]
[2022-11-24 20:00] VITALS: BP 142/65
[2022-11-24] MEDS: MELATONIN 3 MG TABLET PO PRN (21:20)
[2022-11-25] MEDS: BACLOFEN 10 MG (LIORESAL) TAB PO PRN ×3 (00:25→20:35)
[2022-11-25] MEDS: HYDROcodone/APAP 7.5 MG/325 MG (LORTAB, LORCET PLUS) TABLET PO PRN ×4 (03:54→20:35)
--- NOTE | 2022-11-25 06:02 | PM&R Progress Note ---
Subjective HPI/CC On Admission Date Seen by Provider: Nov 25, 2022 Time Seen by Provider: 09:00 Subjective/Events-last exam 11/25/2022: Much improved Voiding well BM+ No falls Improved transfers DC tomorrow to SNF 11/24/2022: Doing better Sit to stand used Slow recovery but improved 11/23/2022: Patient improved Set up in chair most of morning Pain is improved Granddaughter who is a nurse practitioner is requesting an MRI of her cervical spine but she will need to be recovered enough to be able to lay down for an MRI scan which will likely be outpatient 11/22/2022: Improved but slow recovery NH placement likely a reality Pain controlled 11/21/2022: Improved mobility today Daughter at bedside Bad day yesterday UCX normal chance 11/20/2022: Very slow recovery Pain is still present Closed head injury has increased disability 11/19/2022: Patient getting a little bit more complicated Could not urinate so replaced Hoffmann catheter and UA showed evidence of UTI again and she just completed Rocephin so we will start cefepime empirically Very difficult for her to ambulate 11/18/2022: No major issues Improved overall No pain except muscles and right hand Thyroid supplement and B12 given 11/17/2022: Patient having some struggles Completely dependent now Severe spine disease noted on imaging scan Unsure if we will need to send to skilled if she cannot recover 11/16/2022: Pain improved Daughter and grandkids are visiting No falls Lovenox discussed and she is willing to take it since I will monitor platelets No issues otherwise 11/15/2022: Patient doing a little better Slow recovery Confusion seems to be clearing Refusing Lovenox due to low platelets per patient I do not feel like she is at high risk for bleeding so she will continue to decline Lovenox Pain is controlled Review of Systems General: Fatigue, Malaise Objective Exam Vital Signs Vital Signs Date Time Temp Pulse Resp B/P (MAP) Pulse Ox O2 Delivery O2 Flow Rate FiO2 11/25/22 08:11 Room Air 11/25/22 08:03 59 20 94 11/25/22 07:47 36.4 153/70 (97) 11/24/22 08:00 1.00 Capillary Refill : General Appearance: No Apparent Distress, WD/WN, Chronically ill, Obese HEENT: PERRL/EOMI, Normal ENT Inspection, Pharynx Normal Neck: Full Range of Motion, Normal Inspection, Non Tender, Supple, Carotid Bruit Respiratory: Chest Non Tender, Lungs Clear, Normal Breath Sounds, No Accessory Muscle Use, No Respiratory Distress Cardiovascular: Regular Rate, Rhythm, No Edema, No Gallop, No JVD, No Murmur, Normal Peripheral Pulses Gastrointestinal: Normal Bowel Sounds, No Organomegaly, No Pulsatile Mass, Non Tender, Soft Back: Normal Inspection, No CVA Tenderness, No Vertebral Tenderness Extremity: Normal Capillary Refill, Normal Inspection, Normal Range of Motion, Non Tender, No Calf Tenderness, No Pedal Edema Neurologic/Psychiatric: Alert, Oriented x3, hand weaver II-XII Norm as Tested, Abnormal Gait, Depressed Affect, Motor Weakness (generalized), Other (confusion) Skin: Normal Color, Warm/Dry Lymphatic: No Adenopathy Results/Procedures Lab Patient resulted labs reviewed. FIM Transfers Therapy Code Descriptions/Definitions Functional [place] Measure: 0=Not Assessed/NA 4=Minimal Assistance 1=Total Assistance 5=Supervision or Setup 2=Maximal Assistance 6=Modified [place] 3=Moderate Assistance 7=Complete IndependenceSCALE: Activities may be completed with or without assistive devices. 7-Cqmjmnjmsn-wbxmcwu completes the activity by him/herself with no assistance from a helper. 5-Set-up or Clean-up Assistance-helper sets up or cleans up; patient completes activity. [place] assists only prior to or following the activity. 4-Supervision or Touching Assistance-helper provides verbal cues and/or touching/steadying and/or contact guard assistance as patient completes activity. Assistance may be provided throughout the activity or intermittently. 3-Partial/Moderate Assistance-helper does LESS THAN HALF the effort. [place] lifts, holds or supports trunk or limbs, but provides less than half the effort. 2-Substantial/Maximal Assistance-helper does MORE THAN HALF the effort. [place] lifts or holds trunk or limbs and provides more than half the effort. 4-Damlhhzuz-vcjsey does ALL the effort. Patient does none of the effort to complete the activity. Or, the assistance of 2 or more helpers is required for the patient to complete the activity. If activity was not attempted, code reason: 7-Patient Refused. 9-Not Applicable-not attempted and the patient did not perform the activity before the current illness, exacerbation or injury. 10-Not Attempted due to Environmental Limitations-(lack of equipment, weather restraints, etc.). 88-Not Attempted due to Medical Conditions or Safety Concerns. Roll Left to Right (QC): 1 Sit to Lying (QC): 1 Sit to Stand (QC): 1 Chair/Ngy-gm-Jksor Xfer(QC): 1 Car Transfer (QC): 88 Gait Training Does the Patient Walk?: No and Walking Goal IS indicated Walk 10 feet (QC): 88 Walk 50 ft with 2 Turns(QC): 88 Walk 150 ft (QC): 88 Walking 10ft/uneven surface-QC: 88 Gait Assistive Device: FWW Wheelchair Training Does the Pt Use a Wheelchair?: Yes Wheel 50 ft with 2 turns (QC): 2 Wheel 150 ft (QC): 88 Type of Wheelchair: Manual Stair Training 1 Step (curb) (QC): 88 4 Steps (QC): 88 12 Steps (QC): 88 Balance Picking up an Object (QC): 88 ADL-Treatment Eating (QC): 5 Oral Hygiene (QC): 2 Shower/Bathe Self (QC): 2 Upper Body Dressing (QC): 3 (mod A) Lower Body Dressing (QC): 1 On/Off Footwear (QC): 1 Toileting Hygiene (QC): 1 Toilet Transfer (QC): 1 Assessment/Plan Assessment and Plan Assess & Plan/Chief Complaint Assessment: Encephalopathy from closed head injury with LOC 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 Left hand fracture Scalp laceration with hematoma HTN Recent UTI completed Rocephin and Omnicef Increased BMI Refuses Lovenox occasionally Low platelets New hypothyroidism Recurrent UTI 11/19/2022 empirically placed on cefepime but urine culture showed normal chance and urine culture so stopped on 11/20/2022 Plan: Pain control Rehab Fall risk Monitor confusion Complete abx 11/15/2022: Pain control Supportive care 11/16/2022: Pain control Lovenox: pt willing to take now 11/17/2022: May need skilled care 11/18/2022: Synthroid B12 11/19/2022: Replace Hoffmann Cefepime empirically 11/20/2022: Abx DC due to normal chance and urine culture 11/21/2022: Much improved status 11/22/2022: Supportive care Monitor closely 11/23/2022: Supportive care Monitor closely 11/24/2022: Monitor closely 11/25/2022: DC tomorrow to SNF (1) Closed head injury with brief loss of consciousness (2) Encephalopathy (3) Syncope Status: Acute (4) Hand fracture Status: Acute (5) Scalp laceration Status: Acute (6) Urinary tract infection Status: Acute LUCERO FUENTES DO Nov 25, 2022 06:02
[2022-11-25] MEDS: LEVOTHYROXINE 50 MCG (LEVOTHROID) TAB PO SCH (06:31)
[2022-11-25] MEDS: CYANOCOBALAMIN 1,000 MCG (VITAMIN B-12) TABLET PO SCH (06:31)
[2022-11-25] MEDS: BETHANECHOL 25 MG (URECHOLINE) TAB PO SCH ×4 (06:31→20:35)
[2022-11-25] MEDS: inSUlin ASPART (NovoLOG) 1 UNIT/0.01 ML (CHARGE PER UNIT) SC SCH ×4 (06:32→20:30)
--- NOTE | 2022-11-25 07:32 | Occupational Ther Daily Note ---
OT Current Status-Daily Note Subjective Pt alert, lying in bed. Pt agrees to therapy. Pt c/o neck pain though did not rate. Increased AROM and decreased pain with BUE movement during functional. Mental Status/Objective Patient Orientation: Person, Place, Time, Situation ADL-Treatment Pt requests to use bed saldivar. Pt requires 2 person mod assist to roll side to side and stay in sidelying to position bed pain then 2 person assist to scoop up in bed. Pt dependent for hygiene and clothing manipulation for toileting with bed saldivar. Set up assist for eating, pt uses built up handles and modified spoon (bent R 75*) to allow for decreased wrist radial deviation. Pt has progressed with this since last week when unable to bring modified spoon to mouth with oatmeal without spillage. Pt able to grasp finger foods off of plate with L hand and bring to mouth. After Therapy Code Descriptions/Definitions Functional [place] Measure: 0=Not Assessed/NA 4=Minimal Assistance 1=Total Assistance 5=Supervision or Setup 2=Maximal Assistance 6=Modified [place] 3=Moderate Assistance 7=Complete IndependenceSCALE: Activities may be completed with or without assistive devices. 7-Xlwxehdlrd-ssjjpwi completes the activity by him/herself with no assistance from a helper. 5-Set-up or Clean-up Assistance-helper sets up or cleans up; patient completes activity. [place] assists only prior to or following the activity. 4-Supervision or Touching Assistance-helper provides verbal cues and/or touching/steadying and/or contact guard assistance as patient completes activity. Assistance may be provided throughout the activity or intermittently. 3-Partial/Moderate Assistance-helper does LESS THAN HALF the effort. [place] lifts, holds or supports trunk or limbs, but provides less than half the effort. 2-Substantial/Maximal Assistance-helper does MORE THAN HALF the effort. [place] lifts or holds trunk or limbs and provides more than half the effort. 1-Kojcpmmas-foxpjw does ALL the effort. Patient does none of the effort to complete the activity. Or, the assistance of 2 or more helpers is required for the patient to complete the activity. If activity was not attempted, code reason: 7-Patient Refused. 9-Not Applicable-not attempted and the patient did not perform the activity before the current illness, exacerbation or injury. 10-Not Attempted due to Environmental Limitations-(lack of equipment, weather restraints, etc.). 88-Not Attempted due to Medical Conditions or Safety Concerns. Eating (QC): 5 Toileting Hygiene (QC): 1 Toilet Transfer (QC): 1 BIMS CAM BIMS Expression of Ideas and Wants: Without Difficulty Understanding Verbal Content: Understands IRF [place]RI[place] BIMS: IRF [place] BIMS Response (Comments) Value Repitition of Three Words Three 3 Recalls Socks Yes, After Cueing (Wear) 1 Recalls Blue Yes, No Cue Required 2 Recalls Bed Yes, No Cue Required 2 Year Correct 3 Month Accurate Within 5 Days 2 Day Correct 1 Total 14 Patient Normally Able to Recal: Current Session, Staff Names and faces, That he/she in a hsp Should Staff Asses. Mental St.: No CAM Mental Status Change/Baseline: 0 Inattention: 0 Disorganized thinkin Altered level of consciousness: 0 OT Short Term Goals Short Term Goals Time Frame: Nov 21, 2022 Eatin Oral hygiene: 6 (sitting) Upper body dressin OT Half-Way Goals Marketing Program Manager Goals Time Frame: Nov 28, 2022 Acute change in mental status: 0 Inattention: 0 Disorganized thinkin Altered level of consciousness: 0 Eating (QC): 6 (not met) Oral Hygiene (QC): 6 (not met) Toileting Hygiene (QC): 4 (nt met) Shower/Bathe Self (QC): 4 Upper Body Dressing (QC): 4 Lower Body Dressing (QC): 4 On/Off Footwear (QC): 4 (with tools) 1=Demonstrate adherence to instructed precautions during ADL tasks. 2=Patient will verbalize/demonstrate understanding of assistive devices/modifications for ADL. 3=Patient will improve strength/tolerance for activity to enable patient to perform ADL's. OT Education/Plan Problem List/Assessment Assessment: Decreased Activ Tolerance, Decreased UE Strength, Dependent Transfers, Impaired Bed Mobility, Impaired Self-Care Skills, Restricted Funct UE ROM Discharge Recommendations Plan/Recommendations: Continue POC Treatment Plan/Plan of Care Patient would benefit from OT for education, treatment and training to promote independence in ADL's, mobility, safety and/or upper extremity function for ADL's. Plan of Care: ADL Retraining, Cognitive Retraining, Concurrent Therapy, Functional Mobility, Group Exercise/Act as Ind, Orthotic Fitting/Training, UE Funct Exercise/Act, UE Neuromus Re-Ed/Coord Treatment Duration: Nov 28, 2022 Frequency: At least 5 of 7 days/Wk (IRF) Estimated Hrs Per Day: 1.5 hours per day Agreement: Yes Rehab Potential: Fair Time Start Time: 06:45 Stop Time: 07:30 DATE: Nov 25, 2022 Total Time Billed (hr/min): 45 Billed Treatment Time 1 visit-ADL 3 (45 min) JORDAN PULLIAM Nov 25, 2022 07:32
[2022-11-25 07:47] VITALS: BP 153/70
[2022-11-25] MEDS: DOCUSATE SODIUM 100 MG (COLACE) CAP PO SCH ×2 (08:07→20:35)
[2022-11-25] MEDS: polyethylene glycoL POWDER 17 GM (MIRALAX) PACK PO SCH ×2 (08:07→20:30)
[2022-11-25] MEDS: ATENOLOL 25 MG (TENORMIN) TAB PO SCH ×2 (08:07→08:21)
[2022-11-25] MEDS: SENNA W/DOCUSATE (SENOKOT S) TABLET PO SCH ×2 (08:07→20:30)
[2022-11-25] MEDS: SERTRALINE 50 MG (ZOLOFT) TABLET PO SCH (08:08)
[2022-11-25] MEDS: ENOXAPARIN 40 MG/0.4 ML (LOVENOX) SYR SC SCH (08:13)
[2022-11-25] MEDS: SALINE NASAL SPRAY (OCEAN) 45 ML BTL SCH ×3 (08:18→20:30)
[2022-11-25] MEDS: SOD CHL GEL 0.5 OZ (AYR SALINE NASAL GEL) TUBE NS SCH ×2 (08:18→20:30)
[2022-11-25] MEDS: metFORMIN 500 MG (GLUCOPHAGE) TAB PO SCH ×2 (08:27→20:35)
[2022-11-25] MEDS: DICLOFENAC 1% GEL 100 GM (VOLTAREN) TUBE TOP SCH ×4 (08:29→20:36)
--- NOTE | 2022-11-25 11:34 | Physical Therapy Daily Note ---
PT Daily Note-Current Subjective Pt was finishing up shower with VINES upon arrival. Pt reported neck pain at 5/10. Pt agreeable to treatment. Pain Numeric Pain Scale: 5-Moderate Pain Location Body Site: Neck Section J - Health Conditions 1. Rarely or not at all 2. Occasionally 3. Frequently 4. Almost constantly 8. Unable to answer Pain Effect on Sleep: 1 Pain Interference with Therapy: 2 Pain Interference w/Day-to-Day: 1 Transfers SCALE: Activities may be completed with or without assistive devices. 0-Sbpneinwae-umosvgr completes the activity by him/herself with no assistance from a helper. 5-Set-up or Clean-up Assistance-helper sets up or cleans up; patient completes activity. [place] assists only prior to or following the activity. 4-Supervision or Touching Assistance-helper provides verbal cues and/or touching/steadying and/or contact guard assistance as patient completes activity. Assistance may be provided throughout the activity or intermittently. 3-Partial/Moderate Assistance-helper does LESS THAN HALF the effort. [place] lifts, holds or supports trunk or limbs, but provides less than half the effort. 2-Substantial/Maximal Assistance-helper does MORE THAN HALF the effort. [place] lifts or holds trunk or limbs and provides more than half the effort. 3-Kzpdydaiq-wleuyd does ALL the effort. Patient does none of the effort to complete the activity. Or, the assistance of 2 or more helpers is required for the patient to complete the activity. If activity was not attempted, code reason: 7-Patient Refused. 9-Not Applicable-not attempted and the patient did not perform the activity before the current illness, exacerbation or injury. 10-Not Attempted due to Environmental Limitations-(lack of equipment, weather restraints, etc.). 88-Not Attempted due to Medical Conditions or Safety Concerns. Roll Left & Right (QC): 3 Sit to Lying (QC): 3 Lying to Sitting/Side of Bed(Q: 3 Sit to Stand (QC): 1 Chair/Ott-rj-Sdopg Xfer(QC): 1 Toilet Transfer (QC): 1 Car Transfer (QC): 88 Weight Bearing Right Lower Extremity: Right Full Weight Bearing Left Lower Extremity: Left Full Weight Bearing WBAT R wrist with brace Gait Training Does the Patient Walk?: No and Walking Goal IS indicated Walk 10 feet (QC): 88 Walk 50 ft with 2 Turns(QC): 88 Walk 150 ft (QC): 88 Walking 10ft/uneven surface-QC: 88 Wheelchair Training Does the Pt Use a Wheelchair?: Yes Wheel 50 ft with 2 turns (QC): 2 Wheel 150 ft (QC): 2 Type of Wheelchair: Manual Stair Training 1 Step (curb) (QC): 88 4 Steps (QC): 88 12 Steps (QC): 88 Balance Picking up an Object (QC): 88 Special Test Comments KU standing balance scale = 1+/5 Treatments QCs completed on this date. PT/OT co-tx ([id number]), skills of 2 clinicians required to decrease fall risk, increase standing tolerance, increase overall strength and decrease pain. PT focusing on bed mobility, standing, B LE strengthening and transfers, while OT focusing on ADLs, functional mobility, B UE strengthening/AROM and assisting with standing. Pt completes bed mobility with Min/Mod A. Pt in shower room with VINES upon arrival. Sit to stand lift utilized to transfer pt from [place] to w/c. Pt pushed to therapy gym. Pt stood x 2 in the // bars with Mod/Max A x 2. Pt stood for 1 min on each attempt with Min/Mod A x 2. Pt completed seated B LE Ther Ex x 15 reps each with the red Tband. Pt completed seated wall squats in the w/c with manual resistance 2 x 10 reps. Pt completed cervical flex/ext AROM x 10 reps. Pt completed w/c mobility x 150ft with Mod/Max A. Sit to stand lift utilized to transfer pt from w/c to recliner. Pt left in recliner with call light in reach, all needs met, and family present, post-tx. Assessment Current Status: Good Progress Pt tolerated PT well with good effort. Pt is making good, but slow progress. PT Short Term Goals Short Term Goals Time Frame: Nov 25, 2022 PT [employer]or Goals Mcfp Goals PT Mcfp Goals Time Frame: Nov 28, 2022 Roll Left & Right (QC): 4 (Pt will be SBA for functional mobility, in order to safely d/c back to AFL ) Sit to Lying (QC): 4 (Pt will be SBA for functional mobility, in order to safely d/c back to AFL ) Lying-Sitting on Side/Bed(QC): 4 (Pt will be SBA for functional mobility, in order to safely d/c back to AFL ) Sit to Stand (QC): 4 (Pt will be SBA for functional mobility, in order to safely d/c back to AFL ) Chair/Icx-hu-Natkw Xfer(QC): 4 (Pt will be SBA for functional mobility, in order to safely d/c back to AFL ) Toilet Transfer (QC): 4 (Pt will be SBA for functional mobility, in order to safely d/c back to AFL ) Car Transfer (QC): 4 (Pt will be SBA for functional mobility, in order to safely d/c back to AFL ) Does the Patient Walk: No and Walking Goal IS indicated Walk 10 feet (QC): 4 (Pt will be SBA for functional mobility, in order to safely d/c back to AFL ) Walk 50ft with 2 Turns (QC): 4 (Pt will be SBA for functional mobility, in order to safely d/c back to AFL ) Walk 150 ft (QC): 4 (Pt will be SBA for functional mobility, in order to safely d/c back to AFL ) Walking 10ft on Uneven Surface: 4 (Pt will be SBA for functional mobility, in order to safely d/c back to AFL ) 1 Step (curb) (QC): 9 (Pt did not have to negotiate stairs at PLOF ) 4 Steps (QC): 9 (Pt did not have to negotiate stairs at PLOF ) 12 Steps (QC): 9 (Pt did not have to negotiate stairs at PLOF ) Picking up an Object (QC): 4 (Pt will be SBA for functional mobility, in order to safely d/c back to AFL ) Does the Pt use WC or Scooter?: Yes Wheel 50 feet with 2 turns (QC: 4 (Pt will be SBA for functional mobility, in order to safely d/c back to AFL ) Type: Manual Wheel 150 feet: 4 (Pt will be SBA for functional mobility, in order to safely d/c back to AFL ) Type: Manual PT Plan Problem List Problem List: Activity Tolerance, Functional Strength, Safety, Balance, Gait, Transfer, Bed Mobility Treatment/Plan Treatment Plan: Continue Plan of Care Treatment Plan: Bed Mobility, Concurrent Therapy, Education, Functional Activity Sean, Functional Strength, Group Therapy, Gait, Safety, Therapeutic Exercise, Transfers Treatment Duration: Nov 28, 2022 Frequency: At least 5 of 7 days/Wk (IRF) Estimated Hrs Per Day: 1.5 hours per day Patient and/or Family Agrees t: Yes Safety Risks/Education Patient Education: Transfer Techniques, Correct Positioning, W/C Management, Safety Issues Teaching Recipient: Patient, Family Teaching Methods: Demonstration, Discussion Response to Teaching: Verbalize Understanding, Return Demonstration, Reinforcement Needed Discharge Recommendations Therapy Discharge Recommendati: 24 Hour Supervision Discharge Status/Home Program Cont per POC Barriers to Progress Weakness; debility Target Placement SNF Time Time In: 930 Time Out: 1100 DATE: Nov 25, 2022 Total Billed Treatment Time: 90 Total Billed Treatment 90 min total from [id number]; co-tx from [id number] for 30 min 1 visit FA x 4 EX x 2 SLICK LAST PT Nov 25, 2022 11:34
--- NOTE | 2022-11-25 11:58 | Occupational Ther Daily Note ---
OT Current Status-Daily Note Subjective Pt alert, lying in bed. Daughters present in room. Pt does c/o neck pain though less frequently from previous sessions. Co-treat with PT([id number]), skills of 2 clinicians required to decrease fall risk, increase standing tolerance, decrease pain. PT focusing on standing and transfers while OT focusing on ADLs, assisting with standing and B UE placement during standing. Mental Status/Objective Patient Orientation: Person, Place, Time, Situation ADL-Treatment Sit to stand lift for all transfers. Min A for supine to EOB then sat EOB with SBA. Transferred to shower chair with cutout for shower. Pt attempted to cleanse upper body, B UE's and abdomen though not efficiently. Assist needed to thoroughly cleanse underarms, under breasts and under pannis after attempts then VINES completed rest of bathing for buttocks/martha area, upper/lower legs and feet. Pt is set up for oral care. Assist to manipulate shirt to thread R UE->head->L UE then pull down back and front. Pt attempts to assist with UBD due to decreased ROM throughout B UE's pt is inefficient with task. Dependent with LBD and footwear. Pt will attempt to assist with bathing and dressing though gives up quickly and states she can't do it. 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 Pt has wrist co ck-up splint on R wrist, WBAT. Therapy Code Descriptions/Definitions Functional [place] Measure: 0=Not Assessed/NA 4=Minimal Assistance 1=Total Assistance 5=Supervision or Setup 2=Maximal Assistance 6=Modified [place] 3=Moderate Assistance 7=Complete IndependenceSCALE: Activities may be completed with or without assistive devices. 2-Ruhuvyxiun-mhenqzn completes the activity by him/herself with no assistance from a helper. 5-Set-up or Clean-up Assistance-helper sets up or cleans up; patient completes activity. [place] assists only prior to or following the activity. 4-Supervision or Touching Assistance-helper provides verbal cues and/or touching/steadying and/or contact guard assistance as patient completes activity. Assistance may be provided throughout the activity or intermittently. 3-Partial/Moderate Assistance-helper does LESS THAN HALF the effort. [place] lifts, holds or supports trunk or limbs, but provides less than half the effort. 2-Substantial/Maximal Assistance-helper does MORE THAN HALF the effort. [place] lifts or holds trunk or limbs and provides more than half the effort. 2-Vdnjzifvq-zbygzx does ALL the effort. Patient does none of the effort to complete the activity. Or, the assistance of 2 or more helpers is required for the patient to complete the activity. If activity was not attempted, code reason: 7-Patient Refused. 9-Not Applicable-not attempted and the patient did not perform the activity before the current illness, exacerbation or injury. 10-Not Attempted due to Environmental Limitations-(lack of equipment, weather restraints, etc.). 88-Not Attempted due to Medical Conditions or Safety Concerns. Oral Hygiene (QC): 5 (built up handle for toothbrush) Bathing Location: Chest Shower/Bathe Self (QC): 2 Upper Body Dressing (QC): 2 Lower Body Dressing (QC): 1 On/Off Footwear: 1 Toileting Hygiene (QC): 1 Toilet Transfer (QC): 1 Other Treatment Sit to stand lift utilized to transfer pt from [place] to w/c. Pt pushed to therapy gym. Pt stood x 2 in the // bars with Mod/Max A x 2. Pt stood for 1 min on each attempt with Min/Mod A x 2. Pt left in care of PT. All needs met. OT Short Term Goals Short Term Goals Time Frame: Nov 21, 2022 Eatin Oral hygiene: 6 (sitting) Upper body dressin OT Long-Term Goals Long-Term Goals Time Frame: Nov 28, 2022 Acute change in mental status: 0 Inattention: 0 Disorganized thinkin Altered level of consciousness: 0 Eating (QC): 6 (not met) Oral Hygiene (QC): 6 (not met) Toileting Hygiene (QC): 4 (nt met) Shower/Bathe Self (QC): 4 (not met) Upper Body Dressing (QC): 4 (not met) Lower Body Dressing (QC): 4 (not met) On/Off Footwear (QC): 4 (with tools) 1=Demonstrate adherence to instructed precautions during ADL tasks. 2=Patient will verbalize/demonstrate understanding of assistive devices/modifications for ADL. 3=Patient will improve strength/tolerance for activity to enable patient to perform ADL's. OT Education/Plan Problem List/Assessment Assessment: Decreased Activ Tolerance, Decreased UE Strength, Dependent Transfers, Impaired Bed Mobility, Impaired Funct Balance, Impaired Self-Care Skills, Restricted Funct UE ROM Discharge Recommendations Plan/Recommendations: Continue POC Treatment Plan/Plan of Care Patient would benefit from OT for education, treatment and training to promote independence in ADL's, mobility, safety and/or upper extremity function for ADL's. Plan of Care: ADL Retraining, Cognitive Retraining, Concurrent Therapy, Functional Mobility, Group Exercise/Act as Ind, Orthotic Fitting/Training, UE Funct Exercise/Act, UE Neuromus Re-Ed/Coord Treatment Duration: Nov 28, 2022 Frequency: At least 5 of 7 days/Wk (IRF) Estimated Hrs Per Day: 1.5 hours per day Agreement: Yes Rehab Potential: Fair Time Start Time: 09:00 Stop Time: 10:00 DATE: Nov 25, 2022 Total Time Billed (hr/min): 60 Billed Treatment Time 1 visit-ADL 2 (30 min) FA 2 (30 min) co-treat [id number], individual [id number] JORDAN PULLIAM Nov 25, 2022 11:58
[2022-11-25] MEDS ORDERED: LEVO50TA PO (20:10)
[2022-11-25] MEDS ORDERED: SODI44SP2 NSEACH (20:10)
[2022-11-25] MEDS ORDERED: METF-397 PO (20:10)
[2022-11-25] MEDS ORDERED: BETH25TA2 PO (20:10)
[2022-11-25] MEDS ORDERED: MENT71OI TP (20:10)
[2022-11-25] MEDS ORDERED: BACL10TA PO (20:10)
[2022-11-25] MEDS ORDERED: CYAN-41 PO (20:10)
[2022-11-25] MEDS ORDERED: HYDR-34 PO (20:10)
[2022-11-25] MEDS ORDERED: ENOX40DI8 SC (20:10)
[2022-11-25] MEDS ORDERED: SENN-271 PO (20:10)
[2022-11-25] MEDS ORDERED: SERT-412 PO (20:10)
[2022-11-25] MEDS ORDERED: ONDA4TAB11 PO (20:10)
[2022-11-25] MEDS ORDERED: TRM50T PO (20:10)
[2022-11-25] MEDS ORDERED: DICL100G13 TOP (20:10)
[2022-11-25] MEDS ORDERED: ATEN50TA PO (20:10)
--- NOTE | 2022-11-25 20:12 | Discharge Inst-Skilled Nursing ---
Discharge Inst-Skilled NF Reconcile Patient Problems Problems Reviewed?: Yes Patient Instructions Patient Problems: Closed head injury Debility Goal: Inpendence Consult/Follow Up/Orders Follow Up Appt.: Dr Joseph/Susana Khan on rounds Skilled NF Admit to: Certification (SNF) I certify that SNF services are required to be given on an inpatient basis because of the above named patient's need for group home care on a continuing basis for the conditions(s) for which he/she was receiving inpatient hospital services prior to his/her transfer to the SNF. [facility] Facility Order: Nursing Services, Air Conditioning Specialist-Evaluate & Treat, Physical Therapy-Evaluate & Treat, Speech Language-Evaluate & Treat, Wound Care-Eval/Treat Oxygen Delivery Method: Room Air Discharge Diet: No Restrictions Resuscitation Status: Do Not Resuscitate New & Resume Previous Orders Rosalia Joseph Nov 25, 2022 20:11 ROSALIA JOSEPH DO Nov 25, 2022 20:12
[2022-11-25 20:30] VITALS: BP 155/86
[2022-11-25] MEDS: MELATONIN 3 MG TABLET PO PRN (20:35)
[2022-11-26] MEDS: HYDROcodone/APAP 7.5 MG/325 MG (LORTAB, LORCET PLUS) TABLET PO PRN ×3 (00:09→14:02)
[2022-11-26] MEDS: BETHANECHOL 25 MG (URECHOLINE) TAB PO SCH ×2 (06:34→10:57)
[2022-11-26] MEDS: LEVOTHYROXINE 50 MCG (LEVOTHROID) TAB PO SCH (06:34)
[2022-11-26] MEDS: CYANOCOBALAMIN 1,000 MCG (VITAMIN B-12) TABLET PO SCH (06:34)
[2022-11-26] MEDS: inSUlin ASPART (NovoLOG) 1 UNIT/0.01 ML (CHARGE PER UNIT) SC SCH ×2 (06:34→10:52)
[2022-11-26 08:00] VITALS: BP 142/59
[2022-11-26] MEDS: SERTRALINE 50 MG (ZOLOFT) TABLET PO SCH (08:25)
[2022-11-26] MEDS: DOCUSATE SODIUM 100 MG (COLACE) CAP PO SCH (08:25)
[2022-11-26] MEDS: SENNA W/DOCUSATE (SENOKOT S) TABLET PO SCH (08:25)
[2022-11-26] MEDS: ENOXAPARIN 40 MG/0.4 ML (LOVENOX) SYR SC SCH (08:27)
[2022-11-26] MEDS: polyethylene glycoL POWDER 17 GM (MIRALAX) PACK PO SCH (08:27)
[2022-11-26] MEDS: SOD CHL GEL 0.5 OZ (AYR SALINE NASAL GEL) TUBE NS SCH (08:28)
[2022-11-26] MEDS: SALINE NASAL SPRAY (OCEAN) 45 ML BTL SCH ×2 (08:28→13:15)
[2022-11-26] MEDS: ATENOLOL 25 MG (TENORMIN) TAB PO SCH (08:35)
[2022-11-26] MEDS: metFORMIN 500 MG (GLUCOPHAGE) TAB PO SCH (08:35)
[2022-11-26] MEDS: DICLOFENAC 1% GEL 100 GM (VOLTAREN) TUBE TOP SCH ×2 (08:36→13:15)
--- NOTE | 2022-11-26 09:15 | Discharge Summary ---
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 Left hand fracture Scalp laceration with hematoma HTN Recent UTI completed Rocephin and Omnicef Increased BMI Refuses Lovenox occasionally Low platelets New hypothyroidism Recurrent UTI 11/19/2022 empirically placed on cefepime but urine culture showed normal chance and urine culture so stopped on 11/20/2022 Plan: Pain control Rehab Fall risk Monitor confusion Complete abx 11/15/2022: Pain control Supportive care 11/16/2022: Pain control Lovenox: pt willing to take now 11/17/2022: May need skilled care 11/18/2022: Synthroid B12 11/19/2022: Replace Berry Cefepime empirically 11/20/2022: Abx DC due to normal chance and urine culture 11/21/2022: Much improved status 11/22/2022: Supportive care Monitor closely 11/23/2022: Supportive care Monitor closely 11/24/2022: Monitor closely 11/25/2022: DC tomorrow to SNF (1) Closed head injury with brief loss of consciousness (2) Encephalopathy (3) Syncope Status: Acute (4) Hand fracture Status: Acute (5) Scalp laceration Status: Acute (6) Urinary tract infection Status: Acute Discharge Summary Discharge Physical Examination Allergies: Coded Allergies: No Known Drug Allergies (Unverified , 08/30/10) Vitals & I&Os Vital Signs Date Time Temp Pulse Resp B/P (MAP) Pulse Ox O2 Delivery O2 Flow Rate FiO2 11/26/22 15:27 35.4 56 14 142/59 97 Room Air 11/26/22 08:00 1.00 General Appearance: Alert, Oriented X3, Cooperative Respiratory: Clear to Auscultation Cardiovascular: Regular Rate Psych/Mental Status: Mental Status NL Hospital Course Was the Problem List Reviewed?: Yes Slow recovery during stay in ARU. Patient remained stable both vitals and labs. Lovenox maintained for DVT PPx. Urinary retention required berry catheter replacement and will remain at DC. Transfers were much improved at time of DC but needed SNF for slower recovery Labs (last 24 hrs) Laboratory Tests 11/14/22 14:10: Lab Scanned Report Referred Lab Report 11/15/22 06:01: White Blood Count 9.4, Red Blood Count 4.64, Hemoglobin 13.0, Hematocrit 40, Mean Corpuscular Volume 87, Mean Corpuscular Hemoglobin 28, Mean Corpuscular Hemoglobin Concent 32, Red Cell Distribution Width 13.5, Platelet Count 91L, Mean Platelet Volume 13.1H, Immature Granulocyte % (Auto) 1, Neutrophils (%) (Auto) 66, Lymphocytes (%) (Auto) 21, Monocytes (%) (Auto) 11, Eosinophils (%) (Auto) 0, Basophils (%) (Auto) 0, Neutrophils # (Auto) 6.2, Lymphocytes # (Auto) 2.0, Monocytes # (Auto) 1.0, Eosinophils # (Auto) 0.0, Basophils # (Auto) 0.0, Immature Granulocyte # (Auto) 0.1, Percent Immature Platelet Fraction 15.9H, Sodium Level 139, Potassium Level 3.4L, Chloride Level 104, Carbon Dioxide Level 26, Anion Gap 9, Blood Urea Nitrogen 14, Creatinine 0.63, Estimat Glomerular Filtration Rate 88, BUN/Creatinine Ratio 22, Glucose Level 104, Calcium Level 9.1, Corrected Calcium 9.7, Total Bilirubin 0.7, Aspartate Amino Transf (AST/SGOT) 16, Alanine Aminotransferase (ALT/SGPT) 13, Alkaline Phosphatase 55, Total Protein 6.4, Albumin 3.2 11/15/22 10:45: Glucometer 147H 11/15/22 15:09: Glucometer 85 11/15/22 20:14: Glucometer 109 11/16/22 05:16: Glucometer 87 11/16/22 10:50: Glucometer 104 11/16/22 15:06: Glucometer 122H 11/16/22 20:09: Glucometer 127H 11/17/22 05:13: White Blood Count 8.5, Red Blood Count 4.57, Hemoglobin 12.8, Hematocrit 40, Mean Corpuscular Volume 86, Mean Corpuscular Hemoglobin 28, Mean Corpuscular Hemoglobin Concent 32, Red Cell Distribution Width 13.3, Platelet Count 97L, Mean Platelet Volume 13.1H, Immature Granulocyte % (Auto) 2, Neutrophils (%) (Auto) 61, Lymphocytes (%) (Auto) 23, Monocytes (%) (Auto) 10, Eosinophils (%) (Auto) 3, Basophils (%) (Auto) 0, Neutrophils # (Auto) 5.2, Lymphocytes # (Auto) 2.0, Monocytes # (Auto) 0.9, Eosinophils # (Auto) 0.3, Basophils # (Auto) 0.0, Immature Granulocyte # (Auto) 0.2H, Percent Immature Platelet Fraction 14.3H, Sodium Level 139, Potassium Level 3.6, Chloride Level 102, Carbon Dioxide Level 29, Anion Gap 8, Blood Urea Nitrogen 13, Creatinine 0.64, Estimat Glomerular Filtration Rate 88, BUN/Creatinine Ratio 20, Glucose Level 99, Calcium Level 8.8, Corrected Calcium 9.8, Total Bilirubin 0.7, Aspartate Amino Transf (AST/SGOT) 15, Alanine Aminotransferase (ALT/SGPT) 15, Alkaline Phosphatase 49, Total Protein 5.9L, Albumin 2.8L, Vitamin B12 Level 276, Thyroid Stimulating Hormone (TSH) 5.55H 11/17/22 10:42: Glucometer 133H 11/17/22 15:33: Glucometer 97 11/17/22 20:18: Glucometer 143H 11/18/22 05:57: Glucometer 98 11/18/22 10:44: Glucometer 122H 11/18/22 15:43: Glucometer 93 11/18/22 20:09: Glucometer 124H 11/19/22 05:53: Glucometer 91 11/19/22 10:51: Glucometer 109 11/19/22 15:16: Glucometer 95 11/19/22 18:45: Urine Color YELLOW, Urine Clarity SL CLOUDY, Urine pH 7.0, Urine Specific [place] <=1.005, Urine Protein NEGATIVE, Urine Glucose (UA) NEGATIVE, Urine Ketones NEGATIVE, Urine Nitrite NEGATIVE, Urine Bilirubin NEGATIVE, Urine Urobilinogen 0.2, Urine Leukocyte Esterase 3+H, Urine RBC (Auto) TRACE-IH, Urine RBC 5-10H, Urine WBC >100H, Urine Squamous Epithelial Cells 5-10, Urine Crystals NONE, Urine Bacteria MODERATEH, Urine Casts NONE, Urine Mucus NEGATIVE, Urine Culture Indicated YES 11/19/22 21:22: Glucometer 99 11/20/22 06:07: Glucometer 97 11/20/22 10:50: Glucometer 131H 11/20/22 15:44: Glucometer 83 11/20/22 20:53: Glucometer 108 11/21/22 05:54: Glucometer 96 11/21/22 10:54: Glucometer 84 11/21/22 15:32: Glucometer 107 11/21/22 20:11: Glucometer 122H 11/22/22 05:44: Glucometer 99 11/22/22 11:04: Glucometer 101 11/22/22 15:25: Glucometer 143H 11/22/22 20:14: Glucometer 101 11/23/22 05:03: Glucometer 84 11/23/22 10:43: Glucometer 100 11/23/22 15:23: Glucometer 102 11/23/22 20:47: Glucometer 127H 11/24/22 05:12: White Blood Count 8.2, Red Blood Count 4.80, Hemoglobin 13.5, Hematocrit 41, Mean Corpuscular Volume 86, Mean Corpuscular Hemoglobin 28, Mean Corpuscular Hemoglobin Concent 33, Red Cell Distribution Width 13.9, Platelet Count 84L, Mean Platelet Volume 12.9H, Immature Granulocyte % (Auto) 2, Neutrophils (%) (Auto) 53, Lymphocytes (%) (Auto) 32, Monocytes (%) (Auto) 9, Eosinophils (%) (Auto) 4, Basophils (%) (Auto) 0, Neutrophils # (Auto) 4.4, Lymphocytes # (Auto) 2.6, Monocytes # (Auto) 0.7, Eosinophils # (Auto) 0.3, Basophils # (Auto) 0.0, Immature Granulocyte # (Auto) 0.2H, Percent Immature Platelet Fraction 13.0H, Sodium Level 139, Potassium Level 3.7, Chloride Level 104, Carbon Dioxide Level 27, Anion Gap 8, Blood Urea Nitrogen 15, Creatinine 0.74, Estimat Glomerular Filtration Rate 80, BUN/Creatinine Ratio 20, Glucose Level 94, Calcium Level 9.3, Corrected Calcium 10.1, Total Bilirubin 0.5, Aspartate Amino Transf (AST/SGOT) 22, Alanine Aminotransferase (ALT/SGPT) 20, Alkaline Phosphatase 48, Total Protein 6.0L, Albumin 3.0L 11/24/22 10:47: Glucometer 101 11/24/22 15:11: Glucometer 97 11/24/22 21:13: Glucometer 107 11/25/22 06:30: Glucometer 100 11/25/22 10:52: Glucometer 98 11/25/22 15:29: Glucometer 98 11/25/22 20:27: Glucometer 103 11/26/22 06:01: Glucometer 81 11/26/22 10:44: Glucometer 106 Microbiology 11/19/22 Urine Culture - Final, Complete Growth Consistent Pending Labs Microbiology Date/Time Source Procedure Growth Status 11/19/22 18:45 Urine Straight Cath, In/Out Urine Culture - Final Growth Consistent Complete Laboratory Tests 11/14/22 14:10: Lab Scanned Report Referred Lab Report 11/15/22 06:01: White Blood Count 9.4, Red Blood Count 4.64, Hemoglobin 13.0, Hematocrit 40, Mean Corpuscular Volume 87, Mean Corpuscular Hemoglobin 28, Mean Corpuscular Hemoglobin Concent 32, Red Cell Distribution Width 13.5, Platelet Count 91, Mean Platelet Volume 13.1, Immature Granulocyte % (Auto) 1, Neutrophils (%) (Auto) 66, Lymphocytes (%) (Auto) 21, Monocytes (%) (Auto) 11, Eosinophils (%) (Auto) 0, Basophils (%) (Auto) 0, Neutrophils # (Auto) 6.2, Lymphocytes # (Auto) 2.0, Monocytes # (Auto) 1.0, Eosinophils # (Auto) 0.0, Basophils # (Auto) 0.0, Immature Granulocyte # (Auto) 0.1, Percent Immature Platelet Fraction 15.9, Sodium Level 139, Potassium Level 3.4, Chloride Level 104, Carbon Dioxide Level 26, Anion Gap 9, Blood Urea Nitrogen 14, Creatinine 0.63, Estimat Glomerular Filtration Rate 88, BUN/Creatinine Ratio 22, Glucose Level 104, Calcium Level 9.1, Corrected Calcium 9.7, Total Bilirubin 0.7, Aspartate Amino Transf (AST/SGOT) 16, Alanine Aminotransferase (ALT/SGPT) 13, Alkaline Phosphatase 55, Total Protein 6.4, Albumin 3.2 11/15/22 10:45: Glucometer 147 11/15/22 15:09: Glucometer 85 11/15/22 20:14: Glucometer 109 11/16/22 05:16: Glucometer 87 11/16/22 10:50: Glucometer 104 11/16/22 15:06: Glucometer 122 11/16/22 20:09: Glucometer 127 11/17/22 05:13: White Blood Count 8.5, Red Blood Count 4.57, Hemoglobin 12.8, Hematocrit 40, Mean Corpuscular Volume 86, Mean Corpuscular Hemoglobin 28, Mean Corpuscular Hemoglobin Concent 32, Red Cell Distribution Width 13.3, Platelet Count 97, Mean Platelet Volume 13.1, Immature Granulocyte % (Auto) 2, Neutrophils (%) (Auto) 61, Lymphocytes (%) (Auto) 23, Monocytes (%) (Auto) 10, Eosinophils (%) (Auto) 3, Basophils (%) (Auto) 0, Neutrophils # (Auto) 5.2, Lymphocytes # (Auto) 2.0, Monocytes # (Auto) 0.9, Eosinophils # (Auto) 0.3, Basophils # (Auto) 0.0, Immature Granulocyte # (Auto) 0.2, Percent Immature Platelet Fraction 14.3, Sodium Level 139, Potassium Level 3.6, Chloride Level 102, Carbon Dioxide Level 29, Anion Gap 8, Blood Urea Nitrogen 13, Creatinine 0.64, Estimat Glomerular Filtration Rate 88, BUN/Creatinine Ratio 20, Glucose Level 99, Calcium Level 8.8, Corrected Calcium 9.8, Total Bilirubin 0.7, Aspartate Amino Transf (AST/SGOT) 15, Alanine Aminotransferase (ALT/SGPT) 15, Alkaline Phosphatase 49, Total Protein 5.9, Albumin 2.8, Vitamin B12 Level 276, Thyroid Stimulating Hormone (TSH) 5.55 11/17/22 10:42: Glucometer 133 11/17/22 15:33: Glucometer 97 11/17/22 20:18: Glucometer 143 11/18/22 05:57: Glucometer 98 11/18/22 10:44: Glucometer 122 11/18/22 15:43: Glucometer 93 11/18/22 20:09: Glucometer 124 11/19/22 05:53: Glucometer 91 11/19/22 10:51: Glucometer 109 11/19/22 15:16: Glucometer 95 11/19/22 18:45: Urine Color YELLOW, Urine Clarity SL CLOUDY, Urine pH 7.0, Urine Specific [place] <=1.005, Urine Protein NEGATIVE, Urine Glucose (UA) NEGATIVE, Urine Ketones NEGATIVE, Urine Nitrite NEGATIVE, Urine Bilirubin NEGATIVE, Urine Urobilinogen 0.2, Urine Leukocyte Esterase 3+, Urine RBC (Auto) TRACE-I, Urine RBC 5-10, Urine WBC >100, Urine Squamous Epithelial Cells 5-10, Urine Crystals NONE, Urine Bacteria MODERATE, Urine Casts NONE, Urine Mucus NEGATIVE, Urine Culture Indicated YES 11/19/22 21:22: Glucometer 99 11/20/22 06:07: Glucometer 97 11/20/22 10:50: Glucometer 131 11/20/22 15:44: Glucometer 83 11/20/22 20:53: Glucometer 108 11/21/22 05:54: Glucometer 96 11/21/22 10:54: Glucometer 84 11/21/22 15:32: Glucometer 107 11/21/22 20:11: Glucometer 122 11/22/22 05:44: Glucometer 99 11/22/22 11:04: Glucometer 101 11/22/22 15:25: Glucometer 143 11/22/22 20:14: Glucometer 101 11/23/22 05:03: Glucometer 84 11/23/22 10:43: Glucometer 100 11/23/22 15:23: Glucometer 102 11/23/22 20:47: Glucometer 127 11/24/22 05:12: White Blood Count 8.2, Red Blood Count 4.80, Hemoglobin 13.5, Hematocrit 41, Mean Corpuscular Volume 86, Mean Corpuscular Hemoglobin 28, Mean Corpuscular Hemoglobin Concent 33, Red Cell Distribution Width 13.9, Platelet Count 84, Mean Platelet Volume 12.9, Immature Granulocyte % (Auto) 2, Neutrophils (%) (Auto) 53, Lymphocytes (%) (Auto) 32, Monocytes (%) (Auto) 9, Eosinophils (%) (Auto) 4, Basophils (%) (Auto) 0, Neutrophils # (Auto) 4.4, Lymphocytes # (Auto) 2.6, Monocytes # (Auto) 0.7, Eosinophils # (Auto) 0.3, Basophils # (Auto) 0.0, Immature Granulocyte # (Auto) 0.2, Percent Immature Platelet Fraction 13.0, Sodium Level 139, Potassium Level 3.7, Chloride Level 104, Carbon Dioxide Level 27, Anion Gap 8, Blood Urea Nitrogen 15, Creatinine 0.74, Estimat Glomerular Filtration Rate 80, BUN/Creatinine Ratio 20, Glucose Level 94, Calcium Level 9.3, Corrected Calcium 10.1, Total Bilirubin 0.5, Aspartate Amino Transf (AST/SGOT) 22, Alanine Aminotransferase (ALT/SGPT) 20, Alkaline Phosphatase 48, Total Protein 6.0, Albumin 3.0 11/24/22 10:47: Glucometer 101 11/24/22 15:11: Glucometer 97 11/24/22 21:13: Glucometer 107 11/25/22 06:30: Glucometer 100 11/25/22 10:52: Glucometer 98 11/25/22 15:29: Glucometer 98 11/25/22 20:27: Glucometer 103 11/26/22 06:01: Glucometer 81 11/26/22 10:44: Glucometer 106 Discharge Home Medications: Active Scripts Active Vitamin B-12 (Cyanocobalamin (Vitamin B-12)) 1,000 Mcg Tablet 1,000 Mcg PO D AILY@0700 Synthroid (Levothyroxine Sodium) 50 Mcg Tablet 50 Mcg PO DAILY@0630 Ondansetron Odt (Ondansetron) 4 Mg Tab.rapdis 4 Mg PO Q6H PRN Stool Softener-Laxative Tablet (Sennosides/Docusate Sodium) 8.6 Mg-50 Mg Tablet 1 Ea PO BID Tramadol HCl 50 Mg Tablet 50 Mg PO Q4HR PRN HYDROcodone/APAP 7.5/325 TAB (Acetaminophen/Hydrocodone Bitart) 1 Ea Tablet 1 Ea PO Q4H PRN Enoxaparin Sodium 40 Mg/0.4 Ml Syringe 40 Mg SC Q24H Baclofen 10 Mg Tablet 5 Mg PO Q6HR PRN Bethanechol Chloride 25 Mg Tablet 25 Mg PO ACHS Metformin HCl 500 Mg Tablet 250 Mg PO 0800,1999 Diclofenac Sodium 1 % Gel..gram. 1 Applic TOP BID joint pain Deep Sea (Sodium Chloride) 0.65 % [place] 1 [place] NSEACH TID Calmoseptine Ointment (Menthol/Lanolin/Calamine/Znox) 0.44 %-20.6 % Oint 1 Applic TP EVERY 3 HOURS PRN APPLICATION SITE NOT LISTED Sertraline HCl 25 Mg Tablet 25 Mg PO DAILY Atenolol 50 Mg Tablet 50 Mg PO DAILY Instructions to patient/family Please see electronic discharge instructions given to patient. Diagnosis/Problems Diagnosis/Problems (1) Closed head injury with brief loss of consciousness (2) Encephalopathy (3) Syncope Status: Acute (4) Hand fracture Status: Acute (5) Scalp laceration Status: Acute (6) Urinary tract infection Status: Acute LUCERO FUENTES DO Nov 26, 2022 09:15
--- NOTE | 2022-11-26 09:16 | PM&R Progress Note ---
Subjective HPI/CC On Admission Date Seen by Provider: Nov 26, 2022 Time Seen by Provider: 11:45 Subjective/Events-last exam 11/26/2022: 11/25/2022: Much improved Voiding well BM+ No falls Improved transfers DC tomorrow to SNF 11/24/2022: Doing better Sit to stand used Slow recovery but improved 11/23/2022: Patient improved Set up in chair most of morning Pain is improved Granddaughter who is a nurse practitioner is requesting an MRI of her cervical spine but she will need to be recovered enough to be able to lay down for an MRI scan which will likely be outpatient 11/22/2022: Improved but slow recovery NH placement likely a reality Pain controlled 11/21/2022: Improved mobility today Daughter at bedside Bad day yesterday UCX normal chance 11/20/2022: Very slow recovery Pain is still present Closed head injury has increased disability 11/19/2022: Patient getting a little bit more complicated Could not urinate so replaced Hoffmann catheter and UA showed evidence of UTI again and she just completed Rocephin so we will start cefepime empirically Very difficult for her to ambulate 11/18/2022: No major issues Improved overall No pain except muscles and right hand Thyroid supplement and B12 given 11/17/2022: Patient having some struggles Completely dependent now Severe spine disease noted on imaging scan Unsure if we will need to send to skilled if she cannot recover 11/16/2022: Pain improved Daughter and grandkids are visiting No falls Lovenox discussed and she is willing to take it since I will monitor platelets No issues otherwise 11/15/2022: Patient doing a little better Slow recovery Confusion seems to be clearing Refusing Lovenox due to low platelets per patient I do not feel like she is at high risk for bleeding so she will continue to decline Lovenox Pain is controlled Review of Systems General: Fatigue, Malaise Objective Exam Vital Signs Vital Signs Date Time Temp Pulse Resp B/P (MAP) Pulse Ox O2 Delivery O2 Flow Rate FiO2 11/26/22 15:27 35.4 56 14 142/59 97 Room Air 11/26/22 08:00 1.00 Capillary Refill : General Appearance: No Apparent Distress, WD/WN, Chronically ill, Obese HEENT: PERRL/EOMI, Normal ENT Inspection, Pharynx Normal Neck: Full Range of Motion, Normal Inspection, Non Tender, Supple, Carotid Bruit Respiratory: Chest Non Tender, Lungs Clear, Normal Breath Sounds, No Accessory Muscle Use, No Respiratory Distress Cardiovascular: Regular Rate, Rhythm, No Edema, No Gallop, No JVD, No Murmur, Normal Peripheral Pulses Gastrointestinal: Normal Bowel Sounds, No Organomegaly, No Pulsatile Mass, Non Tender, Soft Back: Normal Inspection, No CVA Tenderness, No Vertebral Tenderness Extremity: Normal Capillary Refill, Normal Inspection, Normal Range of Motion, Non Tender, No Calf Tenderness, No Pedal Edema Neurologic/Psychiatric: Alert, Oriented x3, patrol man II-XII Norm as Tested, Abnormal Gait, Depressed Affect, Motor Weakness (generalized), Other (confusion) Skin: Normal Color, Warm/Dry Lymphatic: No Adenopathy Results/Procedures Lab Patient resulted labs reviewed. [facility] Transfers Therapy Code Descriptions/Definitions Functional [place] Measure: 0=Not Assessed/NA 4=Minimal Assistance 1=Total Assistance 5=Supervision or Setup 2=Maximal Assistance 6=Modified [place] 3=Moderate Assistance 7=Complete IndependenceSCALE: Activities may be completed with or without assistive devices. 0-Ggkavbfszj-fjdqqjn completes the activity by him/herself with no assistance from a helper. 5-Set-up or Clean-up Assistance-helper sets up or cleans up; patient completes activity. [place] assists only prior to or following the activity. 4-Supervision or Touching Assistance-helper provides verbal cues and/or touching/steadying and/or contact guard assistance as patient completes activity. Assistance may be provided throughout the activity or intermittently. 3-Partial/Moderate Assistance-helper does LESS THAN HALF the effort. [place] lifts, holds or supports trunk or limbs, but provides less than half the effort. 2-Substantial/Maximal Assistance-helper does MORE THAN HALF the effort. [place] lifts or holds trunk or limbs and provides more than half the effort. 9-Ubheuzaat-knnwul does ALL the effort. Patient does none of the effort to complete the activity. Or, the assistance of 2 or more helpers is required for the patient to complete the activity. If activity was not attempted, code reason: 7-Patient Refused. 9-Not Applicable-not attempted and the patient did not perform the activity before the current illness, exacerbation or injury. 10-Not Attempted due to Environmental Limitations-(lack of equipment, weather restraints, etc.). 88-Not Attempted due to Medical Conditions or Safety Concerns. Roll Left to Right (QC): 3 Sit to Lying (QC): 3 Sit to Stand (QC): 1 Chair/Dqi-yk-Idzsl Xfer(QC): 1 Car Transfer (QC): 88 Gait Training Does the Patient Walk?: No and Walking Goal IS indicated Walk 10 feet (QC): 88 Walk 50 ft with 2 Turns(QC): 88 Walk 150 ft (QC): 88 Walking 10ft/uneven surface-QC: 88 Gait Assistive Device: FWW Wheelchair Training Does the Pt Use a Wheelchair?: Yes Wheel 50 ft with 2 turns (QC): 2 Wheel 150 ft (QC): 2 Type of Wheelchair: Manual Stair Training 1 Step (curb) (QC): 88 4 Steps (QC): 88 12 Steps (QC): 88 Balance Picking up an Object (QC): 88 ADL-Treatment Eating (QC): 5 Oral Hygiene (QC): 5 (built up handle for toothbrush) Bathing Location: Chest Shower/Bathe Self (QC): 2 Upper Body Dressing (QC): 2 Lower Body Dressing (QC): 1 On/Off Footwear (QC): 1 Toileting Hygiene (QC): 1 Toilet Transfer (QC): 1 Assessment/Plan Assessment and Plan Assess & Plan/Chief Complaint Assessment: Encephalopathy from closed head injury with LOC 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 Left hand fracture Scalp laceration with hematoma HTN Recent UTI completed Rocephin and Omnicef Increased BMI Refuses Lovenox occasionally Low platelets New hypothyroidism Recurrent UTI 11/19/2022 empirically placed on cefepime but urine culture showed normal chance and urine culture so stopped on 11/20/2022 Plan: Pain control Rehab Fall risk Monitor confusion Complete abx 11/15/2022: Pain control Supportive care 11/16/2022: Pain control Lovenox: pt willing to take now 11/17/2022: May need skilled care 11/18/2022: Synthroid B12 11/19/2022: Replace Hoffmann Cefepime empirically 11/20/2022: Abx DC due to normal chance and urine culture 11/21/2022: Much improved status 11/22/2022: Supportive care Monitor closely 11/23/2022: Supportive care Monitor closely 11/24/2022: Monitor closely 11/25/2022: DC tomorrow to SNF 11/26/2022: (1) Closed head injury with brief loss of consciousness (2) Encephalopathy (3) Syncope Status: Acute (4) Hand fracture Status: Acute (5) Scalp laceration Status: Acute (6) Urinary tract infection Status: Acute LUCERO FUENTES DO Nov 26, 2022 09:16
[2022-11-26 15:27] VITALS: BP 142/59
--- NOTE | 2022-11-26 15:45 | Therapy Team Discharge Summary ---
Therapy Discharge Summary Discharge Recommendations Date of Discharge 11/26/2022 Therapy D/C Recommendations: 24 hr Supervision Physical Therapy Pt fell on 11/12/2022 hitting head on fireplace; ED on 11/12/2022 with R wrist fx (WBAT) and R knee pain; Admitted to ARU on 11/14/2022. At [facility], pt was Mod I with the FWW at the [facility]. Upon PT eval, pt was Max A x 2 for bed mobility and stand pivot transfers. Pt was unable to complete any more functional mobility at evky. PT focused on B LE strengthening, bed mobility, transfers, standing tolerance, w/c mobility, safety, and Ind. PT progressed well with PT, but did not met set goals, secondary to overall weakness and debility. Pt d/c from ARU to SNF on 11/26/2022; D/C from PT at this time. Roll Left to Right (QC): 3 Sit to Lying (QC): 3 Lying to Sitting/Side of Bed(Q: 3 Sit to Stand (QC): 1 Chair/Ydy-cb-Btkbh Xfer(QC): 1 Toilet Transfer (QC): 1 Car Transfer (QC): 88 Does the Patient Walk: No and Walking Goal IS indicated Mode of Locomotion: Both Anticipated Mode of Locomotion: Both Walk 10 feet (QC): 88 Walk 50 ft with 2 Turns(QC): 88 Walk 150 ft (QC): 88 Walking 10ft on uneven surface: 88 Does the Pt Use a Wheelchair: Yes Wheel 50 ft with 2 turns (QC): 2 Wheel 150 ft (QC): 2 Type of Wheelchair: Manual 1 Step (curb) (QC): 88 4 Steps (QC): 88 12 Steps (QC): 88 Balance Sitting Static: Good Balance Sitting Dynamic: Fair Balance-Standing Static: Poor Picking up an Object (QC): 88 Occupational Therapy Decreased Activ Tolerance, Decreased UE Strength, Dependent Transfers, Impaired Bed Mobility, Impaired Funct Balance, Impaired Self-Care Skills, Restricted Funct UE ROM Eating (QC): 5 Oral Hygiene (QC): 5 (built up handle for toothbrush) Shower/Bathe Self (QC): 2 Upper Body Dressing (QC): 2 Lower Body Dressing (QC): 1 On/Off Footwear (QC): 1 Toileting Hygiene (QC): 1 PT Satellite Installer Goals Satellite Installer Goals PT Skilled Nursing Goals Time Frame: Nov 28, 2022 Roll Left to Right (QC): 4 (Pt will be SBA for functional mobility, in order to safely d/c back to [facility] ) Sit to Lying (QC): 4 (Pt will be SBA for functional mobility, in order to safely d/c back to [facility] ) Lying-Sitting on Side/Bed(QC): 4 (Pt will be SBA for functional mobility, in order to safely d/c back to [facility] ) Sit to Stand (QC): 4 (Pt will be SBA for functional mobility, in order to safely d/c back to [facility] ) Chair/Rbm-hd-Wtrfs Xfer(QC): 4 (Pt will be SBA for functional mobility, in order to safely d/c back to [facility] ) Toilet/Commode Transfer (QC): 4 (Pt will be SBA for functional mobility, in order to safely d/c back to [facility] ) Car Transfer (QC): 4 (Pt will be SBA for functional mobility, in order to safely d/c back to [facility] ) Does the Patient Walk: No and Walking Goal IS indicated Walk 10 feet (QC): 4 (Pt will be SBA for functional mobility, in order to safely d/c back to [facility] ) Walk 10ft-Uneven Surface(QC): 4 (Pt will be SBA for functional mobility, in order to safely d/c back to [facility] ) Walk 50ft with 2 Turns (QC): 4 (Pt will be SBA for functional mobility, in order to safely d/c back to [facility] ) Walk 150 ft (QC): 4 (Pt will be SBA for functional mobility, in order to safely d/c back to [facility] ) Does the Pt use WC or Scooter?: Yes Wheel 50 feet with 2 turns (QC: 4 (Pt will be SBA for functional mobility, in order to safely d/c back to [facility] ) Type: Manual Wheel 150 feet: 4 (Pt will be SBA for functional mobility, in order to safely d/c back to [facility] ) Type: Manual 1 Step (curb) (QC): 9 (Pt did not have to negotiate stairs at PLOF ) 4 Steps (QC): 9 (Pt did not have to negotiate stairs at PLOF ) 12 Steps (QC): 9 (Pt did not have to negotiate stairs at PLOF ) Picking up an Object (QC): 4 (Pt will be SBA for functional mobility, in order to safely d/c back to [facility] ) OT Satellite Installer Goals Skilled Nursing Goals Time Frame: Nov 28, 2022 Acute change in mental status: 0 Inattention: 0 Disorganized thinkin Altered level of consciousness: 0 Eating (QC): 6 (not met) Oral Hygiene (QC): 6 (not met) Toileting Hygiene (QC): 4 (nt met) Shower/Bathe Self (QC): 4 (not met) Upper Body Dressing (QC): 4 (not met) Lower Body Dressing (QC): 4 (not met) On/Off Footwear (QC): 4 (with tools) 1=Demonstrate adherence to instructed precautions during ADL tasks. 2=Patient will verbalize/demonstrate understanding of assistive devices/modifications for ADL. 3=Patient will improve strength/tolerance for activity to enable patient to perform ADL's. Speech Satellite Installer Goals Skilled Nursing Goals 1. Pt will complete memory tasks following short delay with 80% accuracy with min verbal cues. NOT MET 2. Pt will complete basic executive functioning tasks with 80% accuracy with min verbal cues. NOT MET 3. Pt will complete visuospatial tasks with 80% accuracy with min verbal cues. NOT MET 4. Pt will follow 2 step directions with 80% accuracy with min verbal cues. NOT MET SLICK LAST PT Nov 26, 2022 15:45
--- NOTE | 2022-11-27 14:40 | Therapy Team Discharge Summary ---
Therapy Discharge Summary Discharge Recommendations Date of Discharge Nov 26, 2022 at 15:00 Therapy D/C Recommendations: 24 hr Supervision Physical Therapy Roll Left to Right (QC): 3 Sit to Lying (QC): 3 Lying to Sitting/Side of Bed(Q: 3 Sit to Stand (QC): 1 Chair/Fct-lp-Pjkop Xfer(QC): 1 Toilet Transfer (QC): 1 Car Transfer (QC): 88 Does the Patient Walk: No and Walking Goal IS indicated Mode of Locomotion: Both Anticipated Mode of Locomotion: Both Walk 10 feet (QC): 88 Walk 50 ft with 2 Turns(QC): 88 Walk 150 ft (QC): 88 Walking 10ft on uneven surface: 88 Does the Pt Use a Wheelchair: Yes Wheel 50 ft with 2 turns (QC): 2 Wheel 150 ft (QC): 2 Type of Wheelchair: Manual 1 Step (curb) (QC): 88 4 Steps (QC): 88 12 Steps (QC): 88 Balance Sitting Static: Good Balance Sitting Dynamic: Fair Balance-Standing Static: Poor Picking up an Object (QC): 88 Occupational Therapy Pt fell on 11/12/2022 hitting head on fireplace; ED on 11/12/2022 with R wrist fx (WBAT) and R knee pain; Admitted to ARU on 11/14/2022. At [facility], pt was Mod I with the FWW at the [facility]. Upon OT eval, pt was Max A x 2 for bed mobility, stand pivot transfers, LB ADLs. OT focused on B UE strengthening, dressing sequences, ADS for ADLS, transfers, standing tolerance, w/c mobility, safety, and Ind. OT progressed minimally and did not met set goals, secondary to overall weakness and debility. Pt d/c from ARU to SNF on 11/26/2022; Decreased Activ Tolerance, Decreased UE Strength, Dependent Transfers, Impaired Bed Mobility, Impaired Funct Balance, Impaired Self-Care Skills, Restricted Funct UE ROM Eating (QC): 5 Oral Hygiene (QC): 5 (built up handle for toothbrush) Shower/Bathe Self (QC): 2 Upper Body Dressing (QC): 2 Lower Body Dressing (QC): 1 On/Off Footwear (QC): 1 Toileting Hygiene (QC): 1 PT Longterm Goals Longterm Goals PT Longterm Goals Time Frame: Nov 28, 2022 Roll Left to Right (QC): 4 (Pt will be SBA for functional mobility, in order to safely d/c back to [facility] ) Sit to Lying (QC): 4 (Pt will be SBA for functional mobility, in order to safely d/c back to [facility] ) Lying-Sitting on Side/Bed(QC): 4 (Pt will be SBA for functional mobility, in order to safely d/c back to [facility] ) Sit to Stand (QC): 4 (Pt will be SBA for functional mobility, in order to safely d/c back to [facility] ) Chair/Gll-qw-Lqncb Xfer(QC): 4 (Pt will be SBA for functional mobility, in order to safely d/c back to AFL ) Toilet/Commode Transfer (QC): 4 (Pt will be SBA for functional mobility, in order to safely d/c back to [facility] ) Car Transfer (QC): 4 (Pt will be SBA for functional mobility, in order to safely d/c back to [facility] ) Does the Patient Walk: No and Walking Goal IS indicated Walk 10 feet (QC): 4 (Pt will be SBA for functional mobility, in order to safely d/c back to [facility] ) Walk 10ft-Uneven Surface(QC): 4 (Pt will be SBA for functional mobility, in order to safely d/c back to [facility] ) Walk 50ft with 2 Turns (QC): 4 (Pt will be SBA for functional mobility, in order to safely d/c back to [facility] ) Walk 150 ft (QC): 4 (Pt will be SBA for functional mobility, in order to safely d/c back to [facility] ) Does the Pt use WC or Scooter?: Yes Wheel 50 feet with 2 turns (QC: 4 (Pt will be SBA for functional mobility, in order to safely d/c back to [facility] ) Type: Manual Wheel 150 feet: 4 (Pt will be SBA for functional mobility, in order to safely d/c back to [facility] ) Type: Manual 1 Step (curb) (QC): 9 (Pt did not have to negotiate stairs at PLOF ) 4 Steps (QC): 9 (Pt did not have to negotiate stairs at PLOF ) 12 Steps (QC): 9 (Pt did not have to negotiate stairs at PLOF ) Picking up an Object (QC): 4 (Pt will be SBA for functional mobility, in order to safely d/c back to [facility] ) OT Longterm Goals Treasury Representative Goals Time Frame: Nov 28, 2022 Acute change in mental status: 0 Inattention: 0 Disorganized thinkin Altered level of consciousness: 0 Eating (QC): 6 (not met) Oral Hygiene (QC): 6 (not met) Toileting Hygiene (QC): 4 (nt met) Shower/Bathe Self (QC): 4 (not met) Upper Body Dressing (QC): 4 (not met) Lower Body Dressing (QC): 4 (not met) On/Off Footwear (QC): 4 (with tools) 1=Demonstrate adherence to instructed precautions during ADL tasks. 2=Patient will verbalize/demonstrate understanding of assistive devices/modifications for ADL. 3=Patient will improve strength/tolerance for activity to enable patient to perf orm ADL's. Speech Treasury Representative Goals Treasury Representative Goals 1. Pt will complete memory tasks following short delay with 80% accuracy with min verbal cues. NOT MET 2. Pt will complete basic executive functioning tasks with 80% accuracy with min verbal cues. NOT MET 3. Pt will complete visuospatial tasks with 80% accuracy with min verbal cues. NOT MET 4. Pt will follow 2 step directions with 80% accuracy with min verbal cues. NOT MET ALYSON ADHIKARI OT Nov 27, 2022 14:40
== END 2022-11-26 15:00 | DRG 949 ==
PROVIDERS: ADMIT Internal Medicine; ATTEND Internal Medicine
DX: S06.9X9D Unspecified intracranial injury with loss of consciousness of unspecified duration, subsequent encounter (principal); E44.0 Moderate protein-calorie malnutrition; G93.49 Other encephalopathy; N39.0 Urinary tract infection, site not specified; S01.01XD Laceration without foreign body of scalp, subsequent encounter; S62.111D Displaced fracture of triquetrum [cuneiform] bone, right wrist, subsequent encounter for fracture with routine healing; I10 Essential (primary) hypertension; K59.00 Constipation, unspecified; Z66 Do not resuscitate; D69.6 Thrombocytopenia, unspecified; R33.9 Retention of urine, unspecified; E66.01 Morbid (severe) obesity due to excess calories; L89.312 Pressure ulcer of right buttock, stage 2; F32.A Depression, unspecified; E03.9 Hypothyroidism, unspecified; Z91.81 History of falling; Z68.38 Body mass index [BMI] 38.0-38.9, adult; Z79.84 Long term (current) use of oral hypoglycemic drugs; Z79.899 Other long term (current) drug therapy; Z79.01 Long term (current) use of anticoagulants; W18.30XD Fall on same level, unspecified, subsequent encounter
CPT/HCPCS: 36415; 73110; 80053; 81000; 82607; 82947; 84443; 85025; 87088; 94664; 94760

== ENCOUNTER → 2023-04-20 | Outpatient (CLI) | payer MEDICARE, MEDICAID ==
[~2023-04-20] MED LIST changes: +BACL10TA PO; +BETH25TA2 PO; +CYAN-41 PO; -DICL100G13 TOP; +DICL100G60 TOP; +ENOX40DI8 SC; +HYDR-34 PO; +LEVO50TA PO; +ONDA4TAB11 PO; +SENN-271 PO; +TRM50T PO
[2023-04-20 12:02] LABS: BASOPHILS % (AUTO) 0 % (0-10); HEMOGLOBIN 14.9 g/dL (11.5-16.0); MONOCYTES # (AUTO) 0.7 10^3/uL (0.0-1.0)
[2023-04-20 12:03] LABS: EOSINOPHILS # (AUTO) 0.5 10^3/uL (0.0-0.3); EOSINOPHILS % (AUTO) 6 % (0-10); HEMATOCRIT 46 % (35-52); LYMPHOCYTES # (AUTO) 2.9 10^3/uL (1.0-4.0); LYMPHOCYTES % (AUTO) 34 % (12-44); MEAN CORPUSCULAR HEMOGLOBIN 29 pg (25-34); MEAN CORPUSCULAR HGB CONC 32 g/dL (32-36); MEAN CORPUSCULAR VOLUME 88 fL (80-99); MEAN PLATELET VOLUME 12.7 fL (9.0-12.2); MONOCYTES % (AUTO) 8 % (0-12); NEUTROPHILS # (AUTO) 4.3 10^3/uL (1.8-7.8); NEUTROPHILS % (AUTO) 51 % (42-75); PLATELET COUNT 83 10^3/uL (130-400); WHITE BLOOD COUNT 8.4 10^3/uL (4.3-11.0)
[2023-04-20 12:08] LABS: ALBUMIN 3.8 GM/DL (3.2-4.5)
[2023-04-20 12:09] LABS: CALCIUM 9.6 MG/DL (8.5-10.1)
[2023-04-20 12:11] LABS: TOTAL PROTEIN 7.3 GM/DL (6.4-8.2)
[2023-04-20 12:12] LABS: BILIRUBIN,TOTAL 0.4 MG/DL (0.1-1.0)
[2023-04-20 12:14] LABS: CREATININE SERUM 0.78 MG/DL (0.60-1.30)
== END ==
LOC: LAB 11:36
PROVIDERS: ATTEND Orthopaedic Surgery Orthopaedic Surgery of the Spine
DX: Z01.812 Encounter for preprocedural laboratory examination (principal); M54.2 Cervicalgia; Z22.322 Carrier or suspected carrier of Methicillin resistant Staphylococcus aureus
CPT/HCPCS: 36415; 80053; 85025; 86850; 86900; 86901